=== PATIENT | male | born 1935 | race African-American/Black ===

== ENCOUNTER 2016-05-21 20:21 | Inpatient (IN) | payer MEDICARE, OTHER, MEDICAID ==
[~2016-05-21] VITALS: Ht 167.6 cm; Wt 94.8 kg
[2016-05-21] MEDS: D5 1/2NS 1,000 ML IV SCH (17:40)
[~2016-05-21 20:21] MED LIST: ALBUTEROL2.5 MG/3 M HHN; ATROVENT INH S2.5 ML HHN; CARDIZEM30 MG ORAL; CATAPRES0.1 MG GT; COLACE100 MG GT; COLISTIN150 MG INH; COZAAR50 MG GT; FERROUS SULFAT325 MG GT; HEPARIN SO5000 UNIT/ IJ; MORPHINE SU2 MG/1 ML IJ; MORPHINE SU4 MG/1 ML IJ; NORVASC10 MG GT; PHENERGAN/CODE120 ML GT; PROTONIX40 MG GT; TENORMIN25 MG GT; TYLENOL 8 HOUR650 MG GT; VITAMIN C500 MG/15 GT
--- NOTE | 2016-05-21 20:21 | Emergency Room Report ---
History of Present Illness General Chief Complaint: Vomiting Source: Medical Record, EMS (Pedro Washington) Present Illness HPI Patient is 80-year-old male who presented after having increased coffee-ground emesis. Patient had prior history of tracheostomy and ventilator dependence. Patient was also noted be fed by G-tube. Patient was noted to have some dark material coming out of his tracheostomy tube. The patient had been sent in by EMS. History is markedly limited by patient's mental status. (Pedro Washington) Allergies: Coded Allergies: No Known Allergies (Verified , 08/19/07) Patient History Reviewed Nursing Documentation: PMH: Agreed, PSxH: Agreed (Pedro Washington) Nursing Documentation-PMH Past Medical History: No History, Except For Hx COPD: Yes - trach, vent dependent Hx Diabetes: Yes - dm2 Hx Gastrointestinal Problems: Yes - GERD, G tube Hx Seizures: Yes (Pedro Washington) Review of Systems All Other Systems: limited - limited by mental status (Pedro Washington) Physical Exam Vital Signs Date Time Temp Pulse Resp B/P Pulse Ox O2 Delivery O2 Flow Rate FiO2 05/21/16 20:15 68 22 131/57 99 Ambu-Bag General Appearance: moderate distress, other - nonverbal, eyes open, contracted extremities Head: normocephalic Eyes: bilateral eye PERRL ENT: other - coffee ground material in oropharynx Respiratory: decreased breath sounds Cardiovascular #1: normal peripheral pulses, edema Gastrointestinal: soft, non-distended, other - gtube site c/D/I Genitourinary: normal inspection Musculoskeletal: other - contracted extremities Neurologic: motor weakness - bilateral upper and lower extremities, other - grimaces and withdraws Skin: normal inspection, normal color (Pedro Washington) Procedures Critical Care Time Critical Care Time Patient had a critical medical condition which untreated could potentially result in life or limb threatening injury. Total critical care time excluding procedures approximately 45 minutes. (Pedro Washington) Central Line Central Line : Consent: Emergent Central Line Lumen: triple Maximal Sterile Barrier Tech: yes cap, yes mask, yes sterile gown, yes sterile gloves, yes large sterile sheet, yes hand hygiene, yes chlorhexidine prep Central Line Postion: subclavian (R) Anesthesia: Lidocaine - 3ml Complications: none Central Line Post Position: sutured, good blood return, position confirmed w / CXR Attempts: One Patient Tolerated: Well Complications: None (Pedro Washington) Medical Decision Making Diagnostic Impression: Primary Impression: Acute on chronic respiratory failure Additional Impressions: Sepsis Upper GI hemorrhage Gastrostomy in place ER Course Patient presented for blood from tracheostomy. Differential diagnosis included was not limited to the tracheitis, pneumonia, coagulopathy, GI bleed, the trachea fistula among others. Because of complexity of patient's case laboratory testing and imaging studies were ordered.I laboratory testing showed evidence of elevated white blood count as well as anemia. Patient started on IV acid blockers. He was type and screened for blood.Dr. Raymond was contacted for inpatient management due to complexity of medical condition. The patient was given empiric antibiotics Labs Test 05/21/16 20:22 05/21/16 20:45 Arterial Blood pH 7.638 (7.350-7.450) Arterial Blood Partial Pressure CO2 32.2 mmHg (35.0-45.0) Arterial Blood Partial Pressure O2 167.0 mmHg (75.0-100.0) Arterial Blood HCO3 33.7 mmol/L (22.0-26.0) Arterial Blood Oxygen Saturation 98.4 % (92.0-98.0) Arterial Blood Base Excess 12.2 Pablito Test N/a White Blood Count 18.8 K/UL (4.8-10.8) Red Blood Count 3.00 M/UL (4.70-6.10) Hemoglobin 9.0 G/DL (14.2-18.0) Hematocrit 27.3 % (42.0-52.0) Mean Corpuscular Volume 91 FL (80-99) Mean Corpuscular Hemoglobin 30.1 PG (27.0-31.0) Mean Corpuscular Hemoglobin Concent 33.1 G/DL (32.0-36.0) Red Cell Distribution Width 17.6 % (11.6-14.8) Platelet Count 254 K/UL (150-450) Mean Platelet Volume 6.8 FL (6.5-10.1) Neutrophils (%) (Auto) % (45.0-75.0) Lymphocytes (%) (Auto) % (20.0-45.0) Monocytes (%) (Auto) % (1.0-10.0) Eosinophils (%) (Auto) % (0.0-3.0) Basophils (%) (Auto) % (0.0-2.0) Prothrombin Time 11.6 SEC (9.30-11.50) Prothromb Time International Ratio 1.1 (0.9-1.1) Activated Partial Thromboplast Time 28 SEC (23-33) Sodium Level 133 mEQ/L (135-145) Potassium Level 3.4 mEQ/L (3.4-4.9) Chloride Level 88 mEQ/L (98-107) Carbon Dioxide Level 33 mEQ/L (20-30) Anion Gap 12 (5-15) Blood Urea Nitrogen 33 mg/dL (7-23) Creatinine 0.7 mg/dL (0.7-1.2) Estimat Glomerular Filtration Rate mL/min (>60) Glucose Level 114 mg/dL (74-106) Lactic Acid Level 1.80 mmol/L (0.66-2.22) Calcium Level 9.0 mg/dL (8.6-10.2) Total Bilirubin 0.6 mg/dL (0.0-1.2) Aspartate Amino Transf (AST/SGOT) 15 U/L (5-40) Alanine Aminotransferase (ALT/SGPT) 14 U/L (3-41) Alkaline Phosphatase 69 U/L (40-129) Troponin I < 0.30 ng/mL (<=0.30) Total Protein 7.4 g/dL (6.6-8.7) Albumin 3.2 g/dL (3.5-5.2) Globulin 4.2 g/dL Albumin/Globulin Ratio 0.7 (1.0-2.7) Lipase 9 U/L (< 60) (Pedro Washington) ER Course Patient with vomiting coffee grounds and blood. H/H has dropped 2 points and is below 8. Transfusion had been discussed with son. Transfusion ordered. (Avi Garcia M.D.) Last Vital Signs Date Time Temp Pulse Resp B/P Pulse Ox O2 Delivery O2 Flow Rate FiO2 05/21/16 20:15 68 22 131/57 99 Ambu-Bag Status: unchanged (Pedro Washington) Disposition: ADMITTED INPATIENT Condition: Serious Pedro Washington May 21, 2016 20:21 Avi Garcia M.D. May 22, 2016 04:55
[2016-05-21] MEDS ORDERED: Pantoprazole Inj IV ONE (20:30)
[2016-05-21 20:51] LABS: ABG BASE EXCESS 12.2; ABG PCO2 32.2 mmHg (35.0-45.0)
[2016-05-21 21:15] LABS: ALANINE AMINOTRANSFERASE 14 U/L (3-41); ALBUMIN/GLOBULIN RATIO 0.7 (1.0-2.7); ANION GAP 12 (5-15); ASPARTATE AMINO TRANSFERASE 15 U/L (5-40); CARBON DIOXIDE 33 mEQ/L (20-30); CHLORIDE 88 mEQ/L (98-107); CREATININE 0.7 mg/dL (0.7-1.2); HEMOLYSIS 6; LIPASE 9 U/L (< 60); POTASSIUM 3.4 mEQ/L (3.4-4.9); SODIUM 133 mEQ/L (135-145); TOTAL PROTEIN 7.4 g/dL (6.6-8.7)
[2016-05-21] MEDS ORDERED: Tubing IV Cassette IV ONE (21:16)
[2016-05-21 21:20] LABS: MEAN CORPUSCULAR HEMOGLOBIN 30.1 PG (27.0-31.0); MEAN CORPUSCULAR HGB CONC 33.1 G/DL (32.0-36.0); MEAN CORPUSCULAR VOLUME 91 FL (80-99); MEAN PLATELET VOLUME 6.8 FL (6.5-10.1); PLATELET COUNT 254 K/UL (150-450); RED CELL DISTRIBUTION WIDTH 17.6 % (11.6-14.8); WHITE BLOOD COUNT 18.8 K/UL (4.8-10.8)
[2016-05-21 21:27] LABS: INR 1.1 (0.9-1.1); PROTHROMBIN TIME 11.6 SEC (9.30-11.50)
[2016-05-21 21:34] LABS: TROPONIN I < 0.30 ng/mL (<=0.30)
[2016-05-21 21:59] VITALS: BP 110/59
[2016-05-21] MEDS ORDERED: Ampicillin/Sulbactam Sod 3 GM in NS 110 ML IVPB ONE (22:00)
[2016-05-21] MEDS ORDERED: Nitroglycerin Subl 0.4mg tab (Bottle Of 25) SL PRN (22:00)
[2016-05-21] MEDS: DuoNeb 0.5-3(2.5)mg/3ml neb HHN SCH ×2 (22:00→23:00)
[2016-05-21] MEDS ORDERED: Mylanta II UD 30ml ORAL PRN (22:00)
[2016-05-21] MEDS ORDERED: Miralax 17gm pkt ORAL PRN (22:00)
[2016-05-21] MEDS ORDERED: Unasyn 3gm Inj ONE (22:01)
[2016-05-21] MEDS ORDERED: NS 110 ML ONE (22:01)
[2016-05-21 22:13] LABS: APPEARANCE,URINE CLOUDY; KETONES,URINE 1+ (NEGATIVE); LEUKOCYTE ESTERASE ,URINE 3+ (NEGATIVE); NITRITE,URINE NEGATIVE (NEGATIVE); PH,URINE 7 (4.5-8.0); PROTEIN,URINE 3+ (NEGATIVE); UROBILINOGEN,URINE 1 MG/DL (0.0-1.0)
[2016-05-21 22:23] LABS: BACTERIA,URINE MODERATE /HPF; RBC,URINE 15-20 /HPF (0 - 0); WBC,URINE 60-80 /HPF (0 - 0)
[2016-05-21 22:26] LABS: ANISOCYTOSIS 1+; BAND NEUTROPHILS % (MANUAL) 1 % (0-8); LYMPHOCYTES % (MANUAL) 9 % (20-45); NEUTROPHILS % (MANUAL) 86 % (45-75); PLATELET MORPHOLOGY NORMAL; TOTAL CELLS COUNTED 100
[2016-05-21 22:27] LABS: BASOPHILS % (MANUAL) 0 % (0-2); EOSINOPHILS % (MANUAL) 0 % (0-3); PLATELET ESTIMATE ADEQUATE
[2016-05-21 23:21] VITALS: BP 90/70
[2016-05-22] VITALS (10 sets, daily range): BP systolic 100–142; BP diastolic 49–98
[2016-05-22] MEDS ORDERED: Acetaminophen 650 MG SUPP RECTAL ONE (01:15)
[2016-05-22 04:37] LABS: MEAN CORPUSCULAR HEMOGLOBIN 28.8 PG (27.0-31.0); MEAN CORPUSCULAR HGB CONC 31.7 G/DL (32.0-36.0); MEAN CORPUSCULAR VOLUME 91 FL (80-99); MEAN PLATELET VOLUME 6.7 FL (6.5-10.1); PLATELET COUNT 227 K/UL (150-450); RED BLOOD COUNT 2.66 M/UL (4.70-6.10); RED CELL DISTRIBUTION WIDTH 17.7 % (11.6-14.8); WHITE BLOOD COUNT 12.7 K/UL (4.8-10.8)
[2016-05-22 05:02] LABS: INR 1.2 (0.9-1.1); PROTHROMBIN TIME 12.1 SEC (9.30-11.50)
[2016-05-22 05:06] LABS: ALANINE AMINOTRANSFERASE 13 U/L (3-41); ALBUMIN/GLOBULIN RATIO 0.7 (1.0-2.7); ASPARTATE AMINO TRANSFERASE 15 U/L (5-40); CALCIUM 8.5 mg/dL (8.6-10.2); CARBON DIOXIDE 33 mEQ/L (20-30); CHLORIDE 91 mEQ/L (98-107); CREATININE 0.7 mg/dL (0.7-1.2); HEMOLYSIS 4; SODIUM 137 mEQ/L (135-145); TOTAL PROTEIN 6.6 g/dL (6.6-8.7)
[2016-05-22 05:11] LABS: ANION GAP 13 (5-15)
[2016-05-22 05:13] LABS: POTASSIUM 2.6 mEQ/L (3.4-4.9)
[2016-05-22 05:29] LABS: BILIRUBIN,DIRECT 0.3 mg/dL (0.1-0.3)
[2016-05-22] MEDS: DuoNeb 0.5-3(2.5)mg/3ml neb HHN SCH ×3 (07:00→23:17)
[2016-05-22] MEDS ORDERED: AMLODIPINE BESY10 MG GT (07:21)
[2016-05-22] MEDS ORDERED: PROMOD946 ML GT (07:21)
[2016-05-22] MEDS ORDERED: EPOGEN20000 UNI1 SUBQ (07:21)
[2016-05-22] MEDS ORDERED: FERROUS SULFAT325 MG GT (07:21)
[2016-05-22] MEDS ORDERED: CATAPRES0.1 MG GT (07:21)
[2016-05-22] MEDS ORDERED: MULTIVITAMINS1 EAC8 GT (07:21)
[2016-05-22] MEDS ORDERED: OYSTER SHELL 51 EAC1 GT (07:21)
--- NOTE | 2016-05-22 09:25 | Diagnostic Imaging Report ---
Indication: Gastrostomy tube, check for placement Technique: XRAY ABDOMEN 1VIEW/KUB Comparison: None. Findings: Single view of the upper abdomen is present. Contrast has been injected and a gastrostomy tube. Stomach fills with contrast material. Contrast refluxes up the esophagus. Patient's arms overlie the lower chest. Impression: Gastrostomy tube in the stomach. 3 for contrast material into the esophagus.
--- NOTE | 2016-05-22 09:36 | Diagnostic Imaging Report ---
Indication: SOB Technique: XRAY CHEST 1 V Comparison:06/02/2014 Findings: The patient's hands overlie the lower chest. There is linear density in the right lung base. Calcified granulomas noted in the right lung base. Patient has taken a poor inspiration. Heart is probably at the upper limits of normal. Tracheostomy is in place. Bones are osteopenic. No other gross change from previous study. Impression: Tracheostomy. Old granulomatous disease. Scarring or atelectasis the right base. Osteopenia. No other gross abnormality.
[2016-05-22] MEDS: Losartan 50mg tab GT SCH (09:52)
[2016-05-22] MEDS: Morphine Sulfate 2mg/ml Inj IVP PRN ×2 (09:53→23:53)
[2016-05-22] MEDS: Pantoprazole Inj IVP SCH (09:53)
[2016-05-22] MEDS: D5 1/2NS 1,000 ML IV SCH ×3 (09:54→20:30)
--- NOTE | 2016-05-22 10:14 | Diagnostic Imaging Report ---
Indication: Line placement Technique: XRAY CHEST 1 V Comparison: Current exam obtained at 2202 compared with one obtained earlier 05/21/2016 at 2054. Findings: The right subclavian catheter has been placed with the tip in the superior cavoatrial junction. No pneumothorax. No other change. Impression: Right subclavian catheter and adequate position.
--- NOTE | 2016-05-22 15:00 | History and Physical ---
History of Present Illness General Date patient seen: May 22, 2016 Time patient seen: 13:30 Reason for Hospitalization: Vomiting Present Illness HPI 80-year-old male with hx of VDRF, tarch,s eziure disorder, dysphagia, G tube, presented after having coffee-ground emesis. Patient was also noted in SNF to have some dark material coming out of his tracheostomy tube. Patient unable to provide any hsitroy due to his condition. workup in ED revealed fever, tachycardia, tachypnea. leukocytosis, ABG revealed acidosis UA+ UTI CXR with possible PNA HH dropped from 9 to 7.7 over night patient admitted for further management Allergies: Coded Allergies: No Known Allergies (Verified , 08/19/07) Medication History Scheduled Acetaminophen (Tylenol 8 Hour), 650 MG GT Q4HR, (Reported) Albuterol Sulfate* (Albuterol Sulfate Hhn*), 2.5 MG HHN Q6H, (Reported) Amlodipine Besylate* (Amlodipine Besylate*), 10 MG GT DAILY, (Reported) Clonidine Hcl* (Catapres*), 0.1 MG GT EVERY 4 HOURS, (Reported) Diltiazem HCl (Diltiazem 12Hr ER), 30 MG ORAL BID Docusate Sodium* (Colace*), 100 MG GT BID, (Reported) Ferrous Sulfate* (Ferrous Sulfate*), 330 MG GT THREE TIMES A DAY, (Reported) Heparin Sodium,Porcine/Pf (Heparin Sod 5,000 Unit/ 0.5 Ml), 5,000 UNIT IJ BID, ( Reported) Ipratropium [place] (Atrovent Inh Soln), 2.5 ML HHN Q6H, (Reported) Losartan Potassium* (Cozaar*), 100 MG GT DAILY, (Reported) Morphine Sulfate (Morphine Sulfate), 4 MG IJ Q4HR, (Reported) Morphine Sulfate* (Morphine Sulfate*), 6 MG IJ Q4H, (Reported) Multivitamin With Minerals (Multivitamins With Minerals*), 1 TAB GT DAILY, ( Reported) Pantoprazole* (Protonix*), 40 MG GT DAILY, (Reported) Promethazine/Codeine* (Phenergan/Codeine*), 5 ML GT Q6HR, (Reported) Protein Supplement (Promod), 30 ML GT TWICE A DAY, (Reported) Vit C/Ascorbate Ca/Ascorb Sod (Vitamin C 500 Mg/15 Ml Liquid), 500 MG GT DAILY, (Reported) Miscellaneous Medications Calcium Carbonate/Vitamin D3 (Oyster Shell 500 Mg + Vit D Tb), 1 EACH GT, ( Reported) Epoetin Jovani (Epogen), 1 ML SUBQ, (Reported) Patient History Healthcare decision maker Resuscitation status Advanced Directive on File Yes Past Medical/Surgical History Past Medical/Surgical History: (1) Feeding by G-tube (2) DM (diabetes mellitus) (3) Sepsis (4) Seizure disorder (5) Renal failure (6) Anemia (7) Chronic respiratory failure (8) Upper GI hemorrhage (9) UTI (urinary tract infection) Review of Systems ROS Narrative unable to obtain due to ALOC Physical Exam General Appearance: lethargic, obese Lines, tubes and drains: central line - R subclavian HEENT: normocephalic, atraumatic, status post trach Respiratory/Chest: other - few isolated rhonchi Cardiovascular/Chest: regular rhythm, tachycardia Abdomen: soft, other - G tube clamped Extremities: other - spastic LE Neurologic: abnormal gait - bedridden , other - lethargic, spastic LE Last 24 Hour Vital Signs Date Time Temp Pulse Resp B/P Pulse Ox O2 Delivery O2 Flow Rate FiO2 05/22/16 13:09 96 22 30 05/22/16 12:00 30 05/22/16 12:00 75 05/22/16 12:00 98.4 75 16 133/74 100 Mechanical Ventilator 30 05/22/16 11:00 61 20 30 05/22/16 09:52 142/64 05/22/16 09:52 109 142/64 05/22/16 09:20 98.6 109 17 142/64 100 Mechanical Ventilator 30 05/22/16 08:47 109 16 30 05/22/16 08:10 100.8 75 14 130/72 100 Mechanical Ventilator 30 05/22/16 07:01 95 14 113/57 100 Trach Collar 30 05/22/16 06:31 124 18 30 05/22/16 05:44 100.8 100 14 114/68 100 Trach Collar 30 05/22/16 05:25 121 26 30 05/22/16 04:20 104 14 122/98 100 Trach Collar 05/22/16 03:20 109 14 115/56 100 Trach Collar 30 05/22/16 03:18 129 35 30 05/22/16 02:10 100.1 130 14 110/80 100 Trach Collar 30 05/22/16 01:52 30 05/22/16 01:34 100.1 05/22/16 01:14 149 29 30 05/22/16 01:01 101.0 126 14 100/49 100 Trach Collar 30 05/21/16 23:21 100.6 125 14 90/70 100 Trach Collar 30 05/21/16 23:16 126 26 30 05/21/16 21:59 100.5 129 14 110/59 100 Trach Collar 30 05/21/16 20:59 30 05/21/16 20:58 30 05/21/16 20:31 129 33 45 05/21/16 20:27 129 33 Mechanical Ventilator 45 05/21/16 20:21 45 05/21/16 20:15 68 22 131/57 99 Ambu-Bag Intake and Output 05/21/16 05/22/16 19:00 07:00 Intake Total 1110 ml Output Total 233 ml Balance 877 ml Intake IV Total 1110 ml Output Urine Total 233 ml Laboratory Tests Test 05/21/16 20:22 05/21/16 20:45 05/21/16 21:40 05/22/16 04:27 Arterial Blood pH 7.638 (7.350-7.450) Arterial Blood Partial Pressure CO2 32.2 mmHg (35.0-45.0) L Arterial Blood Partial Pressure O2 167.0 mmHg (75.0-100.0) H Arterial Blood HCO3 33.7 mmol/L (22.0-26.0) H Arterial Blood Oxygen Saturation 98.4 % (92.0-98.0) H Arterial Blood Base Excess 12.2 P[place]ito Test N/a White Blood Count 18.8 K/UL (4.8-10.8) H 12.7 K/UL (4.8-10.8) H Red Blood Count 3.00 M/UL (4.70-6.10) L 2.66 M/UL (4.70-6.10) L Hemoglobin 9.0 G/DL (14.2-18.0) L 7.7 G/DL (14.2-18.0) L Hematocrit 27.3 % (42.0-52.0) L 24.2 % (42.0-52.0) L Mean Corpuscular Volume 91 FL (80-99) 91 FL (80-99) Mean Corpuscular Hemoglobin 30.1 PG (27.0-31.0) 28.8 PG (27.0-31.0) Mean Corpuscular Hemoglobin Concent 33.1 G/DL (32.0-36.0) 31.7 G/DL (32.0-36.0) L Red Cell Distribution Width 17.6 % (11.6-14.8) H 17.7 % (11.6-14.8) H Platelet Count 254 K/UL (150-450) 227 K/UL (150-450) Mean Platelet Volume 6.8 FL (6.5-10.1) 6.7 FL (6.5-10.1) Neutrophils (%) (Auto) % (45.0-75.0) % (45.0-75.0) Lymphocytes (%) (Auto) % (20.0-45.0) % (20.0-45.0) Monocytes (%) (Auto) % (1.0-10.0) % (1.0-10.0) Eosinophils (%) (Auto) % (0.0-3.0) % (0.0-3.0) Basophils (%) (Auto) % (0.0-2.0) % (0.0-2.0) Differential Total Cells Counted 100 Neutrophils % (Manual) 86 % (45-75) H Lymphocytes % (Manual) 9 % (20-45) L Monocytes % (Manual) 4 % (1-10) Eosinophils % (Manual) 0 % (0-3) Basophils % (Manual) 0 % (0-2) Band Neutrophils 1 % (0-8) Platelet Estimate Adequate Platelet Morphology Normal Anisocytosis 1+ Prothrombin Time 11.6 SEC (9.30-11.50) H 12.1 SEC (9.30-11.50) H Prothromb Time International Ratio 1.1 (0.9-1.1) 1.2 (0.9-1.1) H Activated Partial Thromboplast Time 28 SEC (23-33) 28 SEC (23-33) Sodium Level 133 mEQ/L (135-145) L 137 mEQ/L (135-145) Potassium Level 3.4 mEQ/L (3.4-4.9) 2.6 mEQ/L (3.4-4.9) *L Chloride Level 88 mEQ/L (98-107) L 91 mEQ/L (98-107) L Carbon Dioxide Level 33 mEQ/L (20-30) H 33 mEQ/L (20-30) H Anion Gap 12 (5-15) 13 (5-15) Blood Urea Nitrogen 33 mg/dL (7-23) H 34 mg/dL (7-23) H Creatinine 0.7 mg/dL (0.7-1.2) 0.7 mg/dL (0.7-1.2) Estimat Glomerular Filtration Rate mL/min (>60) mL/min (>60) Glucose Level 114 mg/dL (74-106) H 98 mg/dL (74-106) Lactic Acid Level 1.80 mmol/L (0.66-2.22) Calcium Level 9.0 mg/dL (8.6-10.2) 8.5 mg/dL (8.6-10.2) L Total Bilirubin 0.6 mg/dL (0.0-1.2) 1.1 mg/dL (0.0-1.2) Aspartate Amino Transf (AST/SGOT) 15 U/L (5-40) 15 U/L (5-40) Alanine Aminotransferase (ALT/SGPT) 14 U/L (3-41) 13 U/L (3-41) Alkaline Phosphatase 69 U/L (40-129) 58 U/L (40-129) Troponin I < 0.30 ng/mL (<=0.30) Total Protein 7.4 g/dL (6.6-8.7) 6.6 g/dL (6.6-8.7) Albumin 3.2 g/dL (3.5-5.2) L 2.9 g/dL (3.5-5.2) L Globulin 4.2 g/dL 3.7 g/dL Albumin/Globulin Ratio 0.7 (1.0-2.7) L 0.7 (1.0-2.7) L Lipase 9 U/L (< 60) Urine Color Yellow Urine Appearance Cloudy Urine pH 7 (4.5-8.0) Urine Specific [place] [employer] 1.015 (1.005-1.035) Urine Protein 3+ (NEGATIVE) H Urine Glucose (UA) Negative (NEGATIVE) Urine Ketones 1+ (NEGATIVE) H Urine Occult Blood 5+ (NEGATIVE) H Urine Nitrite Negative (NEGATIVE) Urine Bilirubin Negative (NEGATIVE) Urine Urobilinogen 1 MG/DL (0.0-1.0) H Urine Leukocyte Esterase 3+ (NEGATIVE) H Urine RBC 15-20 /HPF (0 - 0) H Urine WBC 60-80 /HPF (0 - 0) H Urine Squamous Epithelial Cells None /LPF (NONE/OCC) Urine Bacteria Moderate /HPF (NONE) H Direct Bilirubin 0.3 mg/dL (0.1-0.3) Microbiology Date/Time Source Procedure Growth Status 05/21/16 20:20 Sputum Induced Gram Stain - Final Resulted 05/21/16 20:20 Sputum Induced Sputum Culture Pending Resulted 05/21/16 21:40 Urine,Clean Catch Urine Culture - Preliminary Resulted Height (Feet): 5 Height (Inches): 7.00 Weight (Pounds): 210 Medications Current Medications Medications (Trade) Dose Ordered Sig/Jaswant Route PRN Reason Start Time Stop Time Status Last Admin Dose Admin Acetaminophen (Tylenol) 650 mg Q4H PRN ORAL fever 05/21/16 22:00 06/20/16 21:59 Al Hydroxide/Mg Hydroxide (Mylanta II) 30 ml Q6H PRN ORAL dyspepsia 05/21/16 22:00 06/20/16 21:59 Albuterol/ Ipratropium (DuoNeb 0.5-3(2.5)mg/3ml) 3 ml Q8HRT HHN 05/21/16 22:00 05/26/16 21:59 Dextrose (Dextrose 50%) STAT PRN IV Hypoglycemia 05/21/16 22:00 06/20/16 21:59 Dextrose/Sodium Chloride (D5 0.45% NS) 1,000 ml @ 75 mls/hr [id number] IV 05/21/16 17:40 06/20/16 17:39 05/22/16 09:56 Diltiazem HCl (Cardizem) 30 mg BID ORAL 05/22/16 09:00 06/21/16 08:59 05/22/16 09:52 Diphenhydramine HCl (Benadryl) 25 mg Q6H PRN ORAL Itching/Pruritis 05/21/16 22:00 06/20/16 21:59 Losartan Potassium 100 mg 100 mg DAILY GT 05/22/16 09:00 06/21/16 08:59 05/22/16 09:52 Morphine Sulfate (Morphine Sulfate) 2 mg Q4H PRN IVP severe Pain (Pain Scale 7-10) 05/21/16 22:00 05/28/16 21:59 05/22/16 09:53 Nitroglycerin (Ntg) 0.4 mg Q5M X 3 DOSES PRN SL Prn Chest Pain 05/21/16 22:00 06/20/16 21:59 Ondansetron HCl (Zofran) 4 mg Q6H PRN IVP Nausea & Vomiting 05/21/16 22:00 06/20/16 21:59 05/22/16 09:53 Pantoprazole (Protonix) 40 mg DAILY IVP 05/22/16 09:00 06/21/16 08:59 05/22/16 09:53 Polyethylene Glycol (Miralax) 17 gm HSPRN PRN ORAL Constipation 05/21/16 22:00 06/20/16 21:59 Assessment/Plan Assessment/Plan ASSESSMENT sepsis upper GI hemorrhage acute on chronic respiratory failure VDRF/trach possible UTI possible PNA dehydration hypokalemia dysphagia G tube anemia seizure disorder encephalopathy PLAN OF CARE RADHA IVF hold GT feeding GI eval transfuse 1 u PRBC today GI prophylaxis panculture start empiric abx ID consult vent/trach care pulmonary toetil ABG and CXR in am BP management with ARB and optimize as needed monitor renal parameters, avoid nephrotoxic replace K, check K and Mg in am venous Duplex BLE case discussed and evaluated by supervising physician Gonsalo Don)Guillermina NP May 22, 2016 15:00
[2016-05-22 16:22] LABS: ANION GAP 14 (5-15); CALCIUM 8.7 mg/dL (8.6-10.2); CARBON DIOXIDE 32 mEQ/L (20-30); CHLORIDE 94 mEQ/L (98-107); CREATININE 0.8 mg/dL (0.7-1.2); HEMOLYSIS 4; SODIUM 140 mEQ/L (135-145)
[2016-05-22] MEDS: Piperacillin/Tazobactam 3.375 GM in D5W 110 ML IVPB SCH ×2 (16:33→23:05)
[2016-05-22] MEDS: Vancomycin 1.5 GM in D5W 325 ML IVPB SCH (20:30)
[2016-05-23 00:59] VITALS: BP 156/82
[2016-05-23 04:00] VITALS: BP 107/70
[2016-05-23 04:52] LABS: BASOPHILS % (AUTO) 0.7 % (0.0-2.0); EOSINOPHILS % (AUTO) 0.7 % (0.0-3.0); LYMPHOCYTES % (AUTO) 13.6 % (20.0-45.0); MEAN CORPUSCULAR HEMOGLOBIN 29.5 PG (27.0-31.0); MEAN CORPUSCULAR HGB CONC 32.5 G/DL (32.0-36.0); MEAN CORPUSCULAR VOLUME 91 FL (80-99); MEAN PLATELET VOLUME 7.5 FL (6.5-10.1); MONOCYTES % (AUTO) 7.3 % (1.0-10.0); NEUTROPHILS % (AUTO) 77.7 % (45.0-75.0); PLATELET COUNT 218 K/UL (150-450); RED BLOOD COUNT 3.61 M/UL (4.70-6.10); RED CELL DISTRIBUTION WIDTH 15.9 % (11.6-14.8)
[2016-05-23 05:21] LABS: ALANINE AMINOTRANSFERASE 21 U/L (3-41); ALBUMIN/GLOBULIN RATIO 0.7 (1.0-2.7); ANION GAP 15 (5-15); ASPARTATE AMINO TRANSFERASE 24 U/L (5-40); CALCIUM 8.3 mg/dL (8.6-10.2); CARBON DIOXIDE 29 mEQ/L (20-30); CHLORIDE 96 mEQ/L (98-107); CREATININE 0.9 mg/dL (0.7-1.2); HEMOLYSIS 1; MAGNESIUM 1.9 mg/dL (1.7-2.5); POTASSIUM 2.8 mEQ/L (3.4-4.9); SODIUM 140 mEQ/L (135-145); TOTAL PROTEIN 7.1 g/dL (6.6-8.7)
[2016-05-23 06:05] LABS: BILIRUBIN,DIRECT 0.8 mg/dL (0.1-0.3)
[2016-05-23] MEDS: DuoNeb 0.5-3(2.5)mg/3ml neb HHN SCH ×3 (06:58→22:58)
[2016-05-23 08:00] VITALS: BP 101/62
[2016-05-23] MEDS: Piperacillin/Tazobactam 3.375 GM in D5W 110 ML IVPB SCH ×2 (08:08→15:59)
[2016-05-23] MEDS: Pantoprazole Inj IVP SCH (08:31)
[2016-05-23] MEDS: Losartan 50mg tab GT SCH (08:33)
[2016-05-23 09:46] LABS: ABG ALLEN TEST POSITIVE; ABG BASE EXCESS 6.7; ABG PCO2 28.3 mmHg (35.0-45.0)
[2016-05-23 12:00] VITALS: BP 118/81
[2016-05-23] MEDS ORDERED: Propofol 10mg/ml 20ml IV ONE (12:00)
--- NOTE | 2016-05-23 13:01 | Pulmonology Progress Note ---
Assessment/Plan Problems: (1) Upper GI hemorrhage (2) Acute on chronic respiratory failure (3) Feeding by G-tube (4) UTI (urinary tract infection) (5) UTI (urinary tract infection) (6) DM (diabetes mellitus) Respiratory: monitor respiratory rate, adjust FIO2 Cardiac: continue pressors, stop pressors, continue to monitor HR/BP Renal: F/U I&O, keep IV fluid Infectious Disease: check cultures Gastrointestinal: continue feedings/current rate Endocrine: monitor blood sugar, check TSH, check HgA1C Neurologic: PRN Ativan, PRN Morphine Affect: PRN ativan Prophylaxis: Protonix Notes Reviewed: ID, GI Discussed with: nurses, consultants Subjective ROS Limited/Unobtainable: Yes - comfortable Allergies: Coded Allergies: No Known Allergies (Verified , 08/19/07) Objective Last 24 Hour Vital Signs Date Time Temp Pulse Resp B/P Pulse Ox O2 Delivery O2 Flow Rate FiO2 05/23/16 12:00 97.2 88 16 118/81 100 Mechanical Ventilator 30 05/23/16 11:16 89 18 30 05/23/16 09:30 85 18 30 05/23/16 08:33 101/62 05/23/16 08:00 97.1 87 18 101/62 100 Mechanical Ventilator 30 05/23/16 07:06 84 17 100 Mechanical Ventilator 30 05/23/16 06:58 84 17 100 Mechanical Ventilator 30 05/23/16 06:58 84 17 30 05/23/16 05:07 89 26 30 05/23/16 04:00 30 05/23/16 04:00 106 05/23/16 04:00 97.9 53 24 107/70 100 Mechanical Ventilator 30 05/23/16 02:40 87 25 30 05/23/16 01:32 98.2 05/23/16 01:11 88 26 30 05/23/16 00:59 98.2 86 32 156/82 99 Mechanical Ventilator 30 05/23/16 00:00 153 05/23/16 00:00 30 05/22/16 23:26 111 22 100 Mechanical Ventilator 30 05/22/16 23:17 93 24 99 Mechanical Ventilator 30 05/22/16 23:17 96 24 30 05/22/16 21:29 91 14 30 05/22/16 20:50 98.2 60 17 139/76 100 Mechanical Ventilator 30 05/22/16 20:00 97 05/22/16 20:00 30 05/22/16 19:13 95 14 30 05/22/16 17:53 111 139/68 05/22/16 16:42 111 20 30 05/22/16 16:00 78 05/22/16 16:00 98.4 77 18 139/68 100 Mechanical Ventilator 30 05/22/16 16:00 30 05/22/16 15:16 116 20 99 Mechanical Ventilator 30 05/22/16 15:01 90 19 99 Mechanical Ventilator 30 05/22/16 14:58 90 19 30 05/22/16 13:09 96 22 30 Intake and Output 05/22/16 05/23/16 19:00 07:00 Intake Total 302.5 ml 995.0 ml Output Total 1650 ml 700 ml Balance -1347.5 ml 295.0 ml Intake Free Water 100 ml IV Total 202.5 ml 995.0 ml Output Urine Total 1650 ml 700 ml # Bowel Movements 1 General Appearance: cachetic HEENT: normocephalic, anicteric Respiratory/Chest: chest wall non-tender, lungs clear Cardiovascular: normal peripheral pulses, normal rate Abdomen: normal bowel sounds, no organomegaly Extremities: no cyanosis, no clubbing Skin: no lesions Neurologic/Psychiatric: cray fishing hand II-XII grossly normal Lymphatic: no neck adenopathy Microbiology Date/Time Source Procedure Growth Status 05/21/16 20:45 Blood Blood Culture - Preliminary NO GROWTH AFTER 24 HOURS Resulted 05/21/16 20:40 Blood Blood Culture - Preliminary NO GROWTH AFTER 24 HOURS Resulted 05/21/16 20:20 Sputum Induced Gram Stain - Final Resulted 05/21/16 20:20 Sputum Induced Sputum Culture Pending Resulted 05/21/16 21:40 Urine,Clean Catch Urine Culture - Preliminary Gram Negative Bacillus 1 Resulted Laboratory Tests 05/22/16 15:20: Sodium Level 140, Potassium Level 3.0L, Chloride Level 94L, Carbon Dioxide Level 32H, Anion Gap 14, Blood Urea Nitrogen 34H, Creatinine 0.8, Estimat Glomerular Filtration Rate , Glucose Level 104, Calcium Level 8.7 05/23/16 04:00: Sodium Level 140, Potassium Level 2.8L, Chloride Level 96L, Carbon Dioxide Level 29, Anion Gap 15, Blood Urea Nitrogen 28H, Creatinine 0.9, Estimat Glomerular Filtration Rate , Glucose Level 106, Calcium Level 8.3L, White Blood Count 13.0H, Red Blood Count 3.61L, Hemoglobin 10.7#L, Hematocrit 32.8#L, Mean Corpuscular Volume 91, Mean Corpuscular Hemoglobin 29.5, Mean Corpuscular Hemoglobin Concent 32.5, Red Cell Distribution Width 15.9H, Platelet Count 218, Mean Platelet Volume 7.5, Neutrophils (%) (Auto) 77.7H, Lymphocytes (%) (Auto) 13.6L, Monocytes (%) (Auto) 7.3, Eosinophils (%) (Auto) 0.7, Basophils (%) (Auto ) 0.7, Magnesium Level 1.9, Total Bilirubin 2.3H, Direct Bilirubin 0.8H, Aspartate Amino Transf (AST/SGOT) 24, Alanine Aminotransferase (ALT/SGPT) 21, Alkaline Phosphatase 63, Total Protein 7.1, Albumin 3.0L, Globulin 4.1, Albumin/ Globulin Ratio 0.7L 05/23/16 09:30: Arterial Blood pH 7.610*H, Arterial Blood Partial Pressure CO2 28.3L, Arterial Blood Partial Pressure O2 142.1H, Arterial Blood HCO3 27.8H, Arterial Blood Oxygen Saturation 98.4H, Arterial Blood Base Excess 6.7, [place] Test Positive Current Medications Medications (Trade) Dose Ordered Sig/Jaswant Route PRN Reason Start Time Stop Time Status Last Admin Dose Admin Acetaminophen (Tylenol) 650 mg Q4H PRN ORAL fever 05/21/16 22:00 06/20/16 21:59 Al Hydroxide/Mg Hydroxide (Mylanta II) 30 ml Q6H PRN ORAL dyspepsia 05/21/16 22:00 06/20/16 21:59 Albuterol/ Ipratropium (DuoNeb 0.5-3(2.5)mg/3ml) 3 ml Q8HRT HHN 05/21/16 22:00 05/26/16 21:59 05/23/16 06:58 Dextrose (Dextrose 50%) STAT PRN IV Hypoglycemia 05/21/16 22:00 06/20/16 21:59 Dextrose/Sodium Chloride (D5 0.45% NS) 1,000 ml @ 75 mls/hr [id number] IV 05/21/16 17:40 06/20/16 17:39 05/22/16 20:30 Diltiazem HCl (Cardizem) 30 mg Q12HR ORAL 05/23/16 09:00 06/22/16 08:59 Diphenhydramine HCl (Benadryl) 25 mg Q6H PRN ORAL Itching/Pruritis 05/21/16 22:00 06/20/16 21:59 Losartan Potassium 100 mg 100 mg DAILY GT 05/22/16 09:00 06/21/16 08:59 05/23/16 08:33 Morphine Sulfate (Morphine Sulfate) 2 mg Q4H PRN IVP severe Pain (Pain Scale 7-10) 05/21/16 22:00 05/28/16 21:59 05/22/16 23:53 Nitroglycerin (Ntg) 0.4 mg Q5M X 3 DOSES PRN SL Prn Chest Pain 05/21/16 22:00 06/20/16 21:59 Ondansetron HCl (Zofran) 4 mg Q6H PRN IVP Nausea & Vomiting 05/21/16 22:00 06/20/16 21:59 05/22/16 09:53 Pantoprazole (Protonix) 40 mg DAILY IVP 05/22/16 09:00 06/21/16 08:59 05/23/16 08:31 Piperacillin Sod/ Tazobactam Sod 3.375 gm/Dextrose 110 ml @ 27.5 mls/hr Q8HR@0000,0800,1600 IVPB 05/22/16 16:00 05/29/16 15:59 05/23/16 08:08 Polyethylene Glycol (Miralax) 17 gm HSPRN PRN ORAL Constipation 05/21/16 22:00 06/20/16 21:59 Vancomycin HCl 1 ea 1 ea DAILY PRN MISC Per rx protocol 05/22/16 14:45 06/21/16 14:44 Vancomycin HCl/ Dextrose (Vancomycin/D5W) 325 ml @ 162.5 mls/ hr Q24H IVPB 05/22/16 20:00 05/27/16 19:59 05/22/16 20:30 PEDRO LUIS IVEY May 23, 2016 13:00
--- NOTE | 2016-05-23 13:02 | Pre-Procedure Note/Attestation ---
Pre-Procedure Note/Attestation Complete Prior to Procedure Planned Procedure: not applicable Procedure Narrative: egd Indications for Procedure Pre-Operative Diagnosis: gib Attestation I attest that I discussed the nature of the procedure; its benefits; risks and complications; and alternatives (and the risks and benefits of such alternatives ), prior to the procedure, with the patient (or the patient's legal retail field representative). I attest that, if there was a reasonable possibility of needing a blood transfusion, the patient (or the patient's legal retail field representative) was given the [facility] standardized written summary, pursuant to the Karl Laisha Blood Safety Act ([place] Health and Safety Code # 1645, as amended). I attest that I re-evaluated the patient just prior to the surgery and that there has been no change in the patient's H&P, except as documented below: GABI VIDES May 23, 2016 13:02
--- NOTE | 2016-05-23 13:13 | Endoscopy Procedure Note ---
Endoscopy Procedure Note Indication for Procedure: gib Procedures Performed: EGD Operative Findings/Diagnosis: esophagitis Specimen: yes Pt Tolerated Procedure Well: Yes Estimated Blood Loss: none Anesthesiologist: emmy Anesthesia: MAC Implant(s) used?: No 50 yrs or older w/o bx or poly: Not Applicable 10yrs. F/U not recommended: Not Applicable GABI VIDES May 23, 2016 13:13
--- NOTE | 2016-05-23 13:19 | Consultation ---
Consult Note Consult Note ID # [id number] MARGARETTE BRYANT M.D. May 23, 2016 13:19
--- NOTE | 2016-05-23 13:31 | Anethesia Preoperative Eval ---
Anesthesia Pre-op PMH/ROS General Date of Evaluation: May 23, 2016 Time of Evaluation: 12:52 Anesthesiologist: Stone ASA Score: ASA 4 Mallampati Score Class I : Soft palate, uvula, fauces, pillars visible Class II: Soft palate, uvula, fauces visible Class III: Soft palate, base of uvula visible Class IV: Only hard plate visible Mallampati Classification: Class III Surgeon: Walter Diagnosis: GI bleed Surgical Procedure: EGD Anesthesia History: none Family History: no anesthesia problems Allergies: Coded Allergies: No Known Allergies (Verified , 08/19/07) Past Medical History Cardiovascular: Reports: HTN, arrhythmia, Denies: CAD, [place], other, valve dz Pulmonary: Reports: other - respiratory failure , Denies: COPD, ARIEL, asthma Gastrointestinal/Genitourinary: Reports: other - Dysphagia PEG tube in place, Denies: CRI, ESRD, GERD Neurologic/Psychiatric: Reports: CVA, dementia Endocrine: Denies: DM, hypothyroidism, other, steroids HEENT: Denies: EGEGIK (L), EGEGIK (R), cataract (L), cataract (R), glaucoma, other Hematology/Immune: Reports: anemia, Denies: DVT, bleeding disorder, other Musculoskeletal/Integumentary: Reports: DJD, other - severe contractions, Denies: DDD, OA, RA, edema PMH Narrative: as above PSxH Narrative: see chart Anesthesia Pre-op Phys. Exam Physician Exam Last Vital Signs Date Time Temp Pulse Resp B/P Pulse Ox O2 Delivery O2 Flow Rate FiO2 05/23/16 12:46 87 18 30 05/23/16 12:00 97.2 118/81 100 Mechanical Ventilator Constitutional: NAD Neurologic: other - unable to obtaine Cardiovascular: other - IIR Respiratory: CTA Gastrointestinal: other - PEG tube Airway Exam Mallampati Score: Class III MO: limited Neck: Tracheostomy ROM: limited Teeth: missing Dentures: no lower, no upper Anesthesia Pre-op A/P Labs Hematology Test 05/23/16 04:00 White Blood Count 13.0 K/UL (4.8-10.8) H Red Blood Count 3.61 M/UL (4.70-6.10) L Hemoglobin 10.7 G/DL (14.2-18.0) #L Hematocrit 32.8 % (42.0-52.0) #L Mean Corpuscular Volume 91 FL (80-99) Mean Corpuscular Hemoglobin 29.5 PG (27.0-31.0) Mean Corpuscular Hemoglobin Concent 32.5 G/DL (32.0-36.0) Red Cell Distribution Width 15.9 % (11.6-14.8) H Platelet Count 218 K/UL (150-450) Mean Platelet Volume 7.5 FL (6.5-10.1) Neutrophils (%) (Auto) 77.7 % (45.0-75.0) H Lymphocytes (%) (Auto) 13.6 % (20.0-45.0) L Monocytes (%) (Auto) 7.3 % (1.0-10.0) Eosinophils (%) (Auto) 0.7 % (0.0-3.0) Basophils (%) (Auto) 0.7 % (0.0-2.0) Chemistry Test 05/22/16 15:20 05/23/16 04:00 Sodium Level 140 mEQ/L (135-145) 140 mEQ/L (135-145) Potassium Level 3.0 mEQ/L (3.4-4.9) L 2.8 mEQ/L (3.4-4.9) L Chloride Level 94 mEQ/L (98-107) L 96 mEQ/L (98-107) L Carbon Dioxide Level 32 mEQ/L (20-30) H 29 mEQ/L (20-30) Anion Gap 14 (5-15) 15 (5-15) Blood Urea Nitrogen 34 mg/dL (7-23) H 28 mg/dL (7-23) H Creatinine 0.8 mg/dL (0.7-1.2) 0.9 mg/dL (0.7-1.2) Estimat Glomerular Filtration Rate mL/min (>60) mL/min (>60) Glucose Level 104 mg/dL (74-106) 106 mg/dL (74-106) Calcium Level 8.7 mg/dL (8.6-10.2) 8.3 mg/dL (8.6-10.2) L Magnesium Level 1.9 mg/dL (1.7-2.5) Total Bilirubin 2.3 mg/dL (0.0-1.2) H Direct Bilirubin 0.8 mg/dL (0.1-0.3) H Aspartate Amino Transf (AST/SGOT) 24 U/L (5-40) Alanine Aminotransferase (ALT/SGPT) 21 U/L (3-41) Alkaline Phosphatase 63 U/L (40-129) Total Protein 7.1 g/dL (6.6-8.7) Albumin 3.0 g/dL (3.5-5.2) L Globulin 4.1 g/dL Albumin/Globulin Ratio 0.7 (1.0-2.7) L Risk Assessment & Plan Assessment: ASA 4 Plan: MAC Status Change Before Surgery: No Pre-Antibiotics Drug: none HILLARY DUPONT M.D. May 23, 2016 13:31
--- NOTE | 2016-05-23 13:33 | Immediate Post-Op Evaluation ---
Immediate Post-Op Evalulation Immediate Post-Op Evalulation Procedure: EGD with Bx Date of Evaluation: May 23, 2016 Time of Evaluation: 13:16 IV Fluids: 100 Blood Products: none Estimated Blood Loss: none Urinary Output: none Blood Pressure Systolic: 118 Blood Pressure Diastolic: 56 Pulse Rate: 84 Respiratory Rate: 16 O2 Sat by Pulse Oximetry: 98 Temperature (Fahrenheit): 97.6 Pain Score (1-10): 0 Nausea: No Vomiting: No Complications none Patient Status: no response, ventilated, none Hydration Status: adequate HILLARY DUPONT M.D. May 23, 2016 13:33
--- NOTE | 2016-05-23 13:35 | 48 Hour Post Anesthesia Eval ---
Post Anesthesia Evaluation Procedure: EGD with Bx Date of Evaluation: May 23, 2016 Time of Evaluation: 13:33 Blood Pressure Systolic: 116 0: 52 Pulse Rate: 89 Respiratory Rate: 20 Temperature (Fahrenheit): 97.6 O2 Sat by Pulse Oximetry: 98 Airway: patent, other - tracheostomy Nausea: No Vomiting: No Pain Intensity: 0 Hydration Status: adequate Cardiopulmonary Status: stable Mental Status/LOC: patient returned to baseline Follow-up Care/Observations: n/a Post-Anesthesia Complications: none Follow-up care needed: N/A HILLARY DUPONT M.D. May 23, 2016 13:35
--- NOTE | 2016-05-23 14:48 | Diagnostic Imaging Report ---
Indication: SOB Technique: One view of the chest Comparison: 05/21/2016 Findings:Patient's right arm overlies the right lower lung. Mild interstitial prominence persists. No new infiltrates. No definite effusions. Tracheostomy remains. Right subclavian central venous catheter remains Impression: Unchanged, over 2 days, findings as above.
[2016-05-23 16:00] VITALS: BP 114/63
[2016-05-23] MEDS: Vancomycin 1.5 GM in D5W 325 ML IVPB SCH (20:24)
[2016-05-23 20:52] VITALS: BP 108/62
--- NOTE | 2016-05-23 20:58 | Procedure Note ---
DATE OF PROCEDURE: 05/23/2016 SURGEON: Enrique Watson M.D. PROCEDURE: Upper endoscopy with biopsy. ANESTHESIOLOGIST: Fazal Ritter M.D. INSTRUMENT: Olympus adult flexible upper endoscope. INDICATION: Upper gastrointestinal bleeding. REASON FOR PROCEDURE: The procedure, risks, benefits, and possible consequences, including hemorrhage, aspiration, perforation and infection, and alternative treatments, were explained to the patient/legal guardian by Dr. Enrique Watson and the patient/legal guardian understood and accepted these risks. DESCRIPTION OF PROCEDURE: After informed consent was obtained and the patient was adequately sedated, Olympus upper endoscope was advanced from mouth into the second portion of the duodenum and retroflexion was performed in the stomach. The patient had evidence of diffuse esophagitis, most probably the source of bleeding. Also, evidence of small hiatal hernia. In the stomach, there was diffuse gastritis. Random biopsy from antrum was obtained to rule out H. pylori infection. We also pushed the G-tube in to look at under the G-tube, there was no evidence of bleeding at that area. The patient tolerated the procedure very well without any complication. SUMMARY OF FINDINGS: 1. Esophagitis. 2. Hiatal hernia. 3. Gastritis, status post biopsy. RECOMMENDATIONS: 1. Follow up biopsies and treat accordingly. 2. Continue on PPI. 3. Monitor hemoglobin and hematocrit, transfuse as needed. 4. Resume G-tube feeding. I want to thank, Dr. Raymond, for this kind referral. Enrique Watson M.D. DR: MANUELITO JOB#: [id number] CC: Soraida Raymond M.D.
--- NOTE | 2016-05-23 22:37 | Consultation ---
DATE OF CONSULTATION: INFECTIOUS DISEASE CONSULTATION CONSULTING PHYSICIAN: Dick Novoa M.D. REFERRING PHYSICIAN: Soraida Raymond M.D. REASON FOR CONSULTATION: Evaluation of the patient for sepsis and antibiotic management. HISTORY OF PRESENT ILLNESS: The patient is an 80-year-old male with multiple medical problems who has been admitted to this medical center after the patient had coffee-ground emesis. The patient was found to have leukocytosis and fever. The patient has been started on IV antibiotics. An Infectious Disease consultation has been requested for further evaluation of the patient and antibiotic management.. PAST MEDICAL HISTORY: 1. CVA. 2. TIA. 3. Dementia. 4. Hypertension. 5. COPD. 6. History of diabetes. 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 8. Anemia. MEDICATIONS: Vancomycin and Zosyn. ALLERGIES: No known drug allergies. SOCIAL HISTORY: The patient lives in a detention. FAMILY HISTORY: Unobtainable. REVIEW OF SYSTEMS: Unobtainable. PHYSICAL EXAMINATION: VITAL SIGNS: Temperature 97.2, blood pressure 118/82, pulse 86, respiratory rate 18, and T-max 101. HEENT: Mild pale conjunctiva. No icterus. NECK: No lymphadenopathy. CHEST: Coarse breathing sounds. HEART: S1 and S2. ABDOMEN: Soft. G-tube in place. GENITOURINARY: Zazueta catheter in place. EXTREMITIES: No cyanosis . NEUROLOGIC: Nonverbal. LABORATORY DATA: White blood cell count at time of admission 18, today is 13, hemoglobin 10, platelets 218,000. UA 60 to 80, white blood cells, 15 to 20 red blood cells. BUN 28, creatinine 0.9. ALT, AST, and alkaline phosphatase are unremarkable. Urine cultures growing gram-negative rods. Blood culture is pending. Sputum culture is pending. Abdominal x-ray, no significant findings. Chest x-ray no pneumothorax or disease, atelectasis obscuring at the base of right lung. ASSESSMENT: The patient is an 80-year-old male, who came to the hospital with fever, leukocytosis. The patient also having urinary tract infection, bacteremia, also pneumonia that requires blood counts with further information from cultures. PLAN: 1. We will continue the patient on IV vancomycin and Zosyn. 2. Monitor CBC. 3. Monitor BMP. 4. Monitor culture (Urine, sputum, and blood). 5. Monitor chest x-ray. 6. We will follow esophagogastroduodenoscopy report that just the patient underwent. Based on patient's clinical course and laboratories, we will do further recommendation. Thank you, Dr. Raymond, for allowing me to participate in the care of this patient. I will follow the patient with you during this hospitalization. Dick Novoa M.D. DR: Nova JOB#: [id number] CC:
[2016-05-24] VITALS: BP 113/78
[2016-05-24] MEDS: Piperacillin/Tazobactam 3.375 GM in D5W 110 ML IVPB SCH ×3 (00:12→15:31)
[2016-05-24 04:00] VITALS: BP 117/59
[2016-05-24 05:54] LABS: BASOPHILS % (AUTO) 0.7 % (0.0-2.0); EOSINOPHILS % (AUTO) 5.3 % (0.0-3.0); LYMPHOCYTES % (AUTO) 22.6 % (20.0-45.0); MEAN CORPUSCULAR HEMOGLOBIN 29.6 PG (27.0-31.0); MEAN CORPUSCULAR VOLUME 93 FL (80-99); MEAN PLATELET VOLUME 7.4 FL (6.5-10.1); MONOCYTES % (AUTO) 7.1 % (1.0-10.0); NEUTROPHILS % (AUTO) 64.2 % (45.0-75.0); PLATELET COUNT 165 K/UL (150-450); RED BLOOD COUNT 3.06 M/UL (4.70-6.10); RED CELL DISTRIBUTION WIDTH 16.1 % (11.6-14.8); WHITE BLOOD COUNT 8.3 K/UL (4.8-10.8)
[2016-05-24 06:20] LABS: ALANINE AMINOTRANSFERASE 19 U/L (3-41); ALBUMIN/GLOBULIN RATIO 0.8 (1.0-2.7); ANION GAP 14 (5-15); ASPARTATE AMINO TRANSFERASE 22 U/L (5-40); CALCIUM 7.9 mg/dL (8.6-10.2); CARBON DIOXIDE 27 mEQ/L (20-30); CHLORIDE 94 mEQ/L (98-107); CREATININE 0.9 mg/dL (0.7-1.2); HEMOLYSIS 1; POTASSIUM 2.9 mEQ/L (3.4-4.9); SODIUM 135 mEQ/L (135-145); TOTAL PROTEIN 6.4 g/dL (6.6-8.7)
[2016-05-24] MEDS: DuoNeb 0.5-3(2.5)mg/3ml neb HHN SCH ×3 (07:04→23:44)
[2016-05-24 07:12] LABS: BILIRUBIN,DIRECT 0.4 mg/dL (0.1-0.3)
[2016-05-24 08:00] VITALS: BP 124/77
[2016-05-24] MEDS: Pantoprazole Inj IVP SCH (09:29)
[2016-05-24] MEDS: Losartan 50mg tab GT SCH (09:30)
--- NOTE | 2016-05-24 10:09 | GI Progress Note ---
Assessment/Plan Problems: (1) DM (diabetes mellitus) ICD Codes: E11.9 - DM (diabetes mellitus) SNOMED: 14182618 (2) Feeding by G-tube ICD Codes: Z93.1 - Feeding by G-tube SNOMED: 164551702 (3) Anemia ICD Codes: D64.9 - Anemia SNOMED: 571470593 (4) Upper GI hemorrhage ICD Codes: K92.2 - Gastrointestinal hemorrhage, unspecified SNOMED: 68104966 (5) Vomiting ICD Codes: R11.10 - Vomiting, unspecified SNOMED: 702604270 Status: stable Status Narrative Discussed with Dr. Watson. Assessment/Plan S/P EGD - SUMMARY OF FINDINGS: 1. Esophagitis. 2. Hiatal hernia. 3. Gastritis, status post biopsy. RECOMMENDATIONS: 1. Follow up biopsies and treat accordingly. 2. Continue on PPI. 3. Monitor hemoglobin and hematocrit, transfuse as needed. 4. Resume G-tube feeding. Subjective Subjective limited Objective Last 24 Hour Vital Signs Date Time Temp Pulse Resp B/P Pulse Ox O2 Delivery O2 Flow Rate FiO2 05/24/16 09:30 124/77 05/24/16 09:29 88 124/77 05/24/16 09:03 65 14 30 05/24/16 08:00 98.4 88 26 124/77 100 Mechanical Ventilator 30 05/24/16 08:00 30 05/24/16 07:14 85 27 100 Mechanical Ventilator 30 05/24/16 07:04 79 27 100 Mechanical Ventilator 30 05/24/16 06:58 77 14 30 05/24/16 05:30 75 14 30 05/24/16 04:00 99.1 77 28 117/59 100 Mechanical Ventilator 30 05/24/16 04:00 90 05/24/16 04:00 30 05/24/16 03:04 72 24 30 05/24/16 01:38 97.6 05/24/16 01:38 97.6 05/24/16 01:14 79 23 30 05/24/16 00:00 88 05/24/16 00:00 100.8 75 32 113/78 100 Mechanical Ventilator 30 05/24/16 00:00 30 05/23/16 23:00 66 106/64 05/23/16 22:59 83 17 100 Mechanical Ventilator 30 05/23/16 22:58 79 22 100 Mechanical Ventilator 30 05/23/16 22:57 79 18 30 05/23/16 21:03 77 24 30 05/23/16 20:52 97.9 73 21 108/62 99 Mechanical Ventilator 30 05/23/16 20:00 30 05/23/16 20:00 88 05/23/16 19:06 78 14 30 05/23/16 17:07 89 18 30 05/23/16 16:00 97.5 95 19 114/63 100 Mechanical Ventilator 30 05/23/16 16:00 30 05/23/16 16:00 84 05/23/16 15:27 89 116/52 05/23/16 14:47 89 18 100 Mechanical Ventilator 30 05/23/16 14:40 88 18 100 Mechanical Ventilator 30 05/23/16 14:40 88 18 30 05/23/16 13:35 89 20 98 05/23/16 13:33 84 16 98 05/23/16 12:46 87 18 30 05/23/16 12:00 97.2 88 16 118/81 100 Mechanical Ventilator 30 05/23/16 12:00 79 05/23/16 12:00 30 05/23/16 11:16 89 18 30 Intake and Output 05/23/16 05/24/16 19:00 07:00 Intake Total 320 ml 1075.0 ml Output Total 325 ml 500 ml Balance -5 ml 575.0 ml Intake Free Water 200 ml 100 ml IV Total 435.0 ml Tube Feeding 120 ml 540 ml Output Urine Total 325 ml 500 ml Laboratory Tests Test 05/24/16 04:00 White Blood Count 8.3 K/UL (4.8-10.8) Red Blood Count 3.06 M/UL (4.70-6.10) L Hemoglobin 9.1 G/DL (14.2-18.0) L Hematocrit 28.4 % (42.0-52.0) L Mean Corpuscular Volume 93 FL (80-99) Mean Corpuscular Hemoglobin 29.6 PG (27.0-31.0) Mean Corpuscular Hemoglobin Concent 32.0 G/DL (32.0-36.0) Red Cell Distribution Width 16.1 % (11.6-14.8) H Platelet Count 165 K/UL (150-450) Mean Platelet Volume 7.4 FL (6.5-10.1) Neutrophils (%) (Auto) 64.2 % (45.0-75.0) Lymphocytes (%) (Auto) 22.6 % (20.0-45.0) Monocytes (%) (Auto) 7.1 % (1.0-10.0) Eosinophils (%) (Auto) 5.3 % (0.0-3.0) H Basophils (%) (Auto) 0.7 % (0.0-2.0) Sodium Level 135 mEQ/L (135-145) Potassium Level 2.9 mEQ/L (3.4-4.9) L Chloride Level 94 mEQ/L (98-107) L Carbon Dioxide Level 27 mEQ/L (20-30) Anion Gap 14 (5-15) Blood Urea Nitrogen 22 mg/dL (7-23) Creatinine 0.9 mg/dL (0.7-1.2) Estimat Glomerular Filtration Rate mL/min (>60) Glucose Level 117 mg/dL (74-106) H Calcium Level 7.9 mg/dL (8.6-10.2) L Total Bilirubin 1.2 mg/dL (0.0-1.2) Direct Bilirubin 0.4 mg/dL (0.1-0.3) H Aspartate Amino Transf (AST/SGOT) 22 U/L (5-40) Alanine Aminotransferase (ALT/SGPT) 19 U/L (3-41) Alkaline Phosphatase 63 U/L (40-129) Total Protein 6.4 g/dL (6.6-8.7) L Albumin 2.9 g/dL (3.5-5.2) L Globulin 3.5 g/dL Albumin/Globulin Ratio 0.8 (1.0-2.7) L Height (Feet): 5 Height (Inches): 6.00 Weight (Pounds): 209 General Appearance: no apparent distress, alert Cardiovascular: normal rate [facility] Ab[facility] Exam: GT site - c/d/i Naz Lainez N.PAgustin May 24, 2016 10:09
[2016-05-24] MEDS ORDERED: Sterile Water Irrig 1000ml IRRIG ONE (10:39)
[2016-05-24] MEDS ORDERED: NS 275ml ONE (10:39)
[2016-05-24] MEDS ORDERED: Tubing IV Secondary IV ONE (10:39)
[2016-05-24] MEDS: KCl 10% 40mEq/30ml liquid GT SCH ×2 (10:42→15:04)
--- NOTE | 2016-05-24 11:23 | Pulmonology Progress Note ---
Assessment/Plan Problems: (1) Upper GI hemorrhage (2) Acute on chronic respiratory failure (3) Feeding by G-tube (4) UTI (urinary tract infection) (5) UTI (urinary tract infection) (6) DM (diabetes mellitus) Respiratory: monitor respiratory rate, adjust FIO2, CXR Cardiac: continue to monitor HR/BP Renal: F/U I&O, keep IV fluid, check electrolytes Infectious Disease: check cultures, continue antibiotics Gastrointestinal: continue feedings/current rate, other - endoscopy showed esophageal strictures, no bleeding Endocrine: monitor blood sugar Hematologic: monitor H/H Neurologic: PRN Ativan, PRN Morphine Affect: PRN ativan Prophylaxis: Protonix 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, 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, 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 with: nurses, consultants, case planner Subjective ROS Limited/Unobtainable: Yes Gastrointestinal/Abdominal: Reports: no symptoms Allergies: Coded Allergies: No Known Allergies (Verified , 08/19/07) Objective Last 24 Hour Vital Signs Date Time Temp Pulse Resp B/P Pulse Ox O2 Delivery O2 Flow Rate FiO2 05/24/16 10:44 77 31 30 05/24/16 09:30 124/77 05/24/16 09:29 88 124/77 05/24/16 09:03 65 14 30 05/24/16 08:00 98.4 88 26 124/77 100 Mechanical Ventilator 30 05/24/16 08:00 30 05/24/16 07:14 85 27 100 Mechanical Ventilator 30 05/24/16 07:04 79 27 100 Mechanical Ventilator 30 05/24/16 06:58 77 14 30 05/24/16 05:30 75 14 30 05/24/16 04:00 99.1 77 28 117/59 100 Mechanical Ventilator 30 05/24/16 04:00 90 05/24/16 04:00 30 05/24/16 03:04 72 24 30 05/24/16 01:38 97.6 05/24/16 01:38 97.6 05/24/16 01:14 79 23 30 05/24/16 00:00 88 05/24/16 00:00 100.8 75 32 113/78 100 Mechanical Ventilator 30 05/24/16 00:00 30 05/23/16 23:00 66 106/64 05/23/16 22:59 83 17 100 Mechanical Ventilator 30 05/23/16 22:58 79 22 100 Mechanical Ventilator 30 05/23/16 22:57 79 18 30 05/23/16 21:03 77 24 30 05/23/16 20:52 97.9 73 21 108/62 99 Mechanical Ventilator 30 05/23/16 20:00 30 05/23/16 20:00 88 05/23/16 19:06 78 14 30 05/23/16 17:07 89 18 30 05/23/16 16:00 97.5 95 19 114/63 100 Mechanical Ventilator 30 05/23/16 16:00 30 05/23/16 16:00 84 05/23/16 15:27 89 116/52 05/23/16 14:47 89 18 100 Mechanical Ventilator 30 05/23/16 14:40 88 18 100 Mechanical Ventilator 30 05/23/16 14:40 88 18 30 05/23/16 13:35 89 20 98 05/23/16 13:33 84 16 98 05/23/16 12:46 87 18 30 05/23/16 12:00 97.2 88 16 118/81 100 Mechanical Ventilator 30 05/23/16 12:00 79 05/23/16 12:00 30 Intake and Output 05/23/16 05/24/16 18:59 06:59 Intake Total 255 ml 1165.0 ml Output Total 325 ml 500 ml Balance -70 ml 665.0 ml Intake Free Water 100 ml 200 ml IV Total 75 ml 435.0 ml Tube Feeding 80 ml 530 ml Output Urine Total 325 ml 500 ml HEENT: status post trach Respiratory/Chest: chest wall non-tender, crackles/rales Cardiovascular: normal peripheral pulses Abdomen: normal bowel sounds Genitourinary: normal external genitalia Extremities: no cyanosis Skin: no rash Neurologic/Psychiatric: gusset 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 Complete 05/21/16 20:20 Sputum Induced Gram Stain - Final Resulted 05/21/16 20:20 Sputum Culture - Preliminary Gram Negative Bacillus 1 Gram Negative Bacillus 2 Streptococcus Group G Usual Upper Respiratory Zhane Resulted 05/21/16 21:40 Urine,Clean Catch Urine Culture - Final Proteus Mirabilis Complete Laboratory Tests 05/24/16 04:00: White Blood Count 8.3, Red Blood Count 3.06L, Hemoglobin 9.1L, Hematocrit 28.4L , Mean Corpuscular Volume 93, Mean Corpuscular Hemoglobin 29.6, Mean Corpuscular Hemoglobin Concent 32.0, Red Cell Distribution Width 16.1H, Platelet Count 165, Mean Platelet Volume 7.4, Neutrophils (%) (Auto) 64.2, Lymphocytes (%) (Auto) 22.6, Monocytes (%) (Auto) 7.1, Eosinophils (%) (Auto) 5.3H, Basophils (%) (Auto) 0.7, Sodium Level 135, Potassium Level 2.9L, Chloride Level 94L, Carbon Dioxide Level 27, Anion Gap 14, Blood Urea Nitrogen 22, Creatinine 0.9, Estimat Glomerular Filtration Rate , Glucose Level 117H, Calcium Level 7.9L, Total Bilirubin 1.2, Direct Bilirubin 0.4H, Aspartate Amino Transf (AST/SGOT) 22, Alanine Aminotransferase (ALT/SGPT) 19, Alkaline Phosphatase 63, Total Protein 6.4L, Albumin 2.9L, Globulin 3.5, Albumin/ Globulin Ratio 0.8L Current Medications Medications (Trade) Dose Ordered Sig/Jaswant Route PRN Reason Start Time Stop Time Status Last Admin Dose Admin Acetaminophen (Tylenol) 650 mg Q4H PRN ORAL fever 05/21/16 22:00 06/20/16 21:59 05/24/16 00:39 Al Hydroxide/Mg Hydroxide (Mylanta II) 30 ml Q6H PRN ORAL dyspepsia 05/21/16 22:00 06/20/16 21:59 Albuterol/ Ipratropium (DuoNeb 0.5-3(2.5)mg/3ml) 3 ml Q8HRT HHN 05/21/16 22:00 05/26/16 21:59 05/24/16 07:04 Dextrose (Dextrose 50%) STAT PRN IV Hypoglycemia 05/21/16 22:00 06/20/16 21:59 Diltiazem HCl (Cardizem) 30 mg Q12HR ORAL 05/23/16 15:30 06/22/16 15:29 05/24/16 09:29 Diphenhydramine HCl (Benadryl) 25 mg Q6H PRN ORAL Itching/Pruritis 05/21/16 22:00 06/20/16 21:59 Losartan Potassium (Cozaar) 100 mg DAILY GT 05/22/16 09:00 06/21/16 08:59 05/24/16 09:30 Morphine Sulfate (Morphine Sulfate) 2 mg Q4H PRN IVP severe Pain (Pain Scale 7-10) 05/21/16 22:00 05/28/16 21:59 05/22/16 23:53 Nitroglycerin (Ntg) 0.4 mg Q5M X 3 DOSES PRN SL Prn Chest Pain 05/21/16 22:00 06/20/16 21:59 Ondansetron HCl (Zofran) 4 mg Q6H PRN IVP Nausea & Vomiting 05/21/16 22:00 06/20/16 21:59 05/22/16 09:53 Pantoprazole (Protonix) 40 mg DAILY IVP 05/22/16 09:00 06/21/16 08:59 05/24/16 09:29 Piperacillin Sod/ Tazobactam Sod 3.375 gm/Dextrose 110 ml @ 27.5 mls/hr Q8HR@0000,0800,1600 IVPB 05/22/16 16:00 05/29/16 15:59 05/24/16 07:57 Polyethylene Glycol (Miralax) 17 gm HSPRN PRN ORAL Constipation 05/21/16 22:00 06/20/16 21:59 Potassium Chloride (KCl 10% 40mEq Oral solution) 40 meq Q4H GT 05/24/16 11:00 05/24/16 15:01 05/24/16 10:42 Vancomycin HCl 1 ea 1 ea DAILY PRN MISC Per rx protocol 05/22/16 14:45 06/21/16 14:44 Vancomycin HCl/ Dextrose (Vancomycin/D5W) 325 ml @ 162.5 mls/ hr Q24H IVPB 05/22/16 20:00 05/27/16 19:59 05/23/16 20:24 PEDRO LUIS IVEY May 24, 2016 11:23
--- NOTE | 2016-05-24 11:42 | Infectious Diseases Prog Note ---
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 Anemia PLAN: Cont pt on IV vancomycin and Zosyn d# 2 Monitor CBC Monitor BMP Monitor culture (Urine, sputum, and blood) Monitor chest x-ray Subjective Allergies: Coded Allergies: No Known Allergies (Verified , 08/19/07) Objective Vital Signs Last 24 Hour Vital Signs Date Time Temp Pulse Resp B/P Pulse Ox O2 Delivery O2 Flow Rate FiO2 05/24/16 10:44 77 31 30 05/24/16 09:30 124/77 05/24/16 09:29 88 124/77 05/24/16 09:03 65 14 30 05/24/16 08:00 98.4 88 26 124/77 100 Mechanical Ventilator 30 05/24/16 08:00 30 05/24/16 07:14 85 27 100 Mechanical Ventilator 30 05/24/16 07:04 79 27 100 Mechanical Ventilator 30 05/24/16 06:58 77 14 30 05/24/16 05:30 75 14 30 05/24/16 04:00 99.1 77 28 117/59 100 Mechanical Ventilator 30 05/24/16 04:00 90 05/24/16 04:00 30 05/24/16 03:04 72 24 30 05/24/16 01:38 97.6 05/24/16 01:38 97.6 05/24/16 01:14 79 23 30 05/24/16 00:00 88 05/24/16 00:00 100.8 75 32 113/78 100 Mechanical Ventilator 30 05/24/16 00:00 30 05/23/16 23:00 66 106/64 05/23/16 22:59 83 17 100 Mechanical Ventilator 30 05/23/16 22:58 79 22 100 Mechanical Ventilator 30 05/23/16 22:57 79 18 30 05/23/16 21:03 77 24 30 05/23/16 20:52 97.9 73 21 108/62 99 Mechanical Ventilator 30 05/23/16 20:00 30 05/23/16 20:00 88 05/23/16 19:06 78 14 30 05/23/16 17:07 89 18 30 05/23/16 16:00 97.5 95 19 114/63 100 Mechanical Ventilator 30 05/23/16 16:00 30 05/23/16 16:00 84 05/23/16 15:27 89 116/52 05/23/16 14:47 89 18 100 Mechanical Ventilator 30 05/23/16 14:40 88 18 100 Mechanical Ventilator 30 05/23/16 14:40 88 18 30 05/23/16 13:35 89 20 98 05/23/16 13:33 84 16 98 05/23/16 12:46 87 18 30 05/23/16 12:00 97.2 88 16 118/81 100 Mechanical Ventilator 30 05/23/16 12:00 79 05/23/16 12:00 30 Height (Feet): 5 Height (Inches): 6.00 Weight (Pounds): 209 Microbiology Date/Time Source Procedure Growth Status 05/21/16 20:45 Blood Blood Culture - Preliminary NO GROWTH AFTER 48 HOURS Resulted 05/21/16 20:40 Blood Blood Culture - Preliminary NO GROWTH AFTER 48 HOURS Resulted 05/21/16 21:40 Nasal Nares MRSA Culture - Final NO METHICILLIN RESISTANT STAPH AUREUS... Complete 05/21/16 20:20 Sputum Induced Gram Stain - Final Resulted 05/21/16 20:20 Sputum Culture - Preliminary Gram Negative Bacillus 1 Gram Negative Bacillus 2 Streptococcus Group G Usual Upper Respiratory Zhane Resulted 05/21/16 21:40 Urine,Clean Catch Urine Culture - Final Proteus Mirabilis Complete Laboratory Tests Test 05/24/16 04:00 White Blood Count 8.3 K/UL (4.8-10.8) Red Blood Count 3.06 M/UL (4.70-6.10) L Hemoglobin 9.1 G/DL (14.2-18.0) L Hematocrit 28.4 % (42.0-52.0) L Mean Corpuscular Volume 93 FL (80-99) Mean Corpuscular Hemoglobin 29.6 PG (27.0-31.0) Mean Corpuscular Hemoglobin Concent 32.0 G/DL (32.0-36.0) Red Cell Distribution Width 16.1 % (11.6-14.8) H Platelet Count 165 K/UL (150-450) Mean Platelet Volume 7.4 FL (6.5-10.1) Neutrophils (%) (Auto) 64.2 % (45.0-75.0) Lymphocytes (%) (Auto) 22.6 % (20.0-45.0) Monocytes (%) (Auto) 7.1 % (1.0-10.0) Eosinophils (%) (Auto) 5.3 % (0.0-3.0) H Basophils (%) (Auto) 0.7 % (0.0-2.0) Sodium Level 135 mEQ/L (135-145) Potassium Level 2.9 mEQ/L (3.4-4.9) L Chloride Level 94 mEQ/L (98-107) L Carbon Dioxide Level 27 mEQ/L (20-30) Anion Gap 14 (5-15) Blood Urea Nitrogen 22 mg/dL (7-23) Creatinine 0.9 mg/dL (0.7-1.2) Estimat Glomerular Filtration Rate mL/min (>60) Glucose Level 117 mg/dL (74-106) H Calcium Level 7.9 mg/dL (8.6-10.2) L Total Bilirubin 1.2 mg/dL (0.0-1.2) Direct Bilirubin 0.4 mg/dL (0.1-0.3) H Aspartate Amino Transf (AST/SGOT) 22 U/L (5-40) Alanine Aminotransferase (ALT/SGPT) 19 U/L (3-41) Alkaline Phosphatase 63 U/L (40-129) Total Protein 6.4 g/dL (6.6-8.7) L Albumin 2.9 g/dL (3.5-5.2) L Globulin 3.5 g/dL Albumin/Globulin Ratio 0.8 (1.0-2.7) L Current Medications Medications (Trade) Dose Ordered Sig/Jaswant Route PRN Reason Start Time Stop Time Status Last Admin Dose Admin Acetaminophen (Tylenol) 650 mg Q4H PRN ORAL fever 05/21/16 22:00 06/20/16 21:59 05/24/16 00:39 Al Hydroxide/Mg Hydroxide (Mylanta II) 30 ml Q6H PRN ORAL dyspepsia 05/21/16 22:00 06/20/16 21:59 Albuterol/ Ipratropium (DuoNeb 0.5-3(2.5)mg/3ml) 3 ml Q8HRT HHN 05/21/16 22:00 05/26/16 21:59 05/24/16 07:04 Dextrose (Dextrose 50%) STAT PRN IV Hypoglycemia 05/21/16 22:00 06/20/16 21:59 Diltiazem HCl (Cardizem) 30 mg Q12HR ORAL 05/23/16 15:30 06/22/16 15:29 05/24/16 09:29 Diphenhydramine HCl (Benadryl) 25 mg Q6H PRN ORAL Itching/Pruritis 05/21/16 22:00 06/20/16 21:59 Losartan Potassium (Cozaar) 100 mg DAILY GT 05/22/16 09:00 06/21/16 08:59 05/24/16 09:30 Morphine Sulfate (Morphine Sulfate) 2 mg Q4H PRN IVP severe Pain (Pain Scale 7-10) 05/21/16 22:00 05/28/16 21:59 05/22/16 23:53 Nitroglycerin (Ntg) 0.4 mg Q5M X 3 DOSES PRN SL Prn Chest Pain 05/21/16 22:00 06/20/16 21:59 Ondansetron HCl (Zofran) 4 mg Q6H PRN IVP Nausea & Vomiting 05/21/16 22:00 06/20/16 21:59 05/22/16 09:53 Pantoprazole (Protonix) 40 mg DAILY IVP 05/22/16 09:00 06/21/16 08:59 05/24/16 09:29 Piperacillin Sod/ Tazobactam Sod 3.375 gm/Dextrose 110 ml @ 27.5 mls/hr Q8HR@0000,0800,1600 IVPB 05/22/16 16:00 05/29/16 15:59 05/24/16 07:57 Polyethylene Glycol (Miralax) 17 gm HSPRN PRN ORAL Constipation 05/21/16 22:00 06/20/16 21:59 Potassium Chloride (KCl 10% 40mEq Oral solution) 40 meq Q4H GT 05/24/16 11:00 05/24/16 15:01 05/24/16 10:42 Vancomycin HCl 1 ea 1 ea DAILY PRN MISC Per rx protocol 05/22/16 14:45 06/21/16 14:44 Vancomycin HCl/ Dextrose (Vancomycin/D5W) 325 ml @ 162.5 mls/ hr Q24H IVPB 05/22/16 20:00 05/27/16 19:59 05/23/16 20:24 MARGARETTE BRYANT M.D. May 24, 2016 11:42
[2016-05-24 12:00] VITALS: BP 125/81
[2016-05-24 16:00] VITALS: BP 118/65
[2016-05-24 20:00] VITALS: BP 106/64
[2016-05-24] MEDS: Vancomycin 1.5 GM in D5W 325 ML IVPB SCH (20:31)
[2016-05-25] VITALS: BP 141/97
[2016-05-25] MEDS: Piperacillin/Tazobactam 3.375 GM in D5W 110 ML IVPB SCH ×3 (00:09→16:04)
[2016-05-25] MEDS: Morphine Sulfate 2mg/ml Inj IVP PRN (00:38)
[2016-05-25 04:00] VITALS: BP 124/76
[2016-05-25 05:24] LABS: BASOPHILS % (AUTO) 0.4 % (0.0-2.0); LYMPHOCYTES % (AUTO) 15.5 % (20.0-45.0); MEAN CORPUSCULAR HEMOGLOBIN 30.4 PG (27.0-31.0); MEAN CORPUSCULAR HGB CONC 32.5 G/DL (32.0-36.0); MEAN CORPUSCULAR VOLUME 93 FL (80-99); MEAN PLATELET VOLUME 7.4 FL (6.5-10.1); MONOCYTES % (AUTO) 6.9 % (1.0-10.0); NEUTROPHILS % (AUTO) 71.2 % (45.0-75.0); PLATELET COUNT 164 K/UL (150-450); RED BLOOD COUNT 3.17 M/UL (4.70-6.10); RED CELL DISTRIBUTION WIDTH 16.4 % (11.6-14.8)
[2016-05-25 05:54] LABS: ALANINE AMINOTRANSFERASE 17 U/L (3-41); ALBUMIN/GLOBULIN RATIO 0.6 (1.0-2.7); ANION GAP 12 (5-15); ASPARTATE AMINO TRANSFERASE 19 U/L (5-40); CALCIUM 8.1 mg/dL (8.6-10.2); CARBON DIOXIDE 27 mEQ/L (20-30); CHLORIDE 101 mEQ/L (98-107); CREATININE 0.7 mg/dL (0.7-1.2); HEMOLYSIS 6; POTASSIUM 3.6 mEQ/L (3.4-4.9); SODIUM 140 mEQ/L (135-145); TOTAL PROTEIN 6.6 g/dL (6.6-8.7)
[2016-05-25 05:56] LABS: MAGNESIUM 2.1 mg/dL (1.7-2.5); PHOSPHORUS 2.2 mg/dL (2.5-4.8)
[2016-05-25] MEDS: DuoNeb 0.5-3(2.5)mg/3ml neb HHN SCH ×2 (06:40→15:31)
[2016-05-25 08:00] VITALS: BP 111/68
[2016-05-25] MEDS: Pantoprazole Inj IVP SCH (08:56)
[2016-05-25] MEDS: Losartan 50mg tab GT SCH (09:03)
[2016-05-25] MEDS ORDERED: NS 275ml ONE ×2 (09:50→19:12)
--- NOTE | 2016-05-25 11:16 | GI Progress Note ---
Assessment/Plan Problems: (1) DM (diabetes mellitus) ICD Codes: E11.9 - DM (diabetes mellitus) SNOMED: 63485159 (2) Feeding by G-tube ICD Codes: Z93.1 - Feeding by G-tube SNOMED: 228390694 (3) Anemia ICD Codes: D64.9 - Anemia SNOMED: 995001007 (4) Upper GI hemorrhage ICD Codes: K92.2 - Gastrointestinal hemorrhage, unspecified SNOMED: 06069059 (5) Vomiting ICD Codes: R11.10 - Vomiting, unspecified SNOMED: 460183077 Status: unchanged Status Narrative Discussed with Dr. Watson. Assessment/Plan S/P EGD - SUMMARY OF FINDINGS: 1. Esophagitis. 2. Hiatal hernia. 3. Gastritis, status post biopsy. RECOMMENDATIONS: ok for DC per GI standpoint 1. Follow up biopsies and treat accordingly. 2. Continue on PPI. 3. Monitor hemoglobin and hematocrit, transfuse as needed. 4. Resume G-tube feeding. Subjective Subjective limited Objective Last 24 Hour Vital Signs Date Time Temp Pulse Resp B/P Pulse Ox O2 Delivery O2 Flow Rate FiO2 05/25/16 10:31 85 24 30 05/25/16 09:27 70 17 30 05/25/16 09:03 111/68 05/25/16 08:55 83 111/68 05/25/16 08:00 30 05/25/16 08:00 98.1 83 15 111/68 99 Mechanical Ventilator 30 05/25/16 07:54 80 05/25/16 06:41 69 17 30 05/25/16 06:41 69 22 100 Mechanical Ventilator 30 05/25/16 06:25 71 22 99 Mechanical Ventilator 30 05/25/16 04:36 66 16 30 05/25/16 04:00 30 05/25/16 04:00 98.2 80 25 124/76 100 Mechanical Ventilator 30 05/25/16 03:44 89 05/25/16 02:50 93 25 30 05/25/16 00:41 83 27 30 05/25/16 00:00 98.2 86 17 141/97 100 Mechanical Ventilator 30 05/25/16 00:00 30 05/25/16 00:00 78 05/24/16 23:45 72 17 100 Mechanical Ventilator 30 05/24/16 23:44 71 15 100 Mechanical Ventilator 30 05/24/16 22:42 69 17 30 05/24/16 22:00 68 106/64 05/24/16 21:21 68 15 30 05/24/16 20:00 30 05/24/16 20:00 97.6 78 24 106/64 100 Mechanical Ventilator 30 05/24/16 18:40 75 27 30 05/24/16 16:45 79 25 30 05/24/16 16:00 77 05/24/16 16:00 30 05/24/16 16:00 97.6 89 17 118/65 100 Mechanical Ventilator 30 05/24/16 14:58 73 23 99 Mechanical Ventilator 30 05/24/16 14:48 73 23 30 05/24/16 14:48 73 23 99 Mechanical Ventilator 30 05/24/16 13:06 74 16 30 05/24/16 12:00 30 05/24/16 12:00 86 05/24/16 12:00 98.2 66 30 125/81 99 Mechanical Ventilator 30 Intake and Output 05/24/16 05/25/16 19:00 07:00 Intake Total 1400 ml 1255.0 ml Output Total 1075 ml 600 ml Balance 325 ml 655.0 ml Intake Free Water 800 ml 100 ml IV Total 435.0 ml Tube Feeding 600 ml 720 ml Output Urine Total 1075 ml 600 ml # Bowel Movements 1 Laboratory Tests Test 05/25/16 04:00 White Blood Count 9.0 K/UL (4.8-10.8) Red Blood Count 3.17 M/UL (4.70-6.10) L Hemoglobin 9.6 G/DL (14.2-18.0) L Hematocrit 29.6 % (42.0-52.0) L Mean Corpuscular Volume 93 FL (80-99) Mean Corpuscular Hemoglobin 30.4 PG (27.0-31.0) Mean Corpuscular Hemoglobin Concent 32.5 G/DL (32.0-36.0) Red Cell Distribution Width 16.4 % (11.6-14.8) H Platelet Count 164 K/UL (150-450) Mean Platelet Volume 7.4 FL (6.5-10.1) Neutrophils (%) (Auto) 71.2 % (45.0-75.0) Lymphocytes (%) (Auto) 15.5 % (20.0-45.0) L Monocytes (%) (Auto) 6.9 % (1.0-10.0) Eosinophils (%) (Auto) 6.0 % (0.0-3.0) H Basophils (%) (Auto) 0.4 % (0.0-2.0) Sodium Level 140 mEQ/L (135-145) Potassium Level 3.6 mEQ/L (3.4-4.9) Chloride Level 101 mEQ/L (98-107) Carbon Dioxide Level 27 mEQ/L (20-30) Anion Gap 12 (5-15) Blood Urea Nitrogen 15 mg/dL (7-23) Creatinine 0.7 mg/dL (0.7-1.2) Estimat Glomerular Filtration Rate mL/min (>60) Glucose Level 107 mg/dL (74-106) H Calcium Level 8.1 mg/dL (8.6-10.2) L Phosphorus Level 2.2 mg/dL (2.5-4.8) L Magnesium Level 2.1 mg/dL (1.7-2.5) Total Bilirubin 0.7 mg/dL (0.0-1.2) Aspartate Amino Transf (AST/SGOT) 19 U/L (5-40) Alanine Aminotransferase (ALT/SGPT) 17 U/L (3-41) Alkaline Phosphatase 65 U/L (40-129) Total Protein 6.6 g/dL (6.6-8.7) Albumin 2.7 g/dL (3.5-5.2) L Globulin 3.9 g/dL Albumin/Globulin Ratio 0.6 (1.0-2.7) L Height (Feet): 5 Height (Inches): 6.00 Weight (Pounds): 209 General Appearance: no apparent distress, alert, obese Cardiovascular: normal rate Respiratory/Chest: other - LNC Abdominal Exam: GT site - c/d/i Naz Lainez N.P. May 25, 2016 11:16
[2016-05-25 12:00] VITALS: BP 120/71
[2016-05-25] MEDS ORDERED: SODIUM CHLORIDE IVPB ONE (13:00)
[2016-05-25] MEDS ORDERED: SODIUM PHOSPHATE IVPB ONE (13:00)
[2016-05-25] MEDS ORDERED: CEFTRIAXON1 GM/50 ML IV (13:17)
[2016-05-25 16:00] VITALS: BP 110/94
--- NOTE | 2016-05-25 16:54 | Infectious Diseases Prog Note ---
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 Anemia PLAN: Cont pt on Zosyn d# 3 /14 and DC IV vancomycin d# 3 Monitor CBC Monitor BMP Monitor culture ( blood) Monitor chest x-ray Subjective Constitutional: Denies: anorexia, chills, drenching sweats, fatigue, fever, no symptoms, other Allergies: Coded Allergies: No Known Allergies (Verified , 08/19/07) Objective Vital Signs Last 24 Hour Vital Signs Date Time Temp Pulse Resp B/P Pulse Ox O2 Delivery O2 Flow Rate FiO2 05/25/16 16:00 30 05/25/16 16:00 98.1 69 22 110/94 100 Mechanical Ventilator 30 05/25/16 15:32 75 16 30 05/25/16 15:15 75 15 100 Mechanical Ventilator 30 05/25/16 15:00 74 15 99 Mechanical Ventilator 30 05/25/16 13:08 84 16 30 05/25/16 12:00 30 05/25/16 12:00 97.5 80 18 120/71 99 Mechanical Ventilator 30 05/25/16 11:33 70 05/25/16 10:31 85 24 30 05/25/16 09:27 70 17 30 05/25/16 09:03 111/68 05/25/16 08:55 83 111/68 05/25/16 08:00 30 05/25/16 08:00 98.1 83 15 111/68 99 Mechanical Ventilator 30 05/25/16 07:54 80 05/25/16 06:41 69 17 30 05/25/16 06:41 69 22 100 Mechanical Ventilator 30 05/25/16 06:25 71 22 99 Mechanical Ventilator 30 05/25/16 04:36 66 16 30 05/25/16 04:00 30 05/25/16 04:00 98.2 80 25 124/76 100 Mechanical Ventilator 30 05/25/16 03:44 89 05/25/16 02:50 93 25 30 05/25/16 00:41 83 27 30 05/25/16 00:00 98.2 86 17 141/97 100 Mechanical Ventilator 30 05/25/16 00:00 30 05/25/16 00:00 78 05/24/16 23:45 72 17 100 Mechanical Ventilator 30 05/24/16 23:44 71 15 100 Mechanical Ventilator 30 05/24/16 22:42 69 17 30 05/24/16 22:00 68 106/64 05/24/16 21:21 68 15 30 05/24/16 20:00 30 05/24/16 20:00 97.6 78 24 106/64 100 Mechanical Ventilator 30 05/24/16 18:40 75 27 30 Height (Feet): 5 Height (Inches): 6.00 Weight (Pounds): 209 HEENT: anicteric Respiratory/Chest: lungs clear Cardiovascular: normal rate Abdomen: soft, non tender Neurologic/Psychiatric: no motor/sensory deficits Laboratory Tests Test 05/25/16 04:00 White Blood Count 9.0 K/UL (4.8-10.8) Red Blood Count 3.17 M/UL (4.70-6.10) L Hemoglobin 9.6 G/DL (14.2-18.0) L Hematocrit 29.6 % (42.0-52.0) L Mean Corpuscular Volume 93 FL (80-99) Mean Corpuscular Hemoglobin 30.4 PG (27.0-31.0) Mean Corpuscular Hemoglobin Concent 32.5 G/DL (32.0-36.0) Red Cell Distribution Width 16.4 % (11.6-14.8) H Platelet Count 164 K/UL (150-450) Mean Platelet Volume 7.4 FL (6.5-10.1) Neutrophils (%) (Auto) 71.2 % (45.0-75.0) Lymphocytes (%) (Auto) 15.5 % (20.0-45.0) L Monocytes (%) (Auto) 6.9 % (1.0-10.0) Eosinophils (%) (Auto) 6.0 % (0.0-3.0) H Basophils (%) (Auto) 0.4 % (0.0-2.0) Sodium Level 140 mEQ/L (135-145) Potassium Level 3.6 mEQ/L (3.4-4.9) Chloride Level 101 mEQ/L (98-107) Carbon Dioxide Level 27 mEQ/L (20-30) Anion Gap 12 (5-15) Blood Urea Nitrogen 15 mg/dL (7-23) Creatinine 0.7 mg/dL (0.7-1.2) Estimat Glomerular Filtration Rate mL/min (>60) Glucose Level 107 mg/dL (74-106) H Calcium Level 8.1 mg/dL (8.6-10.2) L Phosphorus Level 2.2 mg/dL (2.5-4.8) L Magnesium Level 2.1 mg/dL (1.7-2.5) Total Bilirubin 0.7 mg/dL (0.0-1.2) Aspartate Amino Transf (AST/SGOT) 19 U/L (5-40) Alanine Aminotransferase (ALT/SGPT) 17 U/L (3-41) Alkaline Phosphatase 65 U/L (40-129) Total Protein 6.6 g/dL (6.6-8.7) Albumin 2.7 g/dL (3.5-5.2) L Globulin 3.9 g/dL Albumin/Globulin Ratio 0.6 (1.0-2.7) L Current Medications Medications (Trade) Dose Ordered Sig/Jaswant Route PRN Reason Start Time Stop Time Status Last Admin Dose Admin Acetaminophen (Tylenol) 650 mg Q4H PRN ORAL fever 05/21/16 22:00 06/20/16 21:59 05/24/16 00:39 Al Hydroxide/Mg Hydroxide (Mylanta II) 30 ml Q6H PRN ORAL dyspepsia 05/21/16 22:00 06/20/16 21:59 Albuterol/ Ipratropium (DuoNeb 0.5-3(2.5)mg/3ml) 3 ml Q8HRT HHN 05/21/16 22:00 05/26/16 21:59 05/25/16 15:31 Dextrose (Dextrose 50%) STAT PRN IV Hypoglycemia 05/21/16 22:00 06/20/16 21:59 Diltiazem HCl 30 mg 30 mg Q12HR ORAL 05/23/16 15:30 06/22/16 15:29 05/25/16 08:55 Diphenhydramine HCl (Benadryl) 25 mg Q6H PRN ORAL Itching/Pruritis 05/21/16 22:00 06/20/16 21:59 Losartan Potassium (Cozaar) 100 mg DAILY GT 05/22/16 09:00 06/21/16 08:59 05/25/16 09:03 Morphine Sulfate (Morphine Sulfate) 2 mg Q4H PRN IVP severe Pain (Pain Scale 7-10) 05/21/16 22:00 05/28/16 21:59 05/25/16 00:38 Nitroglycerin (Ntg) 0.4 mg Q5M X 3 DOSES PRN SL Prn Chest Pain 05/21/16 22:00 06/20/16 21:59 Ondansetron HCl (Zofran) 4 mg Q6H PRN IVP Nausea & Vomiting 05/21/16 22:00 06/20/16 21:59 05/22/16 09:53 Pantoprazole (Protonix) 40 mg DAILY IVP 05/22/16 09:00 06/21/16 08:59 05/25/16 08:56 Piperacillin Sod/ Tazobactam Sod 3.375 gm/Dextrose 110 ml @ 27.5 mls/hr Q8HR@0000,0800,1600 IVPB 05/22/16 16:00 05/29/16 15:59 05/25/16 16:04 Polyethylene Glycol (Miralax) 17 gm HSPRN PRN ORAL Constipation 05/21/16 22:00 06/20/16 21:59 Sodium Phosphate/ Sodium Chloride (NaPO4/NS) 556.6667 ml @ 92.778 m... ONCE ONCE IVPB 05/25/16 13:00 05/25/16 18:59 05/25/16 12:28 Vancomycin HCl 1 ea 1 ea DAILY PRN MISC Per rx protocol 05/22/16 14:45 06/21/16 14:44 Vancomycin HCl/ Dextrose (Vancomycin/D5W) 325 ml @ 162.5 mls/ hr Q24H IVPB 05/22/16 20:00 05/27/16 19:59 05/24/16 20:31 MARGARETTE BRYANT M.D. May 25, 2016 16:54
[2016-05-25] MEDS ORDERED: Sterile Water Irrig 1000ml IRRIG ONE (19:12)
[2016-05-25] MEDS ORDERED: Tubing IV Secondary IV ONE (19:12)
--- NOTE | 2016-05-26 12:47 | Discharge Summary ---
Discharge Summary Hospital Course Date of Admission May 21, 2016 at 22:45 Date of Discharge May 25, 2016 at 19:13 Admitting Diagnosis upper gi bleed CESAR Javed is a 80 year old male who was admitted on May 21, 2016 at 22:45 for Upper Gastrointestinal Bleed Hospital Course [id number] Discharge Discharge Disposition Patient was discharged to snf Discharge Diagnoses: Jenny Freed NP May 26, 2016 12:47
--- NOTE | 2016-05-26 21:28 | Discharge Summary 2 SIG ---
DATE OF ADMISSION: 05/21/2016 DATE OF DISCHARGE: 05/25/2016 CONSULTANTS: 1. Enrique Watson M.D. 2. Dick Novoa M.D. 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 The patient was noted in correction facility to have some dark material coming out from his tracheostomy tube. On evaluation at ED, the patient was anemic with an elevated WBC of 18 and was febrile, tachycardic, and tachypneic. Chest x-ray done showed a possible pneumonia. Hemoglobin dropped from 9 on admission to 7.7 overnight. He underwent esophagogastroduodenoscopy by Dr. Watson 05/23/2016 with findings of esophagitis, hiatal hernia, and gastritis. He received two units of packed RBC blood transfusion and was continued on proton pump inhibitors. Dr. Novoa was consulted for evaluation of leukocytosis and sepsis and was given IV vancomycin and Zosyn. Urine culture showed growth of Proteus mirabilis and sputum culture with Pseudomonas, Streptococcus, and usual upper respiratory rg. Hemoglobin and hematocrit have been stable. Antral biopsy was negative for H. pylori and negative for intestinal metaplasia or dysplasia. The patient was discharged back to SNF to continue IV ceftriaxone for five more days. FINAL DIAGNOSES: 1. Sepsis. 2. Acute on chronic respiratory failure. 3. Acute gastrointestinal bleed. 4. Urinary tract infection with Proteus. 5. Diabetes mellitus. 6. Feeding via Gastrostomy tube. Soraida Raymond M.D. I have been assigned to dictate discharge summary on this account and I was not involved in the patient's management. Jenny Freed N.P. DR: STEVE JOB#: [id number] CC: PJ
--- NOTE | 2016-05-26 23:12 | Diagnostic Imaging Report ---
APPROVED REPORT CPT Code: 38437 Present Symptoms Lower Extremity Pain: Bilateral BILATERAL: Imaging reveals a patent deep venous system bilaterally. There is no evidence of thrombus within the femoral, popliteal or tibial segments. The greater saphenous veins are also within normal limits. Doppler indicates normal spontaneous flow within these segments.
== END 2016-05-25 19:13 | disposition home or self-care (01) | DRG 870 ==
LOC: EDBD 20:21 → EMR 22:12 → 2W 22:45 → EDBEDREQ 05-22 06:14
PROC: 5A1955Z Respiratory Ventilation, Greater than 96 Consecutive Hours (ICD-10-PCS; principal; 2016-05-21)
PROC: 30233N1 Transfusion of Nonautologous Red Blood Cells into Peripheral Vein, Percutaneous Approach (ICD-10-PCS; 2016-05-22)
PROC: 0DB68ZX Excision of Stomach, Via Natural or Artificial Opening Endoscopic, Diagnostic (ICD-10-PCS; 2016-05-23)
DX: A41.9 Sepsis, unspecified organism (principal); J96.20 Acute and chronic respiratory failure, unspecified whether with hypoxia or hypercapnia; Z99.11 Dependence on respirator [ventilator] status; G93.40 Encephalopathy, unspecified; Z43.0 Encounter for attention to tracheostomy; K92.2 Gastrointestinal hemorrhage, unspecified; Z43.1 Encounter for attention to gastrostomy; N39.0 Urinary tract infection, site not specified; E86.0 Dehydration; F03.90 Unspecified dementia, unspecified severity, without behavioral disturbance, psychotic disturbance, mood disturbance, and anxiety; K20.9 Esophagitis, unspecified; K44.9 Diaphragmatic hernia without obstruction or gangrene; E11.9 Type 2 diabetes mellitus without complications; G40.909 Epilepsy, unspecified, not intractable, without status epilepticus; B96.4 Proteus (mirabilis) (morganii) as the cause of diseases classified elsewhere; Z86.73 Personal history of transient ischemic attack (TIA), and cerebral infarction without residual deficits; D64.9 Anemia, unspecified; R13.10 Dysphagia, unspecified
CPT/HCPCS: 36415; 36600; 71010; 74000; 80048; 80053; 81003; 82248; 82803; 83605; 83690; 83735; 84100; 84484; 85007; 85025; 85610; 85730; 86850; 86900; 86901; 86920; 87040; 87070; 87081; 87086; 87181; 87205; 93005; 93970; 94002; 94003; 94150; 94640; 94664; J2405; J7620

== ENCOUNTER 2017-02-23 21:48 | Inpatient (IN) | payer MEDICARE, MEDICAID ==
[~2017-02-23] VITALS: Ht 185.4 cm; Wt 94.8 kg
[~2017-02-23 21:48] MED LIST changes: +AMLODIPINE BESY10 MG GT; +CEFTRIAXON1 GM/50 ML IV; +EPOGEN20000 UNI1 SUBQ; +MULTIVITAMINS1 EAC8 GT; +OYSTER SHELL 51 EAC1 GT; +PROMOD946 ML GT
[2017-02-23] MEDS ORDERED: BISACODYL5 MG ORAL (21:58)
[2017-02-23] MEDS ORDERED: FLEET ENEMA133 ML RECTAL (22:20)
--- NOTE | 2017-02-23 22:27 | Emergency Room Report ---
History of Present Illness General Chief Complaint: Abnormal Labs Source: EMS Present Illness HPI Patient presents from nursing facility with complaints of high white blood for count Patient himself is nonverbal This does limit the history of present illness Patient is chronically debilitated with tracheostomy and vent dependence There is no reports of vomiting or diarrhea Unknown regarding rash We do not have a specific number of the abnormal blood work Allergies: Coded Allergies: No Known Allergies (Verified , 08/19/07) Patient History Limited by: medical condition Past Medical History: see triage record Pertinent Family History: none Reviewed Nursing Documentation: PMH: Agreed, PSxH: Agreed Nursing Documentation-PMH Hx Hypertension: Yes Hx COPD: Yes - trach, vent dependent Hx Diabetes: Yes - dm2 Hx Cancer: No Hx Gastrointestinal Problems: Yes - GERD, G tube, Carbapenem-resistant Enterobacteriaceae (CRE-isolation) Hx Neurological Problems: Yes Hx Cerebrovascular Accident: Yes Hx Transient Ischemic Attacks: Yes Hx Dementia: Yes Hx Seizures: Yes Review of Systems All Other Systems: limited - Other than the ones mentioned in the history of present illness all others are reviewed however they do stay limited due to the patient's mental status Physical Exam Vital Signs Date Time Temp Pulse Resp B/P (MAP) Pulse Ox O2 Delivery O2 Flow Rate FiO2 02/23/17 21:44 99.0 95 12 123/77 100 Mechanical Ventilator 40 Sp02 EP Interpretation: reviewed, normal General Appearance: no apparent distress Head: normocephalic, atraumatic Eyes: bilateral eye PERRL ENT: other - Tracheostomy in place Neck: supple Respiratory: crackles - diffusely Cardiovascular #1: regular rate, rhythm, no edema Gastrointestinal: non tender, soft Musculoskeletal: other - Patient chronically debilitated, flexed not following commands, Neurologic: responsive - To physical stimuli otherwise no verbal, Skin: other - ulcers as noted Lymphatic: no adenopathy Medical Decision Making Diagnostic Impression: Primary Impression: Sepsis ER Course Multiple differentials considered Patient's complex requiring blood work and imaging Patient's white blood cell count was elevated We are searching for possible source of pathology X-ray does not show any obvious infiltrate The patient's abdomen is soft KUB does not show any obvious pathology CT imaging is not available at this time unfortunately and will be pending for this morning However the patient's abdomen does not feel like a surgical abdomen Patient was provided with that physician antibiotics hemodynamically significantly improved and admitted for further care Labs Test 02/23/17 23:00 02/23/17 23:54 White Blood Count 26.9 K/UL (4.8-10.8) Red Blood Count 3.90 M/UL (4.70-6.10) Hemoglobin 10.8 G/DL (14.2-18.0) Hematocrit 32.1 % (42.0-52.0) Mean Corpuscular Volume 82 FL (80-99) Mean Corpuscular Hemoglobin 27.8 PG (27.0-31.0) Mean Corpuscular Hemoglobin Concent 33.7 G/DL (32.0-36.0) Red Cell Distribution Width 16.3 % (11.6-14.8) Platelet Count 214 K/UL (150-450) Mean Platelet Volume 8.3 FL (6.5-10.1) Neutrophils (%) (Auto) % (45.0-75.0) Lymphocytes (%) (Auto) % (20.0-45.0) Monocytes (%) (Auto) % (1.0-10.0) Eosinophils (%) (Auto) % (0.0-3.0) Basophils (%) (Auto) % (0.0-2.0) Differential Total Cells Counted 100 Neutrophils % (Manual) 91 % (45-75) Lymphocytes % (Manual) 6 % (20-45) Monocytes % (Manual) 3 % (1-10) Eosinophils % (Manual) 0 % (0-3) Basophils % (Manual) 0 % (0-2) Band Neutrophils 0 % (0-8) Platelet Estimate Adequate Platelet Morphology Normal Sodium Level 131 MMOL/L (136-145) Potassium Level 4.6 MMOL/L (3.5-5.1) Chloride Level 98 MMOL/L (98-107) Carbon Dioxide Level 23 MMOL/L (21-32) Anion Gap 10 mmol/L (5-15) Blood Urea Nitrogen 32 mg/dL (7-18) Creatinine 0.8 MG/DL (0.55-1.30) Estimat Glomerular Filtration Rate mL/min (>60) Glucose Level 120 MG/DL (74-106) Lactic Acid Level 0.80 mmol/L (0.66-2.22) Calcium Level 9.3 MG/DL (8.5-10.1) Total Bilirubin 0.5 MG/DL (0.2-1.0) Aspartate Amino Transf (AST/SGOT) 14 U/L (15-37) Alanine Aminotransferase (ALT/SGPT) 20 U/L (12-78) Alkaline Phosphatase 119 U/L (46-116) Total Creatine Kinase 67 U/L (26-308) Creatine Kinase MB 2.4 NG/ML (0.0-3.6) Creatine Kinase MB Relative Index 3.5 Troponin I 0.007 ng/mL (0.000-0.056) Total Protein 8.9 G/DL (6.4-8.2) Albumin 3.1 G/DL (3.4-5.0) Globulin 5.8 g/dL Albumin/Globulin Ratio 0.5 (1.0-2.7) Lipase 59 U/L (73-393) Urine Color Yellow Urine Appearance Clear Urine pH 6 (4.5-8.0) Urine Specific [place] 1.010 (1.005-1.035) Urine Protein 3+ (NEGATIVE) Urine Glucose (UA) Negative (NEGATIVE) Urine Ketones Negative (NEGATIVE) Urine Occult Blood 1+ (NEGATIVE) Urine Nitrite Negative (NEGATIVE) Urine Bilirubin Negative (NEGATIVE) Urine Urobilinogen 1 MG/DL (0.0-1.0) Urine Leukocyte Esterase Negative (NEGATIVE) Urine RBC 2-4 /HPF (0 - 0) Urine WBC 0 /HPF (0 - 0) Urine Squamous Epithelial Cells Few /LPF (NONE/OCC) Urine Bacteria None /HPF (NONE) Rhythm Strip Diag. Results EP Interpretation: yes Rate: 110 Rhythm: no PVC's, no ectopy, other - sinus tach Chest X-Ray Diagnostic Results Chest X-Ray Diagnostic Results : Chest X-Ray Ordered: Yes # of Views/Limited/Complete: 1 View Indication: Shortness of Breath EP Interpretation: Yes Interpretation: no consolidation, no effusion, no pneumothorax, other - pulmonary congestion Impression: Other - pulmonary congestion Electronically Signed by: Juliette Perez DO Other X-Ray Diagnostic Results Other X-Ray Diagnostic Results : X-Ray ordered: abdominal series # of Views/Limited Vs Complete: 2 View Indication: Pain EP Interpretation: Yes Interpretation: no soft tissue swelling, no sbo, other - Nonspecific bowel pattern Impression: No acute disease Electronically Signed by: Juliette Perez DO Last Vital Signs Date Time Temp Pulse Resp B/P (MAP) Pulse Ox O2 Delivery O2 Flow Rate FiO2 02/23/17 22:03 96 22 40 02/23/17 21:44 99.0 123/77 100 Mechanical Ventilator Status: improved Disposition: ADMITTED INPATIENT Condition: Serious JULIETTE PEREZ D.O. Feb 23, 2017 22:27
[2017-02-23] MEDS ORDERED: Morphine Sulfate 4mg/ml Inj IVP PRN (22:30)
[2017-02-23] MEDS ORDERED: Albuterol/Ipratropium 3ml neb HHN PRN (22:30)
[2017-02-23] MEDS ORDERED: LORazepam Inj 2mg/ml 1ml IV PRN (22:30)
[2017-02-23] MEDS ORDERED: Miralax 17gm pkt ORAL PRN (22:30)
[2017-02-23 23:40] LABS: HEMATOCRIT 32.1 % (42.0-52.0); HEMOGLOBIN 10.8 G/DL (14.2-18.0); MEAN CORPUSCULAR VOLUME 82 FL (80-99); PLATELET COUNT 214 K/UL (150-450); RED CELL DISTRIBUTION WIDTH 16.3 % (11.6-14.8)
[2017-02-23 23:48] LABS: WHITE BLOOD COUNT 26.9 K/UL (4.8-10.8)
[2017-02-24] LABS: ANION GAP 10 mmol/L (5-15); BLOOD UREA NITROGEN 32 mg/dL (7-18); CALCIUM 9.3 MG/DL (8.5-10.1); CARBON DIOXIDE 23 MMOL/L (21-32); CHLORIDE 98 MMOL/L (98-107); CREATININE 0.8 MG/DL (0.55-1.30); POTASSIUM 4.6 MMOL/L (3.5-5.1); SODIUM 131 MMOL/L (136-145)
[2017-02-24 00:10] LABS: APPEARANCE,URINE CLEAR; BILIRUBIN, URINE NEGATIVE (NEGATIVE); GLUCOSE, URINE (UA) NEGATIVE (NEGATIVE); KETONES,URINE NEGATIVE (NEGATIVE); LEUKOCYTE ESTERASE ,URINE NEGATIVE (NEGATIVE); NITRITE,URINE NEGATIVE (NEGATIVE); PH,URINE 6 (4.5-8.0); PROTEIN,URINE 3+ (NEGATIVE); UROBILINOGEN,URINE 1 MG/DL (0.0-1.0)
[2017-02-24 00:12] LABS: ALANINE AMINOTRANSFERASE 20 U/L (12-78); ALBUMIN 3.1 G/DL (3.4-5.0); ALBUMIN/GLOBULIN RATIO 0.5 (1.0-2.7); ALKALINE PHOSPHATASE 119 U/L (46-116); ASPARTATE AMINO TRANSFERASE 14 U/L (15-37); BILIRUBIN,TOTAL 0.5 MG/DL (0.2-1.0); CKMB 2.4 NG/ML (0.0-3.6); CREATINE KINASE 67 U/L (26-308)
[2017-02-24 00:16] LABS: COLOR,URINE YELLOW
[2017-02-24] MEDS ORDERED: Vancomycin 1.5gm/D5W 250ml 250 ML IVPB ONE (00:30)
[2017-02-24] MEDS ORDERED: Piperacillin/Tazobactam 3.375 GM in NS 110 ML IVPB ONE (00:30)
[2017-02-24] MEDS ORDERED: dilTIAZem HCl 25mg/5ml Inj IVP ONE ×2 (00:30→05:15)
[2017-02-24] MEDS ORDERED: Zosyn 3.375gm inj ONE (00:34)
[2017-02-24 03:50] VITALS: BP 118/86
[2017-02-24 05:39] LABS: HEMATOCRIT 31.5 % (42.0-52.0); HEMOGLOBIN 10.5 G/DL (14.2-18.0); MEAN CORPUSCULAR VOLUME 84 FL (80-99); PLATELET COUNT 234 K/UL (150-450); RED BLOOD COUNT 3.75 M/UL (4.70-6.10); RED CELL DISTRIBUTION WIDTH 16.4 % (11.6-14.8)
[2017-02-24 05:50] LABS: WHITE BLOOD COUNT 23.1 K/UL (4.8-10.8)
[2017-02-24 06:06] LABS: ALBUMIN 2.9 G/DL (3.4-5.0); ANION GAP 7 mmol/L (5-15); BLOOD UREA NITROGEN 34 mg/dL (7-18); CALCIUM 9.2 MG/DL (8.5-10.1); CARBON DIOXIDE 25 MMOL/L (21-32); CHLORIDE 99 MMOL/L (98-107); CREATININE 0.8 MG/DL (0.55-1.30); PHOSPHORUS 3.1 MG/DL (2.5-4.9); POTASSIUM 5.3 MMOL/L (3.5-5.1); SODIUM 131 MMOL/L (136-145)
[2017-02-24 06:07] LABS: LACTATE DEHYDROGENASE 460 U/L (81-234)
[2017-02-24 06:13] LABS: % IRON SATURATION 16 % (15-50); IRON 30 ug/dL (50-175); TOTAL IRON BINDING CAPACITY 192 ug/dL (250-450)
[2017-02-24] MEDS: NovoLOG Insulin Flexpen SUBQ SCH ×4 (06:30→20:59)
[2017-02-24 07:29] VITALS: BP 129/69
--- NOTE | 2017-02-24 09:10 | Diagnostic Imaging Report ---
Indication: Abdominal pain Technique: XRAY Abdomen 2v Comparison: 05/21/2016 Findings: Limited exam due to patient positioning, with the patient's arms overlying the abdomen on all images. A gastrostomy tube is noted. The bowel gas pattern is nonspecific. Limited sensitivity to assess for free intraperitoneal air. A calcified nodule is noted in the right lung base. There is osteopenia, scoliosis and degenerative change of the spine, with mild compression deformities of lower thoracic and upper lumbar vertebral bodies. These were previously seen. Right hip arthroplasty noted. Impression: Limited exam. Nonspecific bowel gas pattern. If there is continued abdominal pain, consider more sensitive evaluation with CT with PO and IV contrast.
--- NOTE | 2017-02-24 09:14 | Diagnostic Imaging Report ---
Indication: Chest pain Technique: XRAY Chest 1v Comparison: 05/23/2016 Findings: Tracheostomy tube in place. Heart size and mediastinal contours are stable. Lung volumes are low. There is interstitial edema/prominence. There is no focal airspace consolidation. No large pleural effusion. No definite pneumothorax. No acute osseous abnormality seen. A dense nodule is again noted at the right lung base. Impression: Interstitial opacification/edema, possibly exaggerated due to low lung volumes. Clinical correlation and follow-up exam recommended. Tracheostomy tube in place
[2017-02-24 09:27] VITALS: BP 152/67
[2017-02-24] MEDS: Heparin 5000 units/ml inj SUBQ SCH ×2 (09:28→21:02)
[2017-02-24] MEDS: dilTIAZem HCl 30mg tab ORAL SCH ×2 (09:31→18:22)
[2017-02-24] MEDS: Pantoprazole Inj IV SCH (09:32)
[2017-02-24 11:30] VITALS: BP 132/74
--- NOTE | 2017-02-24 11:31 | History and Physical ---
History of Present Illness General Date patient seen: Feb 24, 2017 Reason for Hospitalization: Abnormal Labs Present Illness HPI 81 year old male with hx of chronic respiratory failure, trach/peg, bed bound, deep coma, [facility] resident, presented from nursing facility with CC of fever and high white blood t There is no reports of vomiting or diarrhea. Pt was admitted to [facility] for work up of his sepsis. Allergies: Coded Allergies: No Known Allergies (Verified , 08/19/07) Medication History Scheduled Acetaminophen (Tylenol 8 Hour), 650 MG GT Q4HR, (Reported) Albuterol Sulfate* (Albuterol Sulfate Hhn*), 2.5 MG HHN Q6H, (Reported) Amlodipine Besylate* (Amlodipine Besylate*), 10 MG GT DAILY, (Reported) Ceftriaxone Na/Dextrose,Iso (Ceftriaxone 1 Gm Piggyback), 1 GM IV DAILY Clonidine Hcl* (Catapres*), 0.1 MG GT EVERY 4 HOURS, (Reported) Diltiazem HCl (Diltiazem 12Hr ER), 30 MG ORAL BID Docusate Sodium* (Colace*), 100 MG GT BID, (Reported) Ferrous Sulfate* (Ferrous Sulfate*), 330 MG GT THREE TIMES A DAY, (Reported) Heparin Sodium,Porcine/Pf (Heparin Sod 5,000 Unit/ 0.5 Ml), 5,000 UNIT IJ BID, ( Reported) Ipratropium [place] (Atrovent Inh Soln), 2.5 ML HHN Q6H, (Reported) Losartan Potassium* (Cozaar*), 100 MG GT DAILY, (Reported) Morphine Sulfate (Morphine Sulfate), 4 MG IJ Q4HR, (Reported) Morphine Sulfate* (Morphine Sulfate*), 6 MG IJ Q4H, (Reported) Multivitamin With Minerals (Multivitamins With Minerals*), 1 TAB GT DAILY, ( Reported) Na Phos,M-B/Na Phos,Di-Ba* (Fleet Enema*), 133 ML RECTAL TID, (Reported) Pantoprazole* (Protonix*), 40 MG GT DAILY, (Reported) Promethazine/Codeine* (Phenergan/Codeine*), 5 ML GT Q6HR, (Reported) Protein Supplement (Promod), 30 ML GT TWICE A DAY, (Reported) Vit C/Ascorbate Ca/Ascorb Sod (Vitamin C 500 Mg/15 Ml Liquid), 500 MG GT DAILY, (Reported) Miscellaneous Medications Bisacodyl* (Dulcolax*), 10 MG ORAL, (Reported) Calcium Carbonate/Vitamin D3 (Oyster Shell 500 Mg + Vit D Tb), 1 EACH GT, ( Reported) Epoetin Jovani (Epogen), 1 ML SUBQ, (Reported) Patient History Healthcare decision maker Resuscitation status Advanced Directive on File No Past Medical/Surgical History Past Medical/Surgical History: (1) DM (diabetes mellitus) (2) Seizure disorder (3) Chronic respiratory failure Review of Systems All Other Systems: negative except mentioned in HPI Physical Exam General Appearance: WD/WN Lines, tubes and drains: peripheral HEENT: normocephalic, atraumatic Neck: non-tender, normal alignment Respiratory/Chest: chest wall non-tender, lungs clear Breasts: no masses Cardiovascular/Chest: normal peripheral pulses Abdomen: normal bowel sounds, non tender Genitourinary/Rectal: normal genital exam, normal rectal exam Extremities: normal range of motion Skin Exam: normal pigmentation Last 24 Hour Vital Signs Date Time Temp Pulse Resp B/P (MAP) Pulse Ox O2 Delivery O2 Flow Rate FiO2 02/24/17 10:30 100 22 30 02/24/17 10:06 98.7 02/24/17 09:31 100 152/67 02/24/17 09:31 100 152/67 02/24/17 09:27 100 20 152/67 100 Mechanical Ventilator 35 02/24/17 08:35 86 16 30 02/24/17 07:29 90 16 129/69 100 Mechanical Ventilator 35 02/24/17 06:45 100 16 35 02/24/17 05:44 112 123/58 02/24/17 05:30 115 22 35 02/24/17 03:50 99.6 118 22 118/86 100 Mechanical Ventilator 35 02/24/17 03:04 100 22 35 02/24/17 01:34 93 20 35 02/24/17 00:47 130 146/65 02/23/17 23:17 99.6 02/23/17 22:32 113 27 35 02/23/17 22:03 96 22 40 02/23/17 21:44 99.0 95 12 123/77 100 Mechanical Ventilator 40 Intake and Output 02/23/17 02/24/17 19:00 07:00 Intake Total 0 ml Balance 0 ml Intake Oral 0 ml Laboratory Tests Test 02/23/17 23:00 02/23/17 23:54 02/24/17 05:05 02/24/17 05:35 White Blood Count 26.9 K/UL (4.8-10.8) *H 23.1 K/UL (4.8-10.8) *H Red Blood Count 3.90 M/UL (4.70-6.10) L 3.75 M/UL (4.70-6.10) L Hemoglobin 10.8 G/DL (14.2-18.0) L 10.5 G/DL (14.2-18.0) L Hematocrit 32.1 % (42.0-52.0) L 31.5 % (42.0-52.0) L Mean Corpuscular Volume 82 FL (80-99) 84 FL (80-99) Mean Corpuscular Hemoglobin 27.8 PG (27.0-31.0) 27.8 PG (27.0-31.0) Mean Corpuscular Hemoglobin Concent 33.7 G/DL (32.0-36.0) 33.2 G/DL (32.0-36.0) Red Cell Distribution Width 16.3 % (11.6-14.8) H 16.4 % (11.6-14.8) H Platelet Count 214 K/UL (150-450) 234 K/UL (150-450) Mean Platelet Volume 8.3 FL (6.5-10.1) 9.0 FL (6.5-10.1) Neutrophils (%) (Auto) % (45.0-75.0) % (45.0-75.0) Lymphocytes (%) (Auto) % (20.0-45.0) % (20.0-45.0) Monocytes (%) (Auto) % (1.0-10.0) % (1.0-10.0) Eosinophils (%) (Auto) % (0.0-3.0) % (0.0-3.0) Basophils (%) (Auto) % (0.0-2.0) % (0.0-2.0) Differential Total Cells Counted 100 100 Neutrophils % (Manual) 91 % (45-75) H 90 % (45-75) H Lymphocytes % (Manual) 6 % (20-45) L 8 % (20-45) L Monocytes % (Manual) 3 % (1-10) 2 % (1-10) Eosinophils % (Manual) 0 % (0-3) 0 % (0-3) Basophils % (Manual) 0 % (0-2) 0 % (0-2) Band Neutrophils 0 % (0-8) 0 % (0-8) Platelet Estimate Adequate Adequate Platelet Morphology Normal Normal Sodium Level 131 MMOL/L (136-145) L 131 MMOL/L (136-145) L Potassium Level 4.6 MMOL/L (3.5-5.1) 5.3 MMOL/L (3.5-5.1) H Chloride Level 98 MMOL/L (98-107) 99 MMOL/L (98-107) Carbon Dioxide Level 23 MMOL/L (21-32) 25 MMOL/L (21-32) Anion Gap 10 mmol/L (5-15) 7 mmol/L (5-15) Blood Urea Nitrogen 32 mg/dL (7-18) H 34 mg/dL (7-18) H Creatinine 0.8 MG/DL (0.55-1.30) 0.8 MG/DL (0.55-1.30) Estimat Glomerular Filtration Rate mL/min (>60) mL/min (>60) Glucose Level 120 MG/DL (74-106) H 112 MG/DL (74-106) H Lactic Acid Level 0.80 mmol/L (0.66-2.22) Calcium Level 9.3 MG/DL (8.5-10.1) 9.2 MG/DL (8.5-10.1) Total Bilirubin 0.5 MG/DL (0.2-1.0) Aspartate Amino Transf (AST/SGOT) 14 U/L (15-37) L Alanine Aminotransferase (ALT/SGPT) 20 U/L (12-78) Alkaline Phosphatase 119 U/L (46-116) H Total Creatine Kinase 67 U/L (26-308) Creatine Kinase MB 2.4 NG/ML (0.0-3.6) Creatine Kinase MB Relative Index 3.5 Troponin I 0.007 ng/mL (0.000-0.056) Total Protein 8.9 G/DL (6.4-8.2) H Albumin 3.1 G/DL (3.4-5.0) L 2.9 G/DL (3.4-5.0) L Globulin 5.8 g/dL Albumin/Globulin Ratio 0.5 (1.0-2.7) L Lipase 59 U/L (73-393) L Urine Color Yellow Urine Appearance Clear Urine pH 6 (4.5-8.0) Urine Specific [place] 1.010 (1.005-1.035) Urine Protein 3+ (NEGATIVE) H Urine Glucose (UA) Negative (NEGATIVE) Urine Ketones Negative (NEGATIVE) Urine Occult Blood 1+ (NEGATIVE) H Urine Nitrite Negative (NEGATIVE) Urine Bilirubin Negative (NEGATIVE) Urine Urobilinogen 1 MG/DL (0.0-1.0) H Urine Leukocyte Esterase Negative (NEGATIVE) Urine RBC 2-4 /HPF (0 - 0) H Urine WBC 0 /HPF (0 - 0) Urine Squamous Epithelial Cells Few /LPF (NONE/OCC) Urine Bacteria None /HPF (NONE) Hypochromasia 1+ Anisocytosis 1+ Erythrocyte Sedimentation Rate 95 MM/HR (0-30) H Reticulocyte Count 1.1 % (0.0-2.0) Prothrombin Time 10.4 SEC (9.30-11.50) Prothromb Time International Ratio 1.0 (0.9-1.1) Activated Partial Thromboplast Time 28 SEC (23-33) Phosphorus Level 3.1 MG/DL (2.5-4.9) Iron Level 30 ug/dL (50-175) L Total Iron Binding Capacity 192 ug/dL (250-450) L Percent Iron Saturation 16 % (15-50) Unsaturated Iron Binding 162 ug/dL (112-346) Lactate Dehydrogenase 460 U/L (81-234) H Vitamin B12 Level 1148 PG/ML (193-986) H Folate 47.2 NG/ML (8.6-58.9) Microbiology Date/Time Source Procedure Growth Status 02/23/17 23:33 Nasal Nares Influenza Types A,B Antigen (CHUNG) - Final Complete Height (Feet): 6 Height (Inches): 1.00 Weight (Pounds): 210 Medications Current Medications Medications (Trade) Dose Ordered Sig/Jaswant Route PRN Reason Start Time Stop Time Status Last Admin Dose Admin Acetaminophen (Tylenol) 650 mg Q4H PRN ORAL FEVER 02/23/17 22:30 03/25/17 22:29 Albuterol/ Ipratropium (Albuterol/ Ipratropium) 3 ml EVERY 4 HOURS PRN HHN Shortness of Breath 02/23/17 22:30 02/28/17 22:29 Amlodipine Besylate (Norvasc) 10 mg DAILY GT 02/24/17 09:00 03/26/17 08:59 02/24/17 09:31 Dextrose (Dextrose 50%) STAT PRN IV Hypoglycemia 02/23/17 22:30 03/25/17 22:29 Diltiazem HCl (Cardizem) 30 mg BID ORAL 02/24/17 09:00 03/26/17 08:59 02/24/17 09:31 Heparin Sodium (Porcine) (Heparin 5000 units/ml) 5,000 units EVERY 12 HOURS SUBQ 02/24/17 09:00 03/26/17 08:59 02/24/17 09:28 Insulin Aspart (NovoLOG) BEFORE MEALS AND HS SUBQ 02/24/17 06:30 03/26/17 06:29 Lorazepam (Ativan 2mg/ml 1ml) 2 mg EVERY 2 HOURS PRN IV For Anxiety 02/23/17 22:30 03/02/17 22:29 Morphine Sulfate (Morphine Sulfate) 4 mg EVERY 4 HOURS PRN IVP Severe Pain (Pain Scale 7-10) 02/23/17 22:30 03/02/17 22:29 Morphine Sulfate (Morphine Sulfate) 4 mg Q4HR PRN IVP severe pain 02/23/17 22:30 03/02/17 22:29 Ondansetron HCl (Zofran) 4 mg Q6H PRN IVP Nausea & Vomiting 02/23/17 22:30 03/25/17 22:29 Pantoprazole (Protonix) 40 mg DAILY IV 02/24/17 09:00 03/26/17 08:59 02/24/17 09:32 Polyethylene Glycol (Miralax) 17 gm DAILYPRN PRN ORAL Constipation 02/23/17 22:30 03/25/17 22:29 Vancomycin HCl (Vanco rx to dose) 1 ea DAILY PRN MISC RX PROTOCOL 02/24/17 08:15 03/26/17 08:14 Vancomycin HCl 1 gm/Dextrose 275 ml @ 183.3 mls/ hr Q12H IVPB 02/24/17 12:00 03/01/17 11:59 Assessment/Plan Problem List: (1) Acute on chronic respiratory failure ICD Codes: J96.20 - Acute on chronic respiratory failure SNOMED: 11109117 (2) Severe sepsis ICD Codes: A41.9 - Sepsis, unspecified organism; R65.20 - Severe sepsis without septicshock SNOMED: 45772766 (3) Feeding by G-tube ICD Codes: Z93.1 - Feeding by G-tube SNOMED: 646541248 (4) Seizure disorder ICD Codes: G40.909 - Epilepsy, unspecified, not intractable,without status epilepticus SNOMED: 819129529 (5) DM (diabetes mellitus) ICD Codes: E11.9 - DM (diabetes mellitus) SNOMED: 85113795 Respiratory: monitor respiratory rate, adjust FIO2 Cardiac: continue to monitor HR/BP Renal: keep IV fluid Infectious Disease: check cultures Gastrointestinal: continue feedings/current rate Endocrine: monitor blood sugar, continue sliding scale insulin Hematologic: monitor H/H, transfuse if hgb<8.5 Neurologic: PRN Ativan, PRN Morphine, keep patient comfortable Prophylaxis: Protonix, Heparin Notes Reviewed: salesforce business analyst Discussed with: nurses, consultants, case packer PEDRO LUIS IVEY Feb 24, 2017 11:31
--- NOTE | 2017-02-24 13:28 | Consultation ---
Consult Note Consult Note ID DIC # [id number] MARGARETTE BRYANT M.D. Feb 24, 2017 13:28
--- NOTE | 2017-02-24 14:46 | Cardiology Report ---
APPROVED REPORT EKG Measurement Heart [id number] DC [id number]-19 [id number] Sinus tachycardia with premature ventricular complexes or fusion complexes Otherwise normal ECG
[2017-02-24 16:00] VITALS: BP 128/80
[2017-02-24] MEDS: Vancomycin 1 GM in D5W 275 ML IVPB SCH (16:26)
[2017-02-24] MEDS: Piperacillin/Tazobactam 4.5 GM in NS 110 ML IVPB SCH ×2 (18:22→21:02)
[2017-02-24 20:00] VITALS: BP 143/68
--- NOTE | 2017-02-24 22:30 | Consultation ---
DATE OF CONSULTATION: 02/24/2017 INFECTIOUS DISEASES CONSULTATION CONSULTING PHYSICIAN: Dick Novoa M.D. REQUESTING PHYSICIAN: Soraida Raymond M.D. REASON FOR CONSULT: Evaluation of the patient for fever, leukocytosis, sepsis, and antibiotic management. HISTORY OF PRESENT ILLNESS: The patient is an 81-year-old male with multiple medical problems, who was admitted to this medical center for fever, leukocytosis, and possible sepsis from long term. Infectious Diseases consultation has been requested for further evaluation of the patient's antibiotic management. PAST MEDICAL HISTORY: Significant for: 1. Sepsis. 2. History of upper GI bleed in the past. 3. History of CVA. 4. History of TIA. 5. Dementia. 6. Hypertension. 7. COPD. 8. Diabetes. 9. lower extremity. 10. Anemia. 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 MEDICATIONS: IV vancomycin and Zosyn. ALLERGIES: No known drug allergies. SOCIAL HISTORY: The patient lives in long term. FAMILY HISTORY: Unavailable. REVIEW OF SYSTEMS: Unobtainable. PHYSICAL EXAMINATION: VITAL SIGNS: Temperature 98, pulse 86, respiratory rate 18, blood pressure 152/67, and T-max 99.6. HEENT: Mild pale conjunctivae. No icterus. NECK: No lymphadenopathy. Trach in place. CHEST: Coarse breathing sounds. HEART: S1 and S2. ABDOMEN: Soft, obese. PEG tube in place. No sign of cellulitis. EXTREMITIES: No cyanosis. SKIN: No infected decubitus. NEUROLOGIC: Nonverbal. LABORATORY AND DIAGNOSTIC DATA: White blood cells at the time of admission 26.9, hemoglobin 10, and platelets 214,000. UA unremarkable. BUN 34 and creatinine 0.8. Liver function tests overall are unremarkable. Rapid influenza A negative. Abdominal x-ray unremarkable. Chest x-ray showed interstitial opacification and edema. ASSESSMENT: The patient is an 81-year-old male with: 1. Sepsis. 2. Leukocytosis. 3. Rule out urinary tract infection. 4. Probable vent-associated pneumonia. 5. Low-grade fever. 6. Rapid influenza A negative. PLAN: 1. We will continue the patient on vancomycin empirically. 2. Monitor CBC. 3. Monitor BMP. 4. Monitor cultures (blood, urine, and sputum). 5. Monitor chest x-ray. 6. Based on the patient's clinical course and labs, we will do further recommendation. Thank you, Dr. Raymond, for allowing me to participate in the care of this patient. I will follow the patient with you during this hospitalization. Dick Novoa M.D. DR: CJ JOB#: [id number] CC:
[2017-02-25] VITALS: BP 139/62
[2017-02-25 04:00] VITALS: BP 124/65
[2017-02-25] MEDS: Vancomycin 1 GM in D5W 275 ML IVPB SCH ×2 (04:00→16:00)
[2017-02-25] MEDS: Piperacillin/Tazobactam 4.5 GM in NS 110 ML IVPB SCH ×3 (06:21→21:31)
[2017-02-25] MEDS: NovoLOG Insulin Flexpen SUBQ SCH ×4 (06:25→20:42)
--- NOTE | 2017-02-25 07:15 | Pulmonology Progress Note ---
Assessment/Plan Assessment/Plan ASSESSMENT Severe sepsis Acute on chronic respiratory failure VDRF/trach Possible PNA dysphagia G tube DM HTN Anemia e/lyte imbalance ( hyper K, hypo Na) Functional quadriplegia PLAN OF CARE [facility] status Baseline ABG and titrate settings as needed Vent /trach care ; pulm toilet fup with CXR empiric abx ID follows fup with cx, sputum x if able Venous Duplex BLE negative BP management with CCB BS management with SS of insulin DVT GI prophylaxis e/lytes stable now, monitor and correct as needed Full code case discussed and evaluated by supervising physician Subjective Allergies: Coded Allergies: No Known Allergies (Verified , 08/19/07) Subjective leukocytosis trending down, low grade fever no signs of respiratory distress on current settings Objective Last 24 Hour Vital Signs Date Time Temp Pulse Resp B/P (MAP) Pulse Ox O2 Delivery O2 Flow Rate FiO2 02/25/17 06:45 88 16 30 02/25/17 05:09 92 26 30 02/25/17 04:00 99.0 75 24 124/65 100 Mechanical Ventilator 30 02/25/17 04:00 30 02/25/17 03:57 82 02/25/17 03:30 92 26 30 02/25/17 01:07 88 17 30 02/25/17 00:00 98.7 91 20 139/62 100 Mechanical Ventilator 30 02/24/17 23:54 74 17 30 02/24/17 23:35 72 02/24/17 20:45 72 17 30 02/24/17 20:00 98.8 89 23 143/68 99 Mechanical Ventilator 30 02/24/17 20:00 30 02/24/17 19:39 78 02/24/17 19:02 78 17 30 02/24/17 18:22 106 132/74 02/24/17 17:00 94 17 30 02/24/17 16:00 98.9 96 20 128/80 100 Mechanical Ventilator 30 02/24/17 16:00 30 02/24/17 16:00 99 02/24/17 14:28 90 17 30 02/24/17 12:31 83 16 30 02/24/17 12:00 30 02/24/17 11:57 98 02/24/17 11:30 98.2 97 20 132/74 99 Mechanical Ventilator 30 02/24/17 10:45 98.7 22 152/67 100 Mechanical Ventilator 30 02/24/17 10:31 30 02/24/17 10:30 100 22 30 02/24/17 10:06 98.7 02/24/17 09:31 100 152/67 18 09:31 100 152/67 18 09:27 100 20 152/67 100 Mechanical Ventilator 35 02/24/17 08:35 86 16 30 02/24/17 07:29 90 16 129/69 100 Mechanical Ventilator 35 Intake and Output 02/24/17 02/25/17 19:00 07:00 Intake Total 150 ml 581.5 ml Output Total 200 ml 420 ml Balance -50 ml 161.5 ml Free Water 110 ml 100 ml IV Total 301.5 ml Tube Feeding 40 ml 180 ml Output Urine Total 200 ml 400 ml Drainage Total 20 ml # Voids 1 General Appearance: no acute distress, other - bedridden, obtunded, vent dependent AA male in NAD Vent Ac 600-16-30% HEENT: normocephalic, atraumatic, status post trach - portex #8, secretions small yellow thick Respiratory/Chest: no respiratory distress, decreased breath sounds Cardiovascular: normal rate, regular rhythm - SR on tele Abdomen: soft, non tender, other - G tube Extremities: no edema Neurologic/Psychiatric: abnormal gait - bedriddbne, other - obtunded, contracted extremities Musculoskeletal: atrophy Microbiology Date/Time Source Procedure Growth Status 02/23/17 23:33 Nasal Nares Influenza Types A,B Antigen (CHUNG) - Final Complete Current Medications Medications (Trade) Dose Ordered Sig/Jaswant Route PRN Reason Start Time Stop Time Status Last Admin Dose Admin Acetaminophen (Tylenol) 650 mg Q4H PRN ORAL FEVER 02/23/17 22:30 03/25/17 22:29 Albuterol/ Ipratropium (Albuterol/ Ipratropium) 3 ml EVERY 4 HOURS PRN HHN Shortness of Breath 02/23/17 22:30 02/28/17 22:29 Amlodipine Besylate (Norvasc) 10 mg DAILY GT 02/24/17 09:00 03/26/17 08:59 02/24/17 09:31 Dextrose (Dextrose 50%) STAT PRN IV Hypoglycemia 02/23/17 22:30 03/25/17 22:29 Diltiazem HCl (Cardizem) 30 mg BID ORAL 02/24/17 09:00 03/26/17 08:59 02/24/17 18:22 Heparin Sodium (Porcine) (Heparin 5000 units/ml) 5,000 units EVERY 12 HOURS SUBQ 02/24/17 09:00 03/26/17 08:59 02/24/17 21:02 Insulin Aspart (NovoLOG) BEFORE MEALS AND HS SUBQ 02/24/17 06:30 03/26/17 06:29 02/24/17 17:43 Lorazepam (Ativan 2mg/ml 1ml) 2 mg EVERY 2 HOURS PRN IV For Anxiety 02/23/17 22:30 03/02/17 22:29 Morphine Sulfate (Morphine Sulfate) 4 mg EVERY 4 HOURS PRN IVP Severe Pain (Pain Scale 7-10) 02/23/17 22:30 03/02/17 22:29 Morphine Sulfate (Morphine Sulfate) 4 mg Q4HR PRN IVP severe pain 02/23/17 22:30 03/02/17 22:29 Ondansetron HCl (Zofran) 4 mg Q6H PRN IVP Nausea & Vomiting 02/23/17 22:30 03/25/17 22:29 Pantoprazole (Protonix) 40 mg DAILY IV 02/24/17 09:00 03/26/17 08:59 02/24/17 09:32 Piperacillin Sod/ Tazobactam Sod 4.5 gm/Sodium Chloride 110 ml @ 27.5 mls/hr EVERY 8 HOURS IVPB 02/24/17 14:30 03/01/17 14:29 02/25/17 06:21 Polyethylene Glycol (Miralax) 17 gm DAILYPRN PRN ORAL Constipation 02/23/17 22:30 03/25/17 22:29 Vancomycin HCl (Vanco rx to dose) 1 ea DAILY PRN MISC RX PROTOCOL 02/24/17 08:15 03/26/17 08:14 Vancomycin HCl 1 gm/Dextrose 275 ml @ 183.3 mls/ hr Q12H IVPB 02/24/17 12:00 03/01/17 11:59 02/25/17 04:00 Guillermina Brush NP (Vanchtein) Feb 25, 2017 07:15
[2017-02-25 07:42] LABS: HEMATOCRIT 30.8 % (42.0-52.0); HEMOGLOBIN 9.9 G/DL (14.2-18.0); MEAN CORPUSCULAR VOLUME 85 FL (80-99); PLATELET COUNT 224 K/UL (150-450); RED BLOOD COUNT 3.65 M/UL (4.70-6.10); RED CELL DISTRIBUTION WIDTH 16.4 % (11.6-14.8); WHITE BLOOD COUNT 13.4 K/UL (4.8-10.8)
[2017-02-25 08:00] VITALS: BP 141/64
[2017-02-25 08:12] LABS: ALANINE AMINOTRANSFERASE 21 U/L (12-78); ALBUMIN 2.8 G/DL (3.4-5.0); ALBUMIN/GLOBULIN RATIO 0.5 (1.0-2.7); ALKALINE PHOSPHATASE 92 U/L (46-116); ANION GAP 14 mmol/L (5-15); ASPARTATE AMINO TRANSFERASE 15 U/L (15-37); BILIRUBIN,TOTAL 0.8 MG/DL (0.2-1.0); BLOOD UREA NITROGEN 31 mg/dL (7-18); CARBON DIOXIDE 21 MMOL/L (21-32); CHLORIDE 102 MMOL/L (98-107); CREATININE 0.8 MG/DL (0.55-1.30); PHOSPHORUS 3.5 MG/DL (2.5-4.9); POTASSIUM 4.1 MMOL/L (3.5-5.1); SODIUM 136 MMOL/L (136-145)
[2017-02-25] MEDS: Pantoprazole Inj IV SCH (09:59)
[2017-02-25] MEDS: dilTIAZem HCl 30mg tab ORAL SCH ×2 (09:59→17:53)
[2017-02-25] MEDS: Heparin 5000 units/ml inj SUBQ SCH ×2 (10:09→20:43)
--- NOTE | 2017-02-25 10:14 | Infectious Diseases Prog Note ---
Assessment/Plan Assessment/Plan ASSESSMENT: The patient is an 81-year-old male with: 1. Sepsis. 2. Leukocytosis, improving u/a no pyuria 3. Probable vent-associated pneumonia. -CXR: Interstitial opacification/edema, possibly exaggerated due to low lung volumes. 4. Low-grade fever. 5. Rapid influenza A negative. -. History of upper GI bleed in the past. -. History of CVA/TIA. - Dementia. -. Hypertension. -. COPD. - Diabetes. -. Anemia. -. Ventilator-dependent respiratory failure. PLAN: 1. We will continue the patient on vancomycin and Zosyn #2 empirically pending cultures 2. Monitor CBC. 3. Monitor BMP. 4. Monitor cultures (blood, urine, and sputum). 5. Monitor chest x-ray. 6. Based on the patient's clinical course and labs, we will do further recommendation. Thank you, Dr. Raymond, for allowing me to participate in the care of this patient. I will follow the patient with you during this hospitalization. Subjective Allergies: Coded Allergies: No Known Allergies (Verified , 08/19/07) Objective Vital Signs Last 24 Hour Vital Signs Date Time Temp Pulse Resp B/P (MAP) Pulse Ox O2 Delivery O2 Flow Rate FiO2 02/25/17 10:03 92 141/64 02/25/17 09:59 92 141/64 02/25/17 08:54 92 31 30 02/25/17 08:00 99.0 105 24 141/64 99 Mechanical Ventilator 30 02/25/17 08:00 30 02/25/17 06:45 88 16 30 02/25/17 05:09 92 26 30 02/25/17 04:00 99.0 75 24 124/65 100 Mechanical Ventilator 30 02/25/17 04:00 30 02/25/17 03:57 82 02/25/17 03:30 92 26 30 02/25/17 01:07 88 17 30 02/25/17 00:00 98.7 91 20 139/62 100 Mechanical Ventilator 30 02/24/17 23:54 74 17 30 02/24/17 23:35 72 02/24/17 20:45 72 17 30 02/24/17 20:00 98.8 89 23 143/68 99 Mechanical Ventilator 30 02/24/17 20:00 30 02/24/17 19:39 78 02/24/17 19:02 78 17 30 02/24/17 18:22 106 132/74 02/24/17 17:00 94 17 30 02/24/17 16:00 98.9 96 20 128/80 100 Mechanical Ventilator 30 02/24/17 16:00 30 02/24/17 16:00 99 02/24/17 14:28 90 17 30 02/24/17 12:31 83 16 30 02/24/17 12:00 30 02/24/17 11:57 98 02/24/17 11:30 98.2 97 20 132/74 99 Mechanical Ventilator 30 02/24/17 10:45 98.7 22 152/67 100 Mechanical Ventilator 30 02/24/17 10:31 30 02/24/17 10:30 100 22 30 Height (Feet): 6 Height (Inches): 1.00 Weight (Pounds): 209 Objective HEENT: Mild pale conjunctivae. No icterus. NECK: No lymphadenopathy. Trach in place. CHEST: Coarse breathing sounds. HEART: S1 and S2. ABDOMEN: Soft, obese. PEG tube in place. No sign of cellulitis. EXTREMITIES: No cyanosis. SKIN: No infected decubitus. NEUROLOGIC: Nonverbal. Microbiology Date/Time Source Procedure Growth Status 02/23/17 23:33 Nasal Nares Influenza Types A,B Antigen (CHUNG) - Final Complete Laboratory Tests Test 02/25/17 06:45 White Blood Count 13.4 K/UL (4.8-10.8) H Red Blood Count 3.65 M/UL (4.70-6.10) L Hemoglobin 9.9 G/DL (14.2-18.0) L Hematocrit 30.8 % (42.0-52.0) L Mean Corpuscular Volume 85 FL (80-99) Mean Corpuscular Hemoglobin 27.2 PG (27.0-31.0) Mean Corpuscular Hemoglobin Concent 32.2 G/DL (32.0-36.0) Red Cell Distribution Width 16.4 % (11.6-14.8) H Platelet Count 224 K/UL (150-450) Mean Platelet Volume 7.4 FL (6.5-10.1) Neutrophils (%) (Auto) % (45.0-75.0) Lymphocytes (%) (Auto) % (20.0-45.0) Monocytes (%) (Auto) % (1.0-10.0) Eosinophils (%) (Auto) % (0.0-3.0) Basophils (%) (Auto) % (0.0-2.0) Neutrophils % (Manual) Pending Lymphocytes % (Manual) Pending Platelet Estimate Pending Platelet Morphology Pending Sodium Level 136 MMOL/L (136-145) Potassium Level 4.1 MMOL/L (3.5-5.1) Chloride Level 102 MMOL/L (98-107) Carbon Dioxide Level 21 MMOL/L (21-32) Anion Gap 14 mmol/L (5-15) Blood Urea Nitrogen 31 mg/dL (7-18) H Creatinine 0.8 MG/DL (0.55-1.30) Estimat Glomerular Filtration Rate mL/min (>60) Glucose Level 105 MG/DL (74-106) Calcium Level 9.0 MG/DL (8.5-10.1) Phosphorus Level 3.5 MG/DL (2.5-4.9) Magnesium Level 2.3 MG/DL (1.8-2.4) Total Bilirubin 0.8 MG/DL (0.2-1.0) Aspartate Amino Transf (AST/SGOT) 15 U/L (15-37) Alanine Aminotransferase (ALT/SGPT) 21 U/L (12-78) Alkaline Phosphatase 92 U/L (46-116) Total Protein 8.4 G/DL (6.4-8.2) H Albumin 2.8 G/DL (3.4-5.0) L Globulin 5.6 g/dL Albumin/Globulin Ratio 0.5 (1.0-2.7) L Current Medications Medications (Trade) Dose Ordered Sig/Jaswant Route PRN Reason Start Time Stop Time Status Last Admin Dose Admin Acetaminophen (Tylenol) 650 mg Q4H PRN ORAL FEVER 02/23/17 22:30 03/25/17 22:29 Albuterol/ Ipratropium (Albuterol/ Ipratropium) 3 ml EVERY 4 HOURS PRN HHN Shortness of Breath 02/23/17 22:30 02/28/17 22:29 Amlodipine Besylate (Norvasc) 10 mg DAILY GT 02/24/17 09:00 03/26/17 08:59 02/25/17 10:03 Dextrose (Dextrose 50%) STAT PRN IV Hypoglycemia 02/23/17 22:30 03/25/17 22:29 Diltiazem HCl (Cardizem) 30 mg BID ORAL 02/24/17 09:00 03/26/17 08:59 02/25/17 09:59 Heparin Sodium (Porcine) (Heparin 5000 units/ml) 5,000 units EVERY 12 HOURS SUBQ 02/24/17 09:00 03/26/17 08:59 02/24/17 21:02 Insulin Aspart (NovoLOG) BEFORE MEALS AND HS SUBQ 02/24/17 06:30 03/26/17 06:29 02/24/17 17:43 Lorazepam (Ativan 2mg/ml 1ml) 2 mg EVERY 2 HOURS PRN IV For Anxiety 02/23/17 22:30 03/02/17 22:29 Morphine Sulfate (Morphine Sulfate) 4 mg EVERY 4 HOURS PRN IVP Severe Pain (Pain Scale 7-10) 02/23/17 22:30 03/02/17 22:29 Morphine Sulfate (Morphine Sulfate) 4 mg Q4HR PRN IVP severe pain 02/23/17 22:30 03/02/17 22:29 Ondansetron HCl (Zofran) 4 mg Q6H PRN IVP Nausea & Vomiting 02/23/17 22:30 03/25/17 22:29 Pantoprazole (Protonix) 40 mg DAILY IV 02/24/17 09:00 03/26/17 08:59 02/25/17 09:59 Piperacillin Sod/ Tazobactam Sod 4.5 gm/Sodium Chloride 110 ml @ 27.5 mls/hr EVERY 8 HOURS IVPB 02/24/17 14:30 03/01/17 14:29 02/25/17 06:21 Polyethylene Glycol (Miralax) 17 gm DAILYPRN PRN ORAL Constipation 02/23/17 22:30 03/25/17 22:29 Vancomycin HCl (Vanco rx to dose) 1 ea DAILY PRN MISC RX PROTOCOL 02/24/17 08:15 03/26/17 08:14 Vancomycin HCl 1 gm/Dextrose 275 ml @ 183.3 mls/ hr Q12H IVPB 02/24/17 12:00 03/01/17 11:59 02/25/17 04:00 Sindy Elder M.D. Feb 25, 2017 10:14
[2017-02-25 12:00] VITALS: BP 138/73
[2017-02-25 16:00] VITALS: BP 140/74
[2017-02-25 20:00] VITALS: BP 126/66
[2017-02-26] VITALS: BP 118/72
[2017-02-26] MEDS: Vancomycin 1250mg/D5W 250ml 250 ML IVPB SCH ×2 (01:43→13:49)
[2017-02-26 04:00] VITALS: BP 120/66
[2017-02-26] MEDS: NovoLOG Insulin Flexpen SUBQ SCH ×4 (06:06→20:45)
[2017-02-26] MEDS: Piperacillin/Tazobactam 4.5 GM in NS 110 ML IVPB SCH ×3 (06:06→21:30)
[2017-02-26 06:22] LABS: BASOPHILS % (AUTO) 0.5 % (0.0-2.0); EOSINOPHILS % (AUTO) 1.6 % (0.0-3.0); HEMATOCRIT 32.2 % (42.0-52.0); HEMOGLOBIN 10.3 G/DL (14.2-18.0); LYMPHOCYTES % (AUTO) 11.5 % (20.0-45.0); MEAN CORPUSCULAR VOLUME 85 FL (80-99); MONOCYTES % (AUTO) 6.6 % (1.0-10.0); NEUTROPHILS % (AUTO) 79.8 % (45.0-75.0); PLATELET COUNT 206 K/UL (150-450); RED CELL DISTRIBUTION WIDTH 16.2 % (11.6-14.8); WHITE BLOOD COUNT 12.6 K/UL (4.8-10.8)
[2017-02-26 06:43] LABS: ANION GAP 9 mmol/L (5-15); BLOOD UREA NITROGEN 22 mg/dL (7-18); CARBON DIOXIDE 23 MMOL/L (21-32); CHLORIDE 102 MMOL/L (98-107); CREATININE 0.7 MG/DL (0.55-1.30); POTASSIUM 4.1 MMOL/L (3.5-5.1); SODIUM 134 MMOL/L (136-145)
[2017-02-26 08:00] VITALS: BP 136/77
[2017-02-26] MEDS: dilTIAZem HCl 30mg tab ORAL SCH ×2 (08:46→17:42)
[2017-02-26] MEDS: Heparin 5000 units/ml inj SUBQ SCH ×2 (08:46→20:52)
[2017-02-26] MEDS: Pantoprazole Inj IV SCH (08:47)
--- NOTE | 2017-02-26 09:34 | Diagnostic Imaging Report ---
APPROVED REPORT CPT Code: 17387 Present Symptoms Shortness of breath BILATERAL: Imaging reveals a patent deep venous system bilaterally. There is no evidence of thrombus within the femoral, popliteal or tibial segments. The greater saphenous veins are also within normal limits. Doppler indicates normal spontaneous flow within these segments.
--- NOTE | 2017-02-26 11:34 | Pulmonology Progress Note ---
Assessment/Plan Assessment/Plan ASSESSMENT Severe sepsis Acute on chronic respiratory failure VDRF/trach Possible PNA dysphagia G tube DM HTN Anemia e/lyte imbalance ( hyper K, hypo Na) Functional quadriplegia PLAN OF CARE RADHA status Baseline ABG stable on current settings, titrate settings as needed Vent /trach care ; pulm toilet fup with CXR in am empiric abx ID follows influenza, urine and prel blood cx all negative sputum cx if able Venous Duplex BLE negative BP management with CCB BS management with SS of insulin DVT GI prophylaxis e/lytes stable now, monitor and correct as needed Full code case discussed and evaluated by supervising physician Subjective Allergies: Coded Allergies: No Known Allergies (Verified , 08/19/07) Subjective leukocytosis trending down, afebrile no signs of respiratory distress on current settings Objective Last 24 Hour Vital Signs Date Time Temp Pulse Resp B/P (MAP) Pulse Ox O2 Delivery O2 Flow Rate FiO2 02/26/17 10:52 76 20 30 02/26/17 08:55 74 20 30 02/26/17 08:47 87 136/77 02/26/17 08:46 87 136/77 02/26/17 08:00 80 02/26/17 08:00 97.8 87 25 136/77 99 Mechanical Ventilator 30 02/26/17 08:00 30 02/26/17 06:44 79 20 30 02/26/17 05:11 75 20 30 02/26/17 04:00 30 02/26/17 04:00 98.2 75 20 120/66 96 Mechanical Ventilator 30 02/26/17 03:59 104 02/26/17 03:09 75 20 30 02/26/17 01:23 75 20 30 02/26/17 00:08 86 02/26/17 00:00 30 02/26/17 00:00 97.9 82 20 118/72 96 Mechanical Ventilator 30 02/25/17 23:06 88 22 30 02/25/17 21:37 88 22 30 02/25/17 20:00 30 02/25/17 20:00 98.4 76 27 126/66 99 Mechanical Ventilator 30 02/25/17 19:45 87 02/25/17 19:33 89 22 30 02/25/17 17:53 111 140/74 02/25/17 16:45 92 22 30 02/25/17 16:00 98.9 111 27 140/74 99 Mechanical Ventilator 30 02/25/17 16:00 114 02/25/17 16:00 30 02/25/17 14:30 88 16 30 02/25/17 12:48 98 22 30 02/25/17 12:00 100 02/25/17 12:00 98.9 103 23 138/73 100 Mechanical Ventilator 30 02/25/17 12:00 30 Intake and Output 02/25/17 02/26/17 19:00 07:00 Intake Total 560 ml 894.750 ml Output Total 3301 ml 600 ml Balance -2741 ml 294.750 ml Free Water 200 ml 150 ml IV Total 384.750 ml Tube Feeding 360 ml 360 ml Output Urine Total 3300 ml 600 ml Stool Total 1 ml Objective General Appearance: no acute distress, other - bedridden, obtunded, vent dependent AA male in NAD Vent Ac 600-16-30% HEENT: normocephalic, atraumatic, status post trach - portex #8, secretions small yellow thick Respiratory/Chest: no respiratory distress, decreased breath sounds Cardiovascular: normal rate, regular rhythm - SR on tele Abdomen: soft, non tender, other - G tube Extremities: no edema Neurologic/Psychiatric: abnormal gait - bedridden, obtunded, contacted extremities Musculoskeletal: atrophy Microbiology Date/Time Source Procedure Growth Status 02/23/17 23:00 Blood Blood Culture - Preliminary NO GROWTH AFTER 48 HOURS Resulted 02/23/17 22:20 Blood Blood Culture - Preliminary NO GROWTH AFTER 48 HOURS Resulted 02/24/17 08:42 Nasal Nares Right MRSA Culture - Final NO METHICILLIN RESISTANT STAPH AUREUS... Complete 02/23/17 23:33 Nasal Nares Influenza Types A,B Antigen (CHUNG) - Final Complete 02/24/17 16:50 Urine,Clean Catch Urine Culture - Preliminary NO GROWTH AFTER 24 HOURS Resulted 02/24/17 08:42 Rectum VRE Culture - Final Enterococcus Faecalis - Vre Complete Laboratory Tests 02/25/17 15:32: Vancomycin Level Trough 10.8 02/26/17 05:20: White Blood Count 12.6H, Red Blood Count 3.80L, Hemoglobin 10.3L, Hematocrit 32.2L, Mean Corpuscular Volume 85, Mean Corpuscular Hemoglobin 27.0, Mean Corpuscular Hemoglobin Concent 31.9L, Red Cell Distribution Width 16.2H, Platelet Count 206, Mean Platelet Volume 8.7, Neutrophils (%) (Auto) 79.8H, Lymphocytes (%) (Auto) 11.5L, Monocytes (%) (Auto) 6.6, Eosinophils (%) (Auto) 1.6, Basophils (%) (Auto) 0.5, Sodium Level 134L, Potassium Level 4.1, Chloride Level 102, Carbon Dioxide Level 23, Anion Gap 9, Blood Urea Nitrogen 22H, Creatinine 0.7, Estimat Glomerular Filtration Rate , Glucose Level 106, Calcium Level 9.0 02/26/17 08:28: Arterial Blood pH 7.480H, Arterial Blood Partial Pressure CO2 30.1L, Arterial Blood Partial Pressure O2 143.3H, Arterial Blood HCO3 22.3, Arterial Blood Oxygen Saturation 98.8H, Arterial Blood Base Excess -0.4, Pablito Test Positive Current Medications Medications (Trade) Dose Ordered Sig/Jaswant Route PRN Reason Start Time Stop Time Status Last Admin Dose Admin Acetaminophen (Tylenol) 650 mg Q4H PRN ORAL FEVER 02/23/17 22:30 03/25/17 22:29 Albuterol/ Ipratropium (Albuterol/ Ipratropium) 3 ml EVERY 4 HOURS PRN HHN Shortness of Breath 02/23/17 22:30 02/28/17 22:29 Amlodipine Besylate (Norvasc) 10 mg DAILY GT 02/24/17 09:00 03/26/17 08:59 02/26/17 08:47 Dextrose (Dextrose 50%) STAT PRN IV Hypoglycemia 02/23/17 22:30 03/25/17 22:29 Diltiazem HCl (Cardizem) 30 mg BID ORAL 02/24/17 09:00 03/26/17 08:59 02/26/17 08:46 Heparin Sodium (Porcine) (Heparin 5000 units/ml) 5,000 units EVERY 12 HOURS SUBQ 02/24/17 09:00 03/26/17 08:59 02/26/17 08:46 Insulin Aspart (NovoLOG) BEFORE MEALS AND HS SUBQ 02/24/17 06:30 03/26/17 06:29 02/25/17 17:55 Lorazepam (Ativan 2mg/ml 1ml) 2 mg EVERY 2 HOURS PRN IV For Anxiety 02/23/17 22:30 03/02/17 22:29 Morphine Sulfate (Morphine Sulfate) 4 mg EVERY 4 HOURS PRN IVP Severe Pain (Pain Scale 7-10) 02/23/17 22:30 03/02/17 22:29 Morphine Sulfate (Morphine Sulfate) 4 mg Q4HR PRN IVP severe pain 02/23/17 22:30 03/02/17 22:29 Ondansetron HCl (Zofran) 4 mg Q6H PRN IVP Nausea & Vomiting 02/23/17 22:30 03/25/17 22:29 Pantoprazole (Protonix) 40 mg DAILY IV 02/24/17 09:00 03/26/17 08:59 02/26/17 08:47 Piperacillin Sod/ Tazobactam Sod 4.5 gm/Sodium Chloride 110 ml @ 27.5 mls/hr EVERY 8 HOURS IVPB 02/24/17 14:30 03/01/17 14:29 02/26/17 06:06 Polyethylene Glycol (Miralax) 17 gm DAILYPRN PRN ORAL Constipation 02/23/17 22:30 03/25/17 22:29 Vancomycin HCl (Vanco rx to dose) 1 ea DAILY PRN MISC RX PROTOCOL 02/24/17 08:15 03/26/17 08:14 Vancomycin HCl/ Dextrose 250 ml @ 166.667 mls/hr Q12HR@0200,1400 IVPB 02/26/17 02:00 03/03/17 01:59 02/26/17 01:43 Guillermina Brush NP ([facility]) Feb 26, 2017 11:34
[2017-02-26] MEDS ORDERED: Albuterol/Ipratropium 3ml neb HHN PRN (11:45)
[2017-02-26 12:00] VITALS: BP 136/77
[2017-02-26 16:00] VITALS: BP 133/84
[2017-02-26 20:00] VITALS: BP 145/71
[2017-02-27] VITALS: BP 135/80
[2017-02-27] MEDS: Vancomycin 1250mg/D5W 250ml 250 ML IVPB SCH ×2 (01:50→15:59)
[2017-02-27 04:00] VITALS: BP 138/75
[2017-02-27] MEDS: Piperacillin/Tazobactam 4.5 GM in NS 110 ML IVPB SCH ×3 (06:00→22:11)
[2017-02-27] MEDS: NovoLOG Insulin Flexpen SUBQ SCH ×4 (06:01→23:43)
[2017-02-27 07:01] LABS: ANION GAP 8 mmol/L (5-15); BLOOD UREA NITROGEN 19 mg/dL (7-18); CALCIUM 9.3 MG/DL (8.5-10.1); CARBON DIOXIDE 25 MMOL/L (21-32); CHLORIDE 102 MMOL/L (98-107); CREATININE 0.8 MG/DL (0.55-1.30); POTASSIUM 4.1 MMOL/L (3.5-5.1); SODIUM 135 MMOL/L (136-145)
[2017-02-27 07:12] LABS: BASOPHILS % (AUTO) 0.3 % (0.0-2.0); EOSINOPHILS % (AUTO) 3.2 % (0.0-3.0); HEMATOCRIT 34.1 % (42.0-52.0); HEMOGLOBIN 10.9 G/DL (14.2-18.0); LYMPHOCYTES % (AUTO) 12.9 % (20.0-45.0); MEAN CORPUSCULAR VOLUME 85 FL (80-99); MONOCYTES % (AUTO) 7.3 % (1.0-10.0); NEUTROPHILS % (AUTO) 76.3 % (45.0-75.0); PLATELET COUNT 207 K/UL (150-450); RED BLOOD COUNT 4.03 M/UL (4.70-6.10); RED CELL DISTRIBUTION WIDTH 16.4 % (11.6-14.8); WHITE BLOOD COUNT 12.2 K/UL (4.8-10.8)
[2017-02-27 08:00] VITALS: BP 141/85
[2017-02-27] MEDS: Heparin 5000 units/ml inj SUBQ SCH ×2 (09:12→22:01)
[2017-02-27] MEDS: dilTIAZem HCl 30mg tab ORAL SCH ×2 (09:12→17:39)
[2017-02-27] MEDS: Pantoprazole Inj IV SCH (09:12)
--- NOTE | 2017-02-27 11:25 | Pulmonology Progress Note ---
Assessment/Plan Problems: (1) Acute on chronic respiratory failure (2) Severe sepsis (3) Feeding by G-tube (4) Seizure disorder (5) DM (diabetes mellitus) Respiratory: monitor respiratory rate, adjust FIO2, CXR Cardiac: continue pressors, continue to monitor HR/BP Renal: F/U I&O, keep IV fluid Infectious Disease: check cultures Gastrointestinal: continue feedings/current rate, hold feedings Endocrine: monitor blood sugar, check TSH, continue sliding scale insulin Hematologic: monitor H/H, transfuse if hgb<8.5 Neurologic: PRN Ativan Affect: PRN ativan Prophylaxis: Protonix Notes Reviewed: cardio Discussed with: nurses, consultants, caser in Subjective ROS Limited/Unobtainable: Yes Constitutional: Reports: no symptoms HEENT: Repors: no symptoms Allergies: Coded Allergies: No Known Allergies (Verified , 08/19/07) Objective Last 24 Hour Vital Signs Date Time Temp Pulse Resp B/P (MAP) Pulse Ox O2 Delivery O2 Flow Rate FiO2 02/27/17 09:21 78 27 30 02/27/17 09:12 70 141/85 02/27/17 09:11 70 141/85 02/27/17 08:00 30 02/27/17 08:00 97.9 70 16 141/85 100 Mechanical Ventilator 30 02/27/17 08:00 84 02/27/17 07:10 82 17 30 02/27/17 04:57 85 20 30 02/27/17 04:00 30 02/27/17 04:00 98.5 90 20 138/75 22 Mechanical Ventilator 30 02/27/17 04:00 103 02/27/17 03:00 78 18 30 02/27/17 01:13 73 28 30 02/27/17 00:00 86 02/27/17 00:00 30 02/27/17 00:00 98.8 87 20 135/80 97 Mechanical Ventilator 30 02/26/17 22:46 60 16 30 02/26/17 21:16 71 18 30 02/26/17 20:00 30 02/26/17 20:00 98.9 78 22 145/71 100 Mechanical Ventilator 30 02/26/17 20:00 82 02/26/17 19:12 82 24 30 02/26/17 17:42 71 133/84 02/26/17 16:53 71 20 30 02/26/17 16:00 30 02/26/17 16:00 98.6 79 27 133/84 100 Mechanical Ventilator 30 02/26/17 16:00 84 02/26/17 15:18 73 20 30 02/26/17 12:45 77 20 30 02/26/17 12:01 30 02/26/17 12:00 86 02/26/17 12:00 98.2 84 26 136/77 100 Mechanical Ventilator 30 Intake and Output 02/26/17 02/27/17 19:00 07:00 Intake Total 952.500 ml 817.500 ml Output Total 650 ml 450 ml Balance 302.500 ml 367.500 ml Free Water 150 ml 100 ml IV Total 442.500 ml 387.500 ml Tube Feeding 360 ml 330 ml Output Urine Total 650 ml 450 ml General Appearance: WD/WN HEENT: normocephalic, atraumatic Respiratory/Chest: chest wall non-tender, normal breath sounds Cardiovascular: normal peripheral pulses, normal rate Abdomen: normal bowel sounds, no organomegaly Genitourinary: normal external genitalia Skin: no rash, no ulcers Microbiology Date/Time Source Procedure Growth Status 02/24/17 16:50 Urine,Clean Catch Urine Culture - Final NO GROWTH AFTER 48 HOURS Complete Laboratory Tests 02/27/17 05:30: White Blood Count 12.2H, Red Blood Count 4.03L, Hemoglobin 10.9L, Hematocrit 34.1L, Mean Corpuscular Volume 85, Mean Corpuscular Hemoglobin 27.1, Mean Corpuscular Hemoglobin Concent 32.1, Red Cell Distribution Width 16.4H, Platelet Count 207, Mean Platelet Volume 7.3, Neutrophils (%) (Auto) 76.3H, Lymphocytes (%) (Auto) 12.9L, Monocytes (%) (Auto) 7.3, Eosinophils (%) (Auto) 3.2H, Basophils (%) (Auto) 0.3, Sodium Level 135L, Potassium Level 4.1, Chloride Level 102, Carbon Dioxide Level 25, Anion Gap 8, Blood Urea Nitrogen 19H, Creatinine 0.8, Estimat Glomerular Filtration Rate , Glucose Level 99, Calcium Level 9.3 Current Medications Medications (Trade) Dose Ordered Sig/Jaswant Route PRN Reason Start Time Stop Time Status Last Admin Dose Admin Acetaminophen (Tylenol) 650 mg Q4H PRN ORAL FEVER 02/23/17 22:30 03/25/17 22:29 Albuterol/ Ipratropium (Albuterol/ Ipratropium) 3 ml Q4H PRN HHN Shortness of Breath 02/26/17 11:45 03/03/17 11:44 Amlodipine Besylate (Norvasc) 10 mg DAILY GT 02/24/17 09:00 03/26/17 08:59 02/27/17 09:11 Dextrose (Dextrose 50%) STAT PRN IV Hypoglycemia 02/23/17 22:30 03/25/17 22:29 Diltiazem HCl (Cardizem) 30 mg BID ORAL 02/24/17 09:00 03/26/17 08:59 02/27/17 09:12 Heparin Sodium (Porcine) (Heparin 5000 units/ml) 5,000 units EVERY 12 HOURS SUBQ 02/24/17 09:00 03/26/17 08:59 02/27/17 09:12 Insulin Aspart (NovoLOG) EVERY 6 HOURS SUBQ 02/27/17 12:00 03/26/17 06:29 Lorazepam (Ativan 2mg/ml 1ml) 2 mg EVERY 2 HOURS PRN IV For Anxiety 02/23/17 22:30 03/02/17 22:29 Morphine Sulfate (Morphine Sulfate) 4 mg EVERY 4 HOURS PRN IVP Severe Pain (Pain Scale 7-10) 02/23/17 22:30 03/02/17 22:29 Morphine Sulfate (Morphine Sulfate) 4 mg Q4HR PRN IVP severe pain 02/23/17 22:30 03/02/17 22:29 Ondansetron HCl (Zofran) 4 mg Q6H PRN IVP Nausea & Vomiting 02/23/17 22:30 03/25/17 22:29 Pantoprazole (Protonix) 40 mg DAILY IV 02/24/17 09:00 03/26/17 08:59 02/27/17 09:12 Piperacillin Sod/ Tazobactam Sod 4.5 gm/Sodium Chloride 110 ml @ 27.5 mls/hr EVERY 8 HOURS IVPB 02/24/17 14:30 03/01/17 14:29 02/27/17 06:00 Polyethylene Glycol (Miralax) 17 gm DAILYPRN PRN ORAL Constipation 02/23/17 22:30 03/25/17 22:29 Vancomycin HCl (Vanco rx to dose) 1 ea DAILY PRN MISC RX PROTOCOL 02/24/17 08:15 03/26/17 08:14 Vancomycin HCl/ Dextrose 250 ml @ 166.667 mls/hr Q12HR@0200,1400 IVPB 02/26/17 02:00 03/03/17 01:59 02/27/17 01:50 PEDRO LUIS IVEY Feb 27, 2017 11:25
--- NOTE | 2017-02-27 11:36 | Infectious Diseases Prog Note ---
Assessment/Plan Assessment/Plan ASSESSMENT: The patient is an 81-year-old male with: CoNS in blood cx: contaminant Sepsis Leukocytosis, improving u/a no pyuria Probable vent-associated pneumonia -CXR: Interstitial opacification/edema, possibly exaggerated due to low lung volumes Low-grade fever Rapid influenza A negative History of upper GI bleed in the past History of CVA/TIA Dementia Hypertension COPD Diabetes Anemia Ventilator-dependent respiratory failure PLAN: Cont vancomycin and Zosyn # 4 / 7 Monitor CBC Monitor BMP. Monitor cultures (blood, urine, and sputum). Monitor chest x-ray. Subjective Constitutional: Denies: no symptoms, fever, chills, fatigue, anorexia, drenching sweats, other Allergies: Coded Allergies: No Known Allergies (Verified , 08/19/07) Objective Vital Signs Last 24 Hour Vital Signs Date Time Temp Pulse Resp B/P (MAP) Pulse Ox O2 Delivery O2 Flow Rate FiO2 02/27/17 11:26 70 18 30 02/27/17 09:21 78 27 30 02/27/17 09:12 70 141/85 02/27/17 09:11 70 141/85 02/27/17 08:00 30 02/27/17 08:00 97.9 70 16 141/85 100 Mechanical Ventilator 30 02/27/17 08:00 84 02/27/17 07:10 82 17 30 02/27/17 04:57 85 20 30 02/27/17 04:00 30 02/27/17 04:00 98.5 90 20 138/75 22 Mechanical Ventilator 30 02/27/17 04:00 103 02/27/17 03:00 78 18 30 02/27/17 01:13 73 28 30 02/27/17 00:00 86 02/27/17 00:00 30 02/27/17 00:00 98.8 87 20 135/80 97 Mechanical Ventilator 30 02/26/17 22:46 60 16 30 02/26/17 21:16 71 18 30 02/26/17 20:00 30 02/26/17 20:00 98.9 78 22 145/71 100 Mechanical Ventilator 30 02/26/17 20:00 82 02/26/17 19:12 82 24 30 02/26/17 17:42 71 133/84 02/26/17 16:53 71 20 30 02/26/17 16:00 30 02/26/17 16:00 98.6 79 27 133/84 100 Mechanical Ventilator 30 02/26/17 16:00 84 02/26/17 15:18 73 20 30 02/26/17 12:45 77 20 30 02/26/17 12:01 30 02/26/17 12:00 86 02/26/17 12:00 98.2 84 26 136/77 100 Mechanical Ventilator 30 Height (Feet): 6 Height (Inches): 1.00 Weight (Pounds): 209 HEENT: anicteric Respiratory/Chest: no respiratory distress Cardiovascular: regular rhythm Abdomen: no organomegaly Microbiology Date/Time Source Procedure Growth Status 02/24/17 16:50 Urine,Clean Catch Urine Culture - Final NO GROWTH AFTER 48 HOURS Complete Laboratory Tests Test 02/27/17 05:30 White Blood Count 12.2 K/UL (4.8-10.8) H Red Blood Count 4.03 M/UL (4.70-6.10) L Hemoglobin 10.9 G/DL (14.2-18.0) L Hematocrit 34.1 % (42.0-52.0) L Mean Corpuscular Volume 85 FL (80-99) Mean Corpuscular Hemoglobin 27.1 PG (27.0-31.0) Mean Corpuscular Hemoglobin Concent 32.1 G/DL (32.0-36.0) Red Cell Distribution Width 16.4 % (11.6-14.8) H Platelet Count 207 K/UL (150-450) Mean Platelet Volume 7.3 FL (6.5-10.1) Neutrophils (%) (Auto) 76.3 % (45.0-75.0) H Lymphocytes (%) (Auto) 12.9 % (20.0-45.0) L Monocytes (%) (Auto) 7.3 % (1.0-10.0) Eosinophils (%) (Auto) 3.2 % (0.0-3.0) H Basophils (%) (Auto) 0.3 % (0.0-2.0) Sodium Level 135 MMOL/L (136-145) L Potassium Level 4.1 MMOL/L (3.5-5.1) Chloride Level 102 MMOL/L (98-107) Carbon Dioxide Level 25 MMOL/L (21-32) Anion Gap 8 mmol/L (5-15) Blood Urea Nitrogen 19 mg/dL (7-18) H Creatinine 0.8 MG/DL (0.55-1.30) Estimat Glomerular Filtration Rate mL/min (>60) Glucose Level 99 MG/DL (74-106) Calcium Level 9.3 MG/DL (8.5-10.1) Current Medications Medications (Trade) Dose Ordered Sig/Jaswant Route PRN Reason Start Time Stop Time Status Last Admin Dose Admin Acetaminophen (Tylenol) 650 mg Q4H PRN ORAL FEVER 02/23/17 22:30 03/25/17 22:29 Albuterol/ Ipratropium (Albuterol/ Ipratropium) 3 ml Q4H PRN HHN Shortness of Breath 02/26/17 11:45 03/03/17 11:44 Amlodipine Besylate (Norvasc) 10 mg DAILY GT 02/24/17 09:00 03/26/17 08:59 02/27/17 09:11 Dextrose (Dextrose 50%) STAT PRN IV Hypoglycemia 02/23/17 22:30 03/25/17 22:29 Diltiazem HCl (Cardizem) 30 mg BID ORAL 02/24/17 09:00 03/26/17 08:59 02/27/17 09:12 Heparin Sodium (Porcine) (Heparin 5000 units/ml) 5,000 units EVERY 12 HOURS SUBQ 02/24/17 09:00 03/26/17 08:59 02/27/17 09:12 Insulin Aspart (NovoLOG) EVERY 6 HOURS SUBQ 02/27/17 12:00 03/26/17 06:29 Lorazepam (Ativan 2mg/ml 1ml) 2 mg EVERY 2 HOURS PRN IV For Anxiety 02/23/17 22:30 03/02/17 22:29 Morphine Sulfate (Morphine Sulfate) 4 mg EVERY 4 HOURS PRN IVP Severe Pain (Pain Scale 7-10) 02/23/17 22:30 03/02/17 22:29 Morphine Sulfate (Morphine Sulfate) 4 mg Q4HR PRN IVP severe pain 02/23/17 22:30 03/02/17 22:29 Ondansetron HCl (Zofran) 4 mg Q6H PRN IVP Nausea & Vomiting 02/23/17 22:30 03/25/17 22:29 Pantoprazole (Protonix) 40 mg DAILY IV 02/24/17 09:00 03/26/17 08:59 02/27/17 09:12 Piperacillin Sod/ Tazobactam Sod 4.5 gm/Sodium Chloride 110 ml @ 27.5 mls/hr EVERY 8 HOURS IVPB 02/24/17 14:30 03/01/17 14:29 02/27/17 06:00 Polyethylene Glycol (Miralax) 17 gm DAILYPRN PRN ORAL Constipation 02/23/17 22:30 03/25/17 22:29 Vancomycin HCl (Vanco rx to dose) 1 ea DAILY PRN MISC RX PROTOCOL 02/24/17 08:15 03/26/17 08:14 Vancomycin HCl/ Dextrose 250 ml @ 166.667 mls/hr Q12HR@0200,1400 IVPB 02/26/17 02:00 03/03/17 01:59 02/27/17 01:50 MARGARETTE BRYANT M.D. Feb 27, 2017 11:36
[2017-02-27 12:00] VITALS: BP 155/70
--- NOTE | 2017-02-27 13:52 | Wound Care Consultation ---
Wound Assessment Wound Assessment : Wound Number: 1 Wound Present on Admission: Yes New Wound: No Status Change of Wound: No Wound Location Body Site Modif: upper, lower Wound Location Body Site: back Wound Type: pressure ulcer Peggy Test: Does not Peggy Pressure Ulcer Stage: II - Sacattered Wound Thickness: Partial Thickness Percent of Wound [place]/Red: 100 Wound Drainage Description: Serosanguineous Wound Drainage Amount: Scant Wound Drainage Odor: None/Absent Tissue Surrounding Wound: full thickness scar tissue Wound General Appearance: Reddened, Draining Wound Comment #1 Scattered stage II pressure ulcer on upper and lower back #2 Full thickness scar tissue on sacrococcygeal area, buttocks, Left ischial tuberosity, upper and lower back Recommendation -Local wound care per protocol -Keep clean and dry -Optimize nutrition -Offload both heels -Heel protector on both heels -Low air loss mattress -Turn and reposition -Assess and f/u accordingly for any changes NERY BOATENG RN Feb 27, 2017 13:52
--- NOTE | 2017-02-27 15:50 | Diagnostic Imaging Report ---
Indication: Shortness of breath Technique: XRAY Chest 1v Comparison: 02/23/2017 Findings: Tracheostomy tube in place. Heart size and mediastinal contours are stable. Lung volumes are low. There is unchanged interstitial prominence. No focal airspace consolidation identified. There is stable calcified granuloma at the right base. No acute osseous abnormality seen. Impression: No significant interval change from the prior exam. Low lung volumes with interstitial prominence. No focal consolidation. Unchanged dense right lower lung nodule, possibly calcified granuloma.
[2017-02-27 16:00] VITALS: BP 157/84
[2017-02-27] MEDS ORDERED: Tubing IV Secondary IV ONE ×2 (17:14→18:52)
[2017-02-27] MEDS ORDERED: NS 275ml ONE (17:14)
[2017-02-27] MEDS ORDERED: NS 500ML ONE ×2 (17:14→18:52)
[2017-02-27 20:00] VITALS: BP 150/97
[2017-02-28] VITALS: BP 154/83
[2017-02-28 04:00] VITALS: BP 154/73
[2017-02-28] MEDS: Piperacillin/Tazobactam 4.5 GM in NS 110 ML IVPB SCH ×3 (05:37→21:05)
[2017-02-28] MEDS: NovoLOG Insulin Flexpen SUBQ SCH ×3 (05:37→18:50)
[2017-02-28 05:55] LABS: BASOPHILS % (AUTO) 0.4 % (0.0-2.0); EOSINOPHILS % (AUTO) 2.6 % (0.0-3.0); HEMATOCRIT 32.3 % (42.0-52.0); HEMOGLOBIN 10.4 G/DL (14.2-18.0); LYMPHOCYTES % (AUTO) 9.8 % (20.0-45.0); MEAN CORPUSCULAR VOLUME 85 FL (80-99); MONOCYTES % (AUTO) 5.7 % (1.0-10.0); NEUTROPHILS % (AUTO) 81.6 % (45.0-75.0); PLATELET COUNT 229 K/UL (150-450); RED BLOOD COUNT 3.79 M/UL (4.70-6.10); RED CELL DISTRIBUTION WIDTH 16.7 % (11.6-14.8); WHITE BLOOD COUNT 12.6 K/UL (4.8-10.8)
[2017-02-28 06:14] LABS: ALANINE AMINOTRANSFERASE 24 U/L (12-78); ALBUMIN 2.9 G/DL (3.4-5.0); ALBUMIN/GLOBULIN RATIO 0.6 (1.0-2.7); ALKALINE PHOSPHATASE 92 U/L (46-116); ANION GAP 11 mmol/L (5-15); ASPARTATE AMINO TRANSFERASE 19 U/L (15-37); BILIRUBIN,TOTAL 0.8 MG/DL (0.2-1.0); BLOOD UREA NITROGEN 17 mg/dL (7-18); CALCIUM 9.1 MG/DL (8.5-10.1); CARBON DIOXIDE 23 MMOL/L (21-32); CHLORIDE 105 MMOL/L (98-107); CREATININE 0.8 MG/DL (0.55-1.30); PHOSPHORUS 2.9 MG/DL (2.5-4.9); POTASSIUM 3.6 MMOL/L (3.5-5.1); SODIUM 139 MMOL/L (136-145)
[2017-02-28 08:00] VITALS: BP 138/90
--- NOTE | 2017-02-28 09:10 | Pulmonology Progress Note ---
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, 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, 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 with: nurses, consultants, disease case manager Subjective ROS Limited/Unobtainable: No Constitutional: Reports: no symptoms Respiratory: Reports: no symptoms Allergies: Coded Allergies: No Known Allergies (Verified , 08/19/07) Objective Last 24 Hour Vital Signs Date Time Temp Pulse Resp B/P (MAP) Pulse Ox O2 Delivery O2 Flow Rate FiO2 02/28/17 08:00 30 02/28/17 07:51 98 02/28/17 07:13 72 22 30 02/28/17 05:01 69 22 30 02/28/17 04:00 30 02/28/17 04:00 92 02/28/17 04:00 98.4 96 24 154/73 100 Mechanical Ventilator 30 02/28/17 03:08 91 17 30 02/28/17 01:40 75 19 30 02/28/17 00:00 98.0 99 20 154/83 99 Mechanical Ventilator 30 02/28/17 00:00 94 02/27/17 22:59 77 17 30 02/27/17 21:08 98 19 30 02/27/17 20:00 111 02/27/17 20:00 97.2 87 31 150/97 99 Mechanical Ventilator 30 02/27/17 20:00 30 02/27/17 19:12 76 19 30 02/27/17 17:39 94 157/84 02/27/17 16:50 94 28 30 02/27/17 16:00 30 02/27/17 16:00 97.9 80 26 157/84 100 Mechanical Ventilator 30 02/27/17 15:29 93 22 30 02/27/17 15:10 84 1/22/18 12:48 71 19 30 02/27/17 12:00 30 02/27/17 12:00 76 02/27/17 12:00 98.1 61 20 155/70 100 Mechanical Ventilator 30 02/27/17 11:26 70 18 30 02/27/17 09:21 78 27 30 02/27/17 09:12 70 141/85 02/27/17 09:11 70 141/85 Intake and Output 02/27/17 02/28/17 19:00 07:00 Intake Total 772.5 ml 567.5 ml Output Total 700 ml 450 ml Balance 72.5 ml 117.5 ml Free Water 100 ml 100 ml IV Total 192.5 ml 137.5 ml Tube Feeding 360 ml 330 ml Other 120 ml Output Urine Total 700 ml 450 ml General Appearance: WD/WN HEENT: normocephalic, atraumatic Respiratory/Chest: chest wall non-tender, lungs clear Cardiovascular: normal peripheral pulses, normal rate Abdomen: normal bowel sounds, soft, non tender Genitourinary: normal external genitalia Skin: no rash Microbiology Date/Time Source Procedure Growth Status 02/26/17 20:05 Blood Blood Culture - Preliminary NO GROWTH AFTER 24 HOURS Resulted 02/26/17 20:00 Blood Blood Culture - Preliminary NO GROWTH AFTER 24 HOURS Resulted Laboratory Tests 02/27/17 13:15: Vancomycin Level Trough 26.8H 02/28/17 04:55: White Blood Count 12.6H, Red Blood Count 3.79L, Hemoglobin 10.4L, Hematocrit 32.3L, Mean Corpuscular Volume 85, Mean Corpuscular Hemoglobin 27.5, Mean Corpuscular Hemoglobin Concent 32.2, Red Cell Distribution Width 16.7H, Platelet Count 229, Mean Platelet Volume 8.0, Neutrophils (%) (Auto) 81.6H, Lymphocytes (%) (Auto) 9.8L, Monocytes (%) (Auto) 5.7, Eosinophils (%) (Auto) 2.6, Basophils (%) (Auto) 0.4, Sodium Level 139, Potassium Level 3.6, Chloride Level 105, Carbon Dioxide Level 23, Anion Gap 11, Blood Urea Nitrogen 17, Creatinine 0.8, Estimat Glomerular Filtration Rate , Glucose Level 104, Calcium Level 9.1, Phosphorus Level 2.9, Magnesium Level 2.2, Total Bilirubin 0.8, Aspartate Amino Transf (AST/SGOT) 19, Alanine Aminotransferase (ALT/SGPT) 24, Alkaline Phosphatase 92, Total Protein 8.1, Albumin 2.9L, Globulin 5.2, Albumin/ Globulin Ratio 0.6L, Random Vancomycin Level 18.3 Current Medications Medications (Trade) Dose Ordered Sig/Jaswant Route PRN Reason Start Time Stop Time Status Last Admin Dose Admin Acetaminophen (Tylenol) 650 mg Q4H PRN ORAL FEVER 02/23/17 22:30 03/25/17 22:29 Albuterol/ Ipratropium (Albuterol/ Ipratropium) 3 ml Q4H PRN HHN Shortness of Breath 02/26/17 11:45 03/03/17 11:44 Amlodipine Besylate (Norvasc) 10 mg DAILY GT 02/24/17 09:00 03/26/17 08:59 02/27/17 09:11 Dextrose (Dextrose 50%) STAT PRN IV Hypoglycemia 02/23/17 22:30 03/25/17 22:29 Diltiazem HCl (Cardizem) 30 mg BID ORAL 02/24/17 09:00 03/26/17 08:59 02/27/17 17:39 Heparin Sodium (Porcine) (Heparin 5000 units/ml) 5,000 units EVERY 12 HOURS SUBQ 02/24/17 09:00 03/26/17 08:59 02/27/17 22:01 Insulin Aspart (NovoLOG) EVERY 6 HOURS SUBQ 02/27/17 12:00 03/26/17 06:29 Lorazepam (Ativan 2mg/ml 1ml) 2 mg EVERY 2 HOURS PRN IV For Anxiety 02/23/17 22:30 03/02/17 22:29 Morphine Sulfate (Morphine Sulfate) 4 mg EVERY 4 HOURS PRN IVP Severe Pain (Pain Scale 7-10) 02/23/17 22:30 03/02/17 22:29 Morphine Sulfate (Morphine Sulfate) 4 mg Q4HR PRN IVP severe pain 02/23/17 22:30 03/02/17 22:29 Ondansetron HCl (Zofran) 4 mg Q6H PRN IVP Nausea & Vomiting 02/23/17 22:30 03/25/17 22:29 Pantoprazole (Protonix) 40 mg DAILY IV 02/24/17 09:00 03/26/17 08:59 02/27/17 09:12 Piperacillin Sod/ Tazobactam Sod 4.5 gm/Sodium Chloride 110 ml @ 27.5 mls/hr EVERY 8 HOURS IVPB 02/24/17 14:30 03/02/17 23:59 02/28/17 05:37 Polyethylene Glycol (Miralax) 17 gm DAILYPRN PRN ORAL Constipation 02/23/17 22:30 03/25/17 22:29 Vancomycin HCl (Vanco rx to dose) 1 ea DAILY PRN MISC RX PROTOCOL 02/24/17 08:15 03/26/17 08:14 Vancomycin HCl/ Dextrose 250 ml @ 166.667 mls/hr Q24H IVPB 02/28/17 12:00 03/05/17 11:59 PEDRO LUIS IVEY Feb 28, 2017 09:10
[2017-02-28] MEDS: Pantoprazole Inj IV SCH (09:27)
[2017-02-28] MEDS: dilTIAZem HCl 30mg tab ORAL SCH ×2 (09:28→17:38)
[2017-02-28] MEDS: Heparin 5000 units/ml inj SUBQ SCH ×2 (09:29→20:25)
[2017-02-28 12:00] VITALS: BP 141/82
[2017-02-28] MEDS ORDERED: Lidocaine 1% Plain 30 ml INJ SCH (12:30)
[2017-02-28] MEDS ORDERED: Heparin 2000 units/Ns 1000ml INJ SCH (12:30)
--- NOTE | 2017-02-28 13:16 | Infectious Diseases Prog Note ---
Assessment/Plan Assessment/Plan ASSESSMENT: The patient is an 81-year-old male with: CoNS in blood cx: contaminant Sepsis Leukocytosis, improving u/a no pyuria Probable vent-associated pneumonia -CXR: Interstitial opacification/edema, possibly exaggerated due to low lung volumes Low-grade fever Rapid influenza A negative History of upper GI bleed in the past History of CVA/TIA Dementia Hypertension COPD Diabetes Anemia Ventilator-dependent respiratory failure PLAN: Cont vancomycin and Zosyn # 5 / 7 Monitor CBC Monitor BMP. Monitor cultures (blood, and sputum). Monitor chest x-ray. Subjective Constitutional: Denies: no symptoms, fever, chills, fatigue, anorexia, drenching sweats, other Allergies: Coded Allergies: No Known Allergies (Verified , 08/19/07) Objective Vital Signs Last 24 Hour Vital Signs Date Time Temp Pulse Resp B/P (MAP) Pulse Ox O2 Delivery O2 Flow Rate FiO2 02/28/17 12:49 77 24 30 02/28/17 12:00 97.7 113 24 141/82 98 Mechanical Ventilator 30 02/28/17 12:00 30 02/28/17 11:32 73 02/28/17 11:17 76 24 30 02/28/17 09:28 83 138/90 02/28/17 09:28 83 138/90 02/28/17 09:01 83 24 30 02/28/17 08:00 30 02/28/17 08:00 98.1 72 16 138/90 100 Mechanical Ventilator 30 02/28/17 07:51 98 02/28/17 07:13 72 22 30 02/28/17 05:01 69 22 30 02/28/17 04:00 30 02/28/17 04:00 92 02/28/17 04:00 98.4 96 24 154/73 100 Mechanical Ventilator 30 02/28/17 03:08 91 17 30 02/28/17 01:40 75 19 30 02/28/17 00:00 98.0 99 20 154/83 99 Mechanical Ventilator 30 02/28/17 00:00 94 02/27/17 22:59 77 17 30 02/27/17 21:08 98 19 30 02/27/17 20:00 111 02/27/17 20:00 97.2 87 31 150/97 99 Mechanical Ventilator 30 02/27/17 20:00 30 02/27/17 19:12 76 19 30 02/27/17 17:39 94 157/84 02/27/17 16:50 94 28 30 02/27/17 16:00 30 02/27/17 16:00 97.9 80 26 157/84 100 Mechanical Ventilator 30 02/27/17 15:29 93 22 30 02/27/17 15:10 84 Height (Feet): 6 Height (Inches): 1.00 Weight (Pounds): 209 HEENT: atraumatic Respiratory/Chest: normal breath sounds Cardiovascular: normal rate Abdomen: soft, non tender Microbiology Date/Time Source Procedure Growth Status 02/26/17 20:05 Blood Blood Culture - Preliminary NO GROWTH AFTER 24 HOURS Resulted 02/26/17 20:00 Blood Blood Culture - Preliminary NO GROWTH AFTER 24 HOURS Resulted 02/27/17 16:35 Sputum Induced Gram Stain - Final Resulted 02/27/17 16:35 Sputum Induced Sputum Culture Pending Resulted Laboratory Tests Test 02/28/17 04:55 White Blood Count 12.6 K/UL (4.8-10.8) H Red Blood Count 3.79 M/UL (4.70-6.10) L Hemoglobin 10.4 G/DL (14.2-18.0) L Hematocrit 32.3 % (42.0-52.0) L Mean Corpuscular Volume 85 FL (80-99) Mean Corpuscular Hemoglobin 27.5 PG (27.0-31.0) Mean Corpuscular Hemoglobin Concent 32.2 G/DL (32.0-36.0) Red Cell Distribution Width 16.7 % (11.6-14.8) H Platelet Count 229 K/UL (150-450) Mean Platelet Volume 8.0 FL (6.5-10.1) Neutrophils (%) (Auto) 81.6 % (45.0-75.0) H Lymphocytes (%) (Auto) 9.8 % (20.0-45.0) L Monocytes (%) (Auto) 5.7 % (1.0-10.0) Eosinophils (%) (Auto) 2.6 % (0.0-3.0) Basophils (%) (Auto) 0.4 % (0.0-2.0) Sodium Level 139 MMOL/L (136-145) Potassium Level 3.6 MMOL/L (3.5-5.1) Chloride Level 105 MMOL/L (98-107) Carbon Dioxide Level 23 MMOL/L (21-32) Anion Gap 11 mmol/L (5-15) Blood Urea Nitrogen 17 mg/dL (7-18) Creatinine 0.8 MG/DL (0.55-1.30) Estimat Glomerular Filtration Rate mL/min (>60) Glucose Level 104 MG/DL (74-106) Calcium Level 9.1 MG/DL (8.5-10.1) Phosphorus Level 2.9 MG/DL (2.5-4.9) Magnesium Level 2.2 MG/DL (1.8-2.4) Total Bilirubin 0.8 MG/DL (0.2-1.0) Aspartate Amino Transf (AST/SGOT) 19 U/L (15-37) Alanine Aminotransferase (ALT/SGPT) 24 U/L (12-78) Alkaline Phosphatase 92 U/L (46-116) Total Protein 8.1 G/DL (6.4-8.2) Albumin 2.9 G/DL (3.4-5.0) L Globulin 5.2 g/dL Albumin/Globulin Ratio 0.6 (1.0-2.7) L Random Vancomycin Level 18.3 ug/mL Current Medications Medications (Trade) Dose Ordered Sig/Jaswant Route PRN Reason Start Time Stop Time Status Last Admin Dose Admin Acetaminophen (Tylenol) 650 mg Q4H PRN ORAL FEVER 02/23/17 22:30 03/25/17 22:29 Albuterol/ Ipratropium (Albuterol/ Ipratropium) 3 ml Q4H PRN HHN Shortness of Breath 02/26/17 11:45 03/03/17 11:44 Amlodipine Besylate (Norvasc) 10 mg DAILY GT 02/24/17 09:00 03/26/17 08:59 02/28/17 09:28 Dextrose (Dextrose 50%) STAT PRN IV Hypoglycemia 02/23/17 22:30 03/25/17 22:29 Diltiazem HCl (Cardizem) 30 mg BID ORAL 02/24/17 09:00 03/26/17 08:59 02/28/17 09:28 Heparin Sodium (Porcine) (Heparin 5000 units/ml) 5,000 units EVERY 12 HOURS SUBQ 02/24/17 09:00 03/26/17 08:59 02/28/17 09:29 Heparin Sodium/ Sodium Chloride (Heparin 2000 units/Ns 1000ml premix) 2,000 unit ONCE INJ 02/28/17 12:30 03/01/17 23:59 Insulin Aspart (NovoLOG) EVERY 6 HOURS SUBQ 02/27/17 12:00 03/26/17 06:29 Lidocaine HCl (Xylocaine 1% 30ml) 30 ml ONCE INJ 02/28/17 12:30 03/01/17 23:59 Lorazepam (Ativan 2mg/ml 1ml) 2 mg EVERY 2 HOURS PRN IV For Anxiety 02/23/17 22:30 03/02/17 22:29 Morphine Sulfate (Morphine Sulfate) 4 mg EVERY 4 HOURS PRN IVP Severe Pain (Pain Scale 7-10) 02/23/17 22:30 03/02/17 22:29 Morphine Sulfate (Morphine Sulfate) 4 mg Q4HR PRN IVP severe pain 02/23/17 22:30 03/02/17 22:29 Ondansetron HCl (Zofran) 4 mg Q6H PRN IVP Nausea & Vomiting 02/23/17 22:30 03/25/17 22:29 Pantoprazole (Protonix) 40 mg DAILY IV 02/24/17 09:00 03/26/17 08:59 02/28/17 09:27 Piperacillin Sod/ Tazobactam Sod 4.5 gm/Sodium Chloride 110 ml @ 27.5 mls/hr EVERY 8 HOURS IVPB 02/24/17 14:30 03/02/17 23:59 02/28/17 05:37 Polyethylene Glycol (Miralax) 17 gm DAILYPRN PRN ORAL Constipation 02/23/17 22:30 03/25/17 22:29 02/28/17 09:27 Vancomycin HCl (Vanco rx to dose) 1 ea DAILY PRN MISC RX PROTOCOL 02/24/17 08:15 03/26/17 08:14 Vancomycin HCl/ Dextrose 250 ml @ 166.667 mls/hr Q24H IVPB 02/28/17 12:00 03/05/17 11:59 MARGARETTE BRYANT M.D. Feb 28, 2017 13:16
[2017-02-28 16:00] VITALS: BP 119/74
--- NOTE | 2017-02-28 16:31 | Diagnostic Imaging Report ---
Indication: The central venous access Technique: Procedure performed at bedside. Procedural timeout performed. Ultrasound confirms patent compressible vein. Total sterile technique, including sterile probe cover and sterile gel, sterile gloves, hand hygiene, hat, mask, sterile gown, large sterile drape, and preparation with 2% chlorhexidine utilized.Local anesthesia with 1% lidocaine. Under real-time ultrasound guidance, puncture right internal jugular vein using 21-gauge needle, passage 0.018 guidewire, insertion 4 [place] micropuncture introducer, passage 0.035 guidewire, over which was passed serial dilators and then a right transjugular central venous catheter. Completion chest radiograph obtained, demonstrating catheter tip position at the cavoatrial junction. Impression: Successful placement of right jugular central venous catheter, as described.
[2017-02-28] MEDS: Vancomycin 1250mg/D5W 250ml IVPB SCH (17:38)
[2017-02-28 20:00] VITALS: BP 145/61
[2017-02-28] MEDS: Dyna-Hex 2% Top Sol 2oz TOPIC SCH (20:23)
[2017-03-01] VITALS: BP 133/68
[2017-03-01] MEDS: NovoLOG Insulin Flexpen SUBQ SCH ×5 (00:04→23:49)
[2017-03-01 04:00] VITALS: BP 137/74
[2017-03-01 05:25] LABS: BASOPHILS % (AUTO) 0.3 % (0.0-2.0); EOSINOPHILS % (AUTO) 2.5 % (0.0-3.0); HEMATOCRIT 30.3 % (42.0-52.0); HEMOGLOBIN 9.8 G/DL (14.2-18.0); LYMPHOCYTES % (AUTO) 12.3 % (20.0-45.0); MEAN CORPUSCULAR VOLUME 85 FL (80-99); MONOCYTES % (AUTO) 5.3 % (1.0-10.0); NEUTROPHILS % (AUTO) 79.6 % (45.0-75.0); PLATELET COUNT 218 K/UL (150-450); RED BLOOD COUNT 3.56 M/UL (4.70-6.10); WHITE BLOOD COUNT 13.4 K/UL (4.8-10.8)
[2017-03-01 05:44] LABS: ALANINE AMINOTRANSFERASE 27 U/L (12-78); ALBUMIN/GLOBULIN RATIO 0.6 (1.0-2.7); ALKALINE PHOSPHATASE 90 U/L (46-116); ANION GAP 11 mmol/L (5-15); ASPARTATE AMINO TRANSFERASE 16 U/L (15-37); BILIRUBIN,TOTAL 0.6 MG/DL (0.2-1.0); BLOOD UREA NITROGEN 29 mg/dL (7-18); CALCIUM 9.3 MG/DL (8.5-10.1); CARBON DIOXIDE 24 MMOL/L (21-32); CHLORIDE 105 MMOL/L (98-107); CREATININE 0.7 MG/DL (0.55-1.30); PHOSPHORUS 2.5 MG/DL (2.5-4.9); POTASSIUM 3.3 MMOL/L (3.5-5.1); SODIUM 140 MMOL/L (136-145)
[2017-03-01] MEDS: Piperacillin/Tazobactam 4.5 GM in NS 110 ML IVPB SCH ×3 (06:00→20:49)
[2017-03-01 08:00] VITALS: BP 149/71
[2017-03-01] MEDS: dilTIAZem HCl 30mg tab ORAL SCH ×2 (08:35→17:42)
[2017-03-01] MEDS: Pantoprazole Inj IV SCH (08:35)
[2017-03-01] MEDS: Heparin 5000 units/ml inj SUBQ SCH ×2 (08:36→20:54)
[2017-03-01] MEDS ORDERED: Potassium Chloride 40 MEQ in Sodium Chloride 500ML 550 ML IVPB ONE (09:00)
--- NOTE | 2017-03-01 10:39 | Pulmonology Progress Note ---
Assessment/Plan Problems: (1) Acute on chronic respiratory failure (2) Severe sepsis (3) Feeding by G-tube (4) Seizure disorder (5) DM (diabetes mellitus) Assessment/Plan: subclavian was inserted yesterday by radiology Respiratory: monitor respiratory rate, adjust FIO2, CXR Cardiac: continue to monitor HR/BP Renal: F/U I&O, keep IV fluid Infectious Disease: check cultures, continue antibiotics, other - wbc remains high, still lots of secretions Gastrointestinal: continue feedings/current rate Endocrine: monitor blood sugar, check HgA1C Neurologic: PRN Morphine Prophylaxis: Heparin Time Spent (Minutes): 30 Notes Reviewed: 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 with: consultants Subjective ROS Limited/Unobtainable: No Constitutional: Reports: no symptoms HEENT: Repors: no symptoms Respiratory: Reports: no symptoms Allergies: Coded Allergies: No Known Allergies (Verified , 08/19/07) Objective Last 24 Hour Vital Signs Date Time Temp Pulse Resp B/P (MAP) Pulse Ox O2 Delivery O2 Flow Rate FiO2 03/01/17 08:57 94 22 30 03/01/17 08:35 114 149/71 03/01/17 08:35 114 149/71 03/01/17 08:00 97.7 114 20 149/71 100 Mechanical Ventilator 30 03/01/17 08:00 30 03/01/17 07:34 89 03/01/17 06:38 80 16 30 03/01/17 05:13 96 24 30 03/01/17 04:00 97.7 83 28 137/74 100 Mechanical Ventilator 30 03/01/17 04:00 114 03/01/17 04:00 30 03/01/17 03:07 94 22 30 03/01/17 01:08 97 20 30 03/01/17 00:00 30 03/01/17 00:00 97.9 107 22 133/68 100 Mechanical Ventilator 30 03/01/17 00:00 103 02/28/17 23:10 108 22 30 02/28/17 20:53 102 20 30 02/28/17 20:00 98.5 97 24 145/61 100 Mechanical Ventilator 30 02/28/17 20:00 97 02/28/17 20:00 30 02/28/17 19:12 111 24 30 02/28/17 17:38 91 119/74 02/28/17 16:58 91 24 30 02/28/17 16:49 89 02/28/17 16:00 30 02/28/17 16:00 97.7 81 22 119/74 100 Mechanical Ventilator 30 02/28/17 14:53 89 24 30 02/28/17 12:49 77 24 30 02/28/17 12:00 97.7 113 24 141/82 98 Mechanical Ventilator 30 02/28/17 12:00 30 02/28/17 11:32 73 02/28/17 11:17 76 24 30 Intake and Output 02/28/17 03/01/17 19:00 07:00 Intake Total 829.167 ml 643.333 ml Output Total 500 ml 400 ml Balance 329.167 ml 243.333 ml Free Water 100 ml 120 ml IV Total 249.167 ml 193.333 ml Tube Feeding 360 ml 330 ml Other 120 ml Output Urine Total 500 ml 400 ml # Bowel Movements 2 General Appearance: WD/WN HEENT: normocephalic, atraumatic Respiratory/Chest: chest wall non-tender, lungs clear, no respiratory distress Abdomen: normal bowel sounds, no organomegaly Extremities: no cyanosis, no clubbing Skin: no lesions 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 Lymphatic: no neck adenopathy Microbiology Date/Time Source Procedure Growth Status 02/26/17 20:05 Blood Blood Culture - Preliminary NO GROWTH AFTER 48 HOURS Resulted 02/26/17 20:00 Blood Blood Culture - Preliminary NO GROWTH AFTER 48 HOURS Resulted 02/27/17 16:35 Sputum Induced Gram Stain - Final Resulted 02/27/17 16:35 Sputum Culture - Preliminary Gram Negative Bacillus 1 Usual Upper Respiratory Zhane Resulted Laboratory Tests 03/01/17 04:00: White Blood Count 13.4H, Red Blood Count 3.56L, Hemoglobin 9.8L, Hematocrit 30.3L, Mean Corpuscular Volume 85, Mean Corpuscular Hemoglobin 27.6, Mean Corpuscular Hemoglobin Concent 32.5, Red Cell Distribution Width 17.0H, Platelet Count 218, Mean Platelet Volume 7.2, Neutrophils (%) (Auto) 79.6H, Lymphocytes (%) (Auto) 12.3L, Monocytes (%) (Auto) 5.3, Eosinophils (%) (Auto) 2.5, Basophils (%) (Auto) 0.3, Erythrocyte Sedimentation Rate 110H, Sodium Level 140, Potassium Level 3.3L, Chloride Level 105, Carbon Dioxide Level 24, Anion Gap 11, Blood Urea Nitrogen 29H, Creatinine 0.7, Estimat Glomerular Filtration Rate , Glucose Level 106, Calcium Level 9.3, Phosphorus Level 2.5, Magnesium Level 2.1, Total Bilirubin 0.6, Aspartate Amino Transf (AST/SGOT) 16, Alanine Aminotransferase (ALT/SGPT) 27, Alkaline Phosphatase 90, Total Protein 8.0, Albumin 3.0L, Globulin 5.0, Albumin/Globulin Ratio 0.6L Current Medications Medications (Trade) Dose Ordered Sig/Jaswant Route PRN Reason Start Time Stop Time Status Last Admin Dose Admin Acetaminophen (Tylenol) 650 mg Q4H PRN ORAL FEVER 02/23/17 22:30 03/25/17 22:29 Albuterol/ Ipratropium (Albuterol/ Ipratropium) 3 ml Q4H PRN HHN Shortness of Breath 02/26/17 11:45 03/03/17 11:44 Amlodipine Besylate (Norvasc) 10 mg DAILY GT 02/24/17 09:00 03/26/17 08:59 03/01/17 08:35 Chlorhexidine Gluconate (Arelis-Hex 2%) 1 applic DAILY@1999 TOPIC 02/28/17 20:00 03/30/17 19:59 02/28/17 20:23 Dextrose (Dextrose 50%) STAT PRN IV Hypoglycemia 02/23/17 22:30 03/25/17 22:29 Diltiazem HCl (Cardizem) 30 mg BID ORAL 02/24/17 09:00 03/26/17 08:59 03/01/17 08:35 Heparin Sodium (Porcine) (Heparin 5000 units/ml) 5,000 units EVERY 12 HOURS SUBQ 02/24/17 09:00 03/26/17 08:59 03/01/17 08:36 Insulin Aspart (NovoLOG) EVERY 6 HOURS SUBQ 02/27/17 12:00 03/26/17 06:29 03/01/17 05:44 Lorazepam (Ativan 2mg/ml 1ml) 2 mg EVERY 2 HOURS PRN IV For Anxiety 02/23/17 22:30 03/02/17 22:29 Morphine Sulfate (Morphine Sulfate) 4 mg EVERY 4 HOURS PRN IVP Severe Pain (Pain Scale 7-10) 1/18/18 22:30 03/02/17 22:29 Ondansetron HCl (Zofran) 4 mg Q6H PRN IVP Nausea & Vomiting 02/23/17 22:30 03/25/17 22:29 Pantoprazole (Protonix) 40 mg DAILY IV 02/24/17 09:00 03/26/17 08:59 03/01/17 08:35 Piperacillin Sod/ Tazobactam Sod 4.5 gm/Sodium Chloride 110 ml @ 27.5 mls/hr EVERY 8 HOURS IVPB 02/24/17 14:30 03/02/17 23:59 03/01/17 06:00 Polyethylene Glycol (Miralax) 17 gm DAILYPRN PRN ORAL Constipation 02/23/17 22:30 03/25/17 22:29 02/28/17 09:27 Potassium Chloride 40 meq/ Sodium Chloride 570 ml @ 142.5 mls/ hr ONCE ONCE IVPB 03/01/17 09:00 03/01/17 12:59 03/01/17 09:36 Vancomycin HCl (Vanco rx to dose) 1 ea DAILY PRN MISC RX PROTOCOL 02/24/17 08:15 03/26/17 08:14 Vancomycin HCl/ Dextrose 250 ml @ 166.667 mls/hr Q24H IVPB 02/28/17 12:00 03/05/17 11:59 02/28/17 17:38 PEDRO LUIS IVEY Mar 01, 2017 10:39
[2017-03-01 12:00] VITALS: BP 118/81
[2017-03-01] MEDS: Vancomycin 1250mg/D5W 250ml IVPB SCH (12:30)
--- NOTE | 2017-03-01 12:54 | Infectious Diseases Prog Note ---
Assessment/Plan Assessment/Plan ASSESSMENT: The patient is an 81-year-old male with: CoNS in blood cx: contaminant Sepsis Leukocytosis, mild u/a no pyuria Probable vent-associated pneumonia Scx: GNR -CXR: Interstitial opacification/edema, possibly exaggerated due to low lung volumes Low-grade fever Rapid influenza A negative 02/28 SP right jugular central venous catheter placement History of upper GI bleed in the past History of CVA/TIA Dementia Hypertension COPD Diabetes Anemia Ventilator-dependent respiratory failure PLAN: Cont vancomycin and Zosyn # 6 / 7 Monitor CBC Monitor BMP. Monitor cultures (blood, and sputum). Monitor chest x-ray. Subjective Constitutional: Denies: no symptoms, fever, chills, fatigue, anorexia, drenching sweats, other Allergies: Coded Allergies: No Known Allergies (Verified , 08/19/07) Objective Vital Signs Last 24 Hour Vital Signs Date Time Temp Pulse Resp B/P (MAP) Pulse Ox O2 Delivery O2 Flow Rate FiO2 03/01/17 12:00 30 03/01/17 12:00 98.3 86 25 118/81 100 Mechanical Ventilator 30 03/01/17 10:38 81 22 30 03/01/17 08:57 94 22 30 03/01/17 08:35 114 149/71 03/01/17 08:35 114 149/71 03/01/17 08:00 97.7 114 20 149/71 100 Mechanical Ventilator 30 03/01/17 08:00 30 03/01/17 07:34 89 03/01/17 06:38 80 16 30 03/01/17 05:13 96 24 30 03/01/17 04:00 97.7 83 28 137/74 100 Mechanical Ventilator 30 03/01/17 04:00 114 03/01/17 04:00 30 03/01/17 03:07 94 22 30 03/01/17 01:08 97 20 30 03/01/17 00:00 30 03/01/17 00:00 97.9 107 22 133/68 100 Mechanical Ventilator 30 03/01/17 00:00 103 02/28/17 23:10 108 22 30 02/28/17 20:53 102 20 30 02/28/17 20:00 98.5 97 24 145/61 100 Mechanical Ventilator 30 02/28/17 20:00 97 1/23/18 20:00 30 02/28/17 19:12 111 24 30 02/28/17 17:38 91 119/74 02/28/17 16:58 91 24 30 02/28/17 16:49 89 02/28/17 16:00 30 02/28/17 16:00 97.7 81 22 119/74 100 Mechanical Ventilator 30 02/28/17 14:53 89 24 30 Height (Feet): 6 Height (Inches): 1.00 Weight (Pounds): 209 HEENT: atraumatic Respiratory/Chest: no respiratory distress Cardiovascular: regular rhythm Abdomen: no organomegaly Microbiology Date/Time Source Procedure Growth Status 02/26/17 20:05 Blood Blood Culture - Preliminary NO GROWTH AFTER 48 HOURS Resulted 02/26/17 20:00 Blood Blood Culture - Preliminary NO GROWTH AFTER 48 HOURS Resulted 02/27/17 16:35 Sputum Induced Gram Stain - Final Resulted 02/27/17 16:35 Sputum Culture - Preliminary Gram Negative Bacillus 1 Usual Upper Respiratory Zhane Resulted Laboratory Tests Test 03/01/17 04:00 White Blood Count 13.4 K/UL (4.8-10.8) H Red Blood Count 3.56 M/UL (4.70-6.10) L Hemoglobin 9.8 G/DL (14.2-18.0) L Hematocrit 30.3 % (42.0-52.0) L Mean Corpuscular Volume 85 FL (80-99) Mean Corpuscular Hemoglobin 27.6 PG (27.0-31.0) Mean Corpuscular Hemoglobin Concent 32.5 G/DL (32.0-36.0) Red Cell Distribution Width 17.0 % (11.6-14.8) H Platelet Count 218 K/UL (150-450) Mean Platelet Volume 7.2 FL (6.5-10.1) Neutrophils (%) (Auto) 79.6 % (45.0-75.0) H Lymphocytes (%) (Auto) 12.3 % (20.0-45.0) L Monocytes (%) (Auto) 5.3 % (1.0-10.0) Eosinophils (%) (Auto) 2.5 % (0.0-3.0) Basophils (%) (Auto) 0.3 % (0.0-2.0) Erythrocyte Sedimentation Rate 110 MM/HR (0-30) H Sodium Level 140 MMOL/L (136-145) Potassium Level 3.3 MMOL/L (3.5-5.1) L Chloride Level 105 MMOL/L (98-107) Carbon Dioxide Level 24 MMOL/L (21-32) Anion Gap 11 mmol/L (5-15) Blood Urea Nitrogen 29 mg/dL (7-18) H Creatinine 0.7 MG/DL (0.55-1.30) Estimat Glomerular Filtration Rate mL/min (>60) Glucose Level 106 MG/DL (74-106) Calcium Level 9.3 MG/DL (8.5-10.1) Phosphorus Level 2.5 MG/DL (2.5-4.9) Magnesium Level 2.1 MG/DL (1.8-2.4) Total Bilirubin 0.6 MG/DL (0.2-1.0) Aspartate Amino Transf (AST/SGOT) 16 U/L (15-37) Alanine Aminotransferase (ALT/SGPT) 27 U/L (12-78) Alkaline Phosphatase 90 U/L (46-116) Total Protein 8.0 G/DL (6.4-8.2) Albumin 3.0 G/DL (3.4-5.0) L Globulin 5.0 g/dL Albumin/Globulin Ratio 0.6 (1.0-2.7) L Current Medications Medications (Trade) Dose Ordered Sig/Jaswant Route PRN Reason Start Time Stop Time Status Last Admin Dose Admin Acetaminophen (Tylenol) 650 mg Q4H PRN ORAL FEVER 02/23/17 22:30 03/25/17 22:29 Albuterol/ Ipratropium (Albuterol/ Ipratropium) 3 ml Q4H PRN HHN Shortness of Breath 02/26/17 11:45 03/03/17 11:44 Amlodipine Besylate (Norvasc) 10 mg DAILY GT 02/24/17 09:00 03/26/17 08:59 03/01/17 08:35 Chlorhexidine Gluconate (Arelis-Hex 2%) 1 applic DAILY@1999 TOPIC 02/28/17 20:00 03/30/17 19:59 02/28/17 20:23 Dextrose (Dextrose 50%) STAT PRN IV Hypoglycemia 02/23/17 22:30 03/25/17 22:29 Diltiazem HCl (Cardizem) 30 mg BID ORAL 02/24/17 09:00 03/26/17 08:59 03/01/17 08:35 Heparin Sodium (Porcine) (Heparin 5000 units/ml) 5,000 units EVERY 12 HOURS SUBQ 02/24/17 09:00 03/26/17 08:59 03/01/17 08:36 Insulin Aspart (NovoLOG) EVERY 6 HOURS SUBQ 02/27/17 12:00 03/26/17 06:29 03/01/17 05:44 Lorazepam (Ativan 2mg/ml 1ml) 2 mg EVERY 2 HOURS PRN IV For Anxiety 02/23/17 22:30 03/02/17 22:29 Morphine Sulfate (Morphine Sulfate) 4 mg EVERY 4 HOURS PRN IVP Severe Pain (Pain Scale 7-10) 02/23/17 22:30 03/02/17 22:29 Ondansetron HCl (Zofran) 4 mg Q6H PRN IVP Nausea & Vomiting 02/23/17 22:30 03/25/17 22:29 Pantoprazole (Protonix) 40 mg DAILY IV 02/24/17 09:00 03/26/17 08:59 03/01/17 08:35 Piperacillin Sod/ Tazobactam Sod 4.5 gm/Sodium Chloride 110 ml @ 27.5 mls/hr EVERY 8 HOURS IVPB 02/24/17 14:30 03/02/17 23:59 03/01/17 06:00 Polyethylene Glycol (Miralax) 17 gm DAILYPRN PRN ORAL Constipation 02/23/17 22:30 03/25/17 22:29 02/28/17 09:27 Potassium Chloride 40 meq/ Sodium Chloride 570 ml @ 142.5 mls/ hr ONCE ONCE IVPB 03/01/17 09:00 03/01/17 12:59 03/01/17 09:36 Vancomycin HCl (Vanco rx to dose) 1 ea DAILY PRN MISC RX PROTOCOL 02/24/17 08:15 03/26/17 08:14 Vancomycin HCl/ Dextrose 250 ml @ 166.667 mls/hr Q24H IVPB 02/28/17 12:00 03/05/17 11:59 03/01/17 12:30 MARGARETTE BRYANT M.D. Mar 01, 2017 12:54
[2017-03-01 16:00] VITALS: BP 133/73
[2017-03-01 20:00] VITALS: BP 124/88
[2017-03-01] MEDS: Dyna-Hex 2% Top Sol 2oz TOPIC SCH (20:48)
[2017-03-01] MEDS: Morphine Sulfate 4mg/ml Inj IVP PRN (20:50)
[2017-03-02] VITALS: BP 133/78
[2017-03-02 04:00] VITALS: BP 130/78
[2017-03-02] MEDS: Piperacillin/Tazobactam 4.5 GM in NS 110 ML IVPB SCH ×3 (04:59→21:47)
[2017-03-02] MEDS: Morphine Sulfate 4mg/ml Inj IVP PRN (04:59)
[2017-03-02] MEDS: NovoLOG Insulin Flexpen SUBQ SCH ×4 (06:00→23:37)
[2017-03-02 06:23] LABS: BASOPHILS % (AUTO) 0.4 % (0.0-2.0); EOSINOPHILS % (AUTO) 2.3 % (0.0-3.0); HEMATOCRIT 29.5 % (42.0-52.0); HEMOGLOBIN 9.4 G/DL (14.2-18.0); LYMPHOCYTES % (AUTO) 12.2 % (20.0-45.0); MEAN CORPUSCULAR VOLUME 85 FL (80-99); MONOCYTES % (AUTO) 5.6 % (1.0-10.0); NEUTROPHILS % (AUTO) 79.4 % (45.0-75.0); PLATELET COUNT 188 K/UL (150-450); RED BLOOD COUNT 3.47 M/UL (4.70-6.10); RED CELL DISTRIBUTION WIDTH 16.7 % (11.6-14.8); WHITE BLOOD COUNT 13.3 K/UL (4.8-10.8)
[2017-03-02 06:33] LABS: ALANINE AMINOTRANSFERASE 29 U/L (12-78); ALBUMIN 2.9 G/DL (3.4-5.0); ALBUMIN/GLOBULIN RATIO 0.6 (1.0-2.7); ALKALINE PHOSPHATASE 88 U/L (46-116); ANION GAP 9 mmol/L (5-15); ASPARTATE AMINO TRANSFERASE 20 U/L (15-37); BILIRUBIN,TOTAL 0.6 MG/DL (0.2-1.0); BLOOD UREA NITROGEN 18 mg/dL (7-18); CARBON DIOXIDE 25 MMOL/L (21-32); CHLORIDE 107 MMOL/L (98-107); CREATININE 0.7 MG/DL (0.55-1.30); PHOSPHORUS 2.5 MG/DL (2.5-4.9); POTASSIUM 3.9 MMOL/L (3.5-5.1); SODIUM 141 MMOL/L (136-145)
[2017-03-02 08:00] VITALS: BP 122/79
[2017-03-02] MEDS: Pantoprazole Inj IV SCH (08:52)
[2017-03-02] MEDS: dilTIAZem HCl 30mg tab ORAL SCH ×2 (08:52→17:19)
[2017-03-02] MEDS: Heparin 5000 units/ml inj SUBQ SCH ×2 (08:53→20:51)
--- NOTE | 2017-03-02 10:34 | Pulmonology Progress Note ---
Assessment/Plan Problems: (1) Acute on chronic respiratory failure (2) Severe sepsis (3) Feeding by G-tube (4) Seizure disorder (5) DM (diabetes mellitus) Subjective ROS Limited/Unobtainable: Yes Allergies: Coded Allergies: No Known Allergies (Verified , 08/19/07) Objective Last 24 Hour Vital Signs Date Time Temp Pulse Resp B/P (MAP) Pulse Ox O2 Delivery O2 Flow Rate FiO2 03/02/17 09:00 78 16 30 03/02/17 08:52 86 122/79 03/02/17 08:52 86 122/79 03/02/17 08:00 94 03/02/17 08:00 98.6 86 22 122/79 100 Mechanical Ventilator 30 03/02/17 08:00 30 03/02/17 06:45 84 17 30 03/02/17 04:36 86 16 30 03/02/17 04:00 100 03/02/17 04:00 30 03/02/17 04:00 98.6 86 17 130/78 100 Mechanical Ventilator 30 03/02/17 03:12 85 18 30 03/02/17 01:05 96 24 30 03/02/17 00:00 87 03/02/17 00:00 98.3 83 22 133/78 100 Mechanical Ventilator 30 03/02/17 00:00 30 03/01/17 22:54 100 23 30 03/01/17 21:07 110 22 30 03/01/17 21:00 30 03/01/17 20:00 93 03/01/17 20:00 98.4 87 30 124/88 100 Mechanical Ventilator 30 03/01/17 19:15 106 24 30 03/01/17 17:42 85 133/73 03/01/17 16:44 87 03/01/17 16:32 85 17 30 03/01/17 16:00 98.2 86 26 133/73 100 Mechanical Ventilator 30 03/01/17 16:00 30 03/01/17 14:31 66 17 30 03/01/17 12:58 70 17 30 03/01/17 12:00 30 03/01/17 12:00 98.3 86 25 118/81 100 Mechanical Ventilator 30 03/01/17 11:50 76 03/01/17 10:38 81 22 30 Intake and Output 1/24/18 1/25/18 19:00 07:00 Intake Total 1572.500 ml 625.0 ml Output Total 350 ml 400 ml Balance 1222.500 ml 225.0 ml Free Water 100 ml IV Total 1012.500 ml 165.0 ml Tube Feeding 360 ml 360 ml Other 200 ml Output Urine Total 350 ml 400 ml # Bowel Movements 1 General Appearance: no acute distress HEENT: normocephalic, status post trach Respiratory/Chest: chest wall non-tender, lungs clear, normal breath sounds, no respiratory distress Cardiovascular: regular rhythm, regularly irregular Abdomen: normal bowel sounds, soft, non tender, no organomegaly Lymphatic: no neck adenopathy Microbiology Date/Time Source Procedure Growth Status 02/27/17 16:35 Sputum Induced Gram Stain - Final Resulted 02/27/17 16:35 Sputum Culture - Preliminary Pseudomonas Aeruginosa - Mdr Usual Upper Respiratory Zhane Resulted Laboratory Tests 03/02/17 04:00: White Blood Count 13.3H, Red Blood Count 3.47L, Hemoglobin 9.4L, Hematocrit 29.5L, Mean Corpuscular Volume 85, Mean Corpuscular Hemoglobin 27.0, Mean Corpuscular Hemoglobin Concent 31.8L, Red Cell Distribution Width 16.7H, Platelet Count 188, Mean Platelet Volume 7.3, Neutrophils (%) (Auto) 79.4H, Lymphocytes (%) (Auto) 12.2L, Monocytes (%) (Auto) 5.6, Eosinophils (%) (Auto) 2.3, Basophils (%) (Auto) 0.4, Sodium Level 141, Potassium Level 3.9, Chloride Level 107, Carbon Dioxide Level 25, Anion Gap 9, Blood Urea Nitrogen 18, Creatinine 0.7, Estimat Glomerular Filtration Rate , Glucose Level 96, Calcium Level 9.0, Phosphorus Level 2.5, Magnesium Level 1.9, Total Bilirubin 0.6, Aspartate Amino Transf (AST/SGOT) 20, Alanine Aminotransferase (ALT/SGPT) 29, Alkaline Phosphatase 88, Total Protein 7.8, Albumin 2.9L, Globulin 4.9, Albumin/ Globulin Ratio 0.6L Current Medications Medications (Trade) Dose Ordered Sig/Jaswant Route PRN Reason Start Time Stop Time Status Last Admin Dose Admin Acetaminophen (Tylenol) 650 mg Q4H PRN ORAL FEVER 02/23/17 22:30 03/25/17 22:29 Albuterol/ Ipratropium (Albuterol/ Ipratropium) 3 ml Q4H PRN HHN Shortness of Breath 02/26/17 11:45 03/03/17 11:44 Amlodipine Besylate (Norvasc) 10 mg DAILY GT 02/24/17 09:00 03/26/17 08:59 03/02/17 08:52 Chlorhexidine Gluconate (Arelis-Hex 2%) 1 applic DAILY@2000 TOPIC 02/28/17 20:00 03/30/17 19:59 03/01/17 20:48 Dextrose (Dextrose 50%) STAT PRN IV Hypoglycemia 02/23/17 22:30 03/25/17 22:29 Diltiazem HCl (Cardizem) 30 mg BID ORAL 02/24/17 09:00 03/26/17 08:59 03/02/17 08:52 Heparin Sodium (Porcine) (Heparin 5000 units/ml) 5,000 units EVERY 12 HOURS SUBQ 02/24/17 09:00 03/26/17 08:59 03/02/17 08:53 Insulin Aspart (NovoLOG) EVERY 6 HOURS SUBQ 02/27/17 12:00 03/26/17 06:29 03/01/17 05:44 Lorazepam (Ativan 2mg/ml 1ml) 2 mg EVERY 2 HOURS PRN IV For Anxiety 02/23/17 22:30 03/02/17 22:29 Morphine Sulfate (Morphine Sulfate) 4 mg EVERY 4 HOURS PRN IVP Severe Pain (Pain Scale 7-10) 02/23/17 22:30 03/02/17 22:29 03/02/17 04:59 Ondansetron HCl (Zofran) 4 mg Q6H PRN IVP Nausea & Vomiting 02/23/17 22:30 03/25/17 22:29 Pantoprazole (Protonix) 40 mg DAILY IV 02/24/17 09:00 03/26/17 08:59 03/02/17 08:52 Piperacillin Sod/ Tazobactam Sod 4.5 gm/Sodium Chloride 110 ml @ 27.5 mls/hr EVERY 8 HOURS IVPB 02/24/17 14:30 03/02/17 23:59 03/02/17 04:59 Polyethylene Glycol (Miralax) 17 gm DAILYPRN PRN ORAL Constipation 02/23/17 22:30 03/25/17 22:29 02/28/17 09:27 Vancomycin HCl (Vanco rx to dose) 1 ea DAILY PRN MISC RX PROTOCOL 02/24/17 08:15 03/26/17 08:14 Vancomycin HCl/ Dextrose 250 ml @ 166.667 mls/hr Q24H IVPB 02/28/17 12:00 03/05/17 11:59 03/01/17 12:30 Critical Care - Asmt/Plan Assessment/Plan: wbc still high, sputum available, MRD pseudomonas Respiratory: adjust tidal volume Renal: F/U I&O Infectious Disease: check cultures, continue antibiotics Gastrointestinal: continue feedings/current rate, hold feedings Endocrine: check HgA1C Neurologic: PRN Ativan Prophylaxis: Protonix Time Spent (Minutes): 40 Notes Reviewed: cardio Discussed with: nurses Critical Care - Asmt/Plan Assessment/Plan: subclavian was inserted yesterday by radiology PEDRO LUIS IVEY Mar 02, 2017 10:34
[2017-03-02] MEDS: Vancomycin 1250mg/D5W 250ml IVPB SCH (11:56)
[2017-03-02 12:00] VITALS: BP 138/78
[2017-03-02] MEDS ORDERED: Amikacin Rx to dose MISC PRN (12:15)
[2017-03-02] MEDS ORDERED: AMIKACIN IV SCH (14:00)
[2017-03-02] MEDS ORDERED: D5W IV SCH (14:00)
[2017-03-02 16:00] VITALS: BP 144/75
[2017-03-02 20:00] VITALS: BP 138/75
[2017-03-02] MEDS: Dyna-Hex 2% Top Sol 2oz TOPIC SCH (20:39)
[2017-03-03] VITALS: BP 144/84
[2017-03-03 03:06] LABS: BASOPHILS % (AUTO) 0.4 % (0.0-2.0); HEMATOCRIT 27.4 % (42.0-52.0); HEMOGLOBIN 8.6 G/DL (14.2-18.0); MEAN CORPUSCULAR VOLUME 85 FL (80-99); MONOCYTES % (AUTO) 4.7 % (1.0-10.0); NEUTROPHILS % (AUTO) 73.9 % (45.0-75.0); PLATELET COUNT 170 K/UL (150-450); RED BLOOD COUNT 3.24 M/UL (4.70-6.10); RED CELL DISTRIBUTION WIDTH 16.8 % (11.6-14.8); WHITE BLOOD COUNT 11.6 K/UL (4.8-10.8)
[2017-03-03 03:14] LABS: ALANINE AMINOTRANSFERASE 20 U/L (12-78); ALBUMIN 2.6 G/DL (3.4-5.0); ALBUMIN/GLOBULIN RATIO 0.6 (1.0-2.7); ALKALINE PHOSPHATASE 75 U/L (46-116); ANION GAP 8 mmol/L (5-15); ASPARTATE AMINO TRANSFERASE 18 U/L (15-37); BILIRUBIN,TOTAL 0.6 MG/DL (0.2-1.0); BLOOD UREA NITROGEN 13 mg/dL (7-18); CALCIUM 8.8 MG/DL (8.5-10.1); CARBON DIOXIDE 25 MMOL/L (21-32); CHLORIDE 107 MMOL/L (98-107); CREATININE 0.7 MG/DL (0.55-1.30); PHOSPHORUS 2.5 MG/DL (2.5-4.9); POTASSIUM 3.6 MMOL/L (3.5-5.1); SODIUM 139 MMOL/L (136-145)
[2017-03-03 04:00] VITALS: BP 152/77
[2017-03-03] MEDS: NovoLOG Insulin Flexpen SUBQ SCH ×4 (05:38→23:49)
[2017-03-03 08:00] VITALS: BP 155/89
[2017-03-03] MEDS: Pantoprazole Inj IV SCH (08:18)
[2017-03-03] MEDS: dilTIAZem HCl 30mg tab ORAL SCH ×2 (08:18→17:16)
[2017-03-03] MEDS: Heparin 5000 units/ml inj SUBQ SCH ×2 (08:19→20:31)
[2017-03-03] MEDS ORDERED: NS 500ML ONE (10:46)
[2017-03-03] MEDS ORDERED: Tubing IV Secondary IV ONE (10:46)
--- NOTE | 2017-03-03 10:57 | Pulmonology Progress Note ---
Assessment/Plan Problems: (1) Acute on chronic respiratory failure (2) Severe sepsis (3) Feeding by G-tube (4) Seizure disorder (5) DM (diabetes mellitus) Assessment/Plan: wbc still high, sputum available, MRD pseudomonas Respiratory: CXR Cardiac: continue pressors Renal: F/U I&O Gastrointestinal: hold feedings Endocrine: monitor blood sugar, check TSH Hematologic: monitor H/H Neurologic: PRN Ativan Affect: PRN ativan Prophylaxis: Heparin Subjective HEENT: Repors: no symptoms Allergies: Coded Allergies: No Known Allergies (Verified , 08/19/07) Objective Last 24 Hour Vital Signs Date Time Temp Pulse Resp B/P (MAP) Pulse Ox O2 Delivery O2 Flow Rate FiO2 03/03/17 10:30 82 18 30 03/03/17 08:46 90 22 30 03/03/17 08:18 96 155/89 03/03/17 08:18 92 155/89 03/03/17 08:00 98.1 92 16 155/89 100 Mechanical Ventilator 30 03/03/17 08:00 86 03/03/17 08:00 30 03/03/17 06:30 82 19 30 03/03/17 05:16 81 24 30 03/03/17 04:00 30 03/03/17 04:00 98.5 87 20 152/77 100 Mechanical Ventilator 30 03/03/17 04:00 80 03/03/17 03:05 84 18 30 03/03/17 01:05 74 16 30 03/03/17 00:00 81 03/03/17 00:00 99.0 90 21 144/84 100 Mechanical Ventilator 30 03/03/17 00:00 30 03/02/17 23:23 77 16 30 03/02/17 21:15 60 16 30 03/02/17 20:00 87 03/02/17 20:00 30 03/02/17 20:00 99.1 74 17 138/75 100 Mechanical Ventilator 30 03/02/17 18:47 73 20 30 03/02/17 17:19 88 144/75 03/02/17 17:03 88 17 30 03/02/17 16:00 98.9 82 17 144/75 100 Mechanical Ventilator 30 03/02/17 16:00 79 03/02/17 16:00 30 03/02/17 14:53 66 18 30 03/02/17 12:45 69 20 30 03/02/17 12:00 98.4 77 25 138/78 100 Mechanical Ventilator 30 03/02/17 12:00 79 03/02/17 12:00 30 03/02/17 11:12 73 19 30 Intake and Output 03/02/17 03/03/17 19:00 07:00 Intake Total 1047.300 ml 570.0 ml Output Total 200 ml 700 ml Balance 847.300 ml -130.0 ml Free Water 100 ml IV Total 667.300 ml 110.0 ml Tube Feeding 360 ml 360 ml Other 20 ml Output Urine Total 200 ml 700 ml # Bowel Movements 1 HEENT: normocephalic, atraumatic Respiratory/Chest: chest wall non-tender Cardiovascular: normal peripheral pulses, normal rate Abdomen: normal bowel sounds Genitourinary: normal external genitalia Extremities: no cyanosis Skin: no ulcers Neurologic/Psychiatric: no motor/sensory deficits Lymphatic: no groin adenopathy Laboratory Tests 03/03/17 02:00: White Blood Count 11.6H, Red Blood Count 3.24L, Hemoglobin 8.6L, Hematocrit 27.4L, Mean Corpuscular Volume 85, Mean Corpuscular Hemoglobin 26.7L, Mean Corpuscular Hemoglobin Concent 31.6L, Red Cell Distribution Width 16.8H, Platelet Count 170, Mean Platelet Volume 7.9, Neutrophils (%) (Auto) 73.9, Lymphocytes (%) (Auto) 18.0L, Monocytes (%) (Auto) 4.7, Eosinophils (%) (Auto) 3.0, Basophils (%) (Auto) 0.4, Erythrocyte Sedimentation Rate 114H, Sodium Level 139, Potassium Level 3.6, Chloride Level 107, Carbon Dioxide Level 25, Anion Gap 8, Blood Urea Nitrogen 13, Creatinine 0.7, Estimat Glomerular Filtration Rate , Glucose Level 89, Calcium Level 8.8, Phosphorus Level 2.5, Magnesium Level 1.8, Total Bilirubin 0.6, Aspartate Amino Transf (AST/SGOT) 18, Alanine Aminotransferase (ALT/SGPT) 20, Alkaline Phosphatase 75, Total Protein 7.0, Albumin 2.6L, Globulin 4.4, Albumin/Globulin Ratio 0.6L, Random Amikacin Level 11.8 Current Medications Medications (Trade) Dose Ordered Sig/Jaswant Route PRN Reason Start Time Stop Time Status Last Admin Dose Admin Acetaminophen (Tylenol) 650 mg Q4H PRN ORAL FEVER 02/23/17 22:30 03/25/17 22:29 Albuterol/ Ipratropium (Albuterol/ Ipratropium) 3 ml Q4H PRN HHN Shortness of Breath 02/26/17 11:45 03/03/17 11:44 Amikacin Protocol (Amikacin pharmacy to dose) 1 ea DAILY PRN MISC PER RX PROTOCOL 03/02/17 12:15 04/01/17 12:14 Amikacin Sulfate 1200 mg/Dextrose 279.8 ml @ 559.6 mls/ hr Q36H IV 03/04/17 01:30 03/11/17 01:29 Amlodipine Besylate (Norvasc) 10 mg DAILY GT 02/24/17 09:00 03/26/17 08:59 03/03/17 08:18 Chlorhexidine Gluconate (Arelis-Hex 2%) 1 applic DAILY@2000 TOPIC 02/28/17 20:00 03/30/17 19:59 03/02/17 20:39 Dextrose (Dextrose 50%) STAT PRN IV Hypoglycemia 02/23/17 22:30 03/25/17 22:29 Diltiazem HCl (Cardizem) 30 mg BID ORAL 02/24/17 09:00 03/26/17 08:59 03/03/17 08:18 Heparin Sodium (Porcine) (Heparin 5000 units/ml) 5,000 units EVERY 12 HOURS SUBQ 02/24/17 09:00 03/26/17 08:59 03/03/17 08:19 Insulin Aspart (NovoLOG) EVERY 6 HOURS SUBQ 02/27/17 12:00 03/26/17 06:29 03/03/17 05:38 Ondansetron HCl (Zofran) 4 mg Q6H PRN IVP Nausea & Vomiting 02/23/17 22:30 03/25/17 22:29 Pantoprazole (Protonix) 40 mg DAILY IV 02/24/17 09:00 03/26/17 08:59 03/03/17 08:18 Polyethylene Glycol (Miralax) 17 gm DAILYPRN PRN ORAL Constipation 02/23/17 22:30 03/25/17 22:29 02/28/17 09:27 PEDRO LUIS IVEY Mar 03, 2017 10:57
[2017-03-03 12:00] VITALS: BP 157/81
--- NOTE | 2017-03-03 12:01 | Infectious Diseases Prog Note ---
Assessment/Plan Assessment/Plan ASSESSMENT: The patient is an 81-year-old male with: CoNS in blood cx: contaminant Sepsis, SP Leukocytosis, improved u/a no pyuria Probable vent-associated pneumonia Scx: MDR- PSA ( S to Zosyn pending) -CXR: Interstitial opacification/edema, possibly exaggerated due to low lung volumes Low-grade fever, SP Rapid influenza A negative 02/28 SP right jugular central venous catheter placement History of upper GI bleed in the past History of CVA/TIA Dementia Hypertension COPD Diabetes Anemia Ventilator-dependent respiratory failure PLAN: Cont IV Amikacin d# ,add Colistin INH d# 03/02 SP vancomycin and Zosyn # 7 Monitor CBC Monitor BMP. Monitor cultures (sputum). Monitor chest x-ray. Subjective Constitutional: Denies: no symptoms, fever, chills, fatigue, anorexia, drenching sweats, other Allergies: Coded Allergies: No Known Allergies (Verified , 08/19/07) Objective Vital Signs Last 24 Hour Vital Signs Date Time Temp Pulse Resp B/P (MAP) Pulse Ox O2 Delivery O2 Flow Rate FiO2 03/03/17 10:30 82 18 30 03/03/17 08:46 90 22 30 03/03/17 08:18 96 155/89 03/03/17 08:18 92 155/89 03/03/17 08:00 98.1 92 16 155/89 100 Mechanical Ventilator 30 03/03/17 08:00 86 03/03/17 08:00 30 03/03/17 06:30 82 19 30 03/03/17 05:16 81 24 30 03/03/17 04:00 30 03/03/17 04:00 98.5 87 20 152/77 100 Mechanical Ventilator 30 03/03/17 04:00 80 03/03/17 03:05 84 18 30 03/03/17 01:05 74 16 30 03/03/17 00:00 81 03/03/17 00:00 99.0 90 21 144/84 100 Mechanical Ventilator 30 03/03/17 00:00 30 03/02/17 23:23 77 16 30 03/02/17 21:15 60 16 30 03/02/17 20:00 87 03/02/17 20:00 30 03/02/17 20:00 99.1 74 17 138/75 100 Mechanical Ventilator 30 03/02/17 18:47 73 20 30 03/02/17 17:19 88 144/75 03/02/17 17:03 88 17 30 03/02/17 16:00 98.9 82 17 144/75 100 Mechanical Ventilator 30 03/02/17 16:00 79 03/02/17 16:00 30 03/02/17 14:53 66 18 30 03/02/17 12:45 69 20 30 03/02/17 12:00 98.4 77 25 138/78 100 Mechanical Ventilator 30 03/02/17 12:00 79 03/02/17 12:00 30 Height (Feet): 6 Height (Inches): 1.00 Weight (Pounds): 209 HEENT: anicteric Respiratory/Chest: normal breath sounds Cardiovascular: regular rhythm Abdomen: soft, non tender Laboratory Tests Test 03/03/17 02:00 White Blood Count 11.6 K/UL (4.8-10.8) H Red Blood Count 3.24 M/UL (4.70-6.10) L Hemoglobin 8.6 G/DL (14.2-18.0) L Hematocrit 27.4 % (42.0-52.0) L Mean Corpuscular Volume 85 FL (80-99) Mean Corpuscular Hemoglobin 26.7 PG (27.0-31.0) L Mean Corpuscular Hemoglobin Concent 31.6 G/DL (32.0-36.0) L Red Cell Distribution Width 16.8 % (11.6-14.8) H Platelet Count 170 K/UL (150-450) Mean Platelet Volume 7.9 FL (6.5-10.1) Neutrophils (%) (Auto) 73.9 % (45.0-75.0) Lymphocytes (%) (Auto) 18.0 % (20.0-45.0) L Monocytes (%) (Auto) 4.7 % (1.0-10.0) Eosinophils (%) (Auto) 3.0 % (0.0-3.0) Basophils (%) (Auto) 0.4 % (0.0-2.0) Erythrocyte Sedimentation Rate 114 MM/HR (0-30) H Sodium Level 139 MMOL/L (136-145) Potassium Level 3.6 MMOL/L (3.5-5.1) Chloride Level 107 MMOL/L (98-107) Carbon Dioxide Level 25 MMOL/L (21-32) Anion Gap 8 mmol/L (5-15) Blood Urea Nitrogen 13 mg/dL (7-18) Creatinine 0.7 MG/DL (0.55-1.30) Estimat Glomerular Filtration Rate mL/min (>60) Glucose Level 89 MG/DL (74-106) Calcium Level 8.8 MG/DL (8.5-10.1) Phosphorus Level 2.5 MG/DL (2.5-4.9) Magnesium Level 1.8 MG/DL (1.8-2.4) Total Bilirubin 0.6 MG/DL (0.2-1.0) Aspartate Amino Transf (AST/SGOT) 18 U/L (15-37) Alanine Aminotransferase (ALT/SGPT) 20 U/L (12-78) Alkaline Phosphatase 75 U/L (46-116) Total Protein 7.0 G/DL (6.4-8.2) Albumin 2.6 G/DL (3.4-5.0) L Globulin 4.4 g/dL Albumin/Globulin Ratio 0.6 (1.0-2.7) L Random Amikacin Level 11.8 MG/L Current Medications Medications (Trade) Dose Ordered Sig/Jaswant Route PRN Reason Start Time Stop Time Status Last Admin Dose Admin Acetaminophen (Tylenol) 650 mg Q4H PRN ORAL FEVER 02/23/17 22:30 03/25/17 22:29 Amikacin Protocol (Amikacin pharmacy to dose) 1 ea DAILY PRN MISC PER RX PROTOCOL 03/02/17 12:15 04/01/17 12:14 Amikacin Sulfate 1200 mg/Dextrose 279.8 ml @ 559.6 mls/ hr Q36H IV 03/04/17 01:30 03/11/17 01:29 Amlodipine Besylate (Norvasc) 10 mg DAILY GT 02/24/17 09:00 03/26/17 08:59 03/03/17 08:18 Chlorhexidine Gluconate (Arelis-Hex 2%) 1 applic DAILY@2000 TOPIC 02/28/17 20:00 03/30/17 19:59 03/02/17 20:39 Dextrose (Dextrose 50%) STAT PRN IV Hypoglycemia 02/23/17 22:30 03/25/17 22:29 Diltiazem HCl (Cardizem) 30 mg BID ORAL 02/24/17 09:00 03/26/17 08:59 03/03/17 08:18 Heparin Sodium (Porcine) (Heparin 5000 units/ml) 5,000 units EVERY 12 HOURS SUBQ 02/24/17 09:00 03/26/17 08:59 03/03/17 08:19 Insulin Aspart (NovoLOG) EVERY 6 HOURS SUBQ 02/27/17 12:00 03/26/17 06:29 03/03/17 05:38 Ondansetron HCl (Zofran) 4 mg Q6H PRN IVP Nausea & Vomiting 02/23/17 22:30 03/25/17 22:29 Pantoprazole (Protonix) 40 mg DAILY IV 02/24/17 09:00 03/26/17 08:59 03/03/17 08:18 Polyethylene Glycol (Miralax) 17 gm DAILYPRN PRN ORAL Constipation 02/23/17 22:30 03/25/17 22:29 02/28/17 09:27 MARGARETTE BRYANT M.D. Mar 03, 2017 12:01
[2017-03-03 16:00] VITALS: BP 136/85
[2017-03-03 20:00] VITALS: BP 143/88
[2017-03-03] MEDS: Dyna-Hex 2% Top Sol 2oz TOPIC SCH (20:30)
[2017-03-03] MEDS: Colistin for inhalation INH SCH (21:07)
[2017-03-04] VITALS: BP 148/100
[2017-03-04] MEDS: AMIKACIN IV SCH (01:25)
[2017-03-04] MEDS: D5W IV SCH (01:25)
[2017-03-04 04:00] VITALS: BP 143/88
[2017-03-04 04:40] LABS: BASOPHILS % (AUTO) 0.5 % (0.0-2.0); EOSINOPHILS % (AUTO) 3.2 % (0.0-3.0); HEMATOCRIT 27.7 % (42.0-52.0); HEMOGLOBIN 8.8 G/DL (14.2-18.0); LYMPHOCYTES % (AUTO) 18.4 % (20.0-45.0); MEAN CORPUSCULAR VOLUME 85 FL (80-99); MONOCYTES % (AUTO) 6.8 % (1.0-10.0); NEUTROPHILS % (AUTO) 71.1 % (45.0-75.0); PLATELET COUNT 171 K/UL (150-450); RED BLOOD COUNT 3.25 M/UL (4.70-6.10); RED CELL DISTRIBUTION WIDTH 17.1 % (11.6-14.8); WHITE BLOOD COUNT 10.2 K/UL (4.8-10.8)
[2017-03-04 04:57] LABS: ALANINE AMINOTRANSFERASE 31 U/L (12-78); ALBUMIN 2.7 G/DL (3.4-5.0); ALBUMIN/GLOBULIN RATIO 0.6 (1.0-2.7); ALKALINE PHOSPHATASE 77 U/L (46-116); ANION GAP 9 mmol/L (5-15); ASPARTATE AMINO TRANSFERASE 19 U/L (15-37); BILIRUBIN,TOTAL 0.5 MG/DL (0.2-1.0); BLOOD UREA NITROGEN 12 mg/dL (7-18); CALCIUM 9.1 MG/DL (8.5-10.1); CARBON DIOXIDE 24 MMOL/L (21-32); CHLORIDE 104 MMOL/L (98-107); CREATININE 0.7 MG/DL (0.55-1.30); PHOSPHORUS 2.9 MG/DL (2.5-4.9); POTASSIUM 3.3 MMOL/L (3.5-5.1); SODIUM 137 MMOL/L (136-145)
[2017-03-04] MEDS: NovoLOG Insulin Flexpen SUBQ SCH ×4 (05:47→23:54)
--- NOTE | 2017-03-04 06:27 | Pulmonology Progress Note ---
Assessment/Plan Problems: (1) Acute on chronic respiratory failure (2) Severe sepsis (3) Feeding by G-tube (4) Seizure disorder (5) DM (diabetes mellitus) Assessment/Plan: wbc wnl h, sputum available, MRD pseudomonas, on Amikacin now Respiratory: adjust tidal volume, adjust FIO2 Renal: F/U I&O, keep IV fluid Gastrointestinal: continue feedings/current rate Endocrine: check TSH Hematologic: monitor H/H, transfuse if hgb<8.5 Neurologic: PRN Morphine, keep patient comfortable Affect: PRN ativan Prophylaxis: Heparin Notes Reviewed: 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 with: nurses, consultants Subjective ROS Limited/Unobtainable: No Constitutional: Reports: no symptoms HEENT: Repors: no symptoms Respiratory: Reports: no symptoms Allergies: Coded Allergies: No Known Allergies (Verified , 08/19/07) Objective Last 24 Hour Vital Signs Date Time Temp Pulse Resp B/P (MAP) Pulse Ox O2 Delivery O2 Flow Rate FiO2 03/04/17 05:16 70 17 30 03/04/17 04:00 30 03/04/17 04:00 117 03/04/17 04:00 99.0 74 16 143/88 100 Mechanical Ventilator 30 03/04/17 03:03 85 19 30 03/04/17 00:46 102 18 30 03/04/17 00:00 85 03/04/17 00:00 98.2 75 16 148/100 100 Mechanical Ventilator 30 03/04/17 00:00 30 03/03/17 22:49 77 16 30 03/03/17 21:18 94 16 100 Mechanical Ventilator 30 03/03/17 21:07 82 19 100 Mechanical Ventilator 30 03/03/17 21:07 82 19 30 03/03/17 20:00 99.0 74 16 143/88 100 Mechanical Ventilator 30 03/03/17 20:00 30 03/03/17 20:00 92 03/03/17 18:55 71 16 30 03/03/17 17:16 78 136/85 03/03/17 16:31 78 24 30 03/03/17 16:00 98.5 78 16 136/85 100 Mechanical Ventilator 30 03/03/17 16:00 30 03/03/17 16:00 92 03/03/17 14:31 76 16 30 03/03/17 12:00 30 03/03/17 12:00 93 03/03/17 12:00 98.1 72 16 157/81 100 Mechanical Ventilator 30 03/03/17 10:30 82 18 30 03/03/17 08:46 90 22 30 03/03/17 08:18 96 155/89 03/03/17 08:18 92 155/89 03/03/17 08:00 98.1 92 16 155/89 100 Mechanical Ventilator 30 03/03/17 08:00 86 03/03/17 08:00 30 03/03/17 06:30 82 19 30 Intake and Output 03/03/17 03/04/17 19:00 07:00 Intake Total 410 ml 639.8 ml Output Total 1000 ml Balance -590 ml 639.8 ml Free Water 50 ml 90 ml IV Total 279.8 ml Tube Feeding 360 ml 270 ml Output Urine Total 1000 ml # Bowel Movements 1 General Appearance: WD/WN HEENT: normocephalic Respiratory/Chest: chest wall non-tender, lungs clear Cardiovascular: normal peripheral pulses Abdomen: normal bowel sounds, soft, non tender, no scars Extremities: no cyanosis Skin: no rash Neurologic/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: 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, alert Lymphatic: no groin adenopathy Laboratory Tests 03/03/17 11:27: Vancomycin Level Trough 13.8H 03/04/17 04:00: White Blood Count 10.2, Red Blood Count 3.25L, Hemoglobin 8.8L, Hematocrit 27.7L , Mean Corpuscular Volume 85, Mean Corpuscular Hemoglobin 27.0, Mean Corpuscular Hemoglobin Concent 31.7L, Red Cell Distribution Width 17.1H, Platelet Count 171, Mean Platelet Volume 7.1, Neutrophils (%) (Auto) 71.1, Lymphocytes (%) (Auto) 18.4L, Monocytes (%) (Auto) 6.8, Eosinophils (%) (Auto) 3.2H, Basophils (%) (Auto) 0.5, Sodium Level 137, Potassium Level 3.3L, Chloride Level 104, Carbon Dioxide Level 24, Anion Gap 9, Blood Urea Nitrogen 12 , Creatinine 0.7, Estimat Glomerular Filtration Rate , Glucose Level 99, Calcium Level 9.1, Phosphorus Level 2.9, Magnesium Level 1.9, Total Bilirubin 0.5, Aspartate Amino Transf (AST/SGOT) 19, Alanine Aminotransferase (ALT/SGPT) 31, Alkaline Phosphatase 77, Total Protein 7.5, Albumin 2.7L, Globulin 4.8, Albumin/Globulin Ratio 0.6L Current Medications Medications (Trade) Dose Ordered Sig/Jaswant Route PRN Reason Start Time Stop Time Status Last Admin Dose Admin Acetaminophen (Tylenol) 650 mg Q4H PRN ORAL FEVER 02/23/17 22:30 03/25/17 22:29 Amikacin Protocol (Amikacin pharmacy to dose) 1 ea DAILY PRN MISC PER RX PROTOCOL 03/02/17 12:15 04/01/17 12:14 Amikacin Sulfate 1200 mg/Dextrose 279.8 ml @ 559.6 mls/ hr Q36H IV 03/04/17 01:30 03/11/17 01:29 03/04/17 01:25 Amlodipine Besylate (Norvasc) 10 mg DAILY GT 02/24/17 09:00 03/26/17 08:59 03/03/17 08:18 Chlorhexidine Gluconate (Arelis-Hex 2%) 1 applic DAILY@1999 TOPIC 02/28/17 20:00 03/30/17 19:59 03/03/17 20:30 Colistimethate Sodium (Colistin *inhalation use only*) 150 mg Q12HR@10,22 INH 03/03/17 22:00 03/10/17 21:59 03/03/17 21:07 Dextrose (Dextrose 50%) STAT PRN IV Hypoglycemia 02/23/17 22:30 03/25/17 22:29 Diltiazem HCl (Cardizem) 30 mg BID ORAL 02/24/17 09:00 03/26/17 08:59 03/03/17 17:16 Heparin Sodium (Porcine) (Heparin 5000 units/ml) 5,000 units EVERY 12 HOURS SUBQ 02/24/17 09:00 03/26/17 08:59 03/03/17 20:31 Insulin Aspart (NovoLOG) EVERY 6 HOURS SUBQ 02/27/17 12:00 03/26/17 06:29 03/03/17 05:38 Ondansetron HCl (Zofran) 4 mg Q6H PRN IVP Nausea & Vomiting 02/23/17 22:30 03/25/17 22:29 Pantoprazole (Protonix) 40 mg DAILY IV 02/24/17 09:00 03/26/17 08:59 03/03/17 08:18 Polyethylene Glycol (Miralax) 17 gm DAILYPRN PRN ORAL Constipation 02/23/17 22:30 03/25/17 22:29 02/28/17 09:27 PEDRO LUIS IVEY Mar 04, 2017 06:27
[2017-03-04 08:00] VITALS: BP 161/102
[2017-03-04] MEDS ORDERED: Potassium Chloride 40 MEQ in Sodium Chloride 500ML 550 ML IVPB ONE (08:00)
[2017-03-04] MEDS: Colistin for inhalation INH SCH ×2 (08:38→19:28)
[2017-03-04] MEDS: dilTIAZem HCl 30mg tab ORAL SCH ×2 (09:06→17:35)
[2017-03-04] MEDS: Pantoprazole Inj IV SCH (09:06)
[2017-03-04] MEDS: Heparin 5000 units/ml inj SUBQ SCH ×2 (09:07→20:09)
[2017-03-04 12:01] VITALS: BP 161/100
--- NOTE | 2017-03-04 12:53 | Infectious Diseases Prog Note ---
Assessment/Plan Assessment/Plan ASSESSMENT: The patient is an 81-year-old male with: CoNS in blood cx: contaminant Sepsis, SP Leukocytosis, improved u/a no pyuria Probable vent-associated pneumonia Scx: MDR- PSA ( S to Zosyn pending) -CXR: Interstitial opacification/edema, possibly exaggerated due to low lung volumes Low-grade fever, SP Rapid influenza A negative 02/28 SP right jugular central venous catheter placement History of upper GI bleed in the past History of CVA/TIA Dementia Hypertension COPD Diabetes Anemia Ventilator-dependent respiratory failure PLAN: Cont IV Amikacin d# 3 /=10 ,add Colistin INH d# 2 / 7 03/02 SP vancomycin and Zosyn # 7 Monitor CBC Monitor BMP. Monitor cultures (sputum). Monitor chest x-ray. Subjective Allergies: Coded Allergies: No Known Allergies (Verified , 08/19/07) Subjective comfortable Objective Vital Signs Last 24 Hour Vital Signs Date Time Temp Pulse Resp B/P (MAP) Pulse Ox O2 Delivery O2 Flow Rate FiO2 03/04/17 12:39 74 16 30 03/04/17 12:00 30 03/04/17 12:00 98.1 20 18 Mechanical Ventilator 03/04/17 10:46 74 16 30 03/04/17 09:06 98 161/102 03/04/17 09:05 98 161/102 03/04/17 08:52 111 16 100 Mechanical Ventilator 30 03/04/17 08:44 109 16 30 03/04/17 08:39 121 30 100 Mechanical Ventilator 30 03/04/17 08:00 30 03/04/17 08:00 101 03/04/17 08:00 98.1 98 20 161/102 100 Mechanical Ventilator 30 03/04/17 07:09 88 20 30 03/04/17 05:16 70 17 30 03/04/17 04:00 30 03/04/17 04:00 117 03/04/17 04:00 99.0 74 16 143/88 100 Mechanical Ventilator 30 03/04/17 03:03 85 19 30 03/04/17 00:46 102 18 30 03/04/17 00:00 85 03/04/17 00:00 98.2 75 16 148/100 100 Mechanical Ventilator 30 03/04/17 00:00 30 03/03/17 22:49 77 16 30 03/03/17 21:18 94 16 100 Mechanical Ventilator 30 03/03/17 21:07 82 19 100 Mechanical Ventilator 30 03/03/17 21:07 82 19 30 03/03/17 20:00 99.0 74 16 143/88 100 Mechanical Ventilator 30 03/03/17 20:00 30 03/03/17 20:00 92 03/03/17 18:55 71 16 30 03/03/17 17:16 78 136/85 03/03/17 16:31 78 24 30 03/03/17 16:00 98.5 78 16 136/85 100 Mechanical Ventilator 30 03/03/17 16:00 30 03/03/17 16:00 92 03/03/17 14:31 76 16 30 Height (Feet): 6 Height (Inches): 1.00 Weight (Pounds): 209 HEENT: mucous membranes moist Respiratory/Chest: no respiratory distress Cardiovascular: regular rhythm Abdomen: no organomegaly Laboratory Tests Test 03/04/17 04:00 White Blood Count 10.2 K/UL (4.8-10.8) Red Blood Count 3.25 M/UL (4.70-6.10) L Hemoglobin 8.8 G/DL (14.2-18.0) L Hematocrit 27.7 % (42.0-52.0) L Mean Corpuscular Volume 85 FL (80-99) Mean Corpuscular Hemoglobin 27.0 PG (27.0-31.0) Mean Corpuscular Hemoglobin Concent 31.7 G/DL (32.0-36.0) L Red Cell Distribution Width 17.1 % (11.6-14.8) H Platelet Count 171 K/UL (150-450) Mean Platelet Volume 7.1 FL (6.5-10.1) Neutrophils (%) (Auto) 71.1 % (45.0-75.0) Lymphocytes (%) (Auto) 18.4 % (20.0-45.0) L Monocytes (%) (Auto) 6.8 % (1.0-10.0) Eosinophils (%) (Auto) 3.2 % (0.0-3.0) H Basophils (%) (Auto) 0.5 % (0.0-2.0) Sodium Level 137 MMOL/L (136-145) Potassium Level 3.3 MMOL/L (3.5-5.1) L Chloride Level 104 MMOL/L (98-107) Carbon Dioxide Level 24 MMOL/L (21-32) Anion Gap 9 mmol/L (5-15) Blood Urea Nitrogen 12 mg/dL (7-18) Creatinine 0.7 MG/DL (0.55-1.30) Estimat Glomerular Filtration Rate mL/min (>60) Glucose Level 99 MG/DL (74-106) Calcium Level 9.1 MG/DL (8.5-10.1) Phosphorus Level 2.9 MG/DL (2.5-4.9) Magnesium Level 1.9 MG/DL (1.8-2.4) Total Bilirubin 0.5 MG/DL (0.2-1.0) Aspartate Amino Transf (AST/SGOT) 19 U/L (15-37) Alanine Aminotransferase (ALT/SGPT) 31 U/L (12-78) Alkaline Phosphatase 77 U/L (46-116) Total Protein 7.5 G/DL (6.4-8.2) Albumin 2.7 G/DL (3.4-5.0) L Globulin 4.8 g/dL Albumin/Globulin Ratio 0.6 (1.0-2.7) L Current Medications Medications (Trade) Dose Ordered Sig/Jaswant Route PRN Reason Start Time Stop Time Status Last Admin Dose Admin Acetaminophen (Tylenol) 650 mg Q4H PRN ORAL FEVER 02/23/17 22:30 03/25/17 22:29 Amikacin Protocol (Amikacin pharmacy to dose) 1 ea DAILY PRN MISC PER RX PROTOCOL 03/02/17 12:15 04/01/17 12:14 Amikacin Sulfate 1200 mg/Dextrose 279.8 ml @ 559.6 mls/ hr Q36H IV 03/04/17 01:30 03/11/17 01:29 03/04/17 01:25 Amlodipine Besylate (Norvasc) 10 mg DAILY GT 02/24/17 09:00 03/26/17 08:59 03/04/17 09:05 Chlorhexidine Gluconate (Arelis-Hex 2%) 1 applic DAILY@2000 TOPIC 02/28/17 20:00 03/30/17 19:59 03/03/17 20:30 Colistimethate Sodium (Colistin *inhalation use only*) 150 mg Q12HR@10,22 INH 03/03/17 22:00 03/10/17 21:59 03/04/17 08:38 Dextrose (Dextrose 50%) STAT PRN IV Hypoglycemia 02/23/17 22:30 03/25/17 22:29 Diltiazem HCl (Cardizem) 30 mg BID ORAL 02/24/17 09:00 03/26/17 08:59 03/04/17 09:06 Heparin Sodium (Porcine) (Heparin 5000 units/ml) 5,000 units EVERY 12 HOURS SUBQ 02/24/17 09:00 03/26/17 08:59 03/04/17 09:07 Insulin Aspart (NovoLOG) EVERY 6 HOURS SUBQ 02/27/17 12:00 03/26/17 06:29 03/04/17 11:52 Ondansetron HCl (Zofran) 4 mg Q6H PRN IVP Nausea & Vomiting 02/23/17 22:30 03/25/17 22:29 Pantoprazole (Protonix) 40 mg DAILY IV 02/24/17 09:00 03/26/17 08:59 03/04/17 09:06 Polyethylene Glycol (Miralax) 17 gm DAILYPRN PRN ORAL Constipation 02/23/17 22:30 03/25/17 22:29 02/28/17 09:27 MARGARETTE BRYANT M.D. Mar 04, 2017 12:53
[2017-03-04] MEDS ORDERED: Tubing IV Secondary IV ONE (13:54)
[2017-03-04] MEDS ORDERED: NS 500ML ONE (13:54)
[2017-03-04 16:00] VITALS: BP 154/86
[2017-03-04 20:00] VITALS: BP 148/100
[2017-03-04] MEDS: Dyna-Hex 2% Top Sol 2oz TOPIC SCH (20:08)
[2017-03-05] VITALS: BP 130/75
[2017-03-05 04:00] VITALS: BP 159/101
[2017-03-05 05:47] LABS: BASOPHILS % (AUTO) 0.3 % (0.0-2.0); EOSINOPHILS % (AUTO) 2.6 % (0.0-3.0); HEMATOCRIT 30.1 % (42.0-52.0); HEMOGLOBIN 9.6 G/DL (14.2-18.0); LYMPHOCYTES % (AUTO) 19.3 % (20.0-45.0); MEAN CORPUSCULAR VOLUME 86 FL (80-99); MONOCYTES % (AUTO) 6.3 % (1.0-10.0); NEUTROPHILS % (AUTO) 71.5 % (45.0-75.0); PLATELET COUNT 177 K/UL (150-450)
[2017-03-05 06:08] LABS: ALANINE AMINOTRANSFERASE 33 U/L (12-78); ALBUMIN/GLOBULIN RATIO 0.6 (1.0-2.7); ALKALINE PHOSPHATASE 96 U/L (46-116); ANION GAP 7 mmol/L (5-15); ASPARTATE AMINO TRANSFERASE 20 U/L (15-37); BILIRUBIN,TOTAL 0.4 MG/DL (0.2-1.0); BLOOD UREA NITROGEN 15 mg/dL (7-18); CALCIUM 9.4 MG/DL (8.5-10.1); CARBON DIOXIDE 26 MMOL/L (21-32); CHLORIDE 107 MMOL/L (98-107); CREATININE 0.7 MG/DL (0.55-1.30); PHOSPHORUS 2.9 MG/DL (2.5-4.9); SODIUM 140 MMOL/L (136-145)
[2017-03-05] MEDS: NovoLOG Insulin Flexpen SUBQ SCH ×3 (06:17→18:00)
--- NOTE | 2017-03-05 07:42 | Pulmonology Progress Note ---
Assessment/Plan Problems: (1) Acute on chronic respiratory failure (2) Severe sepsis (3) Feeding by G-tube (4) Seizure disorder (5) DM (diabetes mellitus) Assessment/Plan: wbc wnl h, sputum available, MRD pseudomonas, on Amikacin now Cardiac: continue to monitor HR/BP Renal: F/U I&O Infectious Disease: check cultures, continue antibiotics Gastrointestinal: continue feedings/current rate Endocrine: monitor blood sugar, check HgA1C, continue sliding scale insulin Hematologic: monitor H/H, transfuse if hgb<8.5 Neurologic: PRN Morphine, keep patient comfortable Affect: PRN ativan Prophylaxis: Heparin 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, 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 with: nurses, case management rn Subjective ROS Limited/Unobtainable: No Constitutional: Reports: no symptoms HEENT: Repors: no symptoms Respiratory: Reports: no symptoms Allergies: Coded Allergies: No Known Allergies (Verified , 08/19/07) Objective Last 24 Hour Vital Signs Date Time Temp Pulse Resp B/P (MAP) Pulse Ox O2 Delivery O2 Flow Rate FiO2 03/05/17 07:23 101 19 30 03/05/17 05:23 91 20 30 03/05/17 04:00 107 03/05/17 04:00 30 03/05/17 04:00 98.4 109 18 159/101 100 Mechanical Ventilator 03/05/17 03:27 86 18 30 03/05/17 01:26 98 20 30 03/05/17 01:00 86 03/05/17 00:00 98.4 98 18 130/75 100 Mechanical Ventilator 03/05/17 00:00 30 03/04/17 23:02 100 19 30 03/04/17 21:14 96 18 100 Mechanical Ventilator 30 03/04/17 21:09 63 16 30 03/04/17 21:00 98 22 100 Mechanical Ventilator 30 03/04/17 20:00 98.6 105 18 148/100 100 Mechanical Ventilator 03/04/17 20:00 92 03/04/17 20:00 30 03/04/17 19:01 57 16 30 03/04/17 17:35 94 154/86 03/04/17 16:31 94 19 30 03/04/17 16:00 113 03/04/17 16:00 98.1 78 18 154/86 100 Mechanical Ventilator 03/04/17 16:00 30 03/04/17 14:45 72 16 30 03/04/17 12:39 74 16 30 03/04/17 12:01 98.1 20 161/100 100 Mechanical Ventilator 30 03/04/17 12:00 30 03/04/17 12:00 85 03/04/17 10:46 74 16 30 03/04/17 09:06 98 161/102 03/04/17 09:05 98 161/102 03/04/17 08:52 111 16 100 Mechanical Ventilator 30 03/04/17 08:44 109 16 30 03/04/17 08:39 121 30 100 Mechanical Ventilator 30 03/04/17 08:00 30 03/04/17 08:00 101 03/04/17 08:00 98.1 98 20 161/102 100 Mechanical Ventilator 30 Intake and Output 03/04/17 03/05/17 19:00 07:00 Intake Total 1140.0 ml 565 ml Output Total 1250 ml Balance -110.0 ml 565 ml Free Water 90 ml 160 ml IV Total 570.0 ml Tube Feeding 480 ml 405 ml Output Urine Total 1250 ml # Bowel Movements 2 General Appearance: WD/WN HEENT: normocephalic, PERRL, status post trach Respiratory/Chest: lungs clear Cardiovascular: normal peripheral pulses, normal rate Abdomen: soft, non tender Genitourinary: normal external genitalia Extremities: no clubbing Skin: no lesions Laboratory Tests 03/05/17 03:30: White Blood Count 12.0H, Red Blood Count 3.50L, Hemoglobin 9.6L, Hematocrit 30.1L, Mean Corpuscular Volume 86, Mean Corpuscular Hemoglobin 27.5, Mean Corpuscular Hemoglobin Concent 32.1, Red Cell Distribution Width 17.0H, Platelet Count 177, Mean Platelet Volume 7.4, Neutrophils (%) (Auto) 71.5, Lymphocytes (%) (Auto) 19.3L, Monocytes (%) (Auto) 6.3, Eosinophils (%) (Auto) 2.6, Basophils (%) (Auto) 0.3, Sodium Level 140, Potassium Level 4.0, Chloride Level 107, Carbon Dioxide Level 26, Anion Gap 7, Blood Urea Nitrogen 15, Creatinine 0.7, Estimat Glomerular Filtration Rate , Glucose Level 111H, Calcium Level 9.4, Phosphorus Level 2.9, Magnesium Level 2.0, Total Bilirubin 0.4, Aspartate Amino Transf (AST/SGOT) 20, Alanine Aminotransferase (ALT/SGPT) 33, Alkaline Phosphatase 96, Total Protein 8.4H, Albumin 3.0L, Globulin 5.4, Albumin/Globulin Ratio 0.6L Current Medications Medications (Trade) Dose Ordered Sig/Jaswant Route PRN Reason Start Time Stop Time Status Last Admin Dose Admin Acetaminophen (Tylenol) 650 mg Q4H PRN ORAL FEVER 02/23/17 22:30 03/25/17 22:29 Amikacin Protocol (Amikacin pharmacy to dose) 1 ea DAILY PRN MISC PER RX PROTOCOL 03/02/17 12:15 04/01/17 12:14 Amikacin Sulfate 1200 mg/Dextrose 279.8 ml @ 559.6 mls/ hr Q36H IV 03/04/17 01:30 03/11/17 01:29 03/04/17 01:25 Amlodipine Besylate (Norvasc) 10 mg DAILY GT 02/24/17 09:00 03/26/17 08:59 03/04/17 09:05 Chlorhexidine Gluconate (Arelis-Hex 2%) 1 applic DAILY@2000 TOPIC 02/28/17 20:00 03/30/17 19:59 03/04/17 20:08 Colistimethate Sodium (Colistin *inhalation use only*) 150 mg Q12HR@10,22 INH 03/03/17 22:00 03/10/17 21:59 03/04/17 19:28 Dextrose (Dextrose 50%) STAT PRN IV Hypoglycemia 02/23/17 22:30 03/25/17 22:29 Diltiazem HCl (Cardizem) 30 mg BID ORAL 02/24/17 09:00 03/26/17 08:59 03/04/17 17:35 Heparin Sodium (Porcine) (Heparin 5000 units/ml) 5,000 units EVERY 12 HOURS SUBQ 02/24/17 09:00 03/26/17 08:59 03/04/17 20:09 Insulin Aspart (NovoLOG) EVERY 6 HOURS SUBQ 02/27/17 12:00 03/26/17 06:29 03/05/17 06:17 Ondansetron HCl (Zofran) 4 mg Q6H PRN IVP Nausea & Vomiting 02/23/17 22:30 03/25/17 22:29 Pantoprazole (Protonix) 40 mg DAILY IV 02/24/17 09:00 03/26/17 08:59 03/04/17 09:06 Polyethylene Glycol (Miralax) 17 gm DAILYPRN PRN ORAL Constipation 02/23/17 22:30 03/25/17 22:29 02/28/17 09:27 PEDRO LUIS IVEY Mar 05, 2017 07:42
[2017-03-05 08:00] VITALS: BP 132/86
[2017-03-05] MEDS: Colistin for inhalation INH SCH ×2 (09:12→22:42)
[2017-03-05] MEDS: dilTIAZem HCl 30mg tab ORAL SCH ×2 (10:01→18:10)
[2017-03-05] MEDS: Pantoprazole Inj IV SCH (10:02)
[2017-03-05] MEDS: Heparin 5000 units/ml inj SUBQ SCH ×2 (10:03→21:10)
[2017-03-05 12:00] VITALS: BP 125/73
[2017-03-05] MEDS: D5W IV SCH (13:59)
[2017-03-05] MEDS: AMIKACIN IV SCH (13:59)
[2017-03-05 16:00] VITALS: BP 139/77
[2017-03-05 20:00] VITALS: BP 169/69
[2017-03-05] MEDS: Dyna-Hex 2% Top Sol 2oz TOPIC SCH (21:10)
[2017-03-06] VITALS: BP_SYST 157; BP_SYST 177; BP_DIAS 85
[2017-03-06] MEDS: NovoLOG Insulin Flexpen SUBQ SCH ×3 (00:14→11:44)
[2017-03-06 04:00] VITALS: BP 166/89
[2017-03-06 06:36] LABS: BASOPHILS % (AUTO) 0.3 % (0.0-2.0); EOSINOPHILS % (AUTO) 2.8 % (0.0-3.0); HEMATOCRIT 26.6 % (42.0-52.0); HEMOGLOBIN 8.4 G/DL (14.2-18.0); LYMPHOCYTES % (AUTO) 13.6 % (20.0-45.0); MEAN CORPUSCULAR VOLUME 86 FL (80-99); MONOCYTES % (AUTO) 5.4 % (1.0-10.0); NEUTROPHILS % (AUTO) 77.8 % (45.0-75.0); PLATELET COUNT 143 K/UL (150-450); RED BLOOD COUNT 3.09 M/UL (4.70-6.10); RED CELL DISTRIBUTION WIDTH 17.6 % (11.6-14.8); WHITE BLOOD COUNT 10.5 K/UL (4.8-10.8)
[2017-03-06 07:00] LABS: ALANINE AMINOTRANSFERASE 18 U/L (12-78); ALBUMIN 2.4 G/DL (3.4-5.0); ALBUMIN/GLOBULIN RATIO 0.5 (1.0-2.7); ALKALINE PHOSPHATASE 80 U/L (46-116); ANION GAP 8 mmol/L (5-15); ASPARTATE AMINO TRANSFERASE 26 U/L (15-37); BILIRUBIN,TOTAL 0.3 MG/DL (0.2-1.0); BLOOD UREA NITROGEN 22 mg/dL (7-18); CALCIUM 8.4 MG/DL (8.5-10.1); CARBON DIOXIDE 26 MMOL/L (21-32); CHLORIDE 105 MMOL/L (98-107); CREATININE 0.8 MG/DL (0.55-1.30); POTASSIUM 3.9 MMOL/L (3.5-5.1); SODIUM 139 MMOL/L (136-145)
[2017-03-06 08:00] VITALS: BP 137/78
[2017-03-06] MEDS: Pantoprazole Inj IV SCH (09:15)
[2017-03-06] MEDS: dilTIAZem HCl 30mg tab ORAL SCH (09:17)
[2017-03-06] MEDS: Heparin 5000 units/ml inj SUBQ SCH (09:20)
[2017-03-06] MEDS: Colistin for inhalation INH SCH (09:30)
--- NOTE | 2017-03-06 11:05 | Diagnostic Imaging Report ---
Indication: Dyspnea Technique: One view of the chest Comparison: Post line placement radiograph of 02/28/2017 Findings: Tracheostomy, right internal jugular central venous catheter again demonstrated. Slightly better inspiration currently. Persistent but slightly improved right basilar atelectasis. Improved right perihilar consolidation Lungs and pleural spaces otherwise clear. The heart is borderline enlarged. Impression: Improved right perihilar consolidation and basilar atelectasis, over 6 days. No definite acute process currently except for minimal residual atelectasis Other findings as noted
[2017-03-06 12:00] VITALS: BP 135/75
--- NOTE | 2017-03-06 14:13 | Wound Care Consultation ---
Wound Assessment Wound Assessment #1: Wound Number: 1 Wound Present on Admission: No New Wound: Yes Status Change of Wound: No Wound Location Body Site Modif: right, lateral Wound Location Body Site: other - THUMB Wound Type: other - open full thickness wound Peggy Test: Does not Peggy Wound Thickness: Full Thickness Wound Length: 4.0 Wound Width: 4.0 Wound Depth: 0.3 Percent of Wound [place]/Red: 95 Percent of Wound Bed Yellow/Wh: 5 Wound Drainage Description: Serosanguineous Wound Drainage Amount: Moderate Wound Drainage Odor: None/Absent Tissue Surrounding Wound: Macerated Wound General Appearance: Reddened, Draining, Bone Palpable Wound Assessment #2: Wound Number: 2 Wound Present on Admission: No New Wound: Yes Status Change of Wound: No Wound Location Body Site Modif: right, lateral Wound Location Body Site: wrist Wound Type: scab Peggy Test: Does not Peggy Wound Thickness: Partial Thickness Wound Length: 0.5 Wound Width: 0.5 Percent of Wound Black/Brown: 100 - dry intact scab Wound Drainage Amount: None Wound Drainage Odor: None/Absent Tissue Surrounding Wound: Intact Wound General Appearance: Blackened - scab., Clean/Dry Wound Comment #1 Scattered stage II pressure ulcer on upper and lower back- no further deterioration present, current treatment effective. #2 Full thickness scar tissue on sacrococcygeal area, buttocks, Left ischial tuberosity, upper and lower back- no further deterioration present. #3 right lateral wrist dry scab. #4 right lateral thumb open full thickness wound Recommendation FOLLOW UP WITH MD FOR POSSIBLE WOUND MD CONSULT FOR RIGHT THUMB WOUND. -Local wound care per protocol -Keep clean and dry -Optimize nutrition -Offload both heels -Heel protector on both heels -Low air loss mattress -Turn and reposition -Assess and f/u accordingly for any changes JIMMIE RODRIGUEZ Mar 06, 2017 14:13
[2017-03-06] MEDS ORDERED: NS 500ML ONE (14:29)
[2017-03-06] MEDS ORDERED: Tubing IV Secondary IV ONE (14:29)
--- NOTE | 2017-03-07 11:35 | Discharge Summary ---
Discharge Summary Hospital Course Date of Admission Feb 23, 2017 at 22:53 Date of Discharge Mar 06, 2017 at 14:30 Admitting Diagnosis SEPSIS CESAR Javed is a 81 year old male who was admitted on Feb 23, 2017 at 22:53 for Sepsis Hospital Course dc summary #[id number] Discharge Medications New Medications: Amikacin Sulfate (Amikacin Sulfate) 1,000 Mg/4 Ml Vial 1000 MG IJ DAILY for 5 Days, VIAL Colistimethate Sodium (Colistin) 150 Mg Vial 150 MG INH Q12HR@10,22 for 5 Days, VIAL Continued Medications: Amlodipine Besylate* (Amlodipine Besylate*) 10 Mg Tablet 10 MG GT DAILY, TAB Bisacodyl* (Dulcolax*) 5 Mg Tablet.dr 10 MG ORAL, #4 TAB 0 Refills Clonidine Hcl* (Catapres*) 0.1 Mg Tablet 0.1 MG GT EVERY 4 HOURS PRN for For High Blood Pressure, TAB Diltiazem HCl (Diltiazem 12Hr ER) 30 Mg Tab 30 MG ORAL BID, #60 TAB Docusate Sodium* (Colace*) 100 Mg Capsule 100 MG GT BID, #10 CAP Ferrous Sulfate* (Ferrous Sulfate*) 325 Mg Tablet 330 MG GT THREE TIMES A DAY, #90 TAB 0 Refills Na Phos,M-B/Na Phos,Di-Ba* (Fleet Enema*) 133 Ml Enema 133 ML RECTAL TID, ML 0 Refills Discharge Condition Upon Discharge: stable Discharge Disposition Patient was discharged to SNF/Subacute Facility(03) Discharge Diagnoses: [place] (Guillermina Vu NP Mar 07, 2017 11:35
--- NOTE | 2017-03-10 12:55 | Discharge Summary 2 SIG ---
DATE OF ADMISSION: 02/23/2017 DATE OF DISCHARGE: 03/06/2017 REASON FOR ADMISSION: 81-year-old male, resident of a [facility] facility with past medical history significant for diabetes, hypertension, chronic obstructive pulmonary disease, dementia, history of CVA, ventilator-dependent respiratory failure, tracheostomy status, dysphagia, and G-tube, presented from the [facility] facility for evaluation due to the leukocytosis. No report of vomiting or diarrhea. Workup in the emergency room revealed low-grade fever. Leukocytosis, WBC- 26.9. Anemia with hemoglobin -10.8 and hematocrit -32.1. Lactic acid- 0.8. Troponin negative. EKG revealed sinus tachycardia. No premature ventricular contractions. No ectopy. No acute ischemic changes. Chest x-ray revealed pulmonary congestion. ADMITTING DIAGNOSES: 1. Severe sepsis. 2. Acute on chronic respiratory failure. 3. Probable pneumonia. 4. Feeding by gastrostomy tube. 5. Seizure disorder. 6. Diabetes. HOSPITAL COURSE: The patient was admitted to [facility]. Ventilator and tracheostomy care were provided. Baseline ABG was stable on current settings. Settings were kept as is and titrated as needed. Pulmonary toilet provided. The patient was followed up with chest x-ray. The patient was started on empiric antibiotic. ID followed. Blood culture initially one out of two showed Staph coag-negative, likely contaminant as per ID. Repeated blood culture were negative. Sputum culture grew Pseudomonas, multidrug resistant. According to ID, the patient probably had ventilator-associated pneumonia. Antibiotics upon discharge were optimized as per ID recommendation. Venous duplex of bilateral lower extremities was negative. Blood pressure was managed with calcium channel robert. DVT and GI prophylaxis provided. Electrolytes were closely monitored and corrected as needed. Hemoglobin and hematocrit closely followed. No need for transfusion. Anemia workup was consistent with anemia of chronic disease. Wound care nurse seen the patient for upper and lower back scattered stage II decubitus ulcer present for admission. Continue wound care at the [facility] facility. Blood sugar was managed with sliding scale of insulin and remained stable. No evidence of seizure activity. The patient was stable for discharge. FINAL DIAGNOSES: 1. Acute on chronic respiratory failure. 2. Severe sepsis. 3. Probably ventilator-associated pneumonia with Pseudomonas, multidrug resistant. 4. Ventilator-dependent respiratory failure/tracheostomy. 5. Feeding by gastrostomy tube. 6. Electrolyte imbalance 7. Seizure disorder. 8. Diabetes. 9. Hypertension. 10. Anemia. 11. Functional quadriplegia. 12. Chronic obstructive pulmonary disease. 13. Dementia. 14. History of cerebrovascular accident. 15. Upper and lower back scattered stage II decubitus ulcer present on admission. DISCHARGE MEDICATIONS: See medication reconciliation list. DISCHARGE INSTRUCTIONS: The patient was discharged to subacute [facility] facility. FOLLOWUP: Follow up with medical doctor at the facility. Soraida Raymond M.D. Guillermina Brush ( [facility] N.PAgustin DR: INOCENTE JOB#: [id number] CC: PJ
== END 2017-03-06 14:30 | DRG 870 ==
LOC: EDBD 21:48 → EMR 22:10 → 2W 22:53 → EDBEDREQ 02-24 09:36 → 2W 02-24 11:45
PROC: 5A1955Z Respiratory Ventilation, Greater than 96 Consecutive Hours (ICD-10-PCS; principal; 2017-02-23)
PROC: 05HM33Z Insertion of Infusion Device into Right Internal Jugular Vein, Percutaneous Approach (ICD-10-PCS; 2017-02-28)
DX: A41.9 Sepsis, unspecified organism (principal); J96.20 Acute and chronic respiratory failure, unspecified whether with hypoxia or hypercapnia; R40.20 Unspecified coma; J95.851 Ventilator associated pneumonia; J15.1 Pneumonia due to Pseudomonas; L89.102 Pressure ulcer of unspecified part of back, stage 2; R53.2 Functional quadriplegia; E11.9 Type 2 diabetes mellitus without complications; E87.5 Hyperkalemia; J44.9 Chronic obstructive pulmonary disease, unspecified; E87.1 Hypo-osmolality and hyponatremia; Z43.1 Encounter for attention to gastrostomy; D64.9 Anemia, unspecified; Z43.0 Encounter for attention to tracheostomy; R65.20 Severe sepsis without septic shock; G40.909 Epilepsy, unspecified, not intractable, without status epilepticus; B96.5 Pseudomonas (aeruginosa) (mallei) (pseudomallei) as the cause of diseases classified elsewhere; B96.89 Other specified bacterial agents as the cause of diseases classified elsewhere; Z86.73 Personal history of transient ischemic attack (TIA), and cerebral infarction without residual deficits
CPT/HCPCS: 36415; 36569; 36600; 71045; 74019; 80048; 80053; 80069; 80150; 80202; 81003; 82378; 82550; 82553; 82607; 82746; 82803; 82962; 83540; 83550; 83605; 83615; 83690; 83735; 83880; 84100; 84484; 85007; 85025; 85044; 85060; 85610; 85651; 85730; 86710; 87040; 87070; 87081; 87086; 87181; 87205; 93005; 93970; 94002; 94003; 94640; 99285; J1815; J2405

== ENCOUNTER 2017-03-13 23:46 | Inpatient (IN) | payer MEDICARE, MEDICAID ==
[~2017-03-13] VITALS: Ht 185 cm; Wt 94.4 kg
[~2017-03-13 23:46] MED LIST changes: +BISACODYL5 MG ORAL; +FLEET ENEMA133 ML RECTAL
[2017-03-14] VITALS (9 sets, daily range): BP systolic 120–162; BP diastolic 68–93
[2017-03-14] MEDS ORDERED: Pantoprazole Inj IVP ONE
[2017-03-14 02:28] LABS: ANION GAP 12 mmol/L (5-15); BLOOD UREA NITROGEN 101 mg/dL (7-18); CALCIUM 9.7 MG/DL (8.5-10.1); CARBON DIOXIDE 24 MMOL/L (21-32); CHLORIDE 95 MMOL/L (98-107); CREATININE 1.7 MG/DL (0.55-1.30); POTASSIUM 4.7 MMOL/L (3.5-5.1); SODIUM 131 MMOL/L (136-145)
[2017-03-14 02:33] LABS: ALANINE AMINOTRANSFERASE 64 U/L (12-78); ALBUMIN 3.2 G/DL (3.4-5.0); ALBUMIN/GLOBULIN RATIO 0.6 (1.0-2.7); ALKALINE PHOSPHATASE 115 U/L (46-116); ASPARTATE AMINO TRANSFERASE 31 U/L (15-37); BILIRUBIN,TOTAL 0.6 MG/DL (0.2-1.0)
--- NOTE | 2017-03-14 03:23 | Emergency Room Report ---
History of Present Illness General Chief Complaint: Gastrointestinal Illness Source: Medical Record, EMS, PMD Present Illness HPI 81YOM sent from SNF for "coffee ground emesis." Unknown duration and episodes at SNF Patient chronic trach/vent Not providing history currently Blood Cx negative for last admission, DCed 7 days prior Sputum Cx grew Pseudomonas, susceptible to Amikacin Urine Cx negative ID thougt patient had ventilator PNA 1. Sepsis. 2. History of upper GI bleed in the past. 3. History of CVA. 4. History of TIA. 5. Dementia. 6. Hypertension. 7. COPD. 8. Diabetes. 10. Anemia. 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 Allergies: Coded Allergies: No Known Allergies (Verified , 08/19/07) Patient History Past Medical History: see triage record, old chart reviewed, other - see HPI Past Surgical History: unable to obtain, other - Trach Pertinent Family History: unable to obtain Social History: Denies: smoking, alcohol use, drug use Immunizations: UTD Reviewed Nursing Documentation: PMH: Agreed, PSxH: Agreed Nursing Documentation-PMH Hx Hypertension: Yes Hx COPD: Yes - trach, vent dependent Hx Diabetes: Yes - dm2 Hx Cancer: No Hx Gastrointestinal Problems: Yes - GERD, G tube, Carbapenem-resistant Enterobacteriaceae (CRE-isolation) Hx Neurological Problems: Yes Hx Cerebrovascular Accident: Yes Hx Transient Ischemic Attacks: Yes Hx Dementia: Yes Hx Seizures: Yes Review of Systems All Other Systems: limited - Apahsic/ trach/vent at baseline Physical Exam Vital Signs Date Time Temp Pulse Resp B/P (MAP) Pulse Ox O2 Delivery O2 Flow Rate FiO2 2/5/18 23:40 97.0 58 16 150/64 100 Mechanical Ventilator 30 Sp02 EP Interpretation: reviewed, normal General Appearance: no apparent distress, alert, non-toxic, other - Gurgling sounds from trach, dried brownish sputum on trach, gown, Chronically Ill Head: normocephalic, atraumatic Eyes: bilateral eye PERRL, bilateral eye EOMI ENT: normal ENT inspection, hearing grossly normal, normal pharynx, no angioedema, normal voice, TMs + canals normal, uvula midline, moist mucus membranes Neck: normal inspection, full range of motion, supple, thyroid normal, no meningismus, no bony tend Respiratory: normal inspection, lungs clear, normal breath sounds, no rhonchi, no respiratory distress, no retraction, no accessory muscle use, no wheezing, speaking full sentences Cardiovascular #1: regular rate, rhythm, no edema, no JVD, normal capillary refill Gastrointestinal: normal inspection, normal bowel sounds, non tender, soft, no mass, no peritonitis, non-distended, no guarding, no hernia, no pulsatile mass Genitourinary: no CVA tenderness Musculoskeletal: normal inspection, back normal, normal range of motion, no calf tenderness, pelvis stable, Carrie's Sign negative, other - Edematous, contracted Neurologic: normal inspection, alert, responsive, rubber turner III-XII nml as tested, motor strength/tone normal, other - contracted extremities, edematous Psychiatric: normal inspection, judgement/insight normal, mood/affect normal, no suicidal/homicidal ideation, no delusions Skin: normal inspection, normal color, no rash Lymphatic: normal inspection, no adenopathy Procedures Central Line Central Line : Consent: Emergent Central Line Lumen: triple Maximal Sterile Barrier Tech: yes cap, yes mask, yes sterile gown, yes sterile gloves, yes large sterile sheet, yes hand hygiene, yes chlorhexidine prep No Max Barrier Tech Because: emergency insertion Central Line Postion: femoral (R) Complications: none Central Line Post Position: sutured, good blood return Attempts: One Patient Tolerated: Well Complications: None Progress Patient has secured trach and unable to access either RIJ or LIJ for CVP access Medical Decision Making Diagnostic Impression: Primary Impression: JUDE (acute kidney injury) Additional Impressions: Sepsis Qualified Codes: A41.9 - Sepsis, unspecified organism UTI (urinary tract infection) Qualified Codes: N30.01 - Acute cystitis with hematuria Gastrointestinal symptom ER Course Patient connected to vent VS with tachycardia Protonix, zofran give for suspected upper GI bleed - however no additional hematemesis here. H&H stable. Labs: Leuks >20, acute response since DC 7 days prior UA grossly infected, also acute finding Rocephin IV given for UTI, ?urosepsis. However afebrile, normotensive Labs also show JUDE, was given hydration Endorsed to Dr Mandi GARCIA, 423am EKG Diagnostic Results Rate: tachycardiac Rhythm: NSR ST Segments: no acute changes ASA given to the pt in ED: No Rhythm Strip Diag. Results EP Interpretation: yes Rate: 109 Rhythm: NSR, other - PVCs Chest X-Ray Diagnostic Results Chest X-Ray Diagnostic Results : Chest X-Ray Ordered: Yes # of Views/Limited/Complete: 1 View Indication: Other - Upper GI bleed EP Interpretation: Yes Interpretation: no consolidation, no effusion, no pneumothorax, no acute cardiopulmonary disease Impression: No acute disease Electronically Signed by: Dr Berto Coe mD Last Vital Signs Date Time Temp Pulse Resp B/P (MAP) Pulse Ox O2 Delivery O2 Flow Rate FiO2 03/14/17 03:06 123 26 30 03/14/17 02:33 125/92 100 03/13/17 23:40 97.0 Mechanical Ventilator Status: improved Disposition: ADMITTED INPATIENT Condition: Serious Referrals: PEDRO LUIS IVEY (PCP) BERTO COE M.D. Mar 14, 2017 03:23
[2017-03-14] MEDS ORDERED: AMIKACIN IV STA (03:27)
[2017-03-14] MEDS ORDERED: NS IV STA (03:27)
[2017-03-14 03:45] LABS: APPEARANCE,URINE CLEAR; BILIRUBIN, URINE NEGATIVE (NEGATIVE); GLUCOSE, URINE (UA) NEGATIVE (NEGATIVE); KETONES,URINE NEGATIVE (NEGATIVE); NITRITE,URINE NEGATIVE (NEGATIVE); PH,URINE 5 (4.5-8.0); PROTEIN,URINE 2+ (NEGATIVE); UROBILINOGEN,URINE NORMAL MG/DL (0.0-1.0)
[2017-03-14 04:07] LABS: COLOR,URINE YELLOW; LEUKOCYTE ESTERASE ,URINE 2+ (NEGATIVE)
[2017-03-14 04:13] LABS: HEMATOCRIT 42.9 % (42.0-52.0); HEMOGLOBIN 14.2 G/DL (14.2-18.0); MEAN CORPUSCULAR VOLUME 86 FL (80-99); PLATELET COUNT 348 K/UL (150-450); RED BLOOD COUNT 5.01 M/UL (4.70-6.10); RED CELL DISTRIBUTION WIDTH 16.5 % (11.6-14.8)
[2017-03-14] MEDS ORDERED: cefTRIAXone 1 GM in NS 55 ML IVPB ONE (04:15)
[2017-03-14 04:18] LABS: WHITE BLOOD COUNT 27.6 K/UL (4.8-10.8)
[2017-03-14] MEDS ORDERED: D5 1/2NS 1,000 ML IV SCH (05:02)
[2017-03-14] MEDS ORDERED: Miralax 17gm pkt ORAL PRN (05:15)
[2017-03-14] MEDS ORDERED: Morphine Sulfate 2mg/ml Inj IVP PRN (05:15)
[2017-03-14] MEDS ORDERED: Nitroglycerin Subl 0.4mg tab SL PRN (05:15)
[2017-03-14] MEDS ORDERED: Mylanta II UD 30ml ORAL PRN (05:15)
[2017-03-14] MEDS ORDERED: NovoLOG Insulin Flexpen SUBQ SCH (06:30)
[2017-03-14] MEDS: Albuterol/Ipratropium 3ml neb HHN SCH ×2 (08:34→15:27)
[2017-03-14] MEDS ORDERED: dilTIAZem HCl 30mg tab ORAL SCH (09:00)
[2017-03-14] MEDS: Pantoprazole Inj IVP SCH (09:42)
--- NOTE | 2017-03-14 10:07 | History and Physical ---
History of Present Illness General Date patient seen: Mar 14, 2017 Reason for Hospitalization: Gastrointestinal Illness Present Illness HPI 81 year old male with hx of chronic trach, vent, peg, sent from SNF for "coffee ground emesis." Pt Not providing history currently. He was found to have severe leukocytosis and ATN and admitted to [facility] for further evaluation. Allergies: Coded Allergies: No Known Allergies (Verified , 08/19/07) Medication History Scheduled Amlodipine Besylate* (Amlodipine Besylate*), 10 MG GT DAILY, (Reported) Diltiazem HCl (Diltiazem 12Hr ER), 30 MG ORAL BID Docusate Sodium* (Colace*), 100 MG GT BID, (Reported) Ferrous Sulfate* (Ferrous Sulfate*), 330 MG GT THREE TIMES A DAY, (Reported) Morphine Sulfate (Morphine Sulfate), 4 MG IJ Q4HR, (Reported) Na Phos,M-B/Na Phos,Di-Ba* (Fleet Enema*), 133 ML RECTAL TID, (Reported) Scheduled PRN Clonidine Hcl* (Catapres*), 0.1 MG GT EVERY 4 HOURS PRN for For High Blood Pressure, (Reported) Miscellaneous Medications Bisacodyl* (Dulcolax*), 10 MG ORAL, (Reported) Patient History Healthcare decision maker Resuscitation status Advanced Directive on File Past Medical/Surgical History Past Medical/Surgical History: (1) Gastrointestinal symptom (2) Feeding by G-tube (3) Chronic respiratory failure (4) DM (diabetes mellitus) (5) Seizure disorder Review of Systems All Other Systems: negative except mentioned in HPI Physical Exam General Appearance: WD/WN Lines, tubes and drains: peripheral HEENT: atraumatic Neck: non-tender, normal alignment Respiratory/Chest: lungs clear Breasts: no masses Cardiovascular/Chest: normal peripheral pulses, normal rate Abdomen: normal bowel sounds, non tender Genitourinary/Rectal: normal genital exam Extremities: normal range of motion Neurologic: emc storage architect II-XII grossly normal Last 24 Hour Vital Signs Date Time Temp Pulse Resp B/P (MAP) Pulse Ox O2 Delivery O2 Flow Rate FiO2 03/14/17 09:34 55 142/88 03/14/17 09:34 55 142/88 03/14/17 08:44 55 18 35 03/14/17 08:42 35 03/14/17 08:42 60 19 98 Mechanical Ventilator 35 03/14/17 08:35 54 19 98 Mechanical Ventilator 35 03/14/17 08:35 54 19 Mechanical Ventilator 35 03/14/17 08:00 98.9 136 16 142/88 100 Mechanical Ventilator 35 03/14/17 06:30 71 26 35 03/14/17 06:02 113 16 121/93 100 Mechanical Ventilator 03/14/17 06:00 35 03/14/17 06:00 97.5 120 18 155/68 100 Mechanical Ventilator 03/14/17 05:30 113 16 121/93 100 Mechanical Ventilator 03/14/17 04:30 110 18 120/91 100 Mechanical Ventilator 03/14/17 04:30 118 24 30 03/14/17 03:06 123 26 30 03/14/17 03:00 120 21 125/92 100 Mechanical Ventilator 03/14/17 02:33 120 21 125/92 100 03/14/17 02:15 30 03/14/17 00:44 93 20 30 03/14/17 00:20 89 23 30 03/13/17 23:40 97.0 58 16 150/64 100 Mechanical Ventilator 30 Intake and Output 03/13/17 03/14/17 19:00 07:00 Intake Total 30 ml Balance 30 ml Intake IV Total 30 ml # Voids 2 Laboratory Tests Test 03/14/17 02:00 03/14/17 03:55 Prothrombin Time 10.1 SEC (9.30-11.50) Prothromb Time International Ratio 1.0 (0.9-1.1) Sodium Level 131 MMOL/L (136-145) L Potassium Level 4.7 MMOL/L (3.5-5.1) Chloride Level 95 MMOL/L (98-107) L Carbon Dioxide Level 24 MMOL/L (21-32) Anion Gap 12 mmol/L (5-15) Blood Urea Nitrogen 101 mg/dL (7-18) H Creatinine 1.7 MG/DL (0.55-1.30) H Estimat Glomerular Filtration Rate mL/min (>60) Glucose Level 170 MG/DL (74-106) H Calcium Level 9.7 MG/DL (8.5-10.1) Total Bilirubin 0.6 MG/DL (0.2-1.0) Aspartate Amino Transf (AST/SGOT) 31 U/L (15-37) Alanine Aminotransferase (ALT/SGPT) 64 U/L (12-78) Alkaline Phosphatase 115 U/L (46-116) Total Protein 9.0 G/DL (6.4-8.2) H Albumin 3.2 G/DL (3.4-5.0) L Globulin 5.8 g/dL Albumin/Globulin Ratio 0.6 (1.0-2.7) L Lipase 93 U/L (73-393) White Blood Count 27.6 K/UL (4.8-10.8) *H Red Blood Count 5.01 M/UL (4.70-6.10) Hemoglobin 14.2 G/DL (14.2-18.0) Hematocrit 42.9 % (42.0-52.0) Mean Corpuscular Volume 86 FL (80-99) Mean Corpuscular Hemoglobin 28.3 PG (27.0-31.0) Mean Corpuscular Hemoglobin Concent 33.0 G/DL (32.0-36.0) Red Cell Distribution Width 16.5 % (11.6-14.8) H Platelet Count 348 K/UL (150-450) Mean Platelet Volume 7.8 FL (6.5-10.1) Neutrophils (%) (Auto) % (45.0-75.0) Lymphocytes (%) (Auto) % (20.0-45.0) Monocytes (%) (Auto) % (1.0-10.0) Eosinophils (%) (Auto) % (0.0-3.0) Basophils (%) (Auto) % (0.0-2.0) Differential Total Cells Counted 100 Neutrophils % (Manual) 74 % (45-75) Lymphocytes % (Manual) 15 % (20-45) L Monocytes % (Manual) 11 % (1-10) H Eosinophils % (Manual) 0 % (0-3) Basophils % (Manual) 0 % (0-2) Band Neutrophils 0 % (0-8) Platelet Estimate Adequate Platelet Morphology See comment Giant Platelets 1+ Poikilocytosis 1+ Anisocytosis 1+ Height (Feet): 6 Height (Inches): 1.00 Weight (Pounds): 205 Medications Current Medications Medications (Trade) Dose Ordered Sig/Jaswant Route PRN Reason Start Time Stop Time Status Last Admin Dose Admin Acetaminophen (Tylenol) 650 mg Q4H PRN ORAL fever 03/14/17 05:15 04/13/17 05:14 03/14/17 09:33 Al Hydroxide/Mg Hydroxide (Mylanta II) 30 ml Q6H PRN ORAL dyspepsia 03/14/17 05:15 04/13/17 05:14 Albuterol/ Ipratropium (Albuterol/ Ipratropium) 3 ml Q8HRT HHN 03/14/17 07:00 03/19/17 06:59 03/14/17 08:34 Amlodipine Besylate (Norvasc) 10 mg DAILY GT 03/14/17 09:00 04/13/17 08:59 03/14/17 09:34 Chlorhexidine Gluconate (Arelis-Hex 2%) 1 applic DAILY@2000 TOPIC 03/14/17 20:00 04/13/17 19:59 Clonidine HCl (Catapres Tab) 0.1 mg Q4H PRN GT For High Blood Pressure>160 03/14/17 05:15 04/13/17 05:14 Dextrose (Dextrose 50%) STAT PRN IV Hypoglycemia 03/14/17 05:15 04/13/17 05:14 Dextrose/Sodium Chloride 1,000 ml @ 75 mls/hr [id number] IV 03/14/17 05:02 04/13/17 05:01 03/14/17 06:29 Diltiazem HCl (Cardizem) 30 mg BID ORAL 03/14/17 09:00 04/13/17 08:59 03/14/17 09:34 Diphenhydramine HCl (Benadryl) 25 mg Q6H PRN ORAL Itching/Pruritis 03/14/17 05:15 04/13/17 05:14 Insulin Aspart (NovoLOG) EVERY 6 HOURS SUBQ 03/14/17 12:00 04/13/17 06:29 Morphine Sulfate (Morphine Sulfate) 2 mg Q4H PRN IVP severe Pain (Pain Scale 7-10) 03/14/17 05:15 03/21/17 05:14 Nitroglycerin (Ntg) 0.4 mg Q5M X 3 DOSES PRN SL Prn Chest Pain 03/14/17 05:15 04/13/17 05:14 Ondansetron HCl (Zofran) 4 mg Q6H PRN IVP Nausea & Vomiting 03/14/17 05:15 04/13/17 05:14 Pantoprazole (Protonix) 40 mg DAILY IVP 03/14/17 09:30 04/13/17 09:29 03/14/17 09:42 Polyethylene Glycol (Miralax) 17 gm HSPRN PRN ORAL Constipation 03/14/17 05:15 04/13/17 05:14 Assessment/Plan Problem List: (1) Severe sepsis ICD Codes: A41.9 - Sepsis, unspecified organism; R65.20 - Severe sepsis without septicshock SNOMED: 27701203 (2) Acute on chronic respiratory failure ICD Codes: J96.20 - Acute on chronic respiratory failure SNOMED: 56336796 (3) Upper gastrointestinal bleed ICD Codes: K92.2 - Gastrointestinal hemorrhage, unspecified SNOMED: 57111788 (4) DM (diabetes mellitus) ICD Codes: E11.9 - DM (diabetes mellitus) SNOMED: 51632436 (5) Feeding by G-tube ICD Codes: Z93.1 - Feeding by G-tube SNOMED: 909080879 Respiratory: monitor respiratory rate, adjust FIO2, CXR Cardiac: continue pressors, continue to monitor HR/BP Renal: F/U I&O, keep IV fluid Infectious Disease: check cultures Gastrointestinal: continue feedings/current rate Endocrine: monitor blood sugar, check TSH Hematologic: monitor H/H Neurologic: PRN Ativan, PRN Morphine Affect: PRN ativan Prophylaxis: Protonix, Heparin Time Spent (Minutes): 40 Discussed with: nurses, consultants PEDRO LUIS IVEY Mar 14, 2017 10:07
--- NOTE | 2017-03-14 12:10 | Consultation ---
History of Present Illness General Date patient seen: Mar 14, 2017 Time patient seen: 11:57 Chief Complaint: Gastrointestinal Illness Present Illness HPI 81 y/o M with hx of CVA/TIA, chronic resp failure trach/vent dependant, UGIB, dementia, COPD, DM2, s/p PEG, SNF residents is brought to ED on 03/14 for "coffee ground emesis". In ED found to have leukocytosis up to 27, JUDE, cr 1.7. Of note patient recently admitted here from 02/24-03/06 for sepsis, found to have MDR PSA VAP. Treated with 7 days of IV Amikacin and INH colistin. Allergies: Coded Allergies: No Known Allergies (Verified , 08/19/07) Medication History Scheduled Amlodipine Besylate* (Amlodipine Besylate*), 10 MG GT DAILY, (Reported) Diltiazem HCl (Diltiazem 12Hr ER), 30 MG ORAL BID Docusate Sodium* (Colace*), 100 MG GT BID, (Reported) Ferrous Sulfate* (Ferrous Sulfate*), 330 MG GT THREE TIMES A DAY, (Reported) Morphine Sulfate (Morphine Sulfate), 4 MG IJ Q4HR, (Reported) Na Phos,M-B/Na Phos,Di-Ba* (Fleet Enema*), 133 ML RECTAL TID, (Reported) Scheduled PRN Clonidine Hcl* (Catapres*), 0.1 MG GT EVERY 4 HOURS PRN for For High Blood Pressure, (Reported) Miscellaneous Medications Bisacodyl* (Dulcolax*), 10 MG ORAL, (Reported) Patient History Healthcare decision maker Resuscitation status Advanced Directive on File Patient History Narrative Pmhx: as above SH:Denies: smoking, alcohol use, drug use Fhx: non contributory Review of Systems ROS Narrative unable to obtai Physical Exam Physical Exam Narrative Sp02 EP Interpretation: reviewed, normal General Appearance: no apparent distress, alert, non-toxic, other - Gurgling sounds from trach, dried brownish sputum on trach, gown, Chronically Ill Head: normocephalic, atraumatic Eyes: bilateral eye PERRL, bilateral eye EOMI ENT: normal ENT inspection, hearing grossly normal, normal pharynx, no angioedema, normal voice, TMs + canals normal, uvula midline, moist mucus membranes Neck: normal inspection, full range of motion, supple, thyroid normal, no meningismus, no bony tend Respiratory: normal inspection, lungs clear, normal breath sounds, no rhonchi, no respiratory distress, no retraction, no accessory muscle use, no wheezing, speaking full sentences Cardiovascular #1: regular rate, rhythm, no edema, no JVD, normal capillary refill Gastrointestinal: normal inspection, normal bowel sounds, non tender, soft, no mass, no peritonitis, non-distended, no guarding, no hernia, no pulsatile mass Genitourinary: no CVA tenderness Musculoskeletal: normal inspection, back normal, normal range of motion, no calf tenderness, pelvis stable, Carrie's Sign negative, other - Edematous, contracted Neurologic: normal inspection, alert, responsive, storage receipt poster III-XII nml as tested, motor strength/tone normal, other - contracted extremities, edematous Psychiatric: normal inspection, judgement/insight normal, mood/affect normal, no suicidal/homicidal ideation, no delusions Skin: normal inspection, normal color, no rash Lymphatic: normal inspection, no adenopathy Last 24 Hour Vital Signs Date Time Temp Pulse Resp B/P (MAP) Pulse Ox O2 Delivery O2 Flow Rate FiO2 03/14/17 09:34 55 142/88 03/14/17 09:34 55 142/88 03/14/17 08:44 55 18 35 03/14/17 08:42 35 03/14/17 08:42 60 19 98 Mechanical Ventilator 35 03/14/17 08:35 54 19 98 Mechanical Ventilator 35 03/14/17 08:35 54 19 Mechanical Ventilator 35 03/14/17 08:00 98.9 136 16 142/88 100 Mechanical Ventilator 35 03/14/17 07:36 139 03/14/17 06:30 71 26 35 03/14/17 06:02 113 16 121/93 100 Mechanical Ventilator 03/14/17 06:00 35 03/14/17 06:00 97.5 120 18 155/68 100 Mechanical Ventilator 03/14/17 05:30 113 16 121/93 100 Mechanical Ventilator 03/14/17 04:30 110 18 120/91 100 Mechanical Ventilator 03/14/17 04:30 118 24 30 03/14/17 03:06 123 26 30 03/14/17 03:00 120 21 125/92 100 Mechanical Ventilator 03/14/17 02:33 120 21 125/92 100 2/6/18 02:15 30 03/14/17 00:44 93 20 30 03/14/17 00:20 89 23 30 03/13/17 23:40 97.0 58 16 150/64 100 Mechanical Ventilator 30 Intake and Output 03/13/17 03/14/17 19:00 07:00 Intake Total 30 ml Balance 30 ml Intake IV Total 30 ml # Voids 2 Laboratory Tests Test 03/14/17 02:00 03/14/17 03:55 Prothrombin Time 10.1 SEC (9.30-11.50) Prothromb Time International Ratio 1.0 (0.9-1.1) Sodium Level 131 MMOL/L (136-145) L Potassium Level 4.7 MMOL/L (3.5-5.1) Chloride Level 95 MMOL/L (98-107) L Carbon Dioxide Level 24 MMOL/L (21-32) Anion Gap 12 mmol/L (5-15) Blood Urea Nitrogen 101 mg/dL (7-18) H Creatinine 1.7 MG/DL (0.55-1.30) H Estimat Glomerular Filtration Rate mL/min (>60) Glucose Level 170 MG/DL (74-106) H Calcium Level 9.7 MG/DL (8.5-10.1) Total Bilirubin 0.6 MG/DL (0.2-1.0) Aspartate Amino Transf (AST/SGOT) 31 U/L (15-37) Alanine Aminotransferase (ALT/SGPT) 64 U/L (12-78) Alkaline Phosphatase 115 U/L (46-116) Total Protein 9.0 G/DL (6.4-8.2) H Albumin 3.2 G/DL (3.4-5.0) L Globulin 5.8 g/dL Albumin/Globulin Ratio 0.6 (1.0-2.7) L Lipase 93 U/L (73-393) White Blood Count 27.6 K/UL (4.8-10.8) *H Red Blood Count 5.01 M/UL (4.70-6.10) Hemoglobin 14.2 G/DL (14.2-18.0) Hematocrit 42.9 % (42.0-52.0) Mean Corpuscular Volume 86 FL (80-99) Mean Corpuscular Hemoglobin 28.3 PG (27.0-31.0) Mean Corpuscular Hemoglobin Concent 33.0 G/DL (32.0-36.0) Red Cell Distribution Width 16.5 % (11.6-14.8) H Platelet Count 348 K/UL (150-450) Mean Platelet Volume 7.8 FL (6.5-10.1) Neutrophils (%) (Auto) % (45.0-75.0) Lymphocytes (%) (Auto) % (20.0-45.0) Monocytes (%) (Auto) % (1.0-10.0) Eosinophils (%) (Auto) % (0.0-3.0) Basophils (%) (Auto) % (0.0-2.0) Differential Total Cells Counted 100 Neutrophils % (Manual) 74 % (45-75) Lymphocytes % (Manual) 15 % (20-45) L Monocytes % (Manual) 11 % (1-10) H Eosinophils % (Manual) 0 % (0-3) Basophils % (Manual) 0 % (0-2) Band Neutrophils 0 % (0-8) Platelet Estimate Adequate Platelet Morphology See comment Giant Platelets 1+ Poikilocytosis 1+ Anisocytosis 1+ Height (Feet): 6 Height (Inches): 1.00 Weight (Pounds): 205 Medications Current Medications Medications (Trade) Dose Ordered Sig/Jaswant Route PRN Reason Start Time Stop Time Status Last Admin Dose Admin Acetaminophen (Tylenol) 650 mg Q4H PRN ORAL fever 03/14/17 05:15 04/13/17 05:14 03/14/17 09:33 Al Hydroxide/Mg Hydroxide (Mylanta II) 30 ml Q6H PRN ORAL dyspepsia 03/14/17 05:15 04/13/17 05:14 Albuterol/ Ipratropium (Albuterol/ Ipratropium) 3 ml Q8HRT HHN 03/14/17 07:00 03/19/17 06:59 03/14/17 08:34 Amlodipine Besylate (Norvasc) 10 mg DAILY GT 03/14/17 09:00 04/13/17 08:59 03/14/17 09:34 Chlorhexidine Gluconate (Arelis-Hex 2%) 1 applic DAILY@1999 TOPIC 03/14/17 20:00 04/13/17 19:59 Clonidine HCl (Catapres Tab) 0.1 mg Q4H PRN GT For High Blood Pressure>160 03/14/17 05:15 04/13/17 05:14 Dextrose (Dextrose 50%) STAT PRN IV Hypoglycemia 03/14/17 05:15 04/13/17 05:14 Diltiazem HCl (Cardizem) 30 mg BID ORAL 03/14/17 09:00 04/13/17 08:59 03/14/17 09:34 Diphenhydramine HCl (Benadryl) 25 mg Q6H PRN ORAL Itching/Pruritis 03/14/17 05:15 04/13/17 05:14 Insulin Aspart (NovoLOG) EVERY 6 HOURS SUBQ 03/14/17 12:00 04/13/17 06:29 Morphine Sulfate (Morphine Sulfate) 2 mg Q4H PRN IVP severe Pain (Pain Scale 7-10) 03/14/17 05:15 03/21/17 05:14 Nitroglycerin (Ntg) 0.4 mg Q5M X 3 DOSES PRN SL Prn Chest Pain 03/14/17 05:15 04/13/17 05:14 Ondansetron HCl (Zofran) 4 mg Q6H PRN IVP Nausea & Vomiting 03/14/17 05:15 04/13/17 05:14 Pantoprazole (Protonix) 40 mg DAILY IVP 03/14/17 09:30 04/13/17 09:29 03/14/17 09:42 Polyethylene Glycol (Miralax) 17 gm HSPRN PRN ORAL Constipation 03/14/17 05:15 04/13/17 05:14 Sodium Chloride 1,000 ml @ 150 mls/hr Q6H40M IV 03/14/17 10:30 04/13/17 10:29 03/14/17 11:31 Assessment/Plan Assessment/Plan Abx: Ceftriaxone x1 03/14 Amikacin x1 03/14 Assessment: Sepsis- ?2ry to UTI, r/o PNA, bacteremia -u/a WBC 12-20, nit neg, leuk +2; ucx p -BCx p -CXR p ?UGIB Leukocytosis- possibly multifactorial 2ry to infection and reactive to emesis -afebrile Recent MDR PsA VAP, s/p rx Scx: MDR- PSA ( S Amikacin) Recent CoNS bacteremia, contaminant History of upper GI bleed in the past History of CVA/TIA Dementia Hypertension COPD Diabetes Anemia Ventilator-dependent respiratory failure Plan: -Start Cefepime and continue Amikacin pending cultures -low threshold to start IV Vancomycin if febrile, HD decompensation --03/09 SP INH Colistin #7 --03/08 SP IV Amikacin #7 --03/02 SP vancomycin and Zosyn # 7 -f/u CXR -f/u cx -Monitor CBC/BMP, temperatures Thank you for this consultation. Will continue to follow along with you. Discussed with Sindy Yates M.D. Mar 14, 2017 12:10
[2017-03-14] MEDS ORDERED: Amikacin Rx to dose MISC PRN (12:15)
--- NOTE | 2017-03-14 12:52 | Diagnostic Imaging Report ---
Indication: Cough Technique: One view of the chest Comparison: 03/06/2017 Findings: Previously demonstrated right jugular central venous catheter is no longer evident. The lungs and pleural spaces are clear. Tracheostomy remains. The heart size is borderline enlarged. Some scarring and a calcified granuloma are seen at the right lung base Impression: No acute process. Findings as noted This agrees with the preliminary interpretation provided by the emergency room physician
[2017-03-14] MEDS: NovoLOG Insulin Flexpen SUBQ SCH ×2 (13:02→17:39)
[2017-03-14] MEDS: Cefepime HCl 1 GM in NS 55 ML IVPB SCH (14:15)
[2017-03-14] MEDS ORDERED: Amikacin 1,200 MG in NS 275 ML IV SCH (15:00)
--- NOTE | 2017-03-14 15:21 | Consultation ---
Consult Note Consult Note asked to eval for renal failure- [id number] sent from SNF for "coffee ground emesis." Unknown duration and episodes at SNF Patient chronic trach/vent Not providing history currently examined- data reviewed . Assessment/Plan acute renal failure , multifactorial: Pre Renal / GI Bleed / Blood Cx negative for last admission, DCed 7 days prior Sputum Cx grew Pseudomonas, susceptible to Amikacin Urine Cx negative ID thougt patient had ventilator PNA 1. Sepsis. 2. History of upper GI bleed in the past. 3. History of CVA. 4. History of TIA. 5. Dementia. 6. Hypertension. 7. COPD. 8. Diabetes. 10. Anemia. 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 Plan: Zazueta- Hydrate- monitor renal parameters- urine studies per orders JACI VALLEJO Mar 14, 2017 15:21
--- NOTE | 2017-03-14 15:53 | GI Initial Consult Note ---
Erika Lainezh Harry N.P. 03/14/17 1553: History of Present Illness General Date patient seen: Mar 14, 2017 Time patient seen: 15:42 Reason for Hospitalization: Gastrointestinal Illness Referring physician: PEDRO LUIS IVEY Reason for Consultation: COFFEE GROUNDS Present Illness HPI [id number] sent from SNF for "coffee ground emesis." Unknown duration and episodes at SNF Patient chronic trach/vent Not providing history currently Blood Cx negative for last admission, DCed 7 days prior Sputum Cx grew Pseudomonas, susceptible to Amikacin Urine Cx negative ID thougt patient had ventilator PNA GI consulted for coffee grounds. ROS limited, seen on floor NAD trach to vent. Per report off coffee grounds at the hospital. Hx of EGD back on dx with esophagitis presents today with similar symptoms. Hgb stable at this time. In addition, RN reports GT has a malfunctioned port that leaks. Leukocytosis noted. Lipase negative. Home Meds Active Scripts Diltiazem HCl (Diltiazem 12Hr ER) 30 Mg Tab, 30 MG ORAL BID, #60 TAB Prov:Gonsalo (Guillermina Vu [employer] 10/11/14 Reported Medications Na Phos,M-B/Na Phos,Di-Ba* (FLEET ENEMA*) 133 Ml Enema, 133 ML RECTAL TID, ML 0 Refills 02/23/17 Bisacodyl* (DULCOLAX*) 5 Mg Tablet.dr, 10 MG ORAL, #4 TAB 0 Refills 02/23/17 Amlodipine Besylate* (AMLODIPINE BESYLATE*) 10 Mg Tablet, 10 MG GT DAILY, TAB 05/22/16 Ferrous Sulfate* (FERROUS SULFATE*) 325 Mg Tablet, 330 MG GT THREE TIMES A DAY, #90 TAB 0 Refills 05/22/16 Clonidine Hcl* (CATAPRES*) 0.1 Mg Tablet, 0.1 MG GT EVERY 4 HOURS Y for For High Blood Pressure, TAB 05/22/16 Morphine Sulfate (Morphine Sulfate) 4 Mg/1 Ml Disp.syrin, 4 MG IJ Q4HR 11/20/11 Docusate Sodium* (COLACE*) 100 Mg Capsule, 100 MG GT BID, #10 CAP 11/20/11 Med list reviewed/reconciled: Yes Allergies: Coded Allergies: No Known Allergies (Verified , 08/19/07) Patient History PMH Narrative 1. Sepsis. 2. History of upper GI bleed in the past. 3. History of CVA. 4. History of TIA. 5. Dementia. 6. Hypertension. 7. COPD. 8. Diabetes. 10. Anemia. 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 Past Medical History: see triage record, old chart reviewed, other - see HPI Past Surgical History: unable to obtain, other - Trach Pertinent Family History: unable to obtain Social History: Denies: smoking, alcohol use, drug use Immunizations: UTD Reviewed Nursing Documentation: PMH: Agreed, PSxH: Agreed Nursing Documentation-PMH Hx Hypertension: Yes Hx COPD: Yes - trach, vent dependent Hx Diabetes: Yes - dm2 Hx Cancer: No Hx Gastrointestinal Problems: Yes - GERD, G tube, Carbapenem-resistant Enterobacteriaceae (CRE-isolation) Hx Neurological Problems: Yes Hx Cerebrovascular Accident: Yes Hx Transient Ischemic Attacks: Yes Hx Dementia: Yes Hx Seizures: Yes Review of Systems All Other Systems: limited Physical Exam Vital Signs Date Time Temp Pulse Resp B/P (MAP) Pulse Ox O2 Delivery O2 Flow Rate FiO2 03/13/17 23:40 97.0 58 16 150/64 100 Mechanical Ventilator 30 Sp02 EP Interpretation: reviewed Labs Laboratory Tests Test 03/14/17 02:00 03/14/17 03:55 Prothrombin Time 10.1 SEC (9.30-11.50) Prothromb Time International Ratio 1.0 (0.9-1.1) Sodium Level 131 MMOL/L (136-145) L Potassium Level 4.7 MMOL/L (3.5-5.1) Chloride Level 95 MMOL/L (98-107) L Carbon Dioxide Level 24 MMOL/L (21-32) Anion Gap 12 mmol/L (5-15) Blood Urea Nitrogen 101 mg/dL (7-18) H Creatinine 1.7 MG/DL (0.55-1.30) H Estimat Glomerular Filtration Rate mL/min (>60) Glucose Level 170 MG/DL (74-106) H Calcium Level 9.7 MG/DL (8.5-10.1) Total Bilirubin 0.6 MG/DL (0.2-1.0) Aspartate Amino Transf (AST/SGOT) 31 U/L (15-37) Alanine Aminotransferase (ALT/SGPT) 64 U/L (12-78) Alkaline Phosphatase 115 U/L (46-116) Total Protein 9.0 G/DL (6.4-8.2) H Albumin 3.2 G/DL (3.4-5.0) L Globulin 5.8 g/dL Albumin/Globulin Ratio 0.6 (1.0-2.7) L Lipase 93 U/L (73-393) White Blood Count 27.6 K/UL (4.8-10.8) *H Red Blood Count 5.01 M/UL (4.70-6.10) Hemoglobin 14.2 G/DL (14.2-18.0) Hematocrit 42.9 % (42.0-52.0) Mean Corpuscular Volume 86 FL (80-99) Mean Corpuscular Hemoglobin 28.3 PG (27.0-31.0) Mean Corpuscular Hemoglobin Concent 33.0 G/DL (32.0-36.0) Red Cell Distribution Width 16.5 % (11.6-14.8) H Platelet Count 348 K/UL (150-450) Mean Platelet Volume 7.8 FL (6.5-10.1) Neutrophils (%) (Auto) % (45.0-75.0) Lymphocytes (%) (Auto) % (20.0-45.0) Monocytes (%) (Auto) % (1.0-10.0) Eosinophils (%) (Auto) % (0.0-3.0) Basophils (%) (Auto) % (0.0-2.0) Differential Total Cells Counted 100 Neutrophils % (Manual) 74 % (45-75) Lymphocytes % (Manual) 15 % (20-45) L Monocytes % (Manual) 11 % (1-10) H Eosinophils % (Manual) 0 % (0-3) Basophils % (Manual) 0 % (0-2) Band Neutrophils 0 % (0-8) Platelet Estimate Adequate Platelet Morphology See comment Giant Platelets 1+ Poikilocytosis 1+ Anisocytosis 1+ General Appearance: no apparent distress Head: normocephalic Neck: other - trach to vent Respiratory: no respiratory distress Cardiovascular: normal rate Gastrointestinal: gt - 2 braxton valves present Skin: normal color, no rash, warm/dry, palpation normal Lymphatic: normal inspection, no adenopathy Current Medications Current Medications Medications (Trade) Dose Ordered Sig/Jaswant Route PRN Reason Start Time Stop Time Status Last Admin Dose Admin Acetaminophen (Tylenol) 650 mg Q4H PRN ORAL fever 03/14/17 05:15 04/13/17 05:14 03/14/17 09:33 Albuterol/ Ipratropium (Albuterol/ Ipratropium) 3 ml Q8HRT HHN 03/14/17 07:00 03/19/17 06:59 03/14/17 15:27 Amikacin Protocol (Amikacin pharmacy to dose) 1 ea DAILY PRN MISC Per rx protocol 03/14/17 12:15 04/13/17 12:14 Amikacin Sulfate 1200 mg/Sodium Chloride 279.8 ml @ 559.6 mls/ hr Q48H IV 03/14/17 15:00 03/21/17 14:59 03/14/17 15:05 Cefepime HCl 1 gm/ Sodium Chloride 55 ml @ 110 mls/hr Q12HR@0200,1400 IVPB 03/14/17 14:00 03/21/17 13:59 03/14/17 14:15 Chlorhexidine Gluconate (Arelis-Hex 2%) 1 applic DAILY@2000 TOPIC 03/14/17 20:00 04/13/17 19:59 Clonidine HCl (Catapres Tab) 0.1 mg Q4H PRN GT For High Blood Pressure>160 03/14/17 05:15 04/13/17 05:14 Dextrose (Dextrose 50%) STAT PRN IV Hypoglycemia 03/14/17 05:15 04/13/17 05:14 Diltiazem HCl (Cardizem) 30 mg Q8HR ORAL 03/14/17 22:00 04/13/17 08:59 Diphenhydramine HCl (Benadryl) 25 mg Q6H PRN ORAL Itching/Pruritis 03/14/17 05:15 04/13/17 05:14 Insulin Aspart (NovoLOG) EVERY 6 HOURS SUBQ 03/14/17 12:00 04/13/17 06:29 Morphine Sulfate (Morphine Sulfate) 2 mg Q4H PRN IVP severe Pain (Pain Scale 7-10) 03/14/17 05:15 03/21/17 05:14 Nitroglycerin (Ntg) 0.4 mg Q5M X 3 DOSES PRN SL Prn Chest Pain 03/14/17 05:15 04/13/17 05:14 Ondansetron HCl (Zofran) 4 mg Q6H PRN IVP Nausea & Vomiting 03/14/17 05:15 04/13/17 05:14 Pantoprazole (Protonix) 40 mg DAILY IVP 03/14/17 09:30 04/13/17 09:29 03/14/17 09:42 Polyethylene Glycol (Miralax) 17 gm HSPRN PRN ORAL Constipation 03/14/17 05:15 04/13/17 05:14 Sodium Chloride 1,000 ml @ 75 mls/hr [id number] IV 03/15/17 10:30 04/14/17 10:29 GI: Plan Problems: (1) Coffee ground emesis (2) Anemia (3) Feeding by G-tube (4) Upper gastrointestinal bleed (5) Severe sepsis Plan EGD scheduled for tomorrow. - GTFs now, NPO @ MN. - hold all blood thinners - will change GT tomorrow due to leaking port. >> currently stopped by an additional braxton valve. prn transfusions ppi fu labs Discussed with Dr. Vides. Thank you for this patient referral, we will follow. GABI VIDES 03/15/17 0907: History of Present Illness General Reason for Hospitalization: Gastrointestinal Illness Present Illness Home Meds Active Scripts Diltiazem HCl (Diltiazem 12Hr ER) 30 Mg Tab, 30 MG ORAL BID, #60 TAB Prov:Gonsalo (Guillermina Vu [employer] 10/11/14 Reported Medications Na Phos,M-B/Na Phos,Di-Ba* (FLEET ENEMA*) 133 Ml Enema, 133 ML RECTAL TID, ML 0 Refills 02/23/17 Bisacodyl* (DULCOLAX*) 5 Mg Tablet., 10 MG ORAL, #4 TAB 0 Refills 02/23/17 Amlodipine Besylate* (AMLODIPINE BESYLATE*) 10 Mg Tablet, 10 MG GT DAILY, TAB 05/22/16 Ferrous Sulfate* (FERROUS SULFATE*) 325 Mg Tablet, 330 MG GT THREE TIMES A DAY, #90 TAB 0 Refills 05/22/16 Clonidine Hcl* (CATAPRES*) 0.1 Mg Tablet, 0.1 MG GT EVERY 4 HOURS Y for For High Blood Pressure, TAB 05/22/16 Morphine Sulfate (Morphine Sulfate) 4 Mg/1 Ml Disp.syrin, 4 MG IJ Q4HR 11/20/11 Docusate Sodium* (COLACE*) 100 Mg Capsule, 100 MG GT BID, #10 CAP 11/20/11 Allergies: Coded Allergies: No Known Allergies (Verified , 08/19/07) GI: Plan Plan The patient was seen and examined at bedside and all new and available data was reviewed in the patients chart. I agree with the above findings, impression and plan. (Patient seen earlier today. Signature stamp does not reflect patient encounter time.). - [facility] Harry Davalos Mar 14, 2017 15:53 GABI VIDES Mar 15, 2017 09:07
--- NOTE | 2017-03-14 17:40 | Wound Care Consultation ---
Wound Assessment Wound Assessment #1: Wound Number: 1 Wound Present on Admission: Yes New Wound: No Status Change of Wound: No Wound Location Body Site Modif: left, upper Wound Location Body Site: back Wound Type: pressure ulcer Peggy Test: Does not Peggy Pressure Ulcer Stage: Deep Tissue Injury Wound Thickness: Full Thickness Wound Length: 2.0 Wound Width: 3.0 Wound Depth: utd Percent of Wound Purple/Maroon: 100 Wound Drainage Amount: None Wound Drainage Odor: None/Absent Tissue Surrounding Wound: Intact Wound General Appearance: Reddened - maroon Wound Assessment #2: Wound Number: 2 Wound Present on Admission: Yes New Wound: No Status Change of Wound: No Wound Location Body Site Modif: right, mid Wound Location Body Site: back Wound Type: pressure ulcer Peggy Test: Does not Peggy Pressure Ulcer Stage: II - scattered Wound Thickness: Partial Thickness Percent of Wound [place]/Red: 100 Wound Drainage Description: Serosanguineous Wound Drainage Amount: Scant Wound Drainage Odor: None/Absent Tissue Surrounding Wound: Erythemic Wound General Appearance: Reddened, Draining Wound Assessment #3: Wound Number: 3 Wound Present on Admission: Yes New Wound: No Status Change of Wound: No Wound Location Body Site Modif: right, anterior Wound Location Body Site: other - THUMB Wound Type: lesion-etiology unknown Peggy Test: Does not Peggy Wound Thickness: Full Thickness Wound Length: 4.0 Wound Width: 4.0 Wound Depth: 0.3 Percent of Wound [place]/Red: 95 Percent of Wound Bed Yellow/Wh: 5 Wound Drainage Description: Serosanguineous Wound Drainage Amount: Moderate Wound Drainage Odor: None/Absent Tissue Surrounding Wound: Macerated Wound General Appearance: Reddened, Draining, Muscle Visible Wound Assessment #4: Wound Number: 4 Wound Present on Admission: Yes New Wound: No Status Change of Wound: No Wound Location Body Site Modif: right, lateral Wound Location Body Site: wrist Wound Type: scab Peggy Test: Does not Peggy Wound Thickness: Partial Thickness Wound Length: 0.5 Wound Width: 0.5 Percent of Wound Black/Brown: 100 - dry Wound Drainage Amount: None Wound Drainage Odor: None/Absent Tissue Surrounding Wound: Intact Wound General Appearance: Asymptomatic, Blackened - scab Wound Assessment #5: Wound Number: 5 Wound Present on Admission: Yes New Wound: No Status Change of Wound: No Wound Location Body Site Modif: mid Wound Location Body Site: other - Sacrococcygeal Wound Type: scar Peggy Test: Does not Peggy Wound Thickness: Full Thickness Wound Length: 4.5 Wound Width: 4.5 Percent of Wound [place]/Red: 100 Wound Drainage Amount: None Wound Drainage Odor: None/Absent Tissue Surrounding Wound: Intact Wound General Appearance: Reddened Wound Comment #1 Full thickness scar tissue on sacrococcygeal area, buttocks, Left ischial tuberosity, upper and lower back #2 Left upper back DTI pressure ulcer #3 Mid and right back area scattered stage II pressure ulcer #4 Right thumb full thickness open wound. Etiology unknown Recommendation -Local wound care per protocol -Keep clean and dry -Optimize nutrition -Offload both heels -Heel protector on both heels -Low air loss mattress -Turn and reposition -Assess and f/u accordingly for any changes NERY BOATENG RN Mar 14, 2017 17:40
[2017-03-14] MEDS: Dyna-Hex 2% Top Sol 2oz TOPIC SCH (20:25)
[2017-03-14] MEDS: dilTIAZem HCl 30mg tab ORAL SCH (21:19)
[2017-03-15] VITALS: BP 138/74
[2017-03-15] MEDS: Albuterol/Ipratropium 3ml neb HHN SCH ×4 (00:29→22:52)
[2017-03-15] MEDS: Cefepime HCl 1 GM in NS 55 ML IVPB SCH ×2 (02:00→14:06)
[2017-03-15 04:00] VITALS: BP 145/82
[2017-03-15 05:16] LABS: HEMATOCRIT 34.8 % (42.0-52.0); HEMOGLOBIN 11.4 G/DL (14.2-18.0); MEAN CORPUSCULAR VOLUME 85 FL (80-99); PLATELET COUNT 291 K/UL (150-450); RED BLOOD COUNT 4.08 M/UL (4.70-6.10); RED CELL DISTRIBUTION WIDTH 17.2 % (11.6-14.8)
[2017-03-15 05:23] LABS: ANION GAP 14 mmol/L (5-15); BLOOD UREA NITROGEN 102 mg/dL (7-18); CALCIUM 8.4 MG/DL (8.5-10.1); CARBON DIOXIDE 23 MMOL/L (21-32); CHLORIDE 104 MMOL/L (98-107); CREATININE 1.7 MG/DL (0.55-1.30); POTASSIUM 3.3 MMOL/L (3.5-5.1); SODIUM 141 MMOL/L (136-145)
[2017-03-15 05:30] LABS: WHITE BLOOD COUNT 23.6 K/UL (4.8-10.8)
[2017-03-15 05:34] LABS: ALANINE AMINOTRANSFERASE 51 U/L (12-78); ALBUMIN 2.7 G/DL (3.4-5.0); ALBUMIN/GLOBULIN RATIO 0.6 (1.0-2.7); ALKALINE PHOSPHATASE 84 U/L (46-116); ASPARTATE AMINO TRANSFERASE 23 U/L (15-37); BILIRUBIN,TOTAL 0.6 MG/DL (0.2-1.0)
[2017-03-15] MEDS: NovoLOG Insulin Flexpen SUBQ SCH ×4 (06:00→17:38)
[2017-03-15] MEDS: dilTIAZem HCl 30mg tab ORAL SCH ×3 (06:45→17:36)
[2017-03-15 08:00] VITALS: BP 131/66
--- NOTE | 2017-03-15 08:28 | Pre-Procedure Note/Attestation ---
Pre-Procedure Note/Attestation Complete Prior to Procedure Planned Procedure: not applicable Procedure Narrative: egd Indications for Procedure Pre-Operative Diagnosis: gib Attestation I attest that I discussed the nature of the procedure; its benefits; risks and complications; and alternatives (and the risks and benefits of such alternatives ), prior to the procedure, with the patient (or the patient's legal commercial representative). I attest that, if there was a reasonable possibility of needing a blood transfusion, the patient (or the patient's legal commercial representative) was given the [facility] standardized written summary, pursuant to the Karl Laisha Blood Safety Act ([place] Health and Safety Code # 1645, as amended). I attest that I re-evaluated the patient just prior to the surgery and that there has been no change in the patient's H&P, except as documented below: GABI VIDES Mar 15, 2017 08:28
[2017-03-15] MEDS: Pantoprazole Inj IVP SCH (08:35)
--- NOTE | 2017-03-15 09:14 | Anethesia Preoperative Eval ---
Anesthesia Pre-op PMH/ROS General Date of Evaluation: Mar 15, 2017 Time of Evaluation: 09:12 Anesthesiologist: Franco ASA Score: ASA 3 Mallampati Score Class I : Soft palate, uvula, fauces, pillars visible Class II: Soft palate, uvula, fauces visible Class III: Soft palate, base of uvula visible Class IV: Only hard plate visible Mallampati Classification: Class III Surgeon: Walter Diagnosis: upper gi bleed Surgical Procedure: EGD Anesthesia History: none Family History: no anesthesia problems Allergies: Coded Allergies: No Known Allergies (Verified , 08/19/07) Medications: see eMAR Past Medical History Cardiovascular: Reports: HTN Pulmonary: Reports: COPD - trach and vent dependent Gastrointestinal/Genitourinary: Reports: GERD, ESRD Neurologic/Psychiatric: Reports: dementia, CVA, other - seizure hx Endocrine: Reports: DM HEENT: Denies: cataract (L), cataract (R), glaucoma, PAIMIUT (L), PAIMIUT (R), other Hematology/Immune: Reports: anemia, other - sepsis Musculoskeletal/Integumentary: Reports: other - muscle weakness, contracture Anesthesia Pre-op Phys. Exam Physician Exam Last Vital Signs Date Time Temp Pulse Resp B/P (MAP) Pulse Ox O2 Delivery O2 Flow Rate FiO2 03/15/17 08:00 115 03/15/17 08:00 97.7 20 131/66 100 Mechanical Ventilator 35 Constitutional: NAD Neurologic: CN 2-12 intact Cardiovascular: RRR Respiratory: CTA - diminished at the bases Gastrointestinal: S/NT/ND Airway Exam MO: limited ROM: limited Anesthesia Pre-op A/P Labs Hematology Test 03/15/17 03:00 White Blood Count 23.6 K/UL (4.8-10.8) *H Red Blood Count 4.08 M/UL (4.70-6.10) L Hemoglobin 11.4 G/DL (14.2-18.0) L Hematocrit 34.8 % (42.0-52.0) L Mean Corpuscular Volume 85 FL (80-99) Mean Corpuscular Hemoglobin 28.1 PG (27.0-31.0) Mean Corpuscular Hemoglobin Concent 32.8 G/DL (32.0-36.0) Red Cell Distribution Width 17.2 % (11.6-14.8) H Platelet Count 291 K/UL (150-450) Mean Platelet Volume 7.3 FL (6.5-10.1) Neutrophils (%) (Auto) % (45.0-75.0) Lymphocytes (%) (Auto) % (20.0-45.0) Monocytes (%) (Auto) % (1.0-10.0) Eosinophils (%) (Auto) % (0.0-3.0) Basophils (%) (Auto) % (0.0-2.0) Differential Total Cells Counted 100 Neutrophils % (Manual) 82 % (45-75) H Lymphocytes % (Manual) 12 % (20-45) L Monocytes % (Manual) 3 % (1-10) Eosinophils % (Manual) 0 % (0-3) Basophils % (Manual) 0 % (0-2) Metamyelocytes % 1 % (0-0) H Myelocytes % 2 % (0-0) H Band Neutrophils 0 % (0-8) Platelet Estimate Adequate Platelet Morphology Normal Coagulation Test 03/15/17 03:00 Prothrombin Time 10.7 SEC (9.30-11.50) Prothromb Time International Ratio 1.0 (0.9-1.1) Activated Partial Thromboplast Time 28 SEC (23-33) Chemistry Test 03/15/17 03:00 Sodium Level 141 MMOL/L (136-145) Potassium Level 3.3 MMOL/L (3.5-5.1) L Chloride Level 104 MMOL/L (98-107) Carbon Dioxide Level 23 MMOL/L (21-32) Anion Gap 14 mmol/L (5-15) Blood Urea Nitrogen 102 mg/dL (7-18) H Creatinine 1.7 MG/DL (0.55-1.30) H Estimat Glomerular Filtration Rate mL/min (>60) Glucose Level 140 MG/DL (74-106) H Uric Acid Pending Calcium Level 8.4 MG/DL (8.5-10.1) L Phosphorus Level Pending Magnesium Level Pending Total Bilirubin 0.6 MG/DL (0.2-1.0) Gamma Glutamyl Transpeptidase Pending Aspartate Amino Transf (AST/SGOT) 23 U/L (15-37) Alanine Aminotransferase (ALT/SGPT) 51 U/L (12-78) Alkaline Phosphatase 84 U/L (46-116) C-Reactive Protein, Quantitative Pending Pro-B-Type Natriuretic Peptide Pending Total Protein 7.0 G/DL (6.4-8.2) Albumin 2.7 G/DL (3.4-5.0) L Globulin 4.3 g/dL Albumin/Globulin Ratio 0.6 (1.0-2.7) L Thyroid Stimulating Hormone (TSH) Pending Risk Assessment & Plan Assessment: Pt on trach and vent. Dementia present. Plan: MAC Status Change Before Surgery: No Pre-Antibiotics Given Within 1 Hr of Incision: Janessa Martino CRNA Mar 15, 2017 09:14
[2017-03-15 09:19] LABS: PHOSPHORUS 4.2 MG/DL (2.5-4.9)
--- NOTE | 2017-03-15 09:31 | General Progress Note ---
Assessment/Plan Problem List: (1) Coffee ground emesis ICD Codes: K92.0 - Hematemesis SNOMED: 95695967, 431232743 (2) Anemia ICD Codes: D64.9 - Anemia SNOMED: 372380253 (3) Severe sepsis ICD Codes: A41.9 - Sepsis, unspecified organism; R65.20 - Severe sepsis without septicshock SNOMED: 56033254 (4) Feeding by G-tube ICD Codes: Z93.1 - Feeding by G-tube SNOMED: 378474257 (5) DM (diabetes mellitus) ICD Codes: E11.9 - DM (diabetes mellitus) SNOMED: 83017288 (6) Seizure disorder ICD Codes: G40.909 - Epilepsy, unspecified, not intractable,without status epilepticus SNOMED: 004994968 Assessment/Plan esophagogastroduodenoscopy was canceled due to tachycardia currently septic ppi monitor H&H resume GTF Subjective ROS Limited/Unobtainable: No Allergies: Coded Allergies: No Known Allergies (Verified , 08/19/07) Objective Last 24 Hour Vital Signs Date Time Temp Pulse Resp B/P (MAP) Pulse Ox O2 Delivery O2 Flow Rate FiO2 03/15/17 09:20 62 20 35 03/15/17 08:00 115 03/15/17 08:00 97.7 121 20 131/66 100 Mechanical Ventilator 35 03/15/17 07:28 60 18 99 Mechanical Ventilator 35 03/15/17 07:27 35 03/15/17 07:21 63 20 35 03/15/17 07:18 63 22 99 Mechanical Ventilator 35 03/15/17 06:45 87 145/82 03/15/17 05:14 87 20 35 03/15/17 04:00 98.4 74 19 145/82 100 Mechanical Ventilator 35 03/15/17 04:00 35 03/15/17 04:00 129 03/15/17 02:47 71 18 35 03/15/17 01:02 86 22 35 03/15/17 00:00 99.0 113 24 138/74 100 Mechanical Ventilator 35 03/15/17 00:00 112 03/15/17 00:00 35 03/14/17 23:59 72 20 35 03/14/17 23:08 62 18 99 Mechanical Ventilator 35 03/14/17 23:00 61 18 35 03/14/17 23:00 65 22 99 Mechanical Ventilator 35 03/14/17 23:00 35 03/14/17 21:19 101 136/88 03/14/17 21:05 61 18 35 03/14/17 20:00 125 03/14/17 20:00 98.9 101 24 132/74 100 Mechanical Ventilator 35 03/14/17 20:00 35 03/14/17 19:17 63 17 35 03/14/17 17:29 62 21 35 03/14/17 16:44 98.5 60 14 159/91 100 Mechanical Ventilator 35 03/14/17 16:25 120 03/14/17 16:00 35 03/14/17 15:33 35 03/14/17 15:33 58 14 99 Mechanical Ventilator 35 03/14/17 15:29 57 14 35 03/14/17 15:27 57 19 99 Mechanical Ventilator 35 03/14/17 13:29 58 15 35 03/14/17 12:00 35 03/14/17 11:58 97.7 60 16 162/81 100 Mechanical Ventilator 35 03/14/17 11:43 118 03/14/17 11:03 60 16 35 03/14/17 09:34 55 142/88 03/14/17 09:34 55 142/88 Intake and Output 03/14/17 03/15/17 19:00 07:00 Intake Total 919.8 ml 940 ml Output Total 250 ml 1000 ml Balance 669.8 ml -60 ml Intake IV Total 859.8 ml 880 ml Other 60 ml 60 ml Output Urine Total 250 ml 1000 ml Laboratory Tests 03/15/17 03:00: White Blood Count 23.6*H, Red Blood Count 4.08L, Hemoglobin 11.4L, Hematocrit 34.8L, Mean Corpuscular Volume 85, Mean Corpuscular Hemoglobin 28.1, Mean Corpuscular Hemoglobin Concent 32.8, Red Cell Distribution Width 17.2H, Platelet Count 291, Mean Platelet Volume 7.3, Neutrophils (%) (Auto) , Lymphocytes (%) (Auto) , Monocytes (%) (Auto) , Eosinophils (%) (Auto) , Basophils (%) (Auto) , Differential Total Cells Counted 100, Neutrophils % ( Manual) 82H, Lymphocytes % (Manual) 12L, Monocytes % (Manual) 3, Eosinophils % ( Manual) 0, Basophils % (Manual) 0, Metamyelocytes % 1H, Myelocytes % 2H, Band Neutrophils 0, Platelet Estimate Adequate, Platelet Morphology Normal, Prothrombin Time 10.7, Prothromb Time International Ratio 1.0, Activated Partial Thromboplast Time 28, Sodium Level 141, Potassium Level 3.3L, Chloride Level 104, Carbon Dioxide Level 23, Anion Gap 14, Blood Urea Nitrogen 102H, Creatinine 1.7H, Estimat Glomerular Filtration Rate , Glucose Level 140H, Uric Acid 9.7H, Calcium Level 8.4L, Phosphorus Level 4.2, Magnesium Level 3.1H, Total Bilirubin 0.6, Gamma Glutamyl Transpeptidase 111H, Aspartate Amino Transf (AST/SGOT) 23, Alanine Aminotransferase (ALT/SGPT) 51, Alkaline Phosphatase 84, C-Reactive Protein, Quantitative 5.2H, Pro-B-Type Natriuretic Peptide 455H, Total Protein 7.0, Albumin 2.7L, Globulin 4.3, Albumin/Globulin Ratio 0.6L, Thyroid Stimulating Hormone (TSH) 1.654, Random Amikacin Level [Pending] Height (Feet): 6 Height (Inches): 0.84 Weight (Pounds): 180 General Appearance: mild distress EENT: normal ENT inspection Neck: supple Cardiovascular: tachycardia Respiratory/Chest: decreased breath sounds Abdomen: normal bowel sounds, non tender, soft Extremities: non-tender GABI VIDES Mar 15, 2017 09:31
--- NOTE | 2017-03-15 09:52 | Pulmonology Progress Note ---
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 Discussed with: consultants Subjective ROS Limited/Unobtainable: Yes Constitutional: Reports: no symptoms HEENT: Repors: no symptoms Allergies: Coded Allergies: No Known Allergies (Verified , 08/19/07) Objective Last 24 Hour Vital Signs Date Time Temp Pulse Resp B/P (MAP) Pulse Ox O2 Delivery O2 Flow Rate FiO2 03/15/17 09:20 62 20 35 03/15/17 08:00 115 03/15/17 08:00 97.7 121 20 131/66 100 Mechanical Ventilator 35 03/15/17 07:28 60 18 99 Mechanical Ventilator 35 03/15/17 07:27 35 03/15/17 07:21 63 20 35 03/15/17 07:18 63 22 99 Mechanical Ventilator 35 03/15/17 06:45 87 145/82 03/15/17 05:14 87 20 35 03/15/17 04:00 98.4 74 19 145/82 100 Mechanical Ventilator 35 03/15/17 04:00 35 03/15/17 04:00 129 03/15/17 02:47 71 18 35 03/15/17 01:02 86 22 35 03/15/17 00:00 99.0 113 24 138/74 100 Mechanical Ventilator 35 03/15/17 00:00 112 03/15/17 00:00 35 03/14/17 23:59 72 20 35 03/14/17 23:08 62 18 99 Mechanical Ventilator 35 03/14/17 23:00 61 18 35 03/14/17 23:00 65 22 99 Mechanical Ventilator 35 03/14/17 23:00 35 03/14/17 21:19 101 136/88 03/14/17 21:05 61 18 35 03/14/17 20:00 125 03/14/17 20:00 98.9 101 24 132/74 100 Mechanical Ventilator 35 03/14/17 20:00 35 03/14/17 19:17 63 17 35 03/14/17 17:29 62 21 35 03/14/17 16:44 98.5 60 14 159/91 100 Mechanical Ventilator 35 03/14/17 16:25 120 03/14/17 16:00 35 03/14/17 15:33 35 03/14/17 15:33 58 14 99 Mechanical Ventilator 35 03/14/17 15:29 57 14 35 03/14/17 15:27 57 19 99 Mechanical Ventilator 35 03/14/17 13:29 58 15 35 03/14/17 12:00 35 03/14/17 11:58 97.7 60 16 162/81 100 Mechanical Ventilator 35 03/14/17 11:43 118 03/14/17 11:03 60 16 35 Intake and Output 03/14/17 03/15/17 19:00 07:00 Intake Total 919.8 ml 940 ml Output Total 250 ml 1000 ml Balance 669.8 ml -60 ml Intake IV Total 859.8 ml 880 ml Other 60 ml 60 ml Output Urine Total 250 ml 1000 ml General Appearance: cachetic HEENT: normocephalic, atraumatic Respiratory/Chest: chest wall non-tender Cardiovascular: normal peripheral pulses, normal rate Abdomen: normal bowel sounds, soft, non tender Genitourinary: normal external genitalia Extremities: no clubbing Skin: no rash, no lesions Microbiology Date/Time Source Procedure Growth Status 03/14/17 03:55 Blood Blood Culture - Preliminary NO GROWTH AFTER 24 HOURS Resulted 03/14/17 03:55 Blood Blood Culture - Preliminary NO GROWTH AFTER 24 HOURS Resulted 03/14/17 05:00 Sputum Gram Stain - Final Resulted 03/14/17 05:00 Sputum Culture - Preliminary Gram Negative Bacillus 1 Resulted 03/13/17 03:40 Urine,Clean Catch Urine Culture - Preliminary Resulted Laboratory Tests 03/15/17 03:00: White Blood Count 23.6*H, Red Blood Count 4.08L, Hemoglobin 11.4L, Hematocrit 34.8L, Mean Corpuscular Volume 85, Mean Corpuscular Hemoglobin 28.1, Mean Corpuscular Hemoglobin Concent 32.8, Red Cell Distribution Width 17.2H, Platelet Count 291, Mean Platelet Volume 7.3, Neutrophils (%) (Auto) , Lymphocytes (%) (Auto) , Monocytes (%) (Auto) , Eosinophils (%) (Auto) , Basophils (%) (Auto) , Differential Total Cells Counted 100, Neutrophils % ( Manual) 82H, Lymphocytes % (Manual) 12L, Monocytes % (Manual) 3, Eosinophils % ( Manual) 0, Basophils % (Manual) 0, Metamyelocytes % 1H, Myelocytes % 2H, Band Neutrophils 0, Platelet Estimate Adequate, Platelet Morphology Normal, Prothrombin Time 10.7, Prothromb Time International Ratio 1.0, Activated Partial Thromboplast Time 28, Sodium Level 141, Potassium Level 3.3L, Chloride Level 104, Carbon Dioxide Level 23, Anion Gap 14, Blood Urea Nitrogen 102H, Creatinine 1.7H, Estimat Glomerular Filtration Rate , Glucose Level 140H, Uric Acid 9.7H, Calcium Level 8.4L, Phosphorus Level 4.2, Magnesium Level 3.1H, Total Bilirubin 0.6, Gamma Glutamyl Transpeptidase 111H, Aspartate Amino Transf (AST/SGOT) 23, Alanine Aminotransferase (ALT/SGPT) 51, Alkaline Phosphatase 84, C-Reactive Protein, Quantitative 5.2H, Pro-B-Type Natriuretic Peptide 455H, Total Protein 7.0, Albumin 2.7L, Globulin 4.3, Albumin/Globulin Ratio 0.6L, Thyroid Stimulating Hormone (TSH) 1.654, Random Amikacin Level [Pending] Current Medications Medications (Trade) Dose Ordered Sig/Jaswant Route PRN Reason Start Time Stop Time Status Last Admin Dose Admin Acetaminophen (Tylenol) 650 mg Q4H PRN ORAL fever 03/14/17 05:15 04/13/17 05:14 03/14/17 09:33 Albuterol/ Ipratropium (Albuterol/ Ipratropium) 3 ml Q8HRT HHN 03/14/17 07:00 03/19/17 06:59 03/15/17 07:18 Amikacin Protocol (Amikacin pharmacy to dose) 1 ea DAILY PRN MISC Per rx protocol 03/14/17 12:15 04/13/17 12:14 Amikacin Sulfate 1200 mg/Sodium Chloride 279.8 ml @ 559.6 mls/ hr Q48H IV 03/14/17 15:00 03/21/17 14:59 2/6/18 15:05 Cefepime HCl 1 gm/ Sodium Chloride 55 ml @ 110 mls/hr Q12HR@0200,1400 IVPB 03/14/17 14:00 03/21/17 13:59 03/15/17 02:00 Chlorhexidine Gluconate (Arelis-Hex 2%) 1 applic DAILY@2000 TOPIC 03/14/17 20:00 04/13/17 19:59 03/14/17 20:25 Clonidine HCl (Catapres Tab) 0.1 mg Q4H PRN GT For High Blood Pressure>160 03/14/17 05:15 04/13/17 05:14 Dextrose (Dextrose 50%) STAT PRN IV Hypoglycemia 03/14/17 05:15 04/13/17 05:14 Diltiazem HCl (Cardizem) 30 mg Q8HR ORAL 03/14/17 22:00 04/13/17 08:59 03/15/17 06:45 Diphenhydramine HCl (Benadryl) 25 mg Q6H PRN ORAL Itching/Pruritis 03/14/17 05:15 04/13/17 05:14 Insulin Aspart (NovoLOG) EVERY 6 HOURS SUBQ 03/14/17 12:00 04/13/17 06:29 Morphine Sulfate (Morphine Sulfate) 2 mg Q4H PRN IVP severe Pain (Pain Scale 7-10) 03/14/17 05:15 03/21/17 05:14 Nitroglycerin (Ntg) 0.4 mg Q5M X 3 DOSES PRN SL Prn Chest Pain 03/14/17 05:15 04/13/17 05:14 Ondansetron HCl (Zofran) 4 mg Q6H PRN IVP Nausea & Vomiting 03/14/17 05:15 04/13/17 05:14 Pantoprazole (Protonix) 40 mg DAILY IVP 03/14/17 09:30 04/13/17 09:29 03/15/17 08:35 Polyethylene Glycol (Miralax) 17 gm HSPRN PRN ORAL Constipation 03/14/17 05:15 04/13/17 05:14 Sodium Chloride 1,000 ml @ 75 mls/hr [id number] IV 03/15/17 10:30 04/14/17 10:29 03/15/17 06:46 PEDRO LUIS IVEY Mar 15, 2017 09:52
[2017-03-15] MEDS ORDERED: Potassium Chloride 40 MEQ in Sodium Chloride 500ML 550 ML IVPB ONE (11:00)
[2017-03-15 12:00] VITALS: BP 146/78
--- NOTE | 2017-03-15 14:46 | Infectious Diseases Prog Note ---
Assessment/Plan Assessment/Plan Abx: Ceftriaxone x1 2/6 Amikacin x1 2/6 Assessment: Sepsis- ?2ry to UTI, r/o PNA, bacteremia -u/a WBC 12-20, nit neg, leuk +2; ucx p -BCx NTD -CXR No acute process. Findings as noted ?UGIB Leukocytosis- possibly multifactorial 2ry to infection and reactive to emesis; mildly improved -afebrile Recent MDR PsA VAP, s/p rx Scx: MDR- PSA ( S Amikacin) Recent CoNS bacteremia, contaminant History of upper GI bleed in the past History of CVA/TIA Dementia Hypertension COPD Diabetes Anemia Ventilator-dependent respiratory failure Plan: -Continue Cefepime and Amikacin #2 pending cultures -low threshold to start IV Vancomycin if febrile, HD decompensation, worsening leukocytosis --03/09 SP INH Colistin #7 --03/08 SP IV Amikacin #7 --03/02 SP vancomycin and Zosyn # 7 -Cdiff -f/u cx -Monitor CBC/BMP, temperatures Thank you for this consultation. Will continue to follow along with you. Discussed with RN Subjective Allergies: Coded Allergies: No Known Allergies (Verified , 08/19/07) Subjective afebrile MV at 35% Bcx NTD ucx p sp cx grwonign GNR no diarrhea Objective Vital Signs Last 24 Hour Vital Signs Date Time Temp Pulse Resp B/P (MAP) Pulse Ox O2 Delivery O2 Flow Rate FiO2 03/15/17 14:12 117 146/78 03/15/17 13:13 117 20 35 03/15/17 12:11 118 03/15/17 12:00 35 03/15/17 12:00 97.5 98 20 146/78 100 Mechanical Ventilator 35 03/15/17 11:08 73 20 35 03/15/17 10:12 35 03/15/17 09:20 62 20 35 03/15/17 08:00 115 03/15/17 08:00 97.7 121 20 131/66 100 Mechanical Ventilator 35 03/15/17 07:28 60 18 99 Mechanical Ventilator 35 03/15/17 07:27 35 03/15/17 07:21 63 20 35 03/15/17 07:18 63 22 99 Mechanical Ventilator 35 03/15/17 06:45 87 145/82 03/15/17 05:14 87 20 35 2/7/18 04:00 98.4 74 19 145/82 100 Mechanical Ventilator 35 03/15/17 04:00 35 03/15/17 04:00 129 03/15/17 02:47 71 18 35 03/15/17 01:02 86 22 35 03/15/17 00:00 99.0 113 24 138/74 100 Mechanical Ventilator 35 03/15/17 00:00 112 03/15/17 00:00 35 03/14/17 23:59 72 20 35 03/14/17 23:08 62 18 99 Mechanical Ventilator 35 03/14/17 23:00 61 18 35 03/14/17 23:00 65 22 99 Mechanical Ventilator 35 03/14/17 23:00 35 03/14/17 21:19 101 136/88 03/14/17 21:05 61 18 35 03/14/17 20:00 125 03/14/17 20:00 98.9 101 24 132/74 100 Mechanical Ventilator 35 03/14/17 20:00 35 03/14/17 19:17 63 17 35 03/14/17 17:29 62 21 35 03/14/17 16:44 98.5 60 14 159/91 100 Mechanical Ventilator 35 03/14/17 16:25 120 03/14/17 16:00 35 03/14/17 15:33 35 03/14/17 15:33 58 14 99 Mechanical Ventilator 35 03/14/17 15:29 57 14 35 03/14/17 15:27 57 19 99 Mechanical Ventilator 35 Height (Feet): 6 Height (Inches): 0.84 Weight (Pounds): 180 Objective General Appearance: no apparent distress, alert, non-toxic, other - Gurgling sounds from trach, dried brownish sputum on trach, gown, Chronically Ill Head: normocephalic, atraumatic Eyes: bilateral eye PERRL, bilateral eye EOMI ENT: normal ENT inspection, hearing grossly normal, normal pharynx, no angioedema, normal voice, TMs + canals normal, uvula midline, moist mucus membranes Neck: normal inspection, full range of motion, supple, thyroid normal, no meningismus, no bony tend Respiratory: normal inspection, lungs clear, normal breath sounds, no rhonchi, no respiratory distress, no retraction, no accessory muscle use, no wheezing, speaking full sentences Cardiovascular regular rate, rhythm, no edema, no JVD, normal capillary refill Gastrointestinal: normal inspection, normal bowel sounds, non tender, soft, no mass, no peritonitis, non-distended, no guarding, no hernia, no pulsatile mass Genitourinary: no CVA tenderness Musculoskeletal: normal inspection, back normal, normal range of motion, no calf tenderness, pelvis stable, other - Edematous, contracted Skin: normal inspection, normal color, no rash Microbiology Date/Time Source Procedure Growth Status 03/14/17 03:55 Blood Blood Culture - Preliminary NO GROWTH AFTER 24 HOURS Resulted 03/14/17 03:55 Blood Blood Culture - Preliminary NO GROWTH AFTER 24 HOURS Resulted 03/14/17 05:00 Sputum Gram Stain - Final Resulted 03/14/17 05:00 Sputum Culture - Preliminary Gram Negative Bacillus 1 Resulted 03/13/17 03:40 Urine,Clean Catch Urine Culture - Preliminary Resulted 03/14/17 22:00 Hand Right Gram Stain - Final Resulted 03/14/17 22:00 Hand Right Wound Culture Pending Resulted Laboratory Tests Test 03/15/17 03:00 White Blood Count 23.6 K/UL (4.8-10.8) *H Red Blood Count 4.08 M/UL (4.70-6.10) L Hemoglobin 11.4 G/DL (14.2-18.0) L Hematocrit 34.8 % (42.0-52.0) L Mean Corpuscular Volume 85 FL (80-99) Mean Corpuscular Hemoglobin 28.1 PG (27.0-31.0) Mean Corpuscular Hemoglobin Concent 32.8 G/DL (32.0-36.0) Red Cell Distribution Width 17.2 % (11.6-14.8) H Platelet Count 291 K/UL (150-450) Mean Platelet Volume 7.3 FL (6.5-10.1) Neutrophils (%) (Auto) % (45.0-75.0) Lymphocytes (%) (Auto) % (20.0-45.0) Monocytes (%) (Auto) % (1.0-10.0) Eosinophils (%) (Auto) % (0.0-3.0) Basophils (%) (Auto) % (0.0-2.0) Differential Total Cells Counted 100 Neutrophils % (Manual) 82 % (45-75) H Lymphocytes % (Manual) 12 % (20-45) L Monocytes % (Manual) 3 % (1-10) Eosinophils % (Manual) 0 % (0-3) Basophils % (Manual) 0 % (0-2) Metamyelocytes % 1 % (0-0) H Myelocytes % 2 % (0-0) H Band Neutrophils 0 % (0-8) Platelet Estimate Adequate Platelet Morphology Normal Prothrombin Time 10.7 SEC (9.30-11.50) Prothromb Time International Ratio 1.0 (0.9-1.1) Activated Partial Thromboplast Time 28 SEC (23-33) Sodium Level 141 MMOL/L (136-145) Potassium Level 3.3 MMOL/L (3.5-5.1) L Chloride Level 104 MMOL/L (98-107) Carbon Dioxide Level 23 MMOL/L (21-32) Anion Gap 14 mmol/L (5-15) Blood Urea Nitrogen 102 mg/dL (7-18) H Creatinine 1.7 MG/DL (0.55-1.30) H Estimat Glomerular Filtration Rate mL/min (>60) Glucose Level 140 MG/DL (74-106) H Uric Acid 9.7 MG/DL (2.6-7.2) H Calcium Level 8.4 MG/DL (8.5-10.1) L Phosphorus Level 4.2 MG/DL (2.5-4.9) Magnesium Level 3.1 MG/DL (1.8-2.4) H Total Bilirubin 0.6 MG/DL (0.2-1.0) Gamma Glutamyl Transpeptidase 111 U/L (5-85) H Aspartate Amino Transf (AST/SGOT) 23 U/L (15-37) Alanine Aminotransferase (ALT/SGPT) 51 U/L (12-78) Alkaline Phosphatase 84 U/L (46-116) C-Reactive Protein, Quantitative 5.2 mg/dL (0.00-0.90) H Pro-B-Type Natriuretic Peptide 455 pg/mL (0-125) H Total Protein 7.0 G/DL (6.4-8.2) Albumin 2.7 G/DL (3.4-5.0) L Globulin 4.3 g/dL Albumin/Globulin Ratio 0.6 (1.0-2.7) L Thyroid Stimulating Hormone (TSH) 1.654 uiU/mL (0.358-3.740) Random Amikacin Level Pending Current Medications Medications (Trade) Dose Ordered Sig/Jaswant Route PRN Reason Start Time Stop Time Status Last Admin Dose Admin Acetaminophen (Tylenol) 650 mg Q4H PRN ORAL fever 03/14/17 05:15 04/13/17 05:14 03/15/17 10:06 Albuterol/ Ipratropium (Albuterol/ Ipratropium) 3 ml Q8HRT HHN 03/14/17 07:00 03/19/17 06:59 03/15/17 07:18 Amikacin Protocol (Amikacin pharmacy to dose) 1 ea DAILY PRN MISC Per rx protocol 03/14/17 12:15 04/13/17 12:14 Amikacin Sulfate 1200 mg/Sodium Chloride 279.8 ml @ 559.6 mls/ hr Q48H IV 03/14/17 15:00 03/21/17 14:59 03/14/17 15:05 Cefepime HCl 1 gm/ Sodium Chloride 55 ml @ 110 mls/hr Q12HR@0200,1400 IVPB 03/14/17 14:00 03/21/17 13:59 03/15/17 14:06 Chlorhexidine Gluconate (Arelis-Hex 2%) 1 applic DAILY@2000 TOPIC 03/14/17 20:00 04/13/17 19:59 03/14/17 20:25 Clonidine HCl (Catapres Tab) 0.1 mg Q4H PRN GT For High Blood Pressure>160 03/14/17 05:15 04/13/17 05:14 Dextrose (Dextrose 50%) STAT PRN IV Hypoglycemia 03/14/17 05:15 04/13/17 05:14 Diltiazem HCl (Cardizem) 30 mg Q8HR ORAL 03/14/17 22:00 04/13/17 08:59 03/15/17 14:12 Diphenhydramine HCl (Benadryl) 25 mg Q6H PRN ORAL Itching/Pruritis 03/14/17 05:15 04/13/17 05:14 Insulin Aspart (NovoLOG) EVERY 6 HOURS SUBQ 03/14/17 12:00 04/13/17 06:29 Morphine Sulfate (Morphine Sulfate) 2 mg Q4H PRN IVP severe Pain (Pain Scale 7-10) 03/14/17 05:15 03/21/17 05:14 Nitroglycerin (Ntg) 0.4 mg Q5M X 3 DOSES PRN SL Prn Chest Pain 03/14/17 05:15 04/13/17 05:14 Ondansetron HCl (Zofran) 4 mg Q6H PRN IVP Nausea & Vomiting 03/14/17 05:15 04/13/17 05:14 Pantoprazole (Protonix) 40 mg DAILY IVP 03/14/17 09:30 04/13/17 09:29 03/15/17 08:35 Polyethylene Glycol (Miralax) 17 gm HSPRN PRN ORAL Constipation 03/14/17 05:15 04/13/17 05:14 Potassium Chloride 40 meq/ Sodium Chloride 570 ml @ 142.5 mls/ hr ONCE ONCE IVPB 03/15/17 11:00 03/15/17 14:59 03/15/17 11:23 Sodium Chloride 1,000 ml @ 75 mls/hr [id number] IV 03/15/17 10:30 04/14/17 10:29 03/15/17 06:46 Sindy Elder M.D. Mar 15, 2017 14:46
--- NOTE | 2017-03-15 15:26 | Nephrology Progress Note ---
Assessment/Plan Problem List: (1) Upper gastrointestinal bleed (2) Acute on chronic respiratory failure (3) Acute renal failure (ARF) Assessment acute renal failure , multifactorial: Pre Renal / GI Bleed / 1. Sepsis. 2. History of upper GI bleed in the past. 3. History of CVA. 4. History of TIA. 5. Dementia. 6. Hypertension. 7. COPD. 8. Diabetes. 10. Anemia. 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 Plan Plan: Zazueta- Hydrate- monitor renal parameters- urine studies per orders Subjective ROS Limited/Unobtainable: Yes Objective Objective Last 24 Hour Vital Signs Date Time Temp Pulse Resp B/P (MAP) Pulse Ox O2 Delivery O2 Flow Rate FiO2 03/15/17 14:12 117 146/78 03/15/17 13:13 117 20 35 03/15/17 12:11 118 03/15/17 12:00 35 03/15/17 12:00 97.5 98 20 146/78 100 Mechanical Ventilator 35 03/15/17 11:08 73 20 35 03/15/17 10:12 35 03/15/17 09:20 62 20 35 03/15/17 08:00 115 03/15/17 08:00 97.7 121 20 131/66 100 Mechanical Ventilator 35 03/15/17 07:28 60 18 99 Mechanical Ventilator 35 03/15/17 07:27 35 03/15/17 07:21 63 20 35 03/15/17 07:18 63 22 99 Mechanical Ventilator 35 03/15/17 06:45 87 145/82 03/15/17 05:14 87 20 35 03/15/17 04:00 98.4 74 19 145/82 100 Mechanical Ventilator 35 03/15/17 04:00 35 03/15/17 04:00 129 03/15/17 02:47 71 18 35 03/15/17 01:02 86 22 35 03/15/17 00:00 99.0 113 24 138/74 100 Mechanical Ventilator 35 03/15/17 00:00 112 03/15/17 00:00 35 03/14/17 23:59 72 20 35 03/14/17 23:08 62 18 99 Mechanical Ventilator 35 03/14/17 23:00 61 18 35 03/14/17 23:00 65 22 99 Mechanical Ventilator 35 03/14/17 23:00 35 03/14/17 21:19 101 136/88 03/14/17 21:05 61 18 35 03/14/17 20:00 125 03/14/17 20:00 98.9 101 24 132/74 100 Mechanical Ventilator 35 03/14/17 20:00 35 03/14/17 19:17 63 17 35 03/14/17 17:29 62 21 35 03/14/17 16:44 98.5 60 14 159/91 100 Mechanical Ventilator 35 03/14/17 16:25 120 03/14/17 16:00 35 03/14/17 15:33 35 03/14/17 15:33 58 14 99 Mechanical Ventilator 35 03/14/17 15:29 57 14 35 03/14/17 15:27 57 19 99 Mechanical Ventilator 35 Intake and Output 03/14/17 03/15/17 19:00 07:00 Intake Total 919.8 ml 940 ml Output Total 250 ml 1000 ml Balance 669.8 ml -60 ml Intake IV Total 859.8 ml 880 ml Other 60 ml 60 ml Output Urine Total 250 ml 1000 ml Laboratory Tests 03/15/17 03:00: White Blood Count 23.6*H, Red Blood Count 4.08L, Hemoglobin 11.4L, Hematocrit 34.8L, Mean Corpuscular Volume 85, Mean Corpuscular Hemoglobin 28.1, Mean Corpuscular Hemoglobin Concent 32.8, Red Cell Distribution Width 17.2H, Platelet Count 291, Mean Platelet Volume 7.3, Neutrophils (%) (Auto) , Lymphocytes (%) (Auto) , Monocytes (%) (Auto) , Eosinophils (%) (Auto) , Basophils (%) (Auto) , Differential Total Cells Counted 100, Neutrophils % ( Manual) 82H, Lymphocytes % (Manual) 12L, Monocytes % (Manual) 3, Eosinophils % ( Manual) 0, Basophils % (Manual) 0, Metamyelocytes % 1H, Myelocytes % 2H, Band Neutrophils 0, Platelet Estimate Adequate, Platelet Morphology Normal, Prothrombin Time 10.7, Prothromb Time International Ratio 1.0, Activated Partial Thromboplast Time 28, Sodium Level 141, Potassium Level 3.3L, Chloride Level 104, Carbon Dioxide Level 23, Anion Gap 14, Blood Urea Nitrogen 102H, Creatinine 1.7H, Estimat Glomerular Filtration Rate , Glucose Level 140H, Uric Acid 9.7H, Calcium Level 8.4L, Phosphorus Level 4.2, Magnesium Level 3.1H, Total Bilirubin 0.6, Gamma Glutamyl Transpeptidase 111H, Aspartate Amino Transf (AST/SGOT) 23, Alanine Aminotransferase (ALT/SGPT) 51, Alkaline Phosphatase 84, C-Reactive Protein, Quantitative 5.2H, Pro-B-Type Natriuretic Peptide 455H, Total Protein 7.0, Albumin 2.7L, Globulin 4.3, Albumin/Globulin Ratio 0.6L, Thyroid Stimulating Hormone (TSH) 1.654, Random Amikacin Level [Pending] Height (Feet): 6 Height (Inches): 0.84 Weight (Pounds): 180 General Appearance: mild distress Cardiovascular: tachycardia Respiratory/Chest: decreased breath sounds Abdomen: distended Objective no other changes JACI VALLEJO Mar 15, 2017 15:26
[2017-03-15 15:57] VITALS: BP 148/85
--- NOTE | 2017-03-15 17:29 | Cardiology Report ---
APPROVED REPORT EKG Measurement Heart [id number] Sinus tachycardia with PVC, PACs Left axis deviation Minimal voltage criteria for LVH, may be normal variant Anterior infarct, age undetermined T wave abnormality, consider lateral ischemia Abnormal ECG
[2017-03-15 20:00] VITALS: BP 143/75
[2017-03-15] MEDS: Dyna-Hex 2% Top Sol 2oz TOPIC SCH (20:48)
[2017-03-16] VITALS: BP 158/86
[2017-03-16] MEDS: dilTIAZem HCl 30mg tab ORAL SCH ×4 (00:50→17:26)
[2017-03-16] MEDS: Cefepime HCl 1 GM in NS 55 ML IVPB SCH ×2 (02:00→13:00)
[2017-03-16 04:00] VITALS: BP 149/74
[2017-03-16] MEDS: NovoLOG Insulin Flexpen SUBQ SCH ×4 (05:38→17:26)
[2017-03-16 07:13] LABS: ALANINE AMINOTRANSFERASE 55 U/L (12-78); ALBUMIN 2.7 G/DL (3.4-5.0); ALBUMIN/GLOBULIN RATIO 0.6 (1.0-2.7); ALKALINE PHOSPHATASE 84 U/L (46-116); ANION GAP 13 mmol/L (5-15); ASPARTATE AMINO TRANSFERASE 26 U/L (15-37); BILIRUBIN,TOTAL 0.5 MG/DL (0.2-1.0); BLOOD UREA NITROGEN 48 mg/dL (7-18); CALCIUM 8.7 MG/DL (8.5-10.1); CARBON DIOXIDE 23 MMOL/L (21-32); CHLORIDE 110 MMOL/L (98-107); CREATININE 0.9 MG/DL (0.55-1.30); PHOSPHORUS 2.3 MG/DL (2.5-4.9); POTASSIUM 3.2 MMOL/L (3.5-5.1); SODIUM 146 MMOL/L (136-145)
[2017-03-16 07:21] LABS: HEMATOCRIT 28.8 % (42.0-52.0); HEMOGLOBIN 9.8 G/DL (14.2-18.0); MEAN CORPUSCULAR VOLUME 87 FL (80-99); PLATELET COUNT 227 K/UL (150-450); RED BLOOD COUNT 3.31 M/UL (4.70-6.10); RED CELL DISTRIBUTION WIDTH 17.3 % (11.6-14.8); WHITE BLOOD COUNT 18.2 K/UL (4.8-10.8)
[2017-03-16] MEDS: Albuterol/Ipratropium 3ml neb HHN SCH ×3 (07:24→23:43)
[2017-03-16 08:00] VITALS: BP 147/95
[2017-03-16] MEDS: Pantoprazole Inj IVP SCH (08:18)
[2017-03-16] MEDS ORDERED: Potassium Phosphate 30 MM in NS 275 ML IV ONE (10:00)
--- NOTE | 2017-03-16 10:33 | Nephrology Progress Note ---
Assessment/Plan Problem List: (1) Upper gastrointestinal bleed (2) Acute on chronic respiratory failure (3) Acute renal failure (ARF) Assessment acute renal failure , multifactorial: Pre Renal / GI Bleed / Cr and BUN now WNL 1. Sepsis. 2. History of upper GI bleed in the past. 3. History of CVA. 4. History of TIA. 5. Dementia. 6. Hypertension. 7. COPD. 8. Diabetes. 10. Anemia. 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 Plan Plan: DC IV fluids- K Phos IV Zazueta- monitor renal parameters- urine studies per orders Subjective ROS Limited/Unobtainable: Yes Objective Objective Last 24 Hour Vital Signs Date Time Temp Pulse Resp B/P (MAP) Pulse Ox O2 Delivery O2 Flow Rate FiO2 03/16/17 08:58 77 21 35 03/16/17 08:00 98.9 95 18 147/95 100 Mechanical Ventilator 35 03/16/17 08:00 35 03/16/17 07:51 138 03/16/17 07:34 78 20 100 Mechanical Ventilator 35 03/16/17 07:24 35 03/16/17 07:24 69 18 35 03/16/17 07:24 65 14 100 Mechanical Ventilator 35 03/16/17 06:30 76 149/74 03/16/17 04:48 76 23 35 03/16/17 04:00 98.1 118 23 149/74 100 Mechanical Ventilator 35 03/16/17 04:00 35 03/16/17 04:00 114 03/16/17 02:53 88 23 35 03/16/17 01:00 76 24 35 03/16/17 00:50 95 158/75 03/16/17 00:00 35 03/16/17 00:00 114 03/16/17 00:00 98.2 100 24 158/86 100 Mechanical Ventilator 35 03/15/17 22:57 95 22 100 Mechanical Ventilator 35 03/15/17 22:53 35 03/15/17 22:51 94 26 35 03/15/17 22:50 91 18 100 Mechanical Ventilator 35 03/15/17 21:08 100 25 35 03/15/17 20:00 35 03/15/17 20:00 116 03/15/17 20:00 98.4 90 24 143/75 100 Mechanical Ventilator 35 03/15/17 19:14 78 24 35 03/15/17 17:36 116 148/85 03/15/17 17:30 102 21 35 03/15/17 17:20 71 25 35 03/15/17 16:27 120 03/15/17 16:00 35 03/15/17 15:57 97.7 116 27 148/85 100 Mechanical Ventilator 35 03/15/17 15:33 81 18 99 Mechanical Ventilator 35 03/15/17 15:32 35 03/15/17 15:26 70 25 35 03/15/17 15:25 70 25 100 Mechanical Ventilator 35 03/15/17 14:12 117 146/78 03/15/17 13:13 117 20 35 03/15/17 12:11 118 03/15/17 12:00 35 03/15/17 12:00 97.5 98 20 146/78 100 Mechanical Ventilator 35 03/15/17 11:08 73 20 35 Intake and Output 03/15/17 03/16/17 19:00 07:00 Intake Total 1737.5 ml 1465 ml Output Total 1100 ml 700 ml Balance 637.5 ml 765 ml Intake Free Water 150 ml 200 ml IV Total 1467.5 ml 880 ml Tube Feeding 60 ml 325 ml Other 60 ml 60 ml Output Urine Total 1100 ml 700 ml Laboratory Tests 03/16/17 04:00: White Blood Count 18.2H, Red Blood Count 3.31L, Hemoglobin 9.8L, Hematocrit 28.8L, Mean Corpuscular Volume 87, Mean Corpuscular Hemoglobin 29.6, Mean Corpuscular Hemoglobin Concent 34.0, Red Cell Distribution Width 17.3H, Platelet Count 227, Mean Platelet Volume 7.1, Neutrophils (%) (Auto) , Lymphocytes (%) (Auto) , Monocytes (%) (Auto) , Eosinophils (%) (Auto) , Basophils (%) (Auto) , Differential Total Cells Counted 100, Neutrophils % ( Manual) 78H, Lymphocytes % (Manual) 16L, Monocytes % (Manual) 6, Eosinophils % ( Manual) 0, Basophils % (Manual) 0, Band Neutrophils 0, Platelet Estimate Adequate, Platelet Morphology Normal, Hypochromasia 1+, Anisocytosis 1+, Sodium Level 146H, Potassium Level 3.2L, Chloride Level 110H, Carbon Dioxide Level 23, Anion Gap 13, Blood Urea Nitrogen 48H, Creatinine 0.9, Estimat Glomerular Filtration Rate , Glucose Level 112H, Calcium Level 8.7, Phosphorus Level 2.3L, Magnesium Level 2.8H, Total Bilirubin 0.5, Aspartate Amino Transf (AST/SGOT) 26 , Alanine Aminotransferase (ALT/SGPT) 55, Alkaline Phosphatase 84, Total Protein 7.0, Albumin 2.7L, Globulin 4.3, Albumin/Globulin Ratio 0.6L Height (Feet): 6 Height (Inches): 0.84 Weight (Pounds): 180 General Appearance: no apparent distress Cardiovascular: normal rate Respiratory/Chest: decreased breath sounds Abdomen: soft Objective no other changes JACI VALLEJO Mar 16, 2017 10:33
[2017-03-16 12:00] VITALS: BP 146/80
--- NOTE | 2017-03-16 12:57 | GI Progress Note ---
Assessment/Plan Problems: (1) Feeding by G-tube ICD Codes: Z93.1 - Feeding by G-tube SNOMED: 627756943 (2) Upper gastrointestinal bleed ICD Codes: K92.2 - Gastrointestinal hemorrhage, unspecified SNOMED: 83359702 (3) Anemia ICD Codes: D64.9 - Anemia SNOMED: 445884843 (4) Coffee ground emesis ICD Codes: K92.0 - Hematemesis SNOMED: 35350677, 747211354 (5) DM (diabetes mellitus) ICD Codes: E11.9 - DM (diabetes mellitus) SNOMED: 86489804 Status: stable Status Narrative Discussed with Dr. Watson. Assessment/Plan EGD deferred at this time, Hgb @ baseline. monitor H&H, prn transfusions will replace GT @ bedside tomorrow. DM mgmt ppi BID fu labs Subjective Subjective limited Objective Last 24 Hour Vital Signs Date Time Temp Pulse Resp B/P (MAP) Pulse Ox O2 Delivery O2 Flow Rate FiO2 03/16/17 12:00 97.9 96 18 146/80 100 Mechanical Ventilator 35 03/16/17 12:00 35 03/16/17 11:43 107 03/16/17 11:19 74 21 35 03/16/17 08:58 77 21 35 03/16/17 08:00 98.9 95 18 147/95 100 Mechanical Ventilator 35 03/16/17 08:00 35 03/16/17 07:51 138 03/16/17 07:34 78 20 100 Mechanical Ventilator 35 03/16/17 07:24 35 03/16/17 07:24 69 18 35 03/16/17 07:24 65 14 100 Mechanical Ventilator 35 03/16/17 06:30 76 149/74 03/16/17 04:48 76 23 35 03/16/17 04:00 98.1 118 23 149/74 100 Mechanical Ventilator 35 03/16/17 04:00 35 03/16/17 04:00 114 03/16/17 02:53 88 23 35 03/16/17 01:00 76 24 35 03/16/17 00:50 95 158/75 03/16/17 00:00 35 03/16/17 00:00 114 03/16/17 00:00 98.2 100 24 158/86 100 Mechanical Ventilator 35 2/7/18 22:57 95 22 100 Mechanical Ventilator 35 03/15/17 22:53 35 03/15/17 22:51 94 26 35 03/15/17 22:50 91 18 100 Mechanical Ventilator 35 03/15/17 21:08 100 25 35 03/15/17 20:00 35 03/15/17 20:00 116 03/15/17 20:00 98.4 90 24 143/75 100 Mechanical Ventilator 35 03/15/17 19:14 78 24 35 03/15/17 17:36 116 148/85 03/15/17 17:30 102 21 35 03/15/17 17:20 71 25 35 03/15/17 16:27 120 03/15/17 16:00 35 03/15/17 15:57 97.7 116 27 148/85 100 Mechanical Ventilator 35 03/15/17 15:33 81 18 99 Mechanical Ventilator 35 03/15/17 15:32 35 03/15/17 15:26 70 25 35 03/15/17 15:25 70 25 100 Mechanical Ventilator 35 03/15/17 14:12 117 146/78 03/15/17 13:13 117 20 35 Intake and Output 03/15/17 03/16/17 19:00 07:00 Intake Total 1737.5 ml 1465 ml Output Total 1100 ml 700 ml Balance 637.5 ml 765 ml Intake Free Water 150 ml 200 ml IV Total 1467.5 ml 880 ml Tube Feeding 60 ml 325 ml Other 60 ml 60 ml Output Urine Total 1100 ml 700 ml Laboratory Tests Test 03/16/17 04:00 White Blood Count 18.2 K/UL (4.8-10.8) H Red Blood Count 3.31 M/UL (4.70-6.10) L Hemoglobin 9.8 G/DL (14.2-18.0) L Hematocrit 28.8 % (42.0-52.0) L Mean Corpuscular Volume 87 FL (80-99) Mean Corpuscular Hemoglobin 29.6 PG (27.0-31.0) Mean Corpuscular Hemoglobin Concent 34.0 G/DL (32.0-36.0) Red Cell Distribution Width 17.3 % (11.6-14.8) H Platelet Count 227 K/UL (150-450) Mean Platelet Volume 7.1 FL (6.5-10.1) Neutrophils (%) (Auto) % (45.0-75.0) Lymphocytes (%) (Auto) % (20.0-45.0) Monocytes (%) (Auto) % (1.0-10.0) Eosinophils (%) (Auto) % (0.0-3.0) Basophils (%) (Auto) % (0.0-2.0) Differential Total Cells Counted 100 Neutrophils % (Manual) 78 % (45-75) H Lymphocytes % (Manual) 16 % (20-45) L Monocytes % (Manual) 6 % (1-10) Eosinophils % (Manual) 0 % (0-3) Basophils % (Manual) 0 % (0-2) Band Neutrophils 0 % (0-8) Platelet Estimate Adequate Platelet Morphology Normal Hypochromasia 1+ Anisocytosis 1+ Sodium Level 146 MMOL/L (136-145) H Potassium Level 3.2 MMOL/L (3.5-5.1) L Chloride Level 110 MMOL/L (98-107) H Carbon Dioxide Level 23 MMOL/L (21-32) Anion Gap 13 mmol/L (5-15) Blood Urea Nitrogen 48 mg/dL (7-18) H Creatinine 0.9 MG/DL (0.55-1.30) Estimat Glomerular Filtration Rate mL/min (>60) Glucose Level 112 MG/DL (74-106) H Calcium Level 8.7 MG/DL (8.5-10.1) Phosphorus Level 2.3 MG/DL (2.5-4.9) L Magnesium Level 2.8 MG/DL (1.8-2.4) H Total Bilirubin 0.5 MG/DL (0.2-1.0) Aspartate Amino Transf (AST/SGOT) 26 U/L (15-37) Alanine Aminotransferase (ALT/SGPT) 55 U/L (12-78) Alkaline Phosphatase 84 U/L (46-116) Total Protein 7.0 G/DL (6.4-8.2) Albumin 2.7 G/DL (3.4-5.0) L Globulin 4.3 g/dL Albumin/Globulin Ratio 0.6 (1.0-2.7) L Height (Feet): 6 Height (Inches): 0.84 Weight (Pounds): 180 General Appearance: lethargic Cardiovascular: normal rate Respiratory/Chest: other Abdominal Exam: GT site - needs replacement Naz Lainez N.P. Mar 16, 2017 12:57
--- NOTE | 2017-03-16 13:20 | Pulmonolgy Critical Care Note ---
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 - Objective Last 24 Hour Vital Signs Date Time Temp Pulse Resp B/P (MAP) Pulse Ox O2 Delivery O2 Flow Rate FiO2 03/16/17 13:11 93 21 35 03/16/17 13:01 96 146/80 03/16/17 12:00 97.9 96 18 146/80 100 Mechanical Ventilator 35 03/16/17 12:00 35 03/16/17 11:43 107 03/16/17 11:19 74 21 35 03/16/17 08:58 77 21 35 03/16/17 08:00 98.9 95 18 147/95 100 Mechanical Ventilator 35 03/16/17 08:00 35 03/16/17 07:51 138 03/16/17 07:34 78 20 100 Mechanical Ventilator 35 03/16/17 07:24 35 03/16/17 07:24 69 18 35 03/16/17 07:24 65 14 100 Mechanical Ventilator 35 03/16/17 06:30 76 149/74 03/16/17 04:48 76 23 35 03/16/17 04:00 98.1 118 23 149/74 100 Mechanical Ventilator 35 03/16/17 04:00 35 03/16/17 04:00 114 03/16/17 02:53 88 23 35 03/16/17 01:00 76 24 35 03/16/17 00:50 95 158/75 03/16/17 00:00 35 03/16/17 00:00 114 03/16/17 00:00 98.2 100 24 158/86 100 Mechanical Ventilator 35 03/15/17 22:57 95 22 100 Mechanical Ventilator 35 03/15/17 22:53 35 03/15/17 22:51 94 26 35 03/15/17 22:50 91 18 100 Mechanical Ventilator 35 03/15/17 21:08 100 25 35 03/15/17 20:00 35 03/15/17 20:00 116 03/15/17 20:00 98.4 90 24 143/75 100 Mechanical Ventilator 35 03/15/17 19:14 78 24 35 03/15/17 17:36 116 148/85 03/15/17 17:30 102 21 35 03/15/17 17:20 71 25 35 03/15/17 16:27 120 03/15/17 16:00 35 03/15/17 15:57 97.7 116 27 148/85 100 Mechanical Ventilator 35 03/15/17 15:33 81 18 99 Mechanical Ventilator 35 03/15/17 15:32 35 03/15/17 15:26 70 25 35 03/15/17 15:25 70 25 100 Mechanical Ventilator 35 03/15/17 14:12 117 146/78 Status: obtunded Condition: critical, grave HEENT: atraumatic Lungs: clear Heart: HR/BP unstable, regular Abdomen: soft, active bowel sounds, feeding tube Extremities: no C/C/E Decubiti: location Micro: Microbiology Date/Time Source Procedure Growth Status 03/14/17 03:55 Blood Blood Culture - Preliminary NO GROWTH AFTER 48 HOURS Resulted 03/14/17 03:55 Blood Blood Culture - Preliminary NO GROWTH AFTER 48 HOURS Resulted 03/14/17 05:13 Nasal Nares Right MRSA Culture - Final NO METHICILLIN RESISTANT STAPH AUREUS... Complete 03/14/17 05:00 Sputum Gram Stain - Final Resulted 03/14/17 05:00 Sputum Culture - Preliminary Providencia Stuartii Resulted 03/14/17 22:00 Hand Right Gram Stain - Final Resulted 03/14/17 22:00 Wound Culture - Preliminary Gram Negative Bacillus 1 Resulted 03/14/17 05:13 Rectum VRE Culture - Final Enterococcus Faecalis - Vre Complete Accucheck: 109 Critical Care - Subjective Intubation Day: chronic trach, vent Condition: critical FI02: 35 Vent Support Breath Rate: 14 Vent Support Mode: AC Vent Tidal Volume: 600 Sputum Amount: Large PEEP: 5.0 PIP: 26 Tube Feeding Amount: 35 I&O: Intake and Output 03/15/17 03/16/17 19:00 07:00 Intake Total 1737.5 ml 1465 ml Output Total 1100 ml 700 ml Balance 637.5 ml 765 ml Intake Free Water 150 ml 200 ml IV Total 1467.5 ml 880 ml Tube Feeding 60 ml 325 ml Other 60 ml 60 ml Output Urine Total 1100 ml 700 ml CXR: andrew Labs: Laboratory Tests Test 03/16/17 04:00 White Blood Count 18.2 K/UL (4.8-10.8) H Red Blood Count 3.31 M/UL (4.70-6.10) L Hemoglobin 9.8 G/DL (14.2-18.0) L Hematocrit 28.8 % (42.0-52.0) L Mean Corpuscular Volume 87 FL (80-99) Mean Corpuscular Hemoglobin 29.6 PG (27.0-31.0) Mean Corpuscular Hemoglobin Concent 34.0 G/DL (32.0-36.0) Red Cell Distribution Width 17.3 % (11.6-14.8) H Platelet Count 227 K/UL (150-450) Mean Platelet Volume 7.1 FL (6.5-10.1) Neutrophils (%) (Auto) % (45.0-75.0) Lymphocytes (%) (Auto) % (20.0-45.0) Monocytes (%) (Auto) % (1.0-10.0) Eosinophils (%) (Auto) % (0.0-3.0) Basophils (%) (Auto) % (0.0-2.0) Differential Total Cells Counted 100 Neutrophils % (Manual) 78 % (45-75) H Lymphocytes % (Manual) 16 % (20-45) L Monocytes % (Manual) 6 % (1-10) Eosinophils % (Manual) 0 % (0-3) Basophils % (Manual) 0 % (0-2) Band Neutrophils 0 % (0-8) Platelet Estimate Adequate Platelet Morphology Normal Hypochromasia 1+ Anisocytosis 1+ Sodium Level 146 MMOL/L (136-145) H Potassium Level 3.2 MMOL/L (3.5-5.1) L Chloride Level 110 MMOL/L (98-107) H Carbon Dioxide Level 23 MMOL/L (21-32) Anion Gap 13 mmol/L (5-15) Blood Urea Nitrogen 48 mg/dL (7-18) H Creatinine 0.9 MG/DL (0.55-1.30) Estimat Glomerular Filtration Rate mL/min (>60) Glucose Level 112 MG/DL (74-106) H Calcium Level 8.7 MG/DL (8.5-10.1) Phosphorus Level 2.3 MG/DL (2.5-4.9) L Magnesium Level 2.8 MG/DL (1.8-2.4) H Total Bilirubin 0.5 MG/DL (0.2-1.0) Aspartate Amino Transf (AST/SGOT) 26 U/L (15-37) Alanine Aminotransferase (ALT/SGPT) 55 U/L (12-78) Alkaline Phosphatase 84 U/L (46-116) Total Protein 7.0 G/DL (6.4-8.2) Albumin 2.7 G/DL (3.4-5.0) L Globulin 4.3 g/dL Albumin/Globulin Ratio 0.6 (1.0-2.7) L PEDRO LUIS IVEY Mar 16, 2017 13:20
[2017-03-16 16:00] VITALS: BP 135/68
[2017-03-16] MEDS ORDERED: NS 500ML ONE (19:33)
[2017-03-16] MEDS ORDERED: D5 1/2NS 1000ml IV ONE (19:33)
[2017-03-16] MEDS ORDERED: Tubing IV Secondary IV ONE (19:33)
[2017-03-16 20:00] VITALS: BP 150/94
[2017-03-16] MEDS: Dyna-Hex 2% Top Sol 2oz TOPIC SCH (20:09)
[2017-03-17] VITALS: BP 126/93
[2017-03-17] MEDS: dilTIAZem HCl 30mg tab ORAL SCH ×4 (00:38→17:23)
[2017-03-17] MEDS: Cefepime HCl 1 GM in NS 55 ML IVPB SCH ×2 (02:00→13:20)
[2017-03-17 04:00] VITALS: BP 150/90
[2017-03-17 04:48] LABS: HEMOGLOBIN 9.7 G/DL (14.2-18.0); MEAN CORPUSCULAR VOLUME 87 FL (80-99); PLATELET COUNT 231 K/UL (150-450); RED BLOOD COUNT 3.45 M/UL (4.70-6.10); RED CELL DISTRIBUTION WIDTH 17.1 % (11.6-14.8)
[2017-03-17 05:30] LABS: ALANINE AMINOTRANSFERASE 54 U/L (12-78); ALBUMIN 2.6 G/DL (3.4-5.0); ALBUMIN/GLOBULIN RATIO 0.6 (1.0-2.7); ALKALINE PHOSPHATASE 85 U/L (46-116); ANION GAP 9 mmol/L (5-15); ASPARTATE AMINO TRANSFERASE 23 U/L (15-37); BILIRUBIN,TOTAL 0.7 MG/DL (0.2-1.0); BLOOD UREA NITROGEN 27 mg/dL (7-18); CALCIUM 8.6 MG/DL (8.5-10.1); CARBON DIOXIDE 26 MMOL/L (21-32); CHLORIDE 112 MMOL/L (98-107); CREATININE 0.7 MG/DL (0.55-1.30); FERRITIN 622 NG/ML (8-388); PHOSPHORUS 2.1 MG/DL (2.5-4.9); POTASSIUM 3.3 MMOL/L (3.5-5.1); SODIUM 147 MMOL/L (136-145)
[2017-03-17 05:44] LABS: IRON 38 ug/dL (50-175); TOTAL IRON BINDING CAPACITY 169 ug/dL (250-450)
[2017-03-17 05:53] LABS: % IRON SATURATION 22 % (15-50)
[2017-03-17] MEDS: NovoLOG Insulin Flexpen SUBQ SCH ×4 (06:00→17:22)
[2017-03-17] MEDS: Albuterol/Ipratropium 3ml neb HHN SCH ×3 (07:35→23:12)
[2017-03-17 08:44] VITALS: BP 133/73
[2017-03-17] MEDS ORDERED: Amikacin 1,000 MG in NS 110 ML IV SCH (09:00)
--- NOTE | 2017-03-17 10:40 | Pulmonolgy Critical Care Note ---
Critical Care - Asmt/Plan Problems: (1) Acute on chronic respiratory failure (2) Coffee ground emesis (3) Severe sepsis (4) Feeding by G-tube Respiratory: monitor respiratory rate, adjust FIO2, CXR Cardiac: continue to monitor HR/BP Renal: F/U I&O, keep IV fluid, check electrolytes, other - K and phos supplement Infectious Disease: check cultures Gastrointestinal: continue feedings/current rate, hold feedings Endocrine: monitor blood sugar, check TSH, check HgA1C, continue sliding scale insulin Hematologic: transfuse if hgb<8.5 Neurologic: PRN Ativan, PRN Morphine, keep patient comfortable Affect: PRN ativan Prophylaxis: Heparin 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, 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, 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 with: nurses, consultants, 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 case managerranch manager - Objective Last 24 Hour Vital Signs Date Time Temp Pulse Resp B/P (MAP) Pulse Ox O2 Delivery O2 Flow Rate FiO2 03/17/17 08:44 99.5 105 25 133/73 100 Mechanical Ventilator 03/17/17 08:30 85 22 35 03/17/17 07:45 95 22 100 Mechanical Ventilator 35 03/17/17 07:36 99 22 100 Mechanical Ventilator 35 03/17/17 07:36 35 03/17/17 07:35 99 26 35 03/17/17 06:23 96 150/90 03/17/17 04:58 96 27 35 03/17/17 04:00 98.3 70 20 150/90 100 Mechanical Ventilator 35 03/17/17 04:00 118 03/17/17 04:00 35 03/17/17 03:23 76 22 35 03/17/17 00:53 74 24 35 03/17/17 00:38 76 126/93 03/17/17 00:00 120 03/17/17 00:00 98.4 76 25 126/93 100 Mechanical Ventilator 35 03/16/17 23:44 73 23 100 Mechanical Ventilator 35 03/16/17 23:30 35 03/16/17 23:30 78 26 100 Mechanical Ventilator 35 03/16/17 23:26 79 27 35 03/16/17 21:28 73 24 35 03/16/17 20:00 114 03/16/17 20:00 98.5 64 25 150/94 100 Mechanical Ventilator 35 03/16/17 20:00 35 03/16/17 19:20 71 23 35 03/16/17 17:26 79 135/68 03/16/17 16:56 79 19 35 03/16/17 16:00 35 03/16/17 16:00 98.5 105 21 135/68 100 Mechanical Ventilator 35 03/16/17 15:46 116 03/16/17 15:31 79 18 100 Mechanical Ventilator 35 03/16/17 15:24 35 03/16/17 15:24 79 17 35 03/16/17 15:24 79 17 100 Mechanical Ventilator 35 03/16/17 13:11 93 21 35 03/16/17 13:01 96 146/80 03/16/17 12:00 97.9 96 18 146/80 100 Mechanical Ventilator 35 03/16/17 12:00 35 03/16/17 11:43 107 03/16/17 11:19 74 21 35 Status: sedated HEENT: atraumatic Lungs: clear Heart: HR/BP stable, regular Abdomen: non-tender Extremities: edema Decubiti: location Micro: Microbiology Date/Time Source Procedure Growth Status 03/14/17 22:00 Hand Right Gram Stain - Final Resulted 03/14/17 22:00 Wound Culture - Preliminary Proteus Mirabilis Staphylococcus Aureus Resulted Accucheck: 128 Critical Care - Subjective ROS Limited/Unobtainable: Yes Condition: critical EKG Rhythm: Sinus Rhythm FI02: 35 Vent Support Breath Rate: 14 Vent Support Mode: AC Vent Tidal Volume: 600 Sputum Amount: Moderate PEEP: 5.0 PIP: 25 Tube Feeding Amount: 60 I&O: Intake and Output 03/16/17 03/17/17 19:00 07:00 Intake Total 1315.0 ml 395 ml Output Total 850 ml 700 ml Balance 465.0 ml -305 ml Intake Free Water 150 ml 100 ml IV Total 415.0 ml 55 ml Tube Feeding 630 ml 240 ml Other 120 ml Output Urine Total 850 ml 700 ml CXR: no change Labs: Laboratory Tests Test 03/16/17 15:50 03/17/17 04:00 Random Amikacin Level < 2.0 MG/L White Blood Count 18.0 K/UL (4.8-10.8) H Red Blood Count 3.45 M/UL (4.70-6.10) L Hemoglobin 9.7 G/DL (14.2-18.0) L Hematocrit 30.0 % (42.0-52.0) L Mean Corpuscular Volume 87 FL (80-99) Mean Corpuscular Hemoglobin 28.2 PG (27.0-31.0) Mean Corpuscular Hemoglobin Concent 32.4 G/DL (32.0-36.0) Red Cell Distribution Width 17.1 % (11.6-14.8) H Platelet Count 231 K/UL (150-450) Mean Platelet Volume 7.2 FL (6.5-10.1) Neutrophils (%) (Auto) % (45.0-75.0) Lymphocytes (%) (Auto) % (20.0-45.0) Monocytes (%) (Auto) % (1.0-10.0) Eosinophils (%) (Auto) % (0.0-3.0) Basophils (%) (Auto) % (0.0-2.0) Differential Total Cells Counted 100 Neutrophils % (Manual) 81 % (45-75) H Lymphocytes % (Manual) 9 % (20-45) L Monocytes % (Manual) 10 % (1-10) Eosinophils % (Manual) 0 % (0-3) Basophils % (Manual) 0 % (0-2) Band Neutrophils 0 % (0-8) Platelet Estimate Adequate Platelet Morphology Normal Hypochromasia 1+ Anisocytosis 1+ Sodium Level 147 MMOL/L (136-145) H Potassium Level 3.3 MMOL/L (3.5-5.1) L Chloride Level 112 MMOL/L (98-107) H Carbon Dioxide Level 26 MMOL/L (21-32) Anion Gap 9 mmol/L (5-15) Blood Urea Nitrogen 27 mg/dL (7-18) H Creatinine 0.7 MG/DL (0.55-1.30) Estimat Glomerular Filtration Rate mL/min (>60) Glucose Level 132 MG/DL (74-106) H Calcium Level 8.6 MG/DL (8.5-10.1) Phosphorus Level 2.1 MG/DL (2.5-4.9) L Magnesium Level 2.4 MG/DL (1.8-2.4) Iron Level 38 ug/dL (50-175) L Total Iron Binding Capacity 169 ug/dL (250-450) L Percent Iron Saturation 22 % (15-50) Unsaturated Iron Binding 131 ug/dL (112-346) Ferritin 622 NG/ML (8-388) H Total Bilirubin 0.7 MG/DL (0.2-1.0) Aspartate Amino Transf (AST/SGOT) 23 U/L (15-37) Alanine Aminotransferase (ALT/SGPT) 54 U/L (12-78) Alkaline Phosphatase 85 U/L (46-116) C-Reactive Protein, Quantitative 4.1 mg/dL (0.00-0.90) H Pro-B-Type Natriuretic Peptide 771 pg/mL (0-125) H Total Protein 6.7 G/DL (6.4-8.2) Albumin 2.6 G/DL (3.4-5.0) L Globulin 4.1 g/dL Albumin/Globulin Ratio 0.6 (1.0-2.7) L Vitamin B12 Level 1836 PG/ML (193-986) H Folate 18.3 NG/ML (8.6-58.9) PEDRO LUIS IVEY Mar 17, 2017 10:40
[2017-03-17] MEDS ORDERED: Lidocaine 1% Plain 30 ml INJ ONE (11:00)
[2017-03-17] MEDS ORDERED: Heparin 2000 units/Ns 1000ml INJ ONE (11:00)
[2017-03-17] MEDS ORDERED: Potassium Phosphate 30 MM in Sodium Chloride 500ML 550 ML IV ONE (12:00)
[2017-03-17 12:22] VITALS: BP 146/82
[2017-03-17] MEDS ORDERED: Sodium Phosphate 30 MM in NS 275 ML IV ONE (12:45)
--- NOTE | 2017-03-17 13:06 | GI Progress Note ---
Assessment/Plan Problems: (1) Feeding by G-tube ICD Codes: Z93.1 - Feeding by G-tube SNOMED: 365173721 (2) Upper gastrointestinal bleed ICD Codes: K92.2 - Gastrointestinal hemorrhage, unspecified SNOMED: 09191532 (3) Anemia ICD Codes: D64.9 - Anemia SNOMED: 969172484 (4) Coffee ground emesis ICD Codes: K92.0 - Hematemesis SNOMED: 06117774, 788224248 (5) DM (diabetes mellitus) ICD Codes: E11.9 - DM (diabetes mellitus) SNOMED: 33509778 Status: stable, unchanged Status Narrative Discussed with Dr. Watson. Assessment/Plan EGD deferred at this time, Hgb @ baseline. monitor H&H, prn transfusions will replace GT today low dose reglan DM mgmt ppi BID fu labs The patient was seen and examined at bedside and all new and available data was reviewed in the patients chart. I agree with the above findings, impression and plan. (Patient seen earlier today. Signature stamp does not reflect patient encounter time.). - August Watson MD Subjective Subjective limited Objective Last 24 Hour Vital Signs Date Time Temp Pulse Resp B/P (MAP) Pulse Ox O2 Delivery O2 Flow Rate FiO2 03/17/17 12:22 98.9 91 27 146/82 100 Mechanical Ventilator 35 03/17/17 12:19 35 03/17/17 12:01 80 145/73 03/17/17 10:30 80 20 35 03/17/17 08:44 99.5 105 25 133/73 100 Mechanical Ventilator 03/17/17 08:30 85 22 35 03/17/17 08:00 35 03/17/17 07:45 95 22 100 Mechanical Ventilator 35 03/17/17 07:40 131 03/17/17 07:36 99 22 100 Mechanical Ventilator 35 03/17/17 07:36 35 03/17/17 07:35 99 26 35 03/17/17 06:23 96 150/90 03/17/17 04:58 96 27 35 03/17/17 04:00 98.3 70 20 150/90 100 Mechanical Ventilator 35 03/17/17 04:00 118 03/17/17 04:00 35 03/17/17 03:23 76 22 35 03/17/17 00:53 74 24 35 03/17/17 00:38 76 126/93 03/17/17 00:00 120 03/17/17 00:00 98.4 76 25 126/93 100 Mechanical Ventilator 35 03/16/17 23:44 73 23 100 Mechanical Ventilator 35 03/16/17 23:30 35 03/16/17 23:30 78 26 100 Mechanical Ventilator 35 03/16/17 23:26 79 27 35 03/16/17 21:28 73 24 35 03/16/17 20:00 114 03/16/17 20:00 98.5 64 25 150/94 100 Mechanical Ventilator 35 03/16/17 20:00 35 03/16/17 19:20 71 23 35 03/16/17 17:26 79 135/68 03/16/17 16:56 79 19 35 03/16/17 16:00 35 03/16/17 16:00 98.5 105 21 135/68 100 Mechanical Ventilator 35 03/16/17 15:46 116 03/16/17 15:31 79 18 100 Mechanical Ventilator 35 03/16/17 15:24 35 03/16/17 15:24 79 17 35 03/16/17 15:24 79 17 100 Mechanical Ventilator 35 03/16/17 13:11 93 21 35 Intake and Output 03/16/17 03/17/17 19:00 07:00 Intake Total 1315.0 ml 395 ml Output Total 850 ml 700 ml Balance 465.0 ml -305 ml Intake Free Water 150 ml 100 ml IV Total 415.0 ml 55 ml Tube Feeding 630 ml 240 ml Other 120 ml Output Urine Total 850 ml 700 ml Laboratory Tests Test 03/16/17 15:50 03/17/17 04:00 Random Amikacin Level < 2.0 MG/L White Blood Count 18.0 K/UL (4.8-10.8) H Red Blood Count 3.45 M/UL (4.70-6.10) L Hemoglobin 9.7 G/DL (14.2-18.0) L Hematocrit 30.0 % (42.0-52.0) L Mean Corpuscular Volume 87 FL (80-99) Mean Corpuscular Hemoglobin 28.2 PG (27.0-31.0) Mean Corpuscular Hemoglobin Concent 32.4 G/DL (32.0-36.0) Red Cell Distribution Width 17.1 % (11.6-14.8) H Platelet Count 231 K/UL (150-450) Mean Platelet Volume 7.2 FL (6.5-10.1) Neutrophils (%) (Auto) % (45.0-75.0) Lymphocytes (%) (Auto) % (20.0-45.0) Monocytes (%) (Auto) % (1.0-10.0) Eosinophils (%) (Auto) % (0.0-3.0) Basophils (%) (Auto) % (0.0-2.0) Differential Total Cells Counted 100 Neutrophils % (Manual) 81 % (45-75) H Lymphocytes % (Manual) 9 % (20-45) L Monocytes % (Manual) 10 % (1-10) Eosinophils % (Manual) 0 % (0-3) Basophils % (Manual) 0 % (0-2) Band Neutrophils 0 % (0-8) Platelet Estimate Adequate Platelet Morphology Normal Hypochromasia 1+ Anisocytosis 1+ Sodium Level 147 MMOL/L (136-145) H Potassium Level 3.3 MMOL/L (3.5-5.1) L Chloride Level 112 MMOL/L (98-107) H Carbon Dioxide Level 26 MMOL/L (21-32) Anion Gap 9 mmol/L (5-15) Blood Urea Nitrogen 27 mg/dL (7-18) H Creatinine 0.7 MG/DL (0.55-1.30) Estimat Glomerular Filtration Rate mL/min (>60) Glucose Level 132 MG/DL (74-106) H Calcium Level 8.6 MG/DL (8.5-10.1) Phosphorus Level 2.1 MG/DL (2.5-4.9) L Magnesium Level 2.4 MG/DL (1.8-2.4) Iron Level 38 ug/dL (50-175) L Total Iron Binding Capacity 169 ug/dL (250-450) L Percent Iron Saturation 22 % (15-50) Unsaturated Iron Binding 131 ug/dL (112-346) Ferritin 622 NG/ML (8-388) H Total Bilirubin 0.7 MG/DL (0.2-1.0) Aspartate Amino Transf (AST/SGOT) 23 U/L (15-37) Alanine Aminotransferase (ALT/SGPT) 54 U/L (12-78) Alkaline Phosphatase 85 U/L (46-116) C-Reactive Protein, Quantitative 4.1 mg/dL (0.00-0.90) H Pro-B-Type Natriuretic Peptide 771 pg/mL (0-125) H Total Protein 6.7 G/DL (6.4-8.2) Albumin 2.6 G/DL (3.4-5.0) L Globulin 4.1 g/dL Albumin/Globulin Ratio 0.6 (1.0-2.7) L Vitamin B12 Level 1836 PG/ML (193-986) H Folate 18.3 NG/ML (8.6-58.9) Height (Feet): 6 Height (Inches): 0.84 Weight (Pounds): 180 General Appearance: no apparent distress Cardiovascular: normal rate Respiratory/Chest: other - mech vent Abdominal Exam: normal bowel sounds, non tender, soft, GT site - c/d/i Extremities: non-tender Naz Lainez N.Shanita Mar 17, 2017 13:06 GABI WATSON Mar 20, 2017 15:17
[2017-03-17] MEDS: Metoclopramide 10mg/10ml Liq GT SCH ×2 (13:21→21:15)
--- NOTE | 2017-03-17 13:33 | Infectious Diseases Prog Note ---
Assessment/Plan Assessment/Plan Assessment: Sepsis- no evid or UTI UCx : Samira Colonizer R/o PNA Probable Pnum SCx : Staph A and Providencia -CXR No acute process. Findings as noted Leukocytosis- improving possibly multifactorial 2ry to infection and reactive to emesis; mildly improved Recent MDR PsA VAP, s/p rx Scx: MDR- PSA ( S Amikacin) Recent CoNS bacteremia, contaminant ?UGIB History of upper GI bleed in the past History of CVA/TIA Dementia Hypertension COPD Diabetes Anemia Ventilator-dependent respiratory failure Plan: -Continue Cefepime d# 4 and IV Vancomycin d# 1 -- 03/17 SP Amikacin # 4 --2/ SP INH Colistin #7 --03/08 SP IV Amikacin #7 --03/02 SP vancomycin and Zosyn # 7 -Cdiff -f/u cx -Monitor CBC/BMP, temperatures Subjective Constitutional: Denies: no symptoms, fever, chills, fatigue, anorexia, drenching sweats, other Allergies: Coded Allergies: No Known Allergies (Verified , 08/19/07) Objective Vital Signs Last 24 Hour Vital Signs Date Time Temp Pulse Resp B/P (MAP) Pulse Ox O2 Delivery O2 Flow Rate FiO2 03/17/17 12:22 98.9 91 27 146/82 100 Mechanical Ventilator 35 03/17/17 12:19 35 03/17/17 12:01 80 145/73 03/17/17 12:00 130 03/17/17 10:30 80 20 35 03/17/17 08:44 99.5 105 25 133/73 100 Mechanical Ventilator 03/17/17 08:30 85 22 35 03/17/17 08:00 35 03/17/17 07:45 95 22 100 Mechanical Ventilator 35 03/17/17 07:40 131 03/17/17 07:36 99 22 100 Mechanical Ventilator 35 03/17/17 07:36 35 03/17/17 07:35 99 26 35 03/17/17 06:23 96 150/90 03/17/17 04:58 96 27 35 03/17/17 04:00 98.3 70 20 150/90 100 Mechanical Ventilator 35 03/17/17 04:00 118 03/17/17 04:00 35 03/17/17 03:23 76 22 35 03/17/17 00:53 74 24 35 2/9/18 00:38 76 126/93 03/17/17 00:00 120 03/17/17 00:00 98.4 76 25 126/93 100 Mechanical Ventilator 35 03/16/17 23:44 73 23 100 Mechanical Ventilator 35 03/16/17 23:30 35 03/16/17 23:30 78 26 100 Mechanical Ventilator 35 03/16/17 23:26 79 27 35 03/16/17 21:28 73 24 35 03/16/17 20:00 114 03/16/17 20:00 98.5 64 25 150/94 100 Mechanical Ventilator 35 03/16/17 20:00 35 03/16/17 19:20 71 23 35 03/16/17 17:26 79 135/68 03/16/17 16:56 79 19 35 03/16/17 16:00 35 03/16/17 16:00 98.5 105 21 135/68 100 Mechanical Ventilator 35 03/16/17 15:46 116 03/16/17 15:31 79 18 100 Mechanical Ventilator 35 03/16/17 15:24 35 03/16/17 15:24 79 17 35 03/16/17 15:24 79 17 100 Mechanical Ventilator 35 Height (Feet): 6 Height (Inches): 0.84 Weight (Pounds): 180 HEENT: mucous membranes moist Respiratory/Chest: no respiratory distress Cardiovascular: no gallop/murmur Abdomen: no mass Microbiology Date/Time Source Procedure Growth Status 03/14/17 22:00 Hand Right Gram Stain - Final Resulted 03/14/17 22:00 Wound Culture - Preliminary Proteus Mirabilis Staphylococcus Aureus Resulted Laboratory Tests Test 03/16/17 15:50 03/17/17 04:00 Random Amikacin Level < 2.0 MG/L White Blood Count 18.0 K/UL (4.8-10.8) H Red Blood Count 3.45 M/UL (4.70-6.10) L Hemoglobin 9.7 G/DL (14.2-18.0) L Hematocrit 30.0 % (42.0-52.0) L Mean Corpuscular Volume 87 FL (80-99) Mean Corpuscular Hemoglobin 28.2 PG (27.0-31.0) Mean Corpuscular Hemoglobin Concent 32.4 G/DL (32.0-36.0) Red Cell Distribution Width 17.1 % (11.6-14.8) H Platelet Count 231 K/UL (150-450) Mean Platelet Volume 7.2 FL (6.5-10.1) Neutrophils (%) (Auto) % (45.0-75.0) Lymphocytes (%) (Auto) % (20.0-45.0) Monocytes (%) (Auto) % (1.0-10.0) Eosinophils (%) (Auto) % (0.0-3.0) Basophils (%) (Auto) % (0.0-2.0) Differential Total Cells Counted 100 Neutrophils % (Manual) 81 % (45-75) H Lymphocytes % (Manual) 9 % (20-45) L Monocytes % (Manual) 10 % (1-10) Eosinophils % (Manual) 0 % (0-3) Basophils % (Manual) 0 % (0-2) Band Neutrophils 0 % (0-8) Platelet Estimate Adequate Platelet Morphology Normal Hypochromasia 1+ Anisocytosis 1+ Sodium Level 147 MMOL/L (136-145) H Potassium Level 3.3 MMOL/L (3.5-5.1) L Chloride Level 112 MMOL/L (98-107) H Carbon Dioxide Level 26 MMOL/L (21-32) Anion Gap 9 mmol/L (5-15) Blood Urea Nitrogen 27 mg/dL (7-18) H Creatinine 0.7 MG/DL (0.55-1.30) Estimat Glomerular Filtration Rate mL/min (>60) Glucose Level 132 MG/DL (74-106) H Calcium Level 8.6 MG/DL (8.5-10.1) Phosphorus Level 2.1 MG/DL (2.5-4.9) L Magnesium Level 2.4 MG/DL (1.8-2.4) Iron Level 38 ug/dL (50-175) L Total Iron Binding Capacity 169 ug/dL (250-450) L Percent Iron Saturation 22 % (15-50) Unsaturated Iron Binding 131 ug/dL (112-346) Ferritin 622 NG/ML (8-388) H Total Bilirubin 0.7 MG/DL (0.2-1.0) Aspartate Amino Transf (AST/SGOT) 23 U/L (15-37) Alanine Aminotransferase (ALT/SGPT) 54 U/L (12-78) Alkaline Phosphatase 85 U/L (46-116) C-Reactive Protein, Quantitative 4.1 mg/dL (0.00-0.90) H Pro-B-Type Natriuretic Peptide 771 pg/mL (0-125) H Total Protein 6.7 G/DL (6.4-8.2) Albumin 2.6 G/DL (3.4-5.0) L Globulin 4.1 g/dL Albumin/Globulin Ratio 0.6 (1.0-2.7) L Vitamin B12 Level 1836 PG/ML (193-986) H Folate 18.3 NG/ML (8.6-58.9) Current Medications Medications (Trade) Dose Ordered Sig/Jaswant Route PRN Reason Start Time Stop Time Status Last Admin Dose Admin Acetaminophen (Tylenol) 650 mg Q4H PRN ORAL fever 03/14/17 05:15 04/13/17 05:14 03/15/17 10:06 Albuterol/ Ipratropium (Albuterol/ Ipratropium) 3 ml Q8HRT HHN 03/14/17 07:00 03/19/17 06:59 03/17/17 07:35 Amikacin Protocol (Amikacin pharmacy to dose) 1 ea DAILY PRN MISC Per rx protocol 03/14/17 12:15 04/13/17 12:14 Amikacin Sulfate 1000 mg/Sodium Chloride 114 ml @ 114 mls/hr Q36H IV 03/17/17 09:00 03/24/17 08:59 03/17/17 10:28 Cefepime HCl 1 gm/ Sodium Chloride 55 ml @ 110 mls/hr Q12HR@0200,1400 IVPB 03/14/17 14:00 03/21/17 13:59 03/17/17 13:20 Chlorhexidine Gluconate (Arelis-Hex 2%) 1 applic DAILY@2000 TOPIC 03/14/17 20:00 04/13/17 19:59 03/16/17 20:09 Clonidine HCl (Catapres Tab) 0.1 mg Q4H PRN GT For High Blood Pressure>160 03/14/17 05:15 04/13/17 05:14 Dextrose (Dextrose 50%) STAT PRN IV Hypoglycemia 03/14/17 05:15 04/13/17 05:14 Diltiazem HCl (Cardizem) 30 mg Q6HR ORAL 03/15/17 18:00 04/13/17 08:59 03/17/17 12:01 Famotidine (Pepcid) 20 mg BID GT 03/16/17 18:00 04/15/17 17:59 03/16/17 17:24 Insulin Aspart (NovoLOG) EVERY 6 HOURS SUBQ 03/14/17 12:00 04/13/17 06:29 03/17/17 12:02 Metoclopramide HCl (Reglan) 5 mg Q8HR GT 03/17/17 14:00 04/16/17 13:59 03/17/17 13:21 Morphine Sulfate (Morphine Sulfate) 2 mg Q4H PRN IVP severe Pain (Pain Scale 7-10) 03/14/17 05:15 03/21/17 05:14 Nitroglycerin (Ntg) 0.4 mg Q5M X 3 DOSES PRN SL Prn Chest Pain 03/14/17 05:15 04/13/17 05:14 Ondansetron HCl (Zofran) 4 mg Q6H PRN IVP Nausea & Vomiting 03/14/17 05:15 04/13/17 05:14 Polyethylene Glycol (Miralax) 17 gm HSPRN PRN ORAL Constipation 03/14/17 05:15 04/13/17 05:14 Potassium Phosphate 30 mm/ Sodium Chloride 560 ml @ 140 mls/hr ONCE ONCE IV 03/17/17 12:00 03/17/17 15:59 03/17/17 12:01 MARGARETTE BRYANT M.D. Mar 17, 2017 13:32
--- NOTE | 2017-03-17 14:56 | Nephrology Progress Note ---
Assessment/Plan Problem List: (1) Upper gastrointestinal bleed (2) Acute on chronic respiratory failure (3) Acute renal failure (ARF) Assessment acute renal failure , multifactorial: Pre Renal / GI Bleed / Cr and BUN now WNL 1. Sepsis. 2. History of upper GI bleed in the past. 3. History of CVA. 4. History of TIA. 5. Dementia. 6. Hypertension. 7. COPD. 8. Diabetes. 10. Anemia. 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 Plan Plan: DC IV fluids- K Phos IV Zazueta- monitor renal parameters- urine studies per orders Subjective ROS Limited/Unobtainable: Yes Constitutional: Reports: malaise Objective Objective Last 24 Hour Vital Signs Date Time Temp Pulse Resp B/P (MAP) Pulse Ox O2 Delivery O2 Flow Rate FiO2 03/17/17 13:38 84 27 35 03/17/17 12:22 98.9 91 27 146/82 100 Mechanical Ventilator 35 03/17/17 12:19 35 03/17/17 12:01 80 145/73 03/17/17 12:00 130 03/17/17 10:30 80 20 35 03/17/17 08:44 99.5 105 25 133/73 100 Mechanical Ventilator 03/17/17 08:30 85 22 35 03/17/17 08:00 35 03/17/17 07:45 95 22 100 Mechanical Ventilator 35 03/17/17 07:40 131 03/17/17 07:36 99 22 100 Mechanical Ventilator 35 03/17/17 07:36 35 03/17/17 07:35 99 26 35 03/17/17 06:23 96 150/90 03/17/17 04:58 96 27 35 03/17/17 04:00 98.3 70 20 150/90 100 Mechanical Ventilator 35 03/17/17 04:00 118 03/17/17 04:00 35 03/17/17 03:23 76 22 35 03/17/17 00:53 74 24 35 03/17/17 00:38 76 126/93 03/17/17 00:00 120 03/17/17 00:00 98.4 76 25 126/93 100 Mechanical Ventilator 35 03/16/17 23:44 73 23 100 Mechanical Ventilator 35 03/16/17 23:30 35 03/16/17 23:30 78 26 100 Mechanical Ventilator 35 03/16/17 23:26 79 27 35 03/16/17 21:28 73 24 35 03/16/17 20:00 114 03/16/17 20:00 98.5 64 25 150/94 100 Mechanical Ventilator 35 03/16/17 20:00 35 03/16/17 19:20 71 23 35 03/16/17 17:26 79 135/68 03/16/17 16:56 79 19 35 03/16/17 16:00 35 03/16/17 16:00 98.5 105 21 135/68 100 Mechanical Ventilator 35 03/16/17 15:46 116 03/16/17 15:31 79 18 100 Mechanical Ventilator 35 03/16/17 15:24 35 03/16/17 15:24 79 17 35 03/16/17 15:24 79 17 100 Mechanical Ventilator 35 Intake and Output 03/16/17 03/17/17 19:00 07:00 Intake Total 1315.0 ml 395 ml Output Total 850 ml 700 ml Balance 465.0 ml -305 ml Intake Free Water 150 ml 100 ml IV Total 415.0 ml 55 ml Tube Feeding 630 ml 240 ml Other 120 ml Output Urine Total 850 ml 700 ml Laboratory Tests 03/16/17 15:50: Random Amikacin Level < 2.0 03/17/17 04:00: White Blood Count 18.0H, Red Blood Count 3.45L, Hemoglobin 9.7L, Hematocrit 30.0L, Mean Corpuscular Volume 87, Mean Corpuscular Hemoglobin 28.2, Mean Corpuscular Hemoglobin Concent 32.4, Red Cell Distribution Width 17.1H, Platelet Count 231, Mean Platelet Volume 7.2, Neutrophils (%) (Auto) , Lymphocytes (%) (Auto) , Monocytes (%) (Auto) , Eosinophils (%) (Auto) , Basophils (%) (Auto) , Differential Total Cells Counted 100, Neutrophils % ( Manual) 81H, Lymphocytes % (Manual) 9L, Monocytes % (Manual) 10, Eosinophils % ( Manual) 0, Basophils % (Manual) 0, Band Neutrophils 0, Platelet Estimate Adequate, Platelet Morphology Normal, Hypochromasia 1+, Anisocytosis 1+, Sodium Level 147H, Potassium Level 3.3L, Chloride Level 112H, Carbon Dioxide Level 26, Anion Gap 9, Blood Urea Nitrogen 27H, Creatinine 0.7, Estimat Glomerular Filtration Rate , Glucose Level 132H, Calcium Level 8.6, Phosphorus Level 2.1L, Magnesium Level 2.4, Iron Level 38L, Total Iron Binding Capacity 169L, Percent Iron Saturation 22, Unsaturated Iron Binding 131, Ferritin 622H, Total Bilirubin 0.7, Aspartate Amino Transf (AST/SGOT) 23, Alanine Aminotransferase ( ALT/SGPT) 54, Alkaline Phosphatase 85, C-Reactive Protein, Quantitative 4.1H, Pro-B-Type Natriuretic Peptide 771H, Total Protein 6.7, Albumin 2.6L, Globulin 4.1, Albumin/Globulin Ratio 0.6L, Vitamin B12 Level 1836H, Folate 18.3 Height (Feet): 6 Height (Inches): 0.84 Weight (Pounds): 180 General Appearance: no apparent distress, lethargic Cardiovascular: other - variable rate Respiratory/Chest: decreased breath sounds Abdomen: soft Objective no other changes JACI VALLEJO Mar 17, 2017 14:56
[2017-03-17] MEDS ORDERED: Vancomycin 1.5 GM/D5W 250ML IVPB ONE (15:30)
[2017-03-17 16:00] VITALS: BP_SYST 146; BP_SYST 153; BP_DIAS 82; BP_DIAS 95
--- NOTE | 2017-03-17 16:30 | Diagnostic Imaging Report ---
Indication: Needs central IV access Technique: Procedure performed at bedside. Procedural timeout performed. Ultrasound confirms patent compressible right internal jugular vein. Total sterile technique, including sterile probe cover and sterile gel, sterile gloves, hand hygiene, hat, mask, sterile gown, large sterile drape, and preparation with 2% chlorhexidine utilized.Local anesthesia with 1% lidocaine. Under real-time ultrasound guidance, puncture right internal jugular vein using 21-gauge micropuncture needle, passage 0.018 guidewire, insertion 4 Estonian micropuncture introducer, passage 0.035 guidewire, over which was passed serial dilators and then a right transjugular central venous catheter, inserted to 17 cm. Completion chest radiograph obtained, demonstrating catheter tip position at cavoatrial junction. Impression: Successful placement of right jugular central venous catheter, as described.
[2017-03-17] MEDS ORDERED: Dyna-Hex 2% Top Sol 2oz TOPIC SCH (20:00)
[2017-03-17 20:45] VITALS: BP 143/59
[2017-03-17] MEDS: Dyna-Hex 2% Top Sol 2oz TOPIC SCH (21:15)
[2017-03-18] VITALS: BP 143/77
[2017-03-18] MEDS: dilTIAZem HCl 30mg tab ORAL SCH ×5 (00:19→22:56)
[2017-03-18] MEDS: Cefepime HCl 1 GM in NS 55 ML IVPB SCH ×2 (01:43→13:56)
[2017-03-18] MEDS: Vancomycin 1gm/D5W 275ml IVPB SCH ×4 (03:17→15:10)
[2017-03-18 04:00] VITALS: BP 148/60
[2017-03-18 04:32] LABS: BASOPHILS % (AUTO) 0.1 % (0.0-2.0); EOSINOPHILS % (AUTO) 0.3 % (0.0-3.0); HEMATOCRIT 28.3 % (42.0-52.0); HEMOGLOBIN 9.2 G/DL (14.2-18.0); LYMPHOCYTES % (AUTO) 10.9 % (20.0-45.0); MEAN CORPUSCULAR VOLUME 89 FL (80-99); MONOCYTES % (AUTO) 6.4 % (1.0-10.0); NEUTROPHILS % (AUTO) 82.3 % (45.0-75.0); PLATELET COUNT 207 K/UL (150-450); RED BLOOD COUNT 3.19 M/UL (4.70-6.10); RED CELL DISTRIBUTION WIDTH 17.1 % (11.6-14.8)
[2017-03-18 05:01] LABS: ANION GAP 11 mmol/L (5-15); BLOOD UREA NITROGEN 17 mg/dL (7-18); CALCIUM 8.4 MG/DL (8.5-10.1); CARBON DIOXIDE 24 MMOL/L (21-32); CHLORIDE 113 MMOL/L (98-107); CREATININE 0.6 MG/DL (0.55-1.30); PHOSPHORUS 2.8 MG/DL (2.5-4.9); POTASSIUM 3.1 MMOL/L (3.5-5.1); SODIUM 148 MMOL/L (136-145)
[2017-03-18] MEDS: Metoclopramide 10mg/10ml Liq GT SCH ×3 (06:07→22:54)
[2017-03-18] MEDS: NovoLOG Insulin Flexpen SUBQ SCH ×4 (06:11→18:16)
[2017-03-18] MEDS: Albuterol/Ipratropium 3ml neb HHN SCH ×3 (07:33→22:37)
--- NOTE | 2017-03-18 07:55 | Pulmonolgy Critical Care Note ---
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 with: consultants, rn case managementprograms manager - Objective Last 24 Hour Vital Signs Date Time Temp Pulse Resp B/P (MAP) Pulse Ox O2 Delivery O2 Flow Rate FiO2 03/18/17 07:33 69 14 100 Mechanical Ventilator 35 03/18/17 06:08 110 143/68 03/18/17 05:30 78 20 35 03/18/17 04:00 35 03/18/17 04:00 97.2 105 20 148/60 100 Mechanical Ventilator 35 03/18/17 04:00 115 03/18/17 03:08 74 22 35 03/18/17 00:45 62 20 35 03/18/17 00:19 110 147/77 03/18/17 00:00 117 03/18/17 00:00 35 03/18/17 00:00 98.1 110 20 143/77 100 Mechanical Ventilator 35 03/17/17 23:22 91 19 100 Mechanical Ventilator 35 03/17/17 23:13 85 15 100 Mechanical Ventilator 35 03/17/17 23:13 85 15 35 03/17/17 23:13 35 03/17/17 21:05 64 14 35 03/17/17 20:46 35 03/17/17 20:45 98.0 61 16 143/59 100 Mechanical Ventilator 35 03/17/17 20:00 88 03/17/17 19:14 69 22 35 03/17/17 17:23 68 146/82 03/17/17 16:38 68 20 35 03/17/17 16:02 35 03/17/17 16:00 110 03/17/17 16:00 98.6 105 28 153/95 100 Mechanical Ventilator 35 03/17/17 15:44 78 14 100 Mechanical Ventilator 35 03/17/17 15:33 75 14 100 Mechanical Ventilator 35 03/17/17 15:33 35 03/17/17 15:30 75 14 35 03/17/17 13:38 84 27 35 03/17/17 12:22 98.9 91 27 146/82 100 Mechanical Ventilator 35 03/17/17 12:19 35 03/17/17 12:01 80 145/73 03/17/17 12:00 130 03/17/17 10:30 80 20 35 03/17/17 08:44 99.5 105 25 133/73 100 Mechanical Ventilator 03/17/17 08:30 85 22 35 03/17/17 08:00 35 Status: somnolent Condition: critical HEENT: atraumatic Neck: full ROM Heart: HR/BP stable Abdomen: non-tender, active bowel sounds Extremities: no C/C/E Accucheck: 119 Critical Care - Subjective ROS Limited/Unobtainable: Yes Condition: critical EKG Rhythm: Sinus Rhythm FI02: 35 Vent Support Breath Rate: 14 Vent Support Mode: AC Vent Tidal Volume: 600 Sputum Amount: Moderate PEEP: 5.0 PIP: 25 Tube Feeding Amount: 60 I&O: Intake and Output 03/17/17 03/18/17 19:00 07:00 Intake Total 725 ml 330.0 ml Output Total 550 ml 650 ml Balance 175 ml -320.0 ml IV Total 725 ml 330.0 ml Output Urine Total 550 ml 650 ml # Bowel Movements 1 CXR: no change Labs: Laboratory Tests Test 03/18/17 03:20 White Blood Count 14.0 K/UL (4.8-10.8) H Red Blood Count 3.19 M/UL (4.70-6.10) L Hemoglobin 9.2 G/DL (14.2-18.0) L Hematocrit 28.3 % (42.0-52.0) L Mean Corpuscular Volume 89 FL (80-99) Mean Corpuscular Hemoglobin 28.7 PG (27.0-31.0) Mean Corpuscular Hemoglobin Concent 32.3 G/DL (32.0-36.0) Red Cell Distribution Width 17.1 % (11.6-14.8) H Platelet Count 207 K/UL (150-450) Mean Platelet Volume 7.3 FL (6.5-10.1) Neutrophils (%) (Auto) 82.3 % (45.0-75.0) H Lymphocytes (%) (Auto) 10.9 % (20.0-45.0) L Monocytes (%) (Auto) 6.4 % (1.0-10.0) Eosinophils (%) (Auto) 0.3 % (0.0-3.0) Basophils (%) (Auto) 0.1 % (0.0-2.0) Sodium Level 148 MMOL/L (136-145) H Potassium Level 3.1 MMOL/L (3.5-5.1) L Chloride Level 113 MMOL/L (98-107) H Carbon Dioxide Level 24 MMOL/L (21-32) Anion Gap 11 mmol/L (5-15) Blood Urea Nitrogen 17 mg/dL (7-18) Creatinine 0.6 MG/DL (0.55-1.30) Estimat Glomerular Filtration Rate mL/min (>60) Glucose Level 108 MG/DL (74-106) H Calcium Level 8.4 MG/DL (8.5-10.1) L Phosphorus Level 2.8 MG/DL (2.5-4.9) Magnesium Level 2.1 MG/DL (1.8-2.4) PEDRO LUIS IVEY Mar 18, 2017 07:55
[2017-03-18 08:00] VITALS: BP 143/76
--- NOTE | 2017-03-18 11:33 | Nephrology Progress Note ---
Assessment/Plan Problem List: (1) Upper gastrointestinal bleed (2) Acute on chronic respiratory failure (3) Acute renal failure (ARF) Assessment acute renal failure , multifactorial: RESOLVED Pre Renal / GI Bleed / Cr and BUN now WNL 1. Sepsis. 2. History of upper GI bleed in the past. 3. History of CVA. 4. History of TIA. 5. Dementia. 6. Hypertension. 7. COPD. 8. Diabetes. 10. Anemia. 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 Plan Plan: DC IV fluids- K Phos IV Zazueta- monitor renal parameters- urine studies per orders Subjective ROS Limited/Unobtainable: No Constitutional: Reports: malaise Objective Objective Last 24 Hour Vital Signs Date Time Temp Pulse Resp B/P (MAP) Pulse Ox O2 Delivery O2 Flow Rate FiO2 03/18/17 10:37 60 25 35 03/18/17 08:34 65 16 35 03/18/17 08:00 98.1 75 22 143/76 100 Mechanical Ventilator 35 03/18/17 07:54 137 03/18/17 07:43 35 03/18/17 07:43 69 14 100 Mechanical Ventilator 35 03/18/17 07:33 69 14 100 Mechanical Ventilator 35 03/18/17 06:41 62 22 35 03/18/17 06:08 110 143/68 03/18/17 05:30 78 20 35 03/18/17 04:00 35 03/18/17 04:00 97.2 105 20 148/60 100 Mechanical Ventilator 35 03/18/17 04:00 115 03/18/17 03:08 74 22 35 03/18/17 00:45 62 20 35 03/18/17 00:19 110 147/77 03/18/17 00:00 117 03/18/17 00:00 35 03/18/17 00:00 98.1 110 20 143/77 100 Mechanical Ventilator 35 03/17/17 23:22 91 19 100 Mechanical Ventilator 35 03/17/17 23:13 85 15 100 Mechanical Ventilator 35 03/17/17 23:13 85 15 35 03/17/17 23:13 35 03/17/17 21:05 64 14 35 03/17/17 20:46 35 03/17/17 20:45 98.0 61 16 143/59 100 Mechanical Ventilator 35 03/17/17 20:00 88 03/17/17 19:14 69 22 35 03/17/17 17:23 68 146/82 03/17/17 16:38 68 20 35 03/17/17 16:02 35 03/17/17 16:00 110 03/17/17 16:00 98.6 105 28 153/95 100 Mechanical Ventilator 35 03/17/17 15:44 78 14 100 Mechanical Ventilator 35 03/17/17 15:33 75 14 100 Mechanical Ventilator 35 03/17/17 15:33 35 03/17/17 15:30 75 14 35 03/17/17 13:38 84 27 35 03/17/17 12:22 98.9 91 27 146/82 100 Mechanical Ventilator 35 03/17/17 12:19 35 03/17/17 12:01 80 145/73 03/17/17 12:00 130 Intake and Output 03/17/17 03/18/17 19:00 07:00 Intake Total 725 ml 330.0 ml Output Total 550 ml 650 ml Balance 175 ml -320.0 ml IV Total 725 ml 330.0 ml Output Urine Total 550 ml 650 ml # Bowel Movements 1 Laboratory Tests 03/18/17 03:20: White Blood Count 14.0H, Red Blood Count 3.19L, Hemoglobin 9.2L, Hematocrit 28.3L, Mean Corpuscular Volume 89, Mean Corpuscular Hemoglobin 28.7, Mean Corpuscular Hemoglobin Concent 32.3, Red Cell Distribution Width 17.1H, Platelet Count 207, Mean Platelet Volume 7.3, Neutrophils (%) (Auto) 82.3H, Lymphocytes (%) (Auto) 10.9L, Monocytes (%) (Auto) 6.4, Eosinophils (%) (Auto) 0.3, Basophils (%) (Auto) 0.1, Sodium Level 148H, Potassium Level 3.1L, Chloride Level 113H, Carbon Dioxide Level 24, Anion Gap 11, Blood Urea Nitrogen 17, Creatinine 0.6, Estimat Glomerular Filtration Rate , Glucose Level 108H, Calcium Level 8.4L, Phosphorus Level 2.8, Magnesium Level 2.1 Height (Feet): 6 Height (Inches): 0.84 Weight (Pounds): 180 General Appearance: no apparent distress Objective no other changes JACI VALLEJO Mar 18, 2017 11:33
[2017-03-18 12:00] VITALS: BP 158/79
[2017-03-18] MEDS ORDERED: Potassium Chloride 30 MEQ in Sodium Chloride 500ML 550 ML IVPB ONE (12:00)
[2017-03-18 16:00] VITALS: BP 148/89
--- NOTE | 2017-03-18 16:33 | General Progress Note ---
Assessment/Plan Assessment/Plan (1) Feeding by G-tube--> GT drainage and abd distention ICD Codes: Z93.1 - Feeding by G-tube SNOMED: 102361870 (2) Upper gastrointestinal bleed ICD Codes: K92.2 - Gastrointestinal hemorrhage, unspecified SNOMED: 67651738 (3) Anemia ICD Codes: D64.9 - Anemia SNOMED: 467828135 (4) Coffee ground emesis ICD Codes: K92.0 - Hematemesis SNOMED: 17989030, 813124629 (5) DM (diabetes mellitus) ICD Codes: E11.9 - DM (diabetes mellitus) SNOMED: 57690474 Status: stable, unchanged Assessment/Plan CT scan abd/pelvis low dose reglan DM mgmt ppi BID fu labs Subjective Allergies: Coded Allergies: No Known Allergies (Verified , 08/19/07) Subjective RN reports GT leak and abd distention patient non verbal on vent Objective Last 24 Hour Vital Signs Date Time Temp Pulse Resp B/P (MAP) Pulse Ox O2 Delivery O2 Flow Rate FiO2 03/18/17 16:13 96 17 100 Mechanical Ventilator 35 03/18/17 16:13 35 03/18/17 16:09 76 14 35 03/18/17 16:06 91 14 100 Mechanical Ventilator 35 03/18/17 12:46 70 23 35 03/18/17 12:27 60 143/76 03/18/17 12:00 35 03/18/17 10:37 60 25 35 03/18/17 08:34 65 16 35 03/18/17 08:00 98.1 75 22 143/76 100 Mechanical Ventilator 35 03/18/17 08:00 35 03/18/17 07:54 137 03/18/17 07:43 35 03/18/17 07:43 69 14 100 Mechanical Ventilator 35 03/18/17 07:33 69 14 100 Mechanical Ventilator 35 03/18/17 06:41 62 22 35 03/18/17 06:08 110 143/68 03/18/17 05:30 78 20 35 03/18/17 04:00 35 03/18/17 04:00 97.2 105 20 148/60 100 Mechanical Ventilator 35 03/18/17 04:00 115 03/18/17 03:08 74 22 35 03/18/17 00:45 62 20 35 03/18/17 00:19 110 147/77 2/10/18 00:00 117 03/18/17 00:00 35 03/18/17 00:00 98.1 110 20 143/77 100 Mechanical Ventilator 35 03/17/17 23:22 91 19 100 Mechanical Ventilator 35 03/17/17 23:13 85 15 100 Mechanical Ventilator 35 03/17/17 23:13 85 15 35 03/17/17 23:13 35 03/17/17 21:05 64 14 35 03/17/17 20:46 35 03/17/17 20:45 98.0 61 16 143/59 100 Mechanical Ventilator 35 03/17/17 20:00 88 03/17/17 19:14 69 22 35 03/17/17 17:23 68 146/82 03/17/17 16:38 68 20 35 Intake and Output 03/17/17 03/18/17 19:00 07:00 Intake Total 725 ml 330.0 ml Output Total 550 ml 650 ml Balance 175 ml -320.0 ml IV Total 725 ml 330.0 ml Output Urine Total 550 ml 650 ml # Bowel Movements 1 Laboratory Tests 03/18/17 03:20: White Blood Count 14.0H, Red Blood Count 3.19L, Hemoglobin 9.2L, Hematocrit 28.3L, Mean Corpuscular Volume 89, Mean Corpuscular Hemoglobin 28.7, Mean Corpuscular Hemoglobin Concent 32.3, Red Cell Distribution Width 17.1H, Platelet Count 207, Mean Platelet Volume 7.3, Neutrophils (%) (Auto) 82.3H, Lymphocytes (%) (Auto) 10.9L, Monocytes (%) (Auto) 6.4, Eosinophils (%) (Auto) 0.3, Basophils (%) (Auto) 0.1, Sodium Level 148H, Potassium Level 3.1L, Chloride Level 113H, Carbon Dioxide Level 24, Anion Gap 11, Blood Urea Nitrogen 17, Creatinine 0.6, Estimat Glomerular Filtration Rate , Glucose Level 108H, Calcium Level 8.4L, Phosphorus Level 2.8, Magnesium Level 2.1 Height (Feet): 6 Height (Inches): 0.84 Weight (Pounds): 180 Objective WDWN NCAT s/p trach coarse BS RR abd distended, (+) GT leak contracted OBS NICOLLE PHELPS Mar 18, 2017 16:33
[2017-03-18] MEDS ORDERED: NS 275ml ONE (16:42)
[2017-03-18] MEDS ORDERED: 1/2 NS 1000ml IV ONE (16:42)
[2017-03-18] MEDS ORDERED: Tubing IV Secondary IV ONE (16:42)
[2017-03-18 20:00] VITALS: BP 150/81
[2017-03-18] MEDS: Dyna-Hex 2% Top Sol 2oz TOPIC SCH (21:17)
[2017-03-19] VITALS: BP 131/58
[2017-03-19] MEDS: Cefepime HCl 1 GM in NS 55 ML IVPB SCH ×2 (02:01→14:20)
[2017-03-19] MEDS: Vancomycin 1gm/D5W 275ml IVPB SCH ×2 (03:14)
[2017-03-19 04:00] VITALS: BP 152/78
[2017-03-19] MEDS: Metoclopramide 10mg/10ml Liq GT SCH ×3 (04:47→21:16)
[2017-03-19] MEDS: dilTIAZem HCl 30mg tab ORAL SCH ×4 (04:47→23:13)
[2017-03-19 05:25] LABS: BASOPHILS % (AUTO) 0.2 % (0.0-2.0); EOSINOPHILS % (AUTO) 0.9 % (0.0-3.0); HEMATOCRIT 27.7 % (42.0-52.0); HEMOGLOBIN 9.1 G/DL (14.2-18.0); LYMPHOCYTES % (AUTO) 11.8 % (20.0-45.0); MEAN CORPUSCULAR VOLUME 89 FL (80-99); MONOCYTES % (AUTO) 6.7 % (1.0-10.0); NEUTROPHILS % (AUTO) 80.3 % (45.0-75.0); PLATELET COUNT 175 K/UL (150-450); RED BLOOD COUNT 3.12 M/UL (4.70-6.10); RED CELL DISTRIBUTION WIDTH 17.6 % (11.6-14.8); WHITE BLOOD COUNT 13.9 K/UL (4.8-10.8)
[2017-03-19 05:53] LABS: ALANINE AMINOTRANSFERASE 49 U/L (12-78); ALBUMIN 2.6 G/DL (3.4-5.0); ALBUMIN/GLOBULIN RATIO 0.6 (1.0-2.7); ALKALINE PHOSPHATASE 81 U/L (46-116); ANION GAP 8 mmol/L (5-15); ASPARTATE AMINO TRANSFERASE 25 U/L (15-37); BILIRUBIN,TOTAL 0.6 MG/DL (0.2-1.0); BLOOD UREA NITROGEN 12 mg/dL (7-18); CALCIUM 8.5 MG/DL (8.5-10.1); CARBON DIOXIDE 25 MMOL/L (21-32); CHLORIDE 113 MMOL/L (98-107); CREATININE 0.7 MG/DL (0.55-1.30); PHOSPHORUS 2.5 MG/DL (2.5-4.9); POTASSIUM 3.4 MMOL/L (3.5-5.1); SODIUM 146 MMOL/L (136-145)
[2017-03-19] MEDS: NovoLOG Insulin Flexpen SUBQ SCH ×5 (06:00→23:11)
--- NOTE | 2017-03-19 07:50 | Pulmonolgy Critical Care Note ---
Critical Care - Asmt/Plan Problems: (1) Acute on chronic respiratory failure (2) Coffee ground emesis (3) Severe sepsis (4) Bacteremia (5) DM (diabetes mellitus) (6) Feeding by G-tube Respiratory: monitor respiratory rate, adjust FIO2, CXR Cardiac: continue to monitor HR/BP Renal: F/U I&O, keep IV fluid, check electrolytes Infectious Disease: check cultures Gastrointestinal: continue feedings/current rate Endocrine: monitor blood sugar, check TSH Hematologic: transfuse if hgb<8.5 Neurologic: PRN Morphine, keep patient comfortable Prophylaxis: Protonix Notes Reviewed: ID Discussed with: nurses, consultants Critical Care - Objective Last 24 Hour Vital Signs Date Time Temp Pulse Resp B/P (MAP) Pulse Ox O2 Delivery O2 Flow Rate FiO2 03/19/17 05:27 73 20 35 03/19/17 04:47 101 152/78 03/19/17 04:00 35 03/19/17 04:00 98.0 101 22 152/78 100 Mechanical Ventilator 35 03/19/17 04:00 106 03/19/17 03:25 88 19 35 03/19/17 01:26 83 14 35 03/19/17 00:00 97.7 89 19 131/58 100 Mechanical Ventilator 35 03/19/17 00:00 35 03/19/17 00:00 100 03/18/17 22:56 105 150/81 03/18/17 22:45 105 16 100 Mechanical Ventilator 35 03/18/17 22:37 102 25 100 Mechanical Ventilator 35 03/18/17 22:37 35 03/18/17 22:35 102 25 35 03/18/17 21:06 71 25 35 03/18/17 20:00 105 03/18/17 20:00 98.1 60 14 150/81 100 Mechanical Ventilator 35 03/18/17 20:00 35 03/18/17 19:36 93 20 35 03/18/17 18:31 101 03/18/17 18:14 83 148/89 03/18/17 16:59 83 25 35 03/18/17 16:13 96 17 100 Mechanical Ventilator 35 03/18/17 16:13 35 03/18/17 16:09 76 14 35 03/18/17 16:06 91 14 100 Mechanical Ventilator 35 03/18/17 16:00 35 03/18/17 16:00 97.9 95 14 148/89 100 Mechanical Ventilator 35 03/18/17 12:46 70 23 35 03/18/17 12:27 60 143/76 03/18/17 12:00 112 03/18/17 12:00 98.1 62 14 158/79 100 Mechanical Ventilator 35 03/18/17 12:00 35 03/18/17 10:37 60 25 35 03/18/17 08:34 65 16 35 03/18/17 08:00 98.1 75 22 143/76 100 Mechanical Ventilator 35 03/18/17 08:00 35 03/18/17 07:54 137 Status: somnolent Condition: critical HEENT: atraumatic Lungs: chest wall tender Heart: HR/BP stable, regular Abdomen: non-tender, feeding tube Extremities: edema Accucheck: 108 Critical Care - Subjective ICU Day: 5 Intubation Day: trach Condition: critical, improving FI02: 35 Vent Support Breath Rate: 14 Vent Support Mode: AC Vent Tidal Volume: 600 Sputum Amount: Moderate PEEP: 5.0 PIP: 34 Tube Feeding Amount: 30 I&O: Intake and Output 03/18/17 03/19/17 19:00 07:00 Intake Total 960.000 ml 470 ml Output Total 400 ml 1000 ml Balance 560.000 ml -530 ml Intake Free Water 270 ml IV Total 330.000 ml 330 ml Tube Feeding 60 ml 140 ml Other 300 ml Output Urine Total 400 ml 1000 ml CXR: no change Labs: Laboratory Tests Test 03/19/17 03:30 White Blood Count 13.9 K/UL (4.8-10.8) H Red Blood Count 3.12 M/UL (4.70-6.10) L Hemoglobin 9.1 G/DL (14.2-18.0) L Hematocrit 27.7 % (42.0-52.0) L Mean Corpuscular Volume 89 FL (80-99) Mean Corpuscular Hemoglobin 29.1 PG (27.0-31.0) Mean Corpuscular Hemoglobin Concent 32.7 G/DL (32.0-36.0) Red Cell Distribution Width 17.6 % (11.6-14.8) H Platelet Count 175 K/UL (150-450) Mean Platelet Volume 7.6 FL (6.5-10.1) Neutrophils (%) (Auto) 80.3 % (45.0-75.0) H Lymphocytes (%) (Auto) 11.8 % (20.0-45.0) L Monocytes (%) (Auto) 6.7 % (1.0-10.0) Eosinophils (%) (Auto) 0.9 % (0.0-3.0) Basophils (%) (Auto) 0.2 % (0.0-2.0) Sodium Level 146 MMOL/L (136-145) H Potassium Level 3.4 MMOL/L (3.5-5.1) L Chloride Level 113 MMOL/L (98-107) H Carbon Dioxide Level 25 MMOL/L (21-32) Anion Gap 8 mmol/L (5-15) Blood Urea Nitrogen 12 mg/dL (7-18) Creatinine 0.7 MG/DL (0.55-1.30) Estimat Glomerular Filtration Rate mL/min (>60) Glucose Level 93 MG/DL (74-106) Calcium Level 8.5 MG/DL (8.5-10.1) Phosphorus Level 2.5 MG/DL (2.5-4.9) Magnesium Level 2.0 MG/DL (1.8-2.4) Total Bilirubin 0.6 MG/DL (0.2-1.0) Aspartate Amino Transf (AST/SGOT) 25 U/L (15-37) Alanine Aminotransferase (ALT/SGPT) 49 U/L (12-78) Alkaline Phosphatase 81 U/L (46-116) Total Protein 6.7 G/DL (6.4-8.2) Albumin 2.6 G/DL (3.4-5.0) L Globulin 4.1 g/dL Albumin/Globulin Ratio 0.6 (1.0-2.7) L PEDRO LUIS IVEY Mar 19, 2017 07:50
[2017-03-19 08:00] VITALS: BP 149/94
--- NOTE | 2017-03-19 10:50 | Nephrology Progress Note ---
Assessment/Plan Problem List: (1) Upper gastrointestinal bleed (2) Acute on chronic respiratory failure (3) Acute renal failure (ARF) Assessment acute renal failure , multifactorial: RESOLVED Pre Renal / GI Bleed / Cr and BUN now WNL 1. Sepsis. 2. History of upper GI bleed in the past. 3. History of CVA. 4. History of TIA. 5. Dementia. 6. Hypertension. 7. COPD. 8. Diabetes. 10. Anemia. 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 Plan Plan: DC IV fluids- K as needed Zazueta- monitor renal parameters- urine studies per orders Subjective ROS Limited/Unobtainable: Yes Objective Objective Last 24 Hour Vital Signs Date Time Temp Pulse Resp B/P (MAP) Pulse Ox O2 Delivery O2 Flow Rate FiO2 03/19/17 09:22 70 22 35 03/19/17 08:00 111 03/19/17 08:00 35 03/19/17 08:00 97.7 68 22 149/94 100 Mechanical Ventilator 35 03/19/17 07:56 58 20 35 03/19/17 05:27 73 20 35 03/19/17 04:47 101 152/78 03/19/17 04:00 35 03/19/17 04:00 98.0 101 22 152/78 100 Mechanical Ventilator 35 03/19/17 04:00 106 03/19/17 03:25 88 19 35 03/19/17 01:26 83 14 35 03/19/17 00:00 97.7 89 19 131/58 100 Mechanical Ventilator 35 03/19/17 00:00 35 03/19/17 00:00 100 03/18/17 22:56 105 150/81 03/18/17 22:45 105 16 100 Mechanical Ventilator 35 03/18/17 22:37 102 25 100 Mechanical Ventilator 35 03/18/17 22:37 35 03/18/17 22:35 102 25 35 03/18/17 21:06 71 25 35 03/18/17 20:00 105 03/18/17 20:00 98.1 60 14 150/81 100 Mechanical Ventilator 35 03/18/17 20:00 35 03/18/17 19:36 93 20 35 03/18/17 18:31 101 03/18/17 18:14 83 148/89 03/18/17 16:59 83 25 35 03/18/17 16:13 96 17 100 Mechanical Ventilator 35 03/18/17 16:13 35 03/18/17 16:09 76 14 35 03/18/17 16:06 91 14 100 Mechanical Ventilator 35 03/18/17 16:00 35 03/18/17 16:00 97.9 95 14 148/89 100 Mechanical Ventilator 35 03/18/17 12:46 70 23 35 03/18/17 12:27 60 143/76 03/18/17 12:00 112 03/18/17 12:00 98.1 62 14 158/79 100 Mechanical Ventilator 35 03/18/17 12:00 35 Intake and Output 03/18/17 03/19/17 19:00 07:00 Intake Total 960.000 ml 470 ml Output Total 400 ml 1000 ml Balance 560.000 ml -530 ml Intake Free Water 270 ml IV Total 330.000 ml 330 ml Tube Feeding 60 ml 140 ml Other 300 ml Output Urine Total 400 ml 1000 ml Laboratory Tests 03/19/17 03:30: White Blood Count 13.9H, Red Blood Count 3.12L, Hemoglobin 9.1L, Hematocrit 27.7L, Mean Corpuscular Volume 89, Mean Corpuscular Hemoglobin 29.1, Mean Corpuscular Hemoglobin Concent 32.7, Red Cell Distribution Width 17.6H, Platelet Count 175, Mean Platelet Volume 7.6, Neutrophils (%) (Auto) 80.3H, Lymphocytes (%) (Auto) 11.8L, Monocytes (%) (Auto) 6.7, Eosinophils (%) (Auto) 0.9, Basophils (%) (Auto) 0.2, Sodium Level 146H, Potassium Level 3.4L, Chloride Level 113H, Carbon Dioxide Level 25, Anion Gap 8, Blood Urea Nitrogen 12, Creatinine 0.7, Estimat Glomerular Filtration Rate , Glucose Level 93, Calcium Level 8.5, Phosphorus Level 2.5, Magnesium Level 2.0, Total Bilirubin 0.6, Aspartate Amino Transf (AST/SGOT) 25, Alanine Aminotransferase (ALT/SGPT) 49, Alkaline Phosphatase 81, Total Protein 6.7, Albumin 2.6L, Globulin 4.1, Albumin/Globulin Ratio 0.6L Height (Feet): 6 Height (Inches): 0.84 Weight (Pounds): 195 General Appearance: no apparent distress, lethargic Cardiovascular: other - variable rate Respiratory/Chest: decreased breath sounds Abdomen: soft Objective no other changes JACI VALLEJO Mar 19, 2017 10:50
--- NOTE | 2017-03-19 11:33 | Infectious Diseases Prog Note ---
Assessment/Plan Assessment/Plan 6 Assessment: Blood cx : GPR : m/l contaminant Sepsis, SP no evid or UTI UCx : Samira Colonizer Probable Pnum SCx : Staph A and Providencia -CXR No acute process. Findings as noted Leukocytosis- improving possibly multifactorial 2ry to infection and reactive to emesis; mildly improved Wnd Cx: MRSA, ESBL P. mirabilis ( colonizer ) Recent MDR PsA VAP, s/p rx Scx: MDR- PSA ( S Amikacin) Recent CoNS bacteremia, contaminant ?UGIB History of upper GI bleed in the past History of CVA/TIA Dementia Hypertension COPD Diabetes Anemia Ventilator-dependent respiratory failure Plan: -Continue Cefepime d# 6 / 7-10 and IV Vancomycin d# 3 / i14 -- 03/17 SP Amikacin # 4 --03/09 SP INH Colistin #7 --03/08 SP IV Amikacin #7 --03/02 SP vancomycin and Zosyn # 7 -f/u cx ( bl ) -Monitor CBC/BMP, temperatures Subjective Constitutional: Denies: no symptoms, fever, chills, fatigue, anorexia, drenching sweats, other Allergies: Coded Allergies: No Known Allergies (Verified , 08/19/07) Objective Vital Signs Last 24 Hour Vital Signs Date Time Temp Pulse Resp B/P (MAP) Pulse Ox O2 Delivery O2 Flow Rate FiO2 03/19/17 11:22 66 22 35 03/19/17 09:22 70 22 35 03/19/17 08:00 111 03/19/17 08:00 35 03/19/17 08:00 97.7 68 22 149/94 100 Mechanical Ventilator 35 03/19/17 07:56 58 20 35 03/19/17 05:27 73 20 35 03/19/17 04:47 101 152/78 03/19/17 04:00 35 03/19/17 04:00 98.0 101 22 152/78 100 Mechanical Ventilator 35 03/19/17 04:00 106 03/19/17 03:25 88 19 35 03/19/17 01:26 83 14 35 03/19/17 00:00 97.7 89 19 131/58 100 Mechanical Ventilator 35 03/19/17 00:00 35 03/19/17 00:00 100 03/18/17 22:56 105 150/81 03/18/17 22:45 105 16 100 Mechanical Ventilator 35 03/18/17 22:37 102 25 100 Mechanical Ventilator 35 03/18/17 22:37 35 03/18/17 22:35 102 25 35 03/18/17 21:06 71 25 35 03/18/17 20:00 105 03/18/17 20:00 98.1 60 14 150/81 100 Mechanical Ventilator 35 03/18/17 20:00 35 03/18/17 19:36 93 20 35 03/18/17 18:31 101 03/18/17 18:14 83 148/89 03/18/17 16:59 83 25 35 03/18/17 16:13 96 17 100 Mechanical Ventilator 35 03/18/17 16:13 35 03/18/17 16:09 76 14 35 03/18/17 16:06 91 14 100 Mechanical Ventilator 35 03/18/17 16:00 35 03/18/17 16:00 97.9 95 14 148/89 100 Mechanical Ventilator 35 03/18/17 12:46 70 23 35 03/18/17 12:27 60 143/76 03/18/17 12:00 112 03/18/17 12:00 98.1 62 14 158/79 100 Mechanical Ventilator 35 03/18/17 12:00 35 Height (Feet): 6 Height (Inches): 0.84 Weight (Pounds): 195 HEENT: mucous membranes moist Respiratory/Chest: no accessory muscle use Cardiovascular: regular rhythm Abdomen: no organomegaly Laboratory Tests Test 03/19/17 03:30 White Blood Count 13.9 K/UL (4.8-10.8) H Red Blood Count 3.12 M/UL (4.70-6.10) L Hemoglobin 9.1 G/DL (14.2-18.0) L Hematocrit 27.7 % (42.0-52.0) L Mean Corpuscular Volume 89 FL (80-99) Mean Corpuscular Hemoglobin 29.1 PG (27.0-31.0) Mean Corpuscular Hemoglobin Concent 32.7 G/DL (32.0-36.0) Red Cell Distribution Width 17.6 % (11.6-14.8) H Platelet Count 175 K/UL (150-450) Mean Platelet Volume 7.6 FL (6.5-10.1) Neutrophils (%) (Auto) 80.3 % (45.0-75.0) H Lymphocytes (%) (Auto) 11.8 % (20.0-45.0) L Monocytes (%) (Auto) 6.7 % (1.0-10.0) Eosinophils (%) (Auto) 0.9 % (0.0-3.0) Basophils (%) (Auto) 0.2 % (0.0-2.0) Sodium Level 146 MMOL/L (136-145) H Potassium Level 3.4 MMOL/L (3.5-5.1) L Chloride Level 113 MMOL/L (98-107) H Carbon Dioxide Level 25 MMOL/L (21-32) Anion Gap 8 mmol/L (5-15) Blood Urea Nitrogen 12 mg/dL (7-18) Creatinine 0.7 MG/DL (0.55-1.30) Estimat Glomerular Filtration Rate mL/min (>60) Glucose Level 93 MG/DL (74-106) Calcium Level 8.5 MG/DL (8.5-10.1) Phosphorus Level 2.5 MG/DL (2.5-4.9) Magnesium Level 2.0 MG/DL (1.8-2.4) Total Bilirubin 0.6 MG/DL (0.2-1.0) Aspartate Amino Transf (AST/SGOT) 25 U/L (15-37) Alanine Aminotransferase (ALT/SGPT) 49 U/L (12-78) Alkaline Phosphatase 81 U/L (46-116) Total Protein 6.7 G/DL (6.4-8.2) Albumin 2.6 G/DL (3.4-5.0) L Globulin 4.1 g/dL Albumin/Globulin Ratio 0.6 (1.0-2.7) L Current Medications Medications (Trade) Dose Ordered Sig/Jaswant Route PRN Reason Start Time Stop Time Status Last Admin Dose Admin Acetaminophen (Tylenol) 650 mg Q4H PRN ORAL fever 03/14/17 05:15 04/13/17 05:14 03/15/17 10:06 Cefepime HCl 1 gm/ Sodium Chloride 55 ml @ 110 mls/hr Q12HR@0200,1400 IVPB 03/14/17 14:00 03/21/17 13:59 03/19/17 02:01 Chlorhexidine Gluconate (Arelis-Hex 2%) 1 applic DAILY@2000 TOPIC 03/17/17 22:00 04/16/17 21:59 03/18/17 21:17 Clonidine HCl (Catapres Tab) 0.1 mg Q4H PRN GT For High Blood Pressure>160 03/14/17 05:15 04/13/17 05:14 Dextrose (Dextrose 50%) STAT PRN IV Hypoglycemia 03/14/17 05:15 04/13/17 05:14 03/18/17 21:44 Diltiazem HCl (Cardizem) 30 mg Q6HR ORAL 03/15/17 18:00 04/13/17 08:59 03/19/17 04:47 Famotidine (Pepcid) 20 mg BID GT 03/16/17 18:00 04/15/17 17:59 03/19/17 08:17 Insulin Aspart (NovoLOG) EVERY 6 HOURS SUBQ 03/14/17 12:00 04/13/17 06:29 03/18/17 18:16 Metoclopramide HCl (Reglan) 5 mg Q8HR GT 03/17/17 14:00 04/16/17 13:59 03/19/17 04:47 Morphine Sulfate (Morphine Sulfate) 2 mg Q4H PRN IVP severe Pain (Pain Scale 7-10) 03/14/17 05:15 03/21/17 05:14 Nitroglycerin (Ntg) 0.4 mg Q5M X 3 DOSES PRN SL Prn Chest Pain 03/14/17 05:15 04/13/17 05:14 Ondansetron HCl (Zofran) 4 mg Q6H PRN IVP Nausea & Vomiting 03/14/17 05:15 04/13/17 05:14 Polyethylene Glycol (Miralax) 17 gm HSPRN PRN ORAL Constipation 03/14/17 05:15 04/13/17 05:14 Vancomycin HCl (Vanco rx to dose) 1 ea DAILY PRN MISC Per rx protocol 03/17/17 14:00 04/16/17 13:59 Vancomycin HCl 1 gm/Dextrose 275 ml @ 183.708 mls/hr Q12H IVPB 03/18/17 03:00 03/23/17 02:59 03/19/17 03:14 MARGARETTE BRYANT M.D. Mar 19, 2017 11:33
[2017-03-19 12:00] VITALS: BP 139/80
--- NOTE | 2017-03-19 13:43 | Diagnostic Imaging Report ---
Indication: Abdominal distention Technique: CT of the abdomen and pelvis utilizing automated exposure control without intravenous or oral contrast. CT dose: Total DLP 1064.84 mGycm; CTDI vol 19.95 mGy Comparison: 04/28/2014 Findings: Please note that evaluation of the abdominal and pelvic viscera is limited without the use of intravenous and oral contrast. Within these limitations, the following observations are made: There is a calcified granuloma in the right lower lobe. There is a 5 mm nodular density in the medial left lower lobe which may be related to atelectasis versus pulmonary nodule. There is dependent bibasilar atelectasis. Heart is borderline enlarged. There is no pericardial effusion. Coronary arterial calcifications noted. Central venous catheter has its tip in the lower SVC. Noncontrast evaluation of the liver, gallbladder, spleen, adrenal glands grossly unremarkable. An accessory splenule is noted inferior to the spleen. There is mild fatty atrophy of the pancreas, likely age related. Kidneys are symmetric in size. Probable left renal cyst and possible mild atrophy bilaterally. No urinary tract stones or hydronephrosis noted bilaterally. Bladder is decompressed by Zazueta catheter. There is no free intraperitoneal air. Percutaneous gastrostomy tube is noted in place. There is no evidence of bowel obstruction. There is distention of the rectum with stool and some rectal wall thickening with possible presacral stranding. Moderate stool noted throughout the colon. Abdominal aorta is normal in caliber with moderate atherosclerotic calcification. No bulky lymphadenopathy is appreciated. Mild to moderate compression deformity of the L2 vertebral body new from the prior exam. There is some sclerosis at the superior endplate and minimal retropulsion. Additional compression deformities stable from the prior exam. The patient is again noted to be status post right total hip replacement. IMPRESSION: * No evidence of small bowel obstruction. * Stool throughout the colon with moderate stool expanding the rectum. There may be possible rectal wall thickening. And possible presacral inflammatory change. Correlate clinically to assess for fecal impaction. * 5 mm ill-defined nodule in the left lower lobe. * Bibasilar opacities possibly atelectasis, mild airspace disease not excluded. * Mild to moderate compression deformity of the L2 vertebral body, new compared to the prior exam. Acuity is indeterminate. Consider MRI for further evaluation. Additional findings as above. This corresponds with the statrad preliminary report. The CT scanner at [facility] is accredited by the [employer] and the scans are performed using protocols designed to limit radiation exposure to as low as reasonably achievable to attain images of sufficient resolution adequate for diagnostic evaluation.
[2017-03-19] MEDS: Vancomycin 1250mg/D5W 250ml 250 ML IVPB SCH (15:27)
[2017-03-19 16:00] VITALS: BP 115/71
[2017-03-19] MEDS ORDERED: NS 500ML ONE (16:34)
--- NOTE | 2017-03-19 18:47 | General Progress Note ---
Assessment/Plan Assessment/Plan (1) Feeding by G-tube--> GT drainage and abd distention ICD Codes: Z93.1 - Feeding by G-tube SNOMED: 250117336 (2) Upper gastrointestinal bleed ICD Codes: K92.2 - Gastrointestinal hemorrhage, unspecified SNOMED: 49077775 (3) Anemia ICD Codes: D64.9 - Anemia SNOMED: 629854550 (4) Coffee ground emesis ICD Codes: K92.0 - Hematemesis SNOMED: 48362709, 568562543 (5) DM (diabetes mellitus) ICD Codes: E11.9 - DM (diabetes mellitus) SNOMED: 44233473 Status: stable, unchanged Assessment/Plan CT scan abd/pelvis --> constipated --> Rx laxative low dose reglan DM mgmt ppi BID fu labs Subjective Allergies: Coded Allergies: No Known Allergies (Verified , 08/19/07) Subjective Tolerating TF patient non verbal on vent Objective Last 24 Hour Vital Signs Date Time Temp Pulse Resp B/P (MAP) Pulse Ox O2 Delivery O2 Flow Rate FiO2 03/19/17 17:28 86 21 35 03/19/17 17:17 76 115/71 03/19/17 16:00 35 03/19/17 16:00 97.9 104 16 115/71 100 Mechanical Ventilator 35 03/19/17 16:00 107 03/19/17 15:41 83 21 35 03/19/17 12:50 76 21 35 03/19/17 12:03 70 139/80 03/19/17 12:00 97.9 70 20 139/80 100 Mechanical Ventilator 35 03/19/17 12:00 106 03/19/17 12:00 35 03/19/17 11:22 66 22 35 03/19/17 09:22 70 22 35 03/19/17 08:00 111 03/19/17 08:00 35 03/19/17 08:00 97.7 68 22 149/94 100 Mechanical Ventilator 35 03/19/17 07:56 58 20 35 03/19/17 05:27 73 20 35 03/19/17 04:47 101 152/78 03/19/17 04:00 35 03/19/17 04:00 98.0 101 22 152/78 100 Mechanical Ventilator 35 03/19/17 04:00 106 03/19/17 03:25 88 19 35 03/19/17 01:26 83 14 35 03/19/17 00:00 97.7 89 19 131/58 100 Mechanical Ventilator 35 03/19/17 00:00 35 03/19/17 00:00 100 03/18/17 22:56 105 150/81 03/18/17 22:45 105 16 100 Mechanical Ventilator 35 03/18/17 22:37 102 25 100 Mechanical Ventilator 35 03/18/17 22:37 35 03/18/17 22:35 102 25 35 03/18/17 21:06 71 25 35 03/18/17 20:00 105 03/18/17 20:00 98.1 60 14 150/81 100 Mechanical Ventilator 35 03/18/17 20:00 35 03/18/17 19:36 93 20 35 Intake and Output 03/18/17 03/19/17 19:00 07:00 Intake Total 960.000 ml 470 ml Output Total 400 ml 1000 ml Balance 560.000 ml -530 ml Intake Free Water 270 ml IV Total 330.000 ml 330 ml Tube Feeding 60 ml 140 ml Other 300 ml Output Urine Total 400 ml 1000 ml Laboratory Tests 03/19/17 03:30: White Blood Count 13.9H, Red Blood Count 3.12L, Hemoglobin 9.1L, Hematocrit 27.7L, Mean Corpuscular Volume 89, Mean Corpuscular Hemoglobin 29.1, Mean Corpuscular Hemoglobin Concent 32.7, Red Cell Distribution Width 17.6H, Platelet Count 175, Mean Platelet Volume 7.6, Neutrophils (%) (Auto) 80.3H, Lymphocytes (%) (Auto) 11.8L, Monocytes (%) (Auto) 6.7, Eosinophils (%) (Auto) 0.9, Basophils (%) (Auto) 0.2, Sodium Level 146H, Potassium Level 3.4L, Chloride Level 113H, Carbon Dioxide Level 25, Anion Gap 8, Blood Urea Nitrogen 12, Creatinine 0.7, Estimat Glomerular Filtration Rate , Glucose Level 93, Calcium Level 8.5, Phosphorus Level 2.5, Magnesium Level 2.0, Total Bilirubin 0.6, Aspartate Amino Transf (AST/SGOT) 25, Alanine Aminotransferase (ALT/SGPT) 49, Alkaline Phosphatase 81, Total Protein 6.7, Albumin 2.6L, Globulin 4.1, Albumin/Globulin Ratio 0.6L 03/19/17 14:00: Vancomycin Level Trough 23.6H Height (Feet): 6 Height (Inches): 0.84 Weight (Pounds): 195 Objective WDWN NCAT s/p trach coarse BS RR abd distended, (+) GT contracted OBS NICOLLE PHELPS Mar 19, 2017 18:46
[2017-03-19] MEDS ORDERED: Sorbitol Solution UD 30ml ORAL ONE (19:00)
[2017-03-19 20:00] VITALS: BP 143/77
[2017-03-19] MEDS: Dyna-Hex 2% Top Sol 2oz TOPIC SCH (21:16)
[2017-03-20] VITALS: BP 144/71
[2017-03-20] MEDS: Cefepime HCl 1 GM in NS 55 ML IVPB SCH ×2 (02:06→13:43)
[2017-03-20 04:00] VITALS: BP 133/66
[2017-03-20 04:13] LABS: BASOPHILS % (AUTO) 0.3 % (0.0-2.0); EOSINOPHILS % (AUTO) 1.1 % (0.0-3.0); HEMOGLOBIN 9.4 G/DL (14.2-18.0); LYMPHOCYTES % (AUTO) 12.3 % (20.0-45.0); MEAN CORPUSCULAR VOLUME 89 FL (80-99); MONOCYTES % (AUTO) 6.2 % (1.0-10.0); NEUTROPHILS % (AUTO) 80.1 % (45.0-75.0); PLATELET COUNT 194 K/UL (150-450); RED BLOOD COUNT 3.24 M/UL (4.70-6.10); WHITE BLOOD COUNT 14.6 K/UL (4.8-10.8)
[2017-03-20 04:43] LABS: ALANINE AMINOTRANSFERASE 49 U/L (12-78); ALBUMIN 2.6 G/DL (3.4-5.0); ALBUMIN/GLOBULIN RATIO 0.6 (1.0-2.7); ALKALINE PHOSPHATASE 88 U/L (46-116); ANION GAP 9 mmol/L (5-15); ASPARTATE AMINO TRANSFERASE 22 U/L (15-37); BILIRUBIN,TOTAL 0.5 MG/DL (0.2-1.0); BLOOD UREA NITROGEN 13 mg/dL (7-18); CALCIUM 8.8 MG/DL (8.5-10.1); CARBON DIOXIDE 25 MMOL/L (21-32); CHLORIDE 113 MMOL/L (98-107); CREATININE 0.8 MG/DL (0.55-1.30); PHOSPHORUS 2.8 MG/DL (2.5-4.9); POTASSIUM 3.6 MMOL/L (3.5-5.1); SODIUM 147 MMOL/L (136-145)
[2017-03-20] MEDS: dilTIAZem HCl 30mg tab ORAL SCH ×3 (05:45→17:12)
[2017-03-20] MEDS: Metoclopramide 10mg/10ml Liq GT SCH (05:45)
[2017-03-20] MEDS: NovoLOG Insulin Flexpen SUBQ SCH ×3 (05:46→17:12)
[2017-03-20 08:00] VITALS: BP 140/67
[2017-03-20] MEDS ORDERED: Tubing IV Secondary IV ONE (10:07)
--- NOTE | 2017-03-20 10:34 | Pulmonolgy Critical Care Note ---
Critical Care - Asmt/Plan Problems: (1) Acute on chronic respiratory failure (2) Coffee ground emesis (3) Severe sepsis (4) Bacteremia (5) DM (diabetes mellitus) (6) Feeding by G-tube Respiratory: monitor respiratory rate, adjust FIO2 Cardiac: continue pressors, continue to monitor HR/BP Renal: F/U I&O, keep IV fluid Infectious Disease: check cultures Gastrointestinal: continue feedings/current rate Endocrine: monitor blood sugar, check HgA1C, continue sliding scale insulin Hematologic: transfuse if hgb<8.5 Neurologic: PRN Ativan, keep patient comfortable Affect: PRN ativan Prophylaxis: Protonix Disposition: keep in ICU 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, 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 with: nurses, consultants, 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 - Objective Last 24 Hour Vital Signs Date Time Temp Pulse Resp B/P (MAP) Pulse Ox O2 Delivery O2 Flow Rate FiO2 03/20/17 09:00 98.8 03/20/17 08:46 62 18 35 03/20/17 08:00 99.7 100 22 140/67 100 Mechanical Ventilator 35 03/20/17 08:00 35 03/20/17 08:00 101 03/20/17 06:44 58 25 35 03/20/17 06:00 101 25 35 03/20/17 05:45 87 133/66 03/20/17 04:00 99.0 87 18 133/66 100 Mechanical Ventilator 35 03/20/17 04:00 35 03/20/17 04:00 111 03/20/17 03:03 87 20 35 03/20/17 01:41 83 14 35 03/20/17 00:00 35 03/20/17 00:00 110 03/20/17 00:00 98.0 98 23 144/71 100 Mechanical Ventilator 35 03/19/17 23:32 80 24 35 03/19/17 23:13 76 143/77 03/19/17 21:07 76 22 35 03/19/17 20:00 98.8 74 19 143/77 100 Mechanical Ventilator 35 03/19/17 20:00 90 03/19/17 20:00 35 03/19/17 19:10 75 24 35 03/19/17 17:28 86 21 35 03/19/17 17:17 76 115/71 03/19/17 16:00 35 03/19/17 16:00 97.9 104 16 115/71 100 Mechanical Ventilator 35 03/19/17 16:00 107 03/19/17 15:41 83 21 35 03/19/17 12:50 76 21 35 03/19/17 12:03 70 139/80 03/19/17 12:00 97.9 70 20 139/80 100 Mechanical Ventilator 35 03/19/17 12:00 106 03/19/17 12:00 35 03/19/17 11:22 66 22 35 Status: sedated Condition: critical HEENT: atraumatic, normocephalic Lungs: clear Heart: HR/BP stable, regular Abdomen: soft, active bowel sounds Extremities: no C/C/E, edema Decubiti: location Accucheck: 90 Critical Care - Subjective ROS Limited/Unobtainable: No Intubation Day: chronic trach Interval Events: looks comfortable, open eyes, Condition: critical EKG Rhythm: Sinus Rhythm FI02: 35 Vent Support Breath Rate: 14 Vent Support Mode: AC Vent Tidal Volume: 600 Sputum Amount: Scant PEEP: 5.0 PIP: 31 Tube Feeding Amount: 20 I&O: Intake and Output 03/19/17 03/20/17 19:00 07:00 Intake Total 750.000 ml 145 ml Output Total 300 ml 200 ml Balance 450.000 ml -55 ml IV Total 305.000 ml 55 ml Tube Feeding 410 ml 40 ml Other 35 ml 50 ml Output Urine Total 300 ml 200 ml # Bowel Movements 2 CXR: trach intact, no new infiltrate Labs: Laboratory Tests Test 03/19/17 14:00 03/20/17 03:10 Vancomycin Level Trough 23.6 ug/mL (5.0-12.0) H White Blood Count 14.6 K/UL (4.8-10.8) H Red Blood Count 3.24 M/UL (4.70-6.10) L Hemoglobin 9.4 G/DL (14.2-18.0) L Hematocrit 29.0 % (42.0-52.0) L Mean Corpuscular Volume 89 FL (80-99) Mean Corpuscular Hemoglobin 29.0 PG (27.0-31.0) Mean Corpuscular Hemoglobin Concent 32.5 G/DL (32.0-36.0) Red Cell Distribution Width 17.0 % (11.6-14.8) H Platelet Count 194 K/UL (150-450) Mean Platelet Volume 7.7 FL (6.5-10.1) Neutrophils (%) (Auto) 80.1 % (45.0-75.0) H Lymphocytes (%) (Auto) 12.3 % (20.0-45.0) L Monocytes (%) (Auto) 6.2 % (1.0-10.0) Eosinophils (%) (Auto) 1.1 % (0.0-3.0) Basophils (%) (Auto) 0.3 % (0.0-2.0) Sodium Level 147 MMOL/L (136-145) H Potassium Level 3.6 MMOL/L (3.5-5.1) Chloride Level 113 MMOL/L (98-107) H Carbon Dioxide Level 25 MMOL/L (21-32) Anion Gap 9 mmol/L (5-15) Blood Urea Nitrogen 13 mg/dL (7-18) Creatinine 0.8 MG/DL (0.55-1.30) Estimat Glomerular Filtration Rate mL/min (>60) Glucose Level 101 MG/DL (74-106) Calcium Level 8.8 MG/DL (8.5-10.1) Phosphorus Level 2.8 MG/DL (2.5-4.9) Magnesium Level 2.0 MG/DL (1.8-2.4) Total Bilirubin 0.5 MG/DL (0.2-1.0) Aspartate Amino Transf (AST/SGOT) 22 U/L (15-37) Alanine Aminotransferase (ALT/SGPT) 49 U/L (12-78) Alkaline Phosphatase 88 U/L (46-116) Total Protein 6.9 G/DL (6.4-8.2) Albumin 2.6 G/DL (3.4-5.0) L Globulin 4.3 g/dL Albumin/Globulin Ratio 0.6 (1.0-2.7) L PEDRO LUIS IVEY Mar 20, 2017 10:34
--- NOTE | 2017-03-20 11:11 | GI Progress Note ---
Assessment/Plan Problems: (1) Feeding by G-tube ICD Codes: Z93.1 - Feeding by G-tube SNOMED: 407671970 (2) Upper gastrointestinal bleed ICD Codes: K92.2 - Gastrointestinal hemorrhage, unspecified SNOMED: 14717639 (3) Anemia ICD Codes: D64.9 - Anemia SNOMED: 462977222 (4) Coffee ground emesis ICD Codes: K92.0 - Hematemesis SNOMED: 37752428, 005223274 (5) DM (diabetes mellitus) ICD Codes: E11.9 - DM (diabetes mellitus) SNOMED: 50202675 Status: unchanged Status Narrative Discussed with Dr. Watson. Assessment/Plan CT scan abd/pelvis --> constipated --> Rx laxative cont low dose reglan GT >> reglan IV & erythromycin IV are both backordered. DM mgmt ppi BID bowel regime >> colace + miralax, mineral oil GT x 1 fu labs Subjective Subjective limited Objective Last 24 Hour Vital Signs Date Time Temp Pulse Resp B/P (MAP) Pulse Ox O2 Delivery O2 Flow Rate FiO2 03/20/17 09:00 98.8 03/20/17 08:46 62 18 35 03/20/17 08:00 99.7 100 22 140/67 100 Mechanical Ventilator 35 03/20/17 08:00 35 03/20/17 08:00 101 03/20/17 06:44 58 25 35 03/20/17 06:00 101 25 35 03/20/17 05:45 87 133/66 03/20/17 04:00 99.0 87 18 133/66 100 Mechanical Ventilator 35 03/20/17 04:00 35 03/20/17 04:00 111 03/20/17 03:03 87 20 35 03/20/17 01:41 83 14 35 03/20/17 00:00 35 03/20/17 00:00 110 03/20/17 00:00 98.0 98 23 144/71 100 Mechanical Ventilator 35 03/19/17 23:32 80 24 35 03/19/17 23:13 76 143/77 03/19/17 21:07 76 22 35 03/19/17 20:00 98.8 74 19 143/77 100 Mechanical Ventilator 35 03/19/17 20:00 90 03/19/17 20:00 35 03/19/17 19:10 75 24 35 03/19/17 17:28 86 21 35 03/19/17 17:17 76 115/71 03/19/17 16:00 35 03/19/17 16:00 97.9 104 16 115/71 100 Mechanical Ventilator 35 03/19/17 16:00 107 03/19/17 15:41 83 21 35 03/19/17 12:50 76 21 35 03/19/17 12:03 70 139/80 03/19/17 12:00 97.9 70 20 139/80 100 Mechanical Ventilator 35 03/19/17 12:00 106 03/19/17 12:00 35 03/19/17 11:22 66 22 35 Intake and Output 03/19/17 03/20/17 19:00 07:00 Intake Total 750.000 ml 145 ml Output Total 300 ml 200 ml Balance 450.000 ml -55 ml IV Total 305.000 ml 55 ml Tube Feeding 410 ml 40 ml Other 35 ml 50 ml Output Urine Total 300 ml 200 ml # Bowel Movements 2 Laboratory Tests Test 03/19/17 14:00 03/20/17 03:10 Vancomycin Level Trough 23.6 ug/mL (5.0-12.0) H White Blood Count 14.6 K/UL (4.8-10.8) H Red Blood Count 3.24 M/UL (4.70-6.10) L Hemoglobin 9.4 G/DL (14.2-18.0) L Hematocrit 29.0 % (42.0-52.0) L Mean Corpuscular Volume 89 FL (80-99) Mean Corpuscular Hemoglobin 29.0 PG (27.0-31.0) Mean Corpuscular Hemoglobin Concent 32.5 G/DL (32.0-36.0) Red Cell Distribution Width 17.0 % (11.6-14.8) H Platelet Count 194 K/UL (150-450) Mean Platelet Volume 7.7 FL (6.5-10.1) Neutrophils (%) (Auto) 80.1 % (45.0-75.0) H Lymphocytes (%) (Auto) 12.3 % (20.0-45.0) L Monocytes (%) (Auto) 6.2 % (1.0-10.0) Eosinophils (%) (Auto) 1.1 % (0.0-3.0) Basophils (%) (Auto) 0.3 % (0.0-2.0) Sodium Level 147 MMOL/L (136-145) H Potassium Level 3.6 MMOL/L (3.5-5.1) Chloride Level 113 MMOL/L (98-107) H Carbon Dioxide Level 25 MMOL/L (21-32) Anion Gap 9 mmol/L (5-15) Blood Urea Nitrogen 13 mg/dL (7-18) Creatinine 0.8 MG/DL (0.55-1.30) Estimat Glomerular Filtration Rate mL/min (>60) Glucose Level 101 MG/DL (74-106) Calcium Level 8.8 MG/DL (8.5-10.1) Phosphorus Level 2.8 MG/DL (2.5-4.9) Magnesium Level 2.0 MG/DL (1.8-2.4) Total Bilirubin 0.5 MG/DL (0.2-1.0) Aspartate Amino Transf (AST/SGOT) 22 U/L (15-37) Alanine Aminotransferase (ALT/SGPT) 49 U/L (12-78) Alkaline Phosphatase 88 U/L (46-116) Total Protein 6.9 G/DL (6.4-8.2) Albumin 2.6 G/DL (3.4-5.0) L Globulin 4.3 g/dL Albumin/Globulin Ratio 0.6 (1.0-2.7) L Height (Feet): 6 Height (Inches): 0.84 Weight (Pounds): 195 General Appearance: lethargic Cardiovascular: normal rate Respiratory/Chest: other - mech vent Abdominal Exam: GT site - c/d/i Naz Lainez N.P. Mar 20, 2017 11:11
--- NOTE | 2017-03-20 11:17 | Diagnostic Imaging Report ---
Indication: Dyspnea Comparison: 03/14/2017 A single view chest radiograph was obtained. Findings: Heart size is normal. Lung volumes are low bilaterally. Tracheostomy is present. Right jugular line is present with the tip projected over the right atrium. IMPRESSION: No acute findings
--- NOTE | 2017-03-20 11:22 | Nephrology Progress Note ---
Assessment/Plan Problem List: (1) Upper gastrointestinal bleed (2) Acute on chronic respiratory failure (3) Acute renal failure (ARF) Assessment acute renal failure , multifactorial: RESOLVED Pre Renal / GI Bleed / Cr and BUN now WNL 1. Sepsis. 2. History of upper GI bleed in the past. 3. History of CVA. 4. History of TIA. 5. Dementia. 6. Hypertension. 7. COPD. 8. Diabetes. 10. Anemia. 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 Plan Plan: DC IV fluids- K as needed Zazueta- monitor renal parameters- urine studies per orders Subjective ROS Limited/Unobtainable: No Constitutional: Reports: malaise Objective Objective Last 24 Hour Vital Signs Date Time Temp Pulse Resp B/P (MAP) Pulse Ox O2 Delivery O2 Flow Rate FiO2 03/20/17 09:00 98.8 03/20/17 08:46 62 18 35 03/20/17 08:00 99.7 100 22 140/67 100 Mechanical Ventilator 35 03/20/17 08:00 35 03/20/17 08:00 101 03/20/17 06:44 58 25 35 03/20/17 06:00 101 25 35 03/20/17 05:45 87 133/66 03/20/17 04:00 99.0 87 18 133/66 100 Mechanical Ventilator 35 03/20/17 04:00 35 03/20/17 04:00 111 03/20/17 03:03 87 20 35 03/20/17 01:41 83 14 35 03/20/17 00:00 35 03/20/17 00:00 110 03/20/17 00:00 98.0 98 23 144/71 100 Mechanical Ventilator 35 03/19/17 23:32 80 24 35 03/19/17 23:13 76 143/77 03/19/17 21:07 76 22 35 03/19/17 20:00 98.8 74 19 143/77 100 Mechanical Ventilator 35 03/19/17 20:00 90 03/19/17 20:00 35 03/19/17 19:10 75 24 35 03/19/17 17:28 86 21 35 03/19/17 17:17 76 115/71 03/19/17 16:00 35 03/19/17 16:00 97.9 104 16 115/71 100 Mechanical Ventilator 35 03/19/17 16:00 107 03/19/17 15:41 83 21 35 03/19/17 12:50 76 21 35 03/19/17 12:03 70 139/80 03/19/17 12:00 97.9 70 20 139/80 100 Mechanical Ventilator 35 03/19/17 12:00 106 03/19/17 12:00 35 Intake and Output 03/19/17 03/20/17 19:00 07:00 Intake Total 750.000 ml 145 ml Output Total 300 ml 200 ml Balance 450.000 ml -55 ml IV Total 305.000 ml 55 ml Tube Feeding 410 ml 40 ml Other 35 ml 50 ml Output Urine Total 300 ml 200 ml # Bowel Movements 2 Laboratory Tests 03/19/17 14:00: Vancomycin Level Trough 23.6H 03/20/17 03:10: White Blood Count 14.6H, Red Blood Count 3.24L, Hemoglobin 9.4L, Hematocrit 29.0L, Mean Corpuscular Volume 89, Mean Corpuscular Hemoglobin 29.0, Mean Corpuscular Hemoglobin Concent 32.5, Red Cell Distribution Width 17.0H, Platelet Count 194, Mean Platelet Volume 7.7, Neutrophils (%) (Auto) 80.1H, Lymphocytes (%) (Auto) 12.3L, Monocytes (%) (Auto) 6.2, Eosinophils (%) (Auto) 1.1, Basophils (%) (Auto) 0.3, Sodium Level 147H, Potassium Level 3.6, Chloride Level 113H, Carbon Dioxide Level 25, Anion Gap 9, Blood Urea Nitrogen 13, Creatinine 0.8, Estimat Glomerular Filtration Rate , Glucose Level 101, Calcium Level 8.8, Phosphorus Level 2.8, Magnesium Level 2.0, Total Bilirubin 0.5, Aspartate Amino Transf (AST/SGOT) 22, Alanine Aminotransferase (ALT/SGPT) 49, Alkaline Phosphatase 88, Total Protein 6.9, Albumin 2.6L, Globulin 4.3, Albumin/ Globulin Ratio 0.6L Height (Feet): 6 Height (Inches): 0.84 Weight (Pounds): 195 General Appearance: no apparent distress Objective no other changes JACI VALLEJO Mar 20, 2017 11:22
[2017-03-20 12:00] VITALS: BP 125/91
[2017-03-20] MEDS ORDERED: Mineral Oil 30ml ud GT PRN (12:30)
[2017-03-20] MEDS: Docusate 100mg/10ml Liq GT SCH ×2 (13:42→17:12)
[2017-03-20] MEDS: Vancomycin 1250mg/D5W 250ml 250 ML IVPB SCH (15:19)
[2017-03-20 16:00] VITALS: BP 156/98
[2017-03-20 20:00] VITALS: BP 153/94
[2017-03-20] MEDS: Dyna-Hex 2% Top Sol 2oz TOPIC SCH (20:23)
[2017-03-20] MEDS: Miralax 17gm pkt GT SCH (20:23)
[2017-03-21] VITALS (7 sets, daily range): BP systolic 135–153; BP diastolic 71–98
[2017-03-21] MEDS: dilTIAZem HCl 30mg tab ORAL SCH ×4 (00:06→17:17)
[2017-03-21] MEDS: Cefepime HCl 1 GM in NS 55 ML IVPB SCH (01:38)
[2017-03-21 05:27] LABS: BASOPHILS % (AUTO) 0.2 % (0.0-2.0); EOSINOPHILS % (AUTO) 1.1 % (0.0-3.0); HEMATOCRIT 28.3 % (42.0-52.0); HEMOGLOBIN 9.2 G/DL (14.2-18.0); LYMPHOCYTES % (AUTO) 12.3 % (20.0-45.0); MEAN CORPUSCULAR VOLUME 89 FL (80-99); MONOCYTES % (AUTO) 6.3 % (1.0-10.0); NEUTROPHILS % (AUTO) 80.1 % (45.0-75.0); PLATELET COUNT 187 K/UL (150-450); RED BLOOD COUNT 3.19 M/UL (4.70-6.10); WHITE BLOOD COUNT 15.4 K/UL (4.8-10.8)
[2017-03-21 05:32] LABS: ANION GAP 10 mmol/L (5-15); BLOOD UREA NITROGEN 14 mg/dL (7-18); CALCIUM 8.7 MG/DL (8.5-10.1); CARBON DIOXIDE 23 MMOL/L (21-32); CHLORIDE 109 MMOL/L (98-107); CREATININE 0.8 MG/DL (0.55-1.30); PHOSPHORUS 2.5 MG/DL (2.5-4.9); POTASSIUM 2.9 MMOL/L (3.5-5.1); SODIUM 142 MMOL/L (136-145)
[2017-03-21] MEDS: NovoLOG Insulin Flexpen SUBQ SCH ×4 (05:58→17:17)
[2017-03-21] MEDS: Docusate 100mg/10ml Liq GT SCH ×3 (08:10→17:16)
--- NOTE | 2017-03-21 09:59 | Pulmonolgy Critical Care Note ---
Critical Care - Asmt/Plan Problems: (1) Acute on chronic respiratory failure (2) Coffee ground emesis (3) Severe sepsis (4) Bacteremia (5) DM (diabetes mellitus) (6) Feeding by G-tube Respiratory: monitor respiratory rate, adjust FIO2, CXR Cardiac: continue pressors, continue to monitor HR/BP Renal: F/U I&O, increase IV fluid, check electrolytes Infectious Disease: check cultures Gastrointestinal: continue feedings/current rate Endocrine: monitor blood sugar, check TSH, check HgA1C, continue sliding scale insulin Hematologic: monitor H/H, transfuse if hgb<8.5 Neurologic: PRN Ativan, PRN Morphine, keep patient comfortable Affect: PRN ativan Prophylaxis: Protonix 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, 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 with: nurses, 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 - Objective Last 24 Hour Vital Signs Date Time Temp Pulse Resp B/P (MAP) Pulse Ox O2 Delivery O2 Flow Rate FiO2 03/21/17 09:22 79 21 35 03/21/17 08:02 35 03/21/17 08:00 98.5 74 21 142/88 100 Mechanical Ventilator 35 03/21/17 08:00 121 03/21/17 06:44 75 21 35 03/21/17 05:58 78 151/71 03/21/17 05:01 78 14 35 03/21/17 04:00 35 03/21/17 04:00 98.0 65 20 151/71 100 Mechanical Ventilator 35 03/21/17 04:00 103 03/21/17 03:12 76 14 35 03/21/17 01:12 85 17 35 03/21/17 00:06 84 143/76 03/21/17 00:00 97.8 84 23 143/76 100 Mechanical Ventilator 35 03/21/17 00:00 35 03/21/17 00:00 95 03/20/17 23:06 71 17 35 03/20/17 21:09 69 16 35 03/20/17 20:00 96 03/20/17 20:00 97.3 86 24 153/94 100 Mechanical Ventilator 35 03/20/17 20:00 35 03/20/17 19:24 71 17 35 03/20/17 17:12 62 156/98 03/20/17 16:39 62 20 35 03/20/17 16:00 115 2/12/18 16:00 35 03/20/17 16:00 98.4 83 25 156/98 100 Mechanical Ventilator 35 03/20/17 14:33 59 16 35 03/20/17 13:20 63 16 35 03/20/17 12:08 68 22 35 03/20/17 12:00 98.7 72 22 125/91 100 Mechanical Ventilator 35 03/20/17 12:00 112 03/20/17 12:00 35 03/20/17 11:23 72 125/91 Status: sedated Condition: critical HEENT: atraumatic Lungs: clear Heart: HR/BP stable, HR/BP unstable, regular Abdomen: soft, non-tender, feeding tube Extremities: no C/C/E, edema Accucheck: 92 Critical Care - Subjective Interval Events: wbc remains high, not tolerating feeding, urine getting darker Condition: critical FI02: 35 Vent Support Breath Rate: 14 Vent Support Mode: AC Vent Tidal Volume: 600 Sputum Amount: Moderate PEEP: 5.0 PIP: 30 Tube Feeding Amount: 15 I&O: Intake and Output 03/20/17 03/21/17 19:00 07:00 Intake Total 505.000 ml 125 ml Output Total 200 ml 200 ml Balance 305.000 ml -75 ml IV Total 305.000 ml 55 ml Tube Feeding 180 ml 30 ml Other 20 ml 40 ml Output Urine Total 200 ml 200 ml # Bowel Movements 1 CXR: no change PEDRO LUIS IVEY Mar 21, 2017 09:59
[2017-03-21] MEDS ORDERED: 1/2NS w/KCl 20mEq 1000ml 1,000 ML IV SCH (11:00)
--- NOTE | 2017-03-21 11:19 | Nephrology Progress Note ---
Assessment/Plan Problem List: (1) Upper gastrointestinal bleed (2) Acute on chronic respiratory failure (3) Acute renal failure (ARF) Assessment acute renal failure , multifactorial: RESOLVED Pre Renal / GI Bleed / Cr and BUN now WNL 1. Sepsis. 2. History of upper GI bleed in the past. 3. History of CVA. 4. History of TIA. 5. Dementia. 6. Hypertension. 7. COPD. 8. Diabetes. 10. Anemia. 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 Plan Plan: K supplement as needed Zazueta- monitor renal parameters- urine studies per orders Subjective ROS Limited/Unobtainable: Yes Objective Objective Last 24 Hour Vital Signs Date Time Temp Pulse Resp B/P (MAP) Pulse Ox O2 Delivery O2 Flow Rate FiO2 03/21/17 10:30 75 25 35 03/21/17 09:22 79 21 35 03/21/17 08:02 35 03/21/17 08:00 98.5 74 21 142/88 100 Mechanical Ventilator 35 03/21/17 08:00 121 03/21/17 06:44 75 21 35 03/21/17 05:58 78 151/71 03/21/17 05:01 78 14 35 03/21/17 04:00 35 03/21/17 04:00 98.0 65 20 151/71 100 Mechanical Ventilator 35 03/21/17 04:00 103 03/21/17 03:12 76 14 35 03/21/17 01:12 85 17 35 03/21/17 00:06 84 143/76 03/21/17 00:00 97.8 84 23 143/76 100 Mechanical Ventilator 35 03/21/17 00:00 35 03/21/17 00:00 95 03/20/17 23:06 71 17 35 03/20/17 21:09 69 16 35 03/20/17 20:00 96 03/20/17 20:00 97.3 86 24 153/94 100 Mechanical Ventilator 35 03/20/17 20:00 35 03/20/17 19:24 71 17 35 03/20/17 17:12 62 156/98 03/20/17 16:39 62 20 35 03/20/17 16:00 115 03/20/17 16:00 35 03/20/17 16:00 98.4 83 25 156/98 100 Mechanical Ventilator 35 03/20/17 14:33 59 16 35 03/20/17 13:20 63 16 35 03/20/17 12:08 68 22 35 03/20/17 12:00 98.7 72 22 125/91 100 Mechanical Ventilator 35 03/20/17 12:00 112 03/20/17 12:00 35 03/20/17 11:23 72 125/91 Intake and Output 03/20/17 03/21/17 19:00 07:00 Intake Total 505.000 ml 125 ml Output Total 200 ml 200 ml Balance 305.000 ml -75 ml IV Total 305.000 ml 55 ml Tube Feeding 180 ml 30 ml Other 20 ml 40 ml Output Urine Total 200 ml 200 ml # Bowel Movements 1 Laboratory Tests 03/21/17 03:30: White Blood Count 15.4H, Red Blood Count 3.19L, Hemoglobin 9.2L, Hematocrit 28.3L, Mean Corpuscular Volume 89, Mean Corpuscular Hemoglobin 28.9, Mean Corpuscular Hemoglobin Concent 32.5, Red Cell Distribution Width 17.0H, Platelet Count 187, Mean Platelet Volume 7.7, Neutrophils (%) (Auto) 80.1H, Lymphocytes (%) (Auto) 12.3L, Monocytes (%) (Auto) 6.3, Eosinophils (%) (Auto) 1.1, Basophils (%) (Auto) 0.2, Sodium Level 142, Potassium Level 2.9L, Chloride Level 109H, Carbon Dioxide Level 23, Anion Gap 10, Blood Urea Nitrogen 14, Creatinine 0.8, Estimat Glomerular Filtration Rate , Glucose Level 97, Calcium Level 8.7, Phosphorus Level 2.5, Magnesium Level 2.0 Height (Feet): 6 Height (Inches): 0.84 Weight (Pounds): 193 General Appearance: no apparent distress Cardiovascular: normal rate Respiratory/Chest: decreased breath sounds Abdomen: distended Objective no other changes JACI VALLEJO Mar 21, 2017 11:19
--- NOTE | 2017-03-21 12:24 | Infectious Diseases Prog Note ---
Assessment/Plan Assessment/Plan 6 Assessment: Blood cx : Diphteroids contaminant Sepsis, SP no evid or UTI UCx : Samira Colonizer , low count Probable Pnum SCx : Staph A and Providencia -CXR No acute process. Findings as noted Leukocytosis- improved but now persists possibly multifactorial 2ry to infection and reactive to emesis; mildly improved Wnd Cx: MRSA, ESBL P. mirabilis ( colonizer ) CT A/P ( no contrast ) : no abscess, Constipation Recent MDR PsA VAP, s/p rx Scx: MDR- PSA ( S Amikacin) Recent CoNS bacteremia, contaminant ?UGIB History of upper GI bleed in the past History of CVA/TIA Dementia Hypertension COPD Diabetes Anemia Ventilator-dependent respiratory failure Plan: -Continue IV Vancomycin d# 5 / i14 and start IV Zosyn d# 1 ( empirically ) , DC Cefepime d# 8 -- 29 SP Amikacin # 4 --2/ SP INH Colistin #7 --03/08 SP IV Amikacin #7 --03/02 SP vancomycin and Zosyn # 7 - repeat Cx (Sp, Ur , Bl ) -Monitor CBC/BMP, temperatures Subjective Allergies: Coded Allergies: No Known Allergies (Verified , 08/19/07) Subjective afebrile Objective Vital Signs Last 24 Hour Vital Signs Date Time Temp Pulse Resp B/P (MAP) Pulse Ox O2 Delivery O2 Flow Rate FiO2 03/21/17 12:00 35 03/21/17 11:49 75 142/88 03/21/17 10:30 75 25 35 03/21/17 09:22 79 21 35 03/21/17 08:02 35 03/21/17 08:00 98.5 74 21 142/88 100 Mechanical Ventilator 35 03/21/17 08:00 121 03/21/17 06:44 75 21 35 03/21/17 05:58 78 151/71 03/21/17 05:01 78 14 35 03/21/17 04:00 35 03/21/17 04:00 98.0 65 20 151/71 100 Mechanical Ventilator 35 03/21/17 04:00 103 03/21/17 03:12 76 14 35 03/21/17 01:12 85 17 35 03/21/17 00:06 84 143/76 03/21/17 00:00 97.8 84 23 143/76 100 Mechanical Ventilator 35 03/21/17 00:00 35 03/21/17 00:00 95 03/20/17 23:06 71 17 35 03/20/17 21:09 69 16 35 03/20/17 20:00 96 03/20/17 20:00 97.3 86 24 153/94 100 Mechanical Ventilator 35 03/20/17 20:00 35 03/20/17 19:24 71 17 35 03/20/17 17:12 62 156/98 03/20/17 16:39 62 20 35 03/20/17 16:00 115 03/20/17 16:00 35 03/20/17 16:00 98.4 83 25 156/98 100 Mechanical Ventilator 35 03/20/17 14:33 59 16 35 03/20/17 13:20 63 16 35 Height (Feet): 6 Height (Inches): 0.84 Weight (Pounds): 193 HEENT: anicteric Respiratory/Chest: no respiratory distress Cardiovascular: regular rhythm Abdomen: no organomegaly Laboratory Tests Test 03/21/17 03:30 White Blood Count 15.4 K/UL (4.8-10.8) H Red Blood Count 3.19 M/UL (4.70-6.10) L Hemoglobin 9.2 G/DL (14.2-18.0) L Hematocrit 28.3 % (42.0-52.0) L Mean Corpuscular Volume 89 FL (80-99) Mean Corpuscular Hemoglobin 28.9 PG (27.0-31.0) Mean Corpuscular Hemoglobin Concent 32.5 G/DL (32.0-36.0) Red Cell Distribution Width 17.0 % (11.6-14.8) H Platelet Count 187 K/UL (150-450) Mean Platelet Volume 7.7 FL (6.5-10.1) Neutrophils (%) (Auto) 80.1 % (45.0-75.0) H Lymphocytes (%) (Auto) 12.3 % (20.0-45.0) L Monocytes (%) (Auto) 6.3 % (1.0-10.0) Eosinophils (%) (Auto) 1.1 % (0.0-3.0) Basophils (%) (Auto) 0.2 % (0.0-2.0) Sodium Level 142 MMOL/L (136-145) Potassium Level 2.9 MMOL/L (3.5-5.1) L Chloride Level 109 MMOL/L (98-107) H Carbon Dioxide Level 23 MMOL/L (21-32) Anion Gap 10 mmol/L (5-15) Blood Urea Nitrogen 14 mg/dL (7-18) Creatinine 0.8 MG/DL (0.55-1.30) Estimat Glomerular Filtration Rate mL/min (>60) Glucose Level 97 MG/DL (74-106) Calcium Level 8.7 MG/DL (8.5-10.1) Phosphorus Level 2.5 MG/DL (2.5-4.9) Magnesium Level 2.0 MG/DL (1.8-2.4) Current Medications Medications (Trade) Dose Ordered Sig/Jaswant Route PRN Reason Start Time Stop Time Status Last Admin Dose Admin Acetaminophen (Tylenol) 650 mg Q4H PRN ORAL fever 03/14/17 05:15 04/13/17 05:14 03/15/17 10:06 Cefepime HCl 1 gm/ Sodium Chloride 55 ml @ 110 mls/hr Q12HR@0200,1400 IVPB 03/14/17 14:00 03/21/17 13:59 03/21/17 01:38 Chlorhexidine Gluconate (Arelis-Hex 2%) 1 applic DAILY@2000 TOPIC 03/17/17 22:00 04/16/17 21:59 03/20/17 20:23 Clonidine HCl (Catapres Tab) 0.1 mg Q4H PRN GT For High Blood Pressure>160 03/14/17 05:15 04/13/17 05:14 Dextrose (Dextrose 50%) STAT PRN IV Hypoglycemia 03/14/17 05:15 04/13/17 05:14 03/18/17 21:44 Diltiazem HCl (Cardizem) 30 mg Q6HR ORAL 03/15/17 18:00 04/13/17 08:59 03/21/17 11:49 Docusate Sodium (Colace) 100 mg THREE TIMES A DAY GT 03/20/17 13:00 04/19/17 12:59 03/21/17 08:10 Erythromycin (Leander-Ped) 50 mg Q8HR GT 03/21/17 14:00 2/20/18 13:59 Famotidine (Pepcid) 20 mg BID GT 03/16/17 18:00 04/15/17 17:59 03/21/17 08:10 Insulin Aspart (NovoLOG) EVERY 6 HOURS SUBQ 03/14/17 12:00 04/13/17 06:29 03/19/17 17:18 Mineral Oil (Mineral Oil) 30 ml DAILYPRN PRN GT Constipation 2nd Line Agent 03/20/17 12:30 04/19/17 12:29 03/20/17 16:19 Nitroglycerin (Ntg) 0.4 mg Q5M X 3 DOSES PRN SL Prn Chest Pain 03/14/17 05:15 04/13/17 05:14 Ondansetron HCl (Zofran) 4 mg Q6H PRN IVP Nausea & Vomiting 03/14/17 05:15 04/13/17 05:14 Polyethylene Glycol (Miralax) 17 gm BEDTIME GT 03/20/17 21:00 04/19/17 20:59 03/20/17 20:23 Polyethylene Glycol (Miralax) 17 gm HSPRN PRN ORAL Constipation 03/14/17 05:15 04/13/17 05:14 03/19/17 18:46 Potassium Chloride 40 meq/ Sodium Chloride 570 ml @ 142.5 mls/ hr ONCE ONCE IVPB 03/21/17 13:00 03/21/17 16:59 Vancomycin HCl (Vanco rx to dose) 1 ea DAILY PRN MISC Per rx protocol 03/17/17 14:00 04/16/17 13:59 Vancomycin HCl/ Dextrose 250 ml @ 166.667 mls/hr DAILY@1600 IVPB 03/19/17 16:00 03/24/17 15:59 03/20/17 15:19 MARGARETTE BRYANT M.D. Mar 21, 2017 12:24
[2017-03-21] MEDS ORDERED: Potassium Chloride 40 MEQ in Sodium Chloride 500ML 550 ML IVPB ONE (13:00)
[2017-03-21] MEDS: Erythromycin Ethylsuccinate 200mg/5ml Susp GT SCH ×2 (13:04→22:53)
--- NOTE | 2017-03-21 13:17 | Diagnostic Imaging Report ---
APPROVED REPORT CPT Code: 84618 Present Symptoms Comments: R/O DVT BILATERAL: Imaging reveals a patent deep venous system bilaterally. There is no evidence of thrombus within the femoral, popliteal or tibial segments. The greater saphenous veins are also within normal limits. Doppler indicates normal spontaneous flow within these segments.
[2017-03-21] MEDS: Piperacillin/Tazobactam 4.5 GM in NS 110 ML IVPB SCH ×2 (13:46→22:52)
--- NOTE | 2017-03-21 14:44 | GI Progress Note ---
Assessment/Plan Problems: (1) Feeding by G-tube ICD Codes: Z93.1 - Feeding by G-tube SNOMED: 333015669 (2) Upper gastrointestinal bleed ICD Codes: K92.2 - Gastrointestinal hemorrhage, unspecified SNOMED: 33802807 (3) Anemia ICD Codes: D64.9 - Anemia SNOMED: 231004483 (4) Coffee ground emesis ICD Codes: K92.0 - Hematemesis SNOMED: 80799662, 454757445 (5) DM (diabetes mellitus) ICD Codes: E11.9 - DM (diabetes mellitus) SNOMED: 87555015 Status: unchanged Status Narrative Discussed with Dr. Watson. Assessment/Plan CT scan abd/pelvis --> constipated --> Rx laxative cont low dose reglan GT >> reglan IV & erythromycin IV are both backordered. DM mgmt ppi BID bowel regime >> colace + miralax, mineral oil GT x [address], hold for residuals > 150 and restart 4-6 hours later @ starting rate. fu labs The patient was seen and examined at bedside and all new and available data was reviewed in the patients chart. I agree with the above findings, impression and plan. (Patient seen earlier today. Signature stamp does not reflect patient encounter time.). - August Watson MD Subjective Subjective limited Objective Last 24 Hour Vital Signs Date Time Temp Pulse Resp B/P (MAP) Pulse Ox O2 Delivery O2 Flow Rate FiO2 03/21/17 12:30 78 22 35 03/21/17 12:00 97.9 79 20 136/98 100 Mechanical Ventilator 35 03/21/17 12:00 102 03/21/17 12:00 35 03/21/17 11:49 75 142/88 03/21/17 10:30 75 25 35 03/21/17 09:22 79 21 35 03/21/17 08:02 35 03/21/17 08:00 98.5 74 21 142/88 100 Mechanical Ventilator 35 03/21/17 08:00 121 03/21/17 06:44 75 21 35 03/21/17 05:58 78 151/71 03/21/17 05:01 78 14 35 03/21/17 04:00 35 03/21/17 04:00 98.0 65 20 151/71 100 Mechanical Ventilator 35 03/21/17 04:00 103 03/21/17 03:12 76 14 35 03/21/17 01:12 85 17 35 03/21/17 00:06 84 143/76 03/21/17 00:00 97.8 84 23 143/76 100 Mechanical Ventilator 35 03/21/17 00:00 35 03/21/17 00:00 95 03/20/17 23:06 71 17 35 03/20/17 21:09 69 16 35 03/20/17 20:00 96 03/20/17 20:00 97.3 86 24 153/94 100 Mechanical Ventilator 35 03/20/17 20:00 35 03/20/17 19:24 71 17 35 03/20/17 17:12 62 156/98 03/20/17 16:39 62 20 35 03/20/17 16:00 115 03/20/17 16:00 35 03/20/17 16:00 98.4 83 25 156/98 100 Mechanical Ventilator 35 Intake and Output 03/20/17 03/21/17 19:00 07:00 Intake Total 505.000 ml 125 ml Output Total 200 ml 200 ml Balance 305.000 ml -75 ml IV Total 305.000 ml 55 ml Tube Feeding 180 ml 30 ml Other 20 ml 40 ml Output Urine Total 200 ml 200 ml # Bowel Movements 1 Laboratory Tests Test 03/21/17 03:30 White Blood Count 15.4 K/UL (4.8-10.8) H Red Blood Count 3.19 M/UL (4.70-6.10) L Hemoglobin 9.2 G/DL (14.2-18.0) L Hematocrit 28.3 % (42.0-52.0) L Mean Corpuscular Volume 89 FL (80-99) Mean Corpuscular Hemoglobin 28.9 PG (27.0-31.0) Mean Corpuscular Hemoglobin Concent 32.5 G/DL (32.0-36.0) Red Cell Distribution Width 17.0 % (11.6-14.8) H Platelet Count 187 K/UL (150-450) Mean Platelet Volume 7.7 FL (6.5-10.1) Neutrophils (%) (Auto) 80.1 % (45.0-75.0) H Lymphocytes (%) (Auto) 12.3 % (20.0-45.0) L Monocytes (%) (Auto) 6.3 % (1.0-10.0) Eosinophils (%) (Auto) 1.1 % (0.0-3.0) Basophils (%) (Auto) 0.2 % (0.0-2.0) Sodium Level 142 MMOL/L (136-145) Potassium Level 2.9 MMOL/L (3.5-5.1) L Chloride Level 109 MMOL/L (98-107) H Carbon Dioxide Level 23 MMOL/L (21-32) Anion Gap 10 mmol/L (5-15) Blood Urea Nitrogen 14 mg/dL (7-18) Creatinine 0.8 MG/DL (0.55-1.30) Estimat Glomerular Filtration Rate mL/min (>60) Glucose Level 97 MG/DL (74-106) Calcium Level 8.7 MG/DL (8.5-10.1) Phosphorus Level 2.5 MG/DL (2.5-4.9) Magnesium Level 2.0 MG/DL (1.8-2.4) Height (Feet): 6 Height (Inches): 0.84 Weight (Pounds): 193 General Appearance: lethargic Respiratory/Chest: other - mech vent Abdominal Exam: GT site - c/d/i Naz Lainez N.P. Mar 21, 2017 14:44 GABI WATSON Mar 22, 2017 10:53
[2017-03-21] MEDS: Miralax 17gm pkt GT SCH (20:17)
[2017-03-21] MEDS: Vancomycin 1gm/D5W 275ml IVPB SCH ×2 (20:17)
[2017-03-21] MEDS: Dyna-Hex 2% Top Sol 2oz TOPIC SCH (20:17)
--- NOTE | 2017-03-21 20:59 | Wound Care Consultation ---
Wound Assessment Wound Assessment : Wound Present on Admission: Yes New Wound: No Status Change of Wound: No Wound Location Body Site Modif: left, upper Wound Location Body Site: back Wound Type: pressure ulcer Peggy Test: Does not Peggy Pressure Ulcer Stage: Deep Tissue Injury - revealed as stage III pressure ulcer Wound Thickness: Full Thickness Wound Length: 2.0 Wound Width: 3.0 Wound Depth: 0.2 Percent of Wound [place]/Red: 90 Percent of Wound Bed Yellow/Wh: 10 Wound Drainage Description: Serosanguineous Wound Drainage Amount: Scant Wound Drainage Odor: None/Absent Tissue Surrounding Wound: Erythemic Wound General Appearance: Reddened, Draining Wound Comment #1 Full thickness scar tissue on sacrococcygeal area, buttocks, Left ischial tuberosity, upper and lower back. Skin still intact #2 Left upper back DTI pressure ulcer. Revealed as stage III pressure ulcer #3 Mid and right back area scattered stage II pressure ulcer. No further deterioration noted #4 Right thumb full thickness open wound. Etiology unknown. no further deterioration noted. same in size and in color Reassessment done on this Pt. No deterioration noted. Will cont same wound care treatment and recommendation below. Recommendation -Local wound care per protocol -Keep clean and dry -Optimize nutrition -Offload both heels -Heel protector on both heels -Low air loss mattress -Turn and reposition -Assess and f/u accordingly for any changes NERY BOATENG RN Mar 21, 2017 20:59
[2017-03-22] MEDS: dilTIAZem HCl 30mg tab ORAL SCH ×5 (00:01→23:04)
[2017-03-22 04:00] VITALS: BP 139/86
[2017-03-22] MEDS: Piperacillin/Tazobactam 4.5 GM in NS 110 ML IVPB SCH ×3 (05:09→21:05)
[2017-03-22] MEDS: Erythromycin Ethylsuccinate 200mg/5ml Susp GT SCH ×3 (05:10→21:05)
[2017-03-22 05:59] LABS: ANION GAP 10 mmol/L (5-15); BLOOD UREA NITROGEN 14 mg/dL (7-18); CARBON DIOXIDE 22 MMOL/L (21-32); CHLORIDE 113 MMOL/L (98-107); POTASSIUM 3.9 MMOL/L (3.5-5.1); SODIUM 145 MMOL/L (136-145)
[2017-03-22 06:00] LABS: BILIRUBIN,TOTAL 0.8 MG/DL (0.2-1.0); CALCIUM 8.7 MG/DL (8.5-10.1); CREATININE 0.9 MG/DL (0.55-1.30); PHOSPHORUS 2.1 MG/DL (2.5-4.9)
[2017-03-22] MEDS: NovoLOG Insulin Flexpen SUBQ SCH ×4 (06:00→18:27)
[2017-03-22 06:01] LABS: ALANINE AMINOTRANSFERASE 37 U/L (12-78); ALBUMIN 2.4 G/DL (3.4-5.0); ALBUMIN/GLOBULIN RATIO 0.6 (1.0-2.7); ALKALINE PHOSPHATASE 95 U/L (46-116); ASPARTATE AMINO TRANSFERASE 19 U/L (15-37)
[2017-03-22 06:34] LABS: HEMATOCRIT 26.5 % (42.0-52.0); HEMOGLOBIN 8.6 G/DL (14.2-18.0); MEAN CORPUSCULAR VOLUME 89 FL (80-99); PLATELET COUNT 178 K/UL (150-450); RED BLOOD COUNT 2.97 M/UL (4.70-6.10); RED CELL DISTRIBUTION WIDTH 16.9 % (11.6-14.8); WHITE BLOOD COUNT 16.1 K/UL (4.8-10.8)
[2017-03-22 08:00] VITALS: BP 138/68
[2017-03-22] MEDS: Docusate 100mg/10ml Liq GT SCH ×3 (08:31→18:25)
--- NOTE | 2017-03-22 10:51 | Pulmonolgy Critical Care Note ---
Critical Care - Asmt/Plan Problems: (1) Acute on chronic respiratory failure (2) Coffee ground emesis (3) Severe sepsis (4) Bacteremia (5) DM (diabetes mellitus) (6) Feeding by G-tube Respiratory: monitor respiratory rate, adjust FIO2, CXR Cardiac: stop pressors, continue to monitor HR/BP Renal: F/U I&O Infectious Disease: check cultures Gastrointestinal: hold feedings Endocrine: check TSH, check HgA1C, continue sliding scale insulin Hematologic: transfuse if hgb<8.5 Neurologic: PRN Ativan, PRN Morphine, keep patient comfortable Affect: PRN ativan Prophylaxis: Heparin Notes Reviewed: cardio, 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 with: consultants, case operatorflight manager - Objective Last 24 Hour Vital Signs Date Time Temp Pulse Resp B/P (MAP) Pulse Ox O2 Delivery O2 Flow Rate FiO2 03/22/17 08:50 134 24 35 03/22/17 08:15 35 03/22/17 08:15 114 03/22/17 08:00 98.1 121 28 138/68 100 Mechanical Ventilator 35 03/22/17 07:12 102 24 35 03/22/17 05:28 77 21 35 03/22/17 05:09 105 139/86 03/22/17 04:00 35 03/22/17 04:00 98.1 105 20 139/86 100 Mechanical Ventilator 35 03/22/17 03:19 106 27 35 03/22/17 03:18 119 03/22/17 01:29 70 24 35 03/22/17 00:01 80 153/81 03/22/17 00:00 35 03/21/17 23:51 97.9 80 21 153/81 100 Mechanical Ventilator 35 03/21/17 23:50 91 18 35 03/21/17 23:25 90 03/21/17 21:12 81 25 35 03/21/17 20:00 97.5 75 17 146/75 100 Mechanical Ventilator 35 03/21/17 20:00 35 03/21/17 19:56 80 28 35 03/21/17 19:07 88 03/21/17 17:17 78 135/90 03/21/17 16:45 78 24 35 03/21/17 16:00 35 03/21/17 16:00 99 03/21/17 16:00 98.2 103 24 135/90 100 Mechanical Ventilator 35 03/21/17 15:03 72 15 35 03/21/17 12:30 78 22 35 03/21/17 12:00 97.9 79 20 136/98 100 Mechanical Ventilator 35 03/21/17 12:00 102 03/21/17 12:00 35 03/21/17 11:49 75 142/88 Status: awake Condition: critical HEENT: atraumatic Lungs: clear Heart: HR/BP stable, HR/BP unstable Abdomen: active bowel sounds Extremities: no C/C/E Decubiti: location, stage Micro: Microbiology Date/Time Source Procedure Growth Status 03/21/17 12:50 Sputum Gram Stain Pending Resulted 03/21/17 12:50 Sputum Culture - Preliminary Gram Negative Bacillus 1 Resulted 03/21/17 12:50 Urine,Clean Catch Urine Culture - Preliminary Resulted Accucheck: 96 Critical Care - Subjective ROS Limited/Unobtainable: No EKG Rhythm: Sinus Rhythm FI02: 35 Vent Support Breath Rate: 14 Vent Support Mode: AC Vent Tidal Volume: 600 Sputum Amount: Moderate PEEP: 5.0 PIP: 25 Tube Feeding Amount: 0 I&O: Intake and Output 03/21/17 03/22/17 19:00 07:00 Intake Total 950.0 ml 574.500 ml Output Total 250 ml 350 ml Balance 700.0 ml 224.500 ml IV Total 630.0 ml 412.500 ml Tube Feeding 280 ml 0 ml Other 40 ml 162 ml Output Urine Total 250 ml 350 ml # Bowel Movements 4 1 CXR: no change Labs: Laboratory Tests Test 03/21/17 15:10 03/22/17 04:00 Vancomycin Level Trough 21.0 ug/mL (5.0-12.0) H White Blood Count 16.1 K/UL (4.8-10.8) H Red Blood Count 2.97 M/UL (4.70-6.10) L Hemoglobin 8.6 G/DL (14.2-18.0) L Hematocrit 26.5 % (42.0-52.0) L Mean Corpuscular Volume 89 FL (80-99) Mean Corpuscular Hemoglobin 29.0 PG (27.0-31.0) Mean Corpuscular Hemoglobin Concent 32.5 G/DL (32.0-36.0) Red Cell Distribution Width 16.9 % (11.6-14.8) H Platelet Count 178 K/UL (150-450) Mean Platelet Volume 7.8 FL (6.5-10.1) Neutrophils (%) (Auto) % (45.0-75.0) Lymphocytes (%) (Auto) % (20.0-45.0) Monocytes (%) (Auto) % (1.0-10.0) Eosinophils (%) (Auto) % (0.0-3.0) Basophils (%) (Auto) % (0.0-2.0) Differential Total Cells Counted 100 Neutrophils % (Manual) 83 % (45-75) H Lymphocytes % (Manual) 10 % (20-45) L Monocytes % (Manual) 5 % (1-10) Eosinophils % (Manual) 2 % (0-3) Basophils % (Manual) 0 % (0-2) Band Neutrophils 0 % (0-8) Platelet Estimate Adequate Platelet Morphology Normal Hypochromasia 1+ Anisocytosis 1+ Sodium Level 145 MMOL/L (136-145) Potassium Level 3.9 MMOL/L (3.5-5.1) Chloride Level 113 MMOL/L (98-107) H Carbon Dioxide Level 22 MMOL/L (21-32) Anion Gap 10 mmol/L (5-15) Blood Urea Nitrogen 14 mg/dL (7-18) Creatinine 0.9 MG/DL (0.55-1.30) Estimat Glomerular Filtration Rate mL/min (>60) Glucose Level 102 MG/DL (74-106) Calcium Level 8.7 MG/DL (8.5-10.1) Phosphorus Level 2.1 MG/DL (2.5-4.9) L Magnesium Level 1.9 MG/DL (1.5-2.4) Total Bilirubin 0.8 MG/DL (0.2-1.0) Aspartate Amino Transf (AST/SGOT) 19 U/L (15-37) Alanine Aminotransferase (ALT/SGPT) 37 U/L (12-78) Alkaline Phosphatase 95 U/L (46-116) Total Protein 6.5 G/DL (6.4-8.2) Albumin 2.4 G/DL (3.4-5.0) L Globulin 4.1 g/dL Albumin/Globulin Ratio 0.6 (1.0-2.7) L PEDRO LUIS IVEYb 14, 2018 10:51
--- NOTE | 2017-03-22 11:53 | GI Progress Note ---
Assessment/Plan Problems: (1) Feeding by G-tube ICD Codes: Z93.1 - Feeding by G-tube SNOMED: 463932660 (2) Upper gastrointestinal bleed ICD Codes: K92.2 - Gastrointestinal hemorrhage, unspecified SNOMED: 17186510 (3) Anemia ICD Codes: D64.9 - Anemia SNOMED: 280310822 (4) Coffee ground emesis ICD Codes: K92.0 - Hematemesis SNOMED: 91840354, 441114090 (5) DM (diabetes mellitus) ICD Codes: E11.9 - DM (diabetes mellitus) SNOMED: 80906123 Status: unchanged Status Narrative Discussed with Dr. Watson. Assessment/Plan CT scan abd/pelvis --> constipated --> Rx laxative cont low dose reglan GT >> reglan IV & erythromycin IV are both backordered. DM mgmt ppi BID bowel regime >> colace + miralax, mineral oil GT x [address], hold for residuals > 150 and restart 4-6 hours later @ starting rate. fu labs Subjective Subjective limited Objective Last 24 Hour Vital Signs Date Time Temp Pulse Resp B/P (MAP) Pulse Ox O2 Delivery O2 Flow Rate FiO2 03/22/17 11:15 104 18 35 03/22/17 08:50 134 24 35 03/22/17 08:15 35 03/22/17 08:15 114 03/22/17 08:00 98.1 121 28 138/68 100 Mechanical Ventilator 35 03/22/17 07:12 102 24 35 03/22/17 05:28 77 21 35 03/22/17 05:09 105 139/86 03/22/17 04:00 35 03/22/17 04:00 98.1 105 20 139/86 100 Mechanical Ventilator 35 03/22/17 03:19 106 27 35 03/22/17 03:18 119 03/22/17 01:29 70 24 35 03/22/17 00:01 80 153/81 03/22/17 00:00 35 03/21/17 23:51 97.9 80 21 153/81 100 Mechanical Ventilator 35 03/21/17 23:50 91 18 35 03/21/17 23:25 90 03/21/17 21:12 81 25 35 03/21/17 20:00 97.5 75 17 146/75 100 Mechanical Ventilator 35 03/21/17 20:00 35 03/21/17 19:56 80 28 35 03/21/17 19:07 88 03/21/17 17:17 78 135/90 03/21/17 16:45 78 24 35 03/21/17 16:00 35 03/21/17 16:00 99 03/21/17 16:00 98.2 103 24 135/90 100 Mechanical Ventilator 35 03/21/17 15:03 72 15 35 03/21/17 12:30 78 22 35 03/21/17 12:00 97.9 79 20 136/98 100 Mechanical Ventilator 35 03/21/17 12:00 102 03/21/17 12:00 35 Intake and Output 03/21/17 03/22/17 19:00 07:00 Intake Total 950.0 ml 574.500 ml Output Total 250 ml 350 ml Balance 700.0 ml 224.500 ml IV Total 630.0 ml 412.500 ml Tube Feeding 280 ml 0 ml Other 40 ml 162 ml Output Urine Total 250 ml 350 ml # Bowel Movements 4 1 Laboratory Tests Test 03/21/17 15:10 03/22/17 04:00 Vancomycin Level Trough 21.0 ug/mL (5.0-12.0) H White Blood Count 16.1 K/UL (4.8-10.8) H Red Blood Count 2.97 M/UL (4.70-6.10) L Hemoglobin 8.6 G/DL (14.2-18.0) L Hematocrit 26.5 % (42.0-52.0) L Mean Corpuscular Volume 89 FL (80-99) Mean Corpuscular Hemoglobin 29.0 PG (27.0-31.0) Mean Corpuscular Hemoglobin Concent 32.5 G/DL (32.0-36.0) Red Cell Distribution Width 16.9 % (11.6-14.8) H Platelet Count 178 K/UL (150-450) Mean Platelet Volume 7.8 FL (6.5-10.1) Neutrophils (%) (Auto) % (45.0-75.0) Lymphocytes (%) (Auto) % (20.0-45.0) Monocytes (%) (Auto) % (1.0-10.0) Eosinophils (%) (Auto) % (0.0-3.0) Basophils (%) (Auto) % (0.0-2.0) Differential Total Cells Counted 100 Neutrophils % (Manual) 83 % (45-75) H Lymphocytes % (Manual) 10 % (20-45) L Monocytes % (Manual) 5 % (1-10) Eosinophils % (Manual) 2 % (0-3) Basophils % (Manual) 0 % (0-2) Band Neutrophils 0 % (0-8) Platelet Estimate Adequate Platelet Morphology Normal Hypochromasia 1+ Anisocytosis 1+ Sodium Level 145 MMOL/L (136-145) Potassium Level 3.9 MMOL/L (3.5-5.1) Chloride Level 113 MMOL/L (98-107) H Carbon Dioxide Level 22 MMOL/L (21-32) Anion Gap 10 mmol/L (5-15) Blood Urea Nitrogen 14 mg/dL (7-18) Creatinine 0.9 MG/DL (0.55-1.30) Estimat Glomerular Filtration Rate mL/min (>60) Glucose Level 102 MG/DL (74-106) Calcium Level 8.7 MG/DL (8.5-10.1) Phosphorus Level 2.1 MG/DL (2.5-4.9) L Magnesium Level 1.9 MG/DL (1.5-2.4) Total Bilirubin 0.8 MG/DL (0.2-1.0) Aspartate Amino Transf (AST/SGOT) 19 U/L (15-37) Alanine Aminotransferase (ALT/SGPT) 37 U/L (12-78) Alkaline Phosphatase 95 U/L (46-116) Total Protein 6.5 G/DL (6.4-8.2) Albumin 2.4 G/DL (3.4-5.0) L Globulin 4.1 g/dL Albumin/Globulin Ratio 0.6 (1.0-2.7) L Microbiology Date/Time Source Procedure Growth Status 03/21/17 12:50 Sputum Gram Stain Pending Resulted 03/21/17 12:50 Sputum Culture - Preliminary Gram Negative Bacillus 1 Resulted 03/21/17 12:50 Urine,Clean Catch Urine Culture - Preliminary Resulted Height (Feet): 6 Height (Inches): 0.84 Weight (Pounds): 192 General Appearance: cachetic Respiratory/Chest: other - mech vent Abdominal Exam: GT site - c/d/i Naz Lainez N.P. Mar 22, 2017 11:52
[2017-03-22 12:00] VITALS: BP 133/72
--- NOTE | 2017-03-22 12:18 | Infectious Diseases Prog Note ---
Assessment/Plan Assessment/Plan Assessment: Blood cx : Diphteroids contaminant Sepsis, SP no evid or UTI UCx : Samira Colonizer , low count Probable Pnum SCx : Staph A and Providencia , repeat ScxL GNR -CXR No acute process. Findings as noted Leukocytosis- improved but now persists possibly multifactorial 2ry to infection and reactive to emesis; mildly improved Wnd Cx: MRSA, ESBL P. mirabilis ( colonizer ) CT A/P ( no contrast ) : no abscess, Constipation Recent MDR PsA VAP, s/p rx Scx: MDR- PSA ( S Amikacin) Recent CoNS bacteremia, contaminant ?UGIB History of upper GI bleed in the past History of CVA/TIA Dementia Hypertension COPD Diabetes Anemia Ventilator-dependent respiratory failure Plan: -Continue IV Vancomycin d# / and start IV Zosyn d# 2 ( empirically ) , -- 03/21 SP Cefepime d# 8 -- 03/17 SP Amikacin # 4 --2 SP INH Colistin #7 --03/08 SP IV Amikacin #7 --03/02 SP vancomycin and Zosyn # 7 - repeat Cx (Sp, Ur , Bl ) -Monitor CBC/BMP, temperatures Subjective Allergies: Coded Allergies: No Known Allergies (Verified , 08/19/07) Subjective lisa/tachycardic afebrile Objective Vital Signs Last 24 Hour Vital Signs Date Time Temp Pulse Resp B/P (MAP) Pulse Ox O2 Delivery O2 Flow Rate FiO2 03/22/17 11:15 104 18 35 03/22/17 08:50 134 24 35 03/22/17 08:15 35 03/22/17 08:15 114 03/22/17 08:00 98.1 121 28 138/68 100 Mechanical Ventilator 35 03/22/17 07:12 102 24 35 03/22/17 05:28 77 21 35 03/22/17 05:09 105 139/86 03/22/17 04:00 35 03/22/17 04:00 98.1 105 20 139/86 100 Mechanical Ventilator 35 03/22/17 03:19 106 27 35 03/22/17 03:18 119 03/22/17 01:29 70 24 35 03/22/17 00:01 80 153/81 03/22/17 00:00 35 03/21/17 23:51 97.9 80 21 153/81 100 Mechanical Ventilator 35 03/21/17 23:50 91 18 35 03/21/17 23:25 90 03/21/17 21:12 81 25 35 03/21/17 20:00 97.5 75 17 146/75 100 Mechanical Ventilator 35 03/21/17 20:00 35 03/21/17 19:56 80 28 35 03/21/17 19:07 88 03/21/17 17:17 78 135/90 03/21/17 16:45 78 24 35 03/21/17 16:00 35 03/21/17 16:00 99 03/21/17 16:00 98.2 103 24 135/90 100 Mechanical Ventilator 35 03/21/17 15:03 72 15 35 03/21/17 12:30 78 22 35 Height (Feet): 6 Height (Inches): 0.84 Weight (Pounds): 192 HEENT: atraumatic Respiratory/Chest: normal breath sounds Cardiovascular: normal peripheral pulses Abdomen: soft, non tender Microbiology Date/Time Source Procedure Growth Status 03/21/17 12:50 Sputum Gram Stain Pending Resulted 03/21/17 12:50 Sputum Culture - Preliminary Gram Negative Bacillus 1 Resulted 03/21/17 12:50 Urine,Clean Catch Urine Culture - Preliminary Resulted Laboratory Tests Test 03/21/17 15:10 03/22/17 04:00 Vancomycin Level Trough 21.0 ug/mL (5.0-12.0) H White Blood Count 16.1 K/UL (4.8-10.8) H Red Blood Count 2.97 M/UL (4.70-6.10) L Hemoglobin 8.6 G/DL (14.2-18.0) L Hematocrit 26.5 % (42.0-52.0) L Mean Corpuscular Volume 89 FL (80-99) Mean Corpuscular Hemoglobin 29.0 PG (27.0-31.0) Mean Corpuscular Hemoglobin Concent 32.5 G/DL (32.0-36.0) Red Cell Distribution Width 16.9 % (11.6-14.8) H Platelet Count 178 K/UL (150-450) Mean Platelet Volume 7.8 FL (6.5-10.1) Neutrophils (%) (Auto) % (45.0-75.0) Lymphocytes (%) (Auto) % (20.0-45.0) Monocytes (%) (Auto) % (1.0-10.0) Eosinophils (%) (Auto) % (0.0-3.0) Basophils (%) (Auto) % (0.0-2.0) Differential Total Cells Counted 100 Neutrophils % (Manual) 83 % (45-75) H Lymphocytes % (Manual) 10 % (20-45) L Monocytes % (Manual) 5 % (1-10) Eosinophils % (Manual) 2 % (0-3) Basophils % (Manual) 0 % (0-2) Band Neutrophils 0 % (0-8) Platelet Estimate Adequate Platelet Morphology Normal Hypochromasia 1+ Anisocytosis 1+ Sodium Level 145 MMOL/L (136-145) Potassium Level 3.9 MMOL/L (3.5-5.1) Chloride Level 113 MMOL/L (98-107) H Carbon Dioxide Level 22 MMOL/L (21-32) Anion Gap 10 mmol/L (5-15) Blood Urea Nitrogen 14 mg/dL (7-18) Creatinine 0.9 MG/DL (0.55-1.30) Estimat Glomerular Filtration Rate mL/min (>60) Glucose Level 102 MG/DL (74-106) Calcium Level 8.7 MG/DL (8.5-10.1) Phosphorus Level 2.1 MG/DL (2.5-4.9) L Magnesium Level 1.9 MG/DL (1.5-2.4) Total Bilirubin 0.8 MG/DL (0.2-1.0) Aspartate Amino Transf (AST/SGOT) 19 U/L (15-37) Alanine Aminotransferase (ALT/SGPT) 37 U/L (12-78) Alkaline Phosphatase 95 U/L (46-116) Total Protein 6.5 G/DL (6.4-8.2) Albumin 2.4 G/DL (3.4-5.0) L Globulin 4.1 g/dL Albumin/Globulin Ratio 0.6 (1.0-2.7) L Current Medications Medications (Trade) Dose Ordered Sig/Jaswant Route PRN Reason Start Time Stop Time Status Last Admin Dose Admin Acetaminophen (Tylenol) 650 mg Q4H PRN ORAL fever 03/14/17 05:15 04/13/17 05:14 2/18 10:06 Chlorhexidine Gluconate (Arelis-Hex 2%) 1 applic DAILY@2000 TOPIC 03/17/17 22:00 04/16/17 21:59 03/21/17 20:17 Clonidine HCl (Catapres Tab) 0.1 mg Q4H PRN GT For High Blood Pressure>160 03/14/17 05:15 04/13/17 05:14 Dextrose (Dextrose 50%) STAT PRN IV Hypoglycemia 03/14/17 05:15 04/13/17 05:14 03/18/17 21:44 Diltiazem HCl (Cardizem) 30 mg Q6HR ORAL 03/15/17 18:00 04/13/17 08:59 03/22/17 05:09 Docusate Sodium (Colace) 100 mg THREE TIMES A DAY GT 03/20/17 13:00 04/19/17 12:59 03/22/17 08:31 Erythromycin (Leander-Ped) 50 mg Q8HR GT 03/21/17 14:00 03/28/17 13:59 03/22/17 05:10 Famotidine (Pepcid) 20 mg BID GT 03/16/17 18:00 04/15/17 17:59 03/22/17 08:31 Insulin Aspart (NovoLOG) EVERY 6 HOURS SUBQ 03/14/17 12:00 04/13/17 06:29 03/19/17 17:18 Mineral Oil (Mineral Oil) 30 ml DAILYPRN PRN GT Constipation 2nd Line Agent 03/20/17 12:30 04/19/17 12:29 03/20/17 16:19 Nitroglycerin (Ntg) 0.4 mg Q5M X 3 DOSES PRN SL Prn Chest Pain 03/14/17 05:15 04/13/17 05:14 Ondansetron HCl (Zofran) 4 mg Q6H PRN IVP Nausea & Vomiting 03/14/17 05:15 04/13/17 05:14 Piperacillin Sod/ Tazobactam Sod 4.5 gm/Sodium Chloride 110 ml @ 27.5 mls/hr EVERY 8 HOURS IVPB 03/21/17 14:00 03/26/17 23:59 03/22/17 05:09 Polyethylene Glycol (Miralax) 17 gm BEDTIME GT 03/20/17 21:00 04/19/17 20:59 03/21/17 20:17 Polyethylene Glycol (Miralax) 17 gm HSPRN PRN ORAL Constipation 03/14/17 05:15 04/13/17 05:14 03/19/17 18:46 Vancomycin HCl (Vanco rx to dose) 1 ea DAILY PRN MISC Per rx protocol 03/17/17 14:00 04/16/17 13:59 Vancomycin HCl 1 gm/Dextrose 275 ml @ 183.708 mls/hr Q24H IVPB 03/21/17 20:00 03/26/17 19:59 03/21/17 20:17 MARGARETTE BRYANT M.D. Mar 22, 2017 12:18
--- NOTE | 2017-03-22 12:57 | Nephrology Progress Note ---
Assessment/Plan Problem List: (1) Upper gastrointestinal bleed (2) Acute on chronic respiratory failure (3) Acute renal failure (ARF) Assessment Acute renal failure , multifactorial: RESOLVED Pre Renal / GI Bleed / Cr and BUN now WNL 1. Sepsis. 2. History of upper GI bleed in the past. 3. History of CVA. 4. History of TIA. 5. Dementia. 6. Hypertension. 7. COPD. 8. Diabetes. 10. Anemia. 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 Plan Plan: K and phos supplement as needed Zazueta- monitor renal parameters- urine studies per orders Subjective ROS Limited/Unobtainable: Yes Objective Objective Last 24 Hour Vital Signs Date Time Temp Pulse Resp B/P (MAP) Pulse Ox O2 Delivery O2 Flow Rate FiO2 03/22/17 12:17 103 133/72 03/22/17 11:15 104 18 35 03/22/17 08:50 134 24 35 03/22/17 08:15 35 03/22/17 08:15 114 03/22/17 08:00 98.1 121 28 138/68 100 Mechanical Ventilator 35 03/22/17 07:12 102 24 35 03/22/17 05:28 77 21 35 03/22/17 05:09 105 139/86 03/22/17 04:00 35 03/22/17 04:00 98.1 105 20 139/86 100 Mechanical Ventilator 35 03/22/17 03:19 106 27 35 03/22/17 03:18 119 03/22/17 01:29 70 24 35 03/22/17 00:01 80 153/81 03/22/17 00:00 35 03/21/17 23:51 97.9 80 21 153/81 100 Mechanical Ventilator 35 03/21/17 23:50 91 18 35 03/21/17 23:25 90 03/21/17 21:12 81 25 35 03/21/17 20:00 97.5 75 17 146/75 100 Mechanical Ventilator 35 03/21/17 20:00 35 03/21/17 19:56 80 28 35 03/21/17 19:07 88 03/21/17 17:17 78 135/90 03/21/17 16:45 78 24 35 03/21/17 16:00 35 03/21/17 16:00 99 03/21/17 16:00 98.2 103 24 135/90 100 Mechanical Ventilator 35 03/21/17 15:03 72 15 35 Intake and Output 03/21/17 03/22/17 19:00 07:00 Intake Total 950.0 ml 574.500 ml Output Total 250 ml 350 ml Balance 700.0 ml 224.500 ml IV Total 630.0 ml 412.500 ml Tube Feeding 280 ml 0 ml Other 40 ml 162 ml Output Urine Total 250 ml 350 ml # Bowel Movements 4 1 Laboratory Tests 03/21/17 15:10: Vancomycin Level Trough 21.0H 03/22/17 04:00: White Blood Count 16.1H, Red Blood Count 2.97L, Hemoglobin 8.6L, Hematocrit 26.5L, Mean Corpuscular Volume 89, Mean Corpuscular Hemoglobin 29.0, Mean Corpuscular Hemoglobin Concent 32.5, Red Cell Distribution Width 16.9H, Platelet Count 178, Mean Platelet Volume 7.8, Neutrophils (%) (Auto) , Lymphocytes (%) (Auto) , Monocytes (%) (Auto) , Eosinophils (%) (Auto) , Basophils (%) (Auto) , Differential Total Cells Counted 100, Neutrophils % ( Manual) 83H, Lymphocytes % (Manual) 10L, Monocytes % (Manual) 5, Eosinophils % ( Manual) 2, Basophils % (Manual) 0, Band Neutrophils 0, Platelet Estimate Adequate, Platelet Morphology Normal, Hypochromasia 1+, Anisocytosis 1+, Sodium Level 145, Potassium Level 3.9, Chloride Level 113H, Carbon Dioxide Level 22, Anion Gap 10, Blood Urea Nitrogen 14, Creatinine 0.9, Estimat Glomerular Filtration Rate , Glucose Level 102, Calcium Level 8.7, Phosphorus Level 2.1L, Magnesium Level 1.9, Total Bilirubin 0.8, Aspartate Amino Transf (AST/SGOT) 19, Alanine Aminotransferase (ALT/SGPT) 37, Alkaline Phosphatase 95, Total Protein 6.5, Albumin 2.4L, Globulin 4.1, Albumin/Globulin Ratio 0.6L Height (Feet): 6 Height (Inches): 0.84 Weight (Pounds): 192 General Appearance: no apparent distress Objective no other changes JACI VALLEJO Mar 22, 2017 12:57
[2017-03-22] MEDS ORDERED: Potassium Phosphate 20 MM in NS 275 ML IV ONE (14:00)
[2017-03-22 16:00] VITALS: BP 156/80
[2017-03-22 20:00] VITALS: BP 141/85
[2017-03-22] MEDS: Vancomycin 1gm/D5W 275ml IVPB SCH ×2 (20:33)
[2017-03-22] MEDS: Dyna-Hex 2% Top Sol 2oz TOPIC SCH (20:33)
[2017-03-22] MEDS: Miralax 17gm pkt GT SCH (20:34)
[2017-03-23] VITALS: BP 122/60
[2017-03-23 04:00] VITALS: BP 145/78
[2017-03-23 05:59] LABS: BASOPHILS % (AUTO) 0.3 % (0.0-2.0); EOSINOPHILS % (AUTO) 1.4 % (0.0-3.0); HEMATOCRIT 25.8 % (42.0-52.0); HEMOGLOBIN 8.3 G/DL (14.2-18.0); LYMPHOCYTES % (AUTO) 8.2 % (20.0-45.0); MEAN CORPUSCULAR VOLUME 89 FL (80-99); MONOCYTES % (AUTO) 6.7 % (1.0-10.0); NEUTROPHILS % (AUTO) 83.5 % (45.0-75.0); PLATELET COUNT 161 K/UL (150-450); RED BLOOD COUNT 2.89 M/UL (4.70-6.10); RED CELL DISTRIBUTION WIDTH 17.1 % (11.6-14.8); WHITE BLOOD COUNT 13.9 K/UL (4.8-10.8)
[2017-03-23] MEDS: NovoLOG Insulin Flexpen SUBQ SCH ×4 (06:00→18:00)
[2017-03-23] MEDS: dilTIAZem HCl 30mg tab ORAL SCH ×3 (06:05→18:04)
[2017-03-23] MEDS: Piperacillin/Tazobactam 4.5 GM in NS 110 ML IVPB SCH ×3 (06:05→21:08)
[2017-03-23] MEDS: Erythromycin Ethylsuccinate 200mg/5ml Susp GT SCH ×3 (06:05→21:08)
[2017-03-23 06:45] LABS: ALANINE AMINOTRANSFERASE 31 U/L (12-78); ALBUMIN 2.3 G/DL (3.4-5.0); ALBUMIN/GLOBULIN RATIO 0.5 (1.0-2.7); ALKALINE PHOSPHATASE 112 U/L (46-116); ANION GAP 8 mmol/L (5-15); ASPARTATE AMINO TRANSFERASE 16 U/L (15-37); BILIRUBIN,TOTAL 0.6 MG/DL (0.2-1.0); BLOOD UREA NITROGEN 12 mg/dL (7-18); CALCIUM 8.5 MG/DL (8.5-10.1); CARBON DIOXIDE 24 MMOL/L (21-32); CHLORIDE 113 MMOL/L (98-107); CREATININE 0.8 MG/DL (0.55-1.30); PHOSPHORUS 2.9 MG/DL (2.5-4.9); POTASSIUM 3.6 MMOL/L (3.5-5.1); SODIUM 145 MMOL/L (136-145)
[2017-03-23 07:57] VITALS: BP 164/100
[2017-03-23] MEDS: Docusate 100mg/10ml Liq GT SCH ×3 (08:35→18:07)
--- NOTE | 2017-03-23 10:38 | GI Progress Note ---
Assessment/Plan Problems: (1) Feeding by G-tube ICD Codes: Z93.1 - Feeding by G-tube SNOMED: 995789746 (2) Upper gastrointestinal bleed ICD Codes: K92.2 - Gastrointestinal hemorrhage, unspecified SNOMED: 29649618 (3) Anemia ICD Codes: D64.9 - Anemia SNOMED: 033550807 (4) Coffee ground emesis ICD Codes: K92.0 - Hematemesis SNOMED: 85660382, 101737765 (5) DM (diabetes mellitus) ICD Codes: E11.9 - DM (diabetes mellitus) SNOMED: 81333083 Status: unchanged Status Narrative Discussed with Dr. Watson. Assessment/Plan CT scan abd/pelvis --> constipated --> Rx laxative cont low dose reglan GT >> reglan IV & erythromycin IV are both backordered. DM mgmt ppi BID bowel regime >> colace + miralax GTFs per RD, hold for residuals > 150 and restart 4-6 hours later @ starting rate. fu labs Subjective Subjective limited Objective Last 24 Hour Vital Signs Date Time Temp Pulse Resp B/P (MAP) Pulse Ox O2 Delivery O2 Flow Rate FiO2 03/23/17 10:11 58 14 35 03/23/17 08:00 35 03/23/17 08:00 106 03/23/17 07:57 97.7 103 22 164/100 100 Mechanical Ventilator 35 03/23/17 07:27 92 20 35 03/23/17 06:05 77 145/78 03/23/17 05:18 77 15 35 03/23/17 04:00 104 03/23/17 04:00 35 03/23/17 04:00 98.0 95 16 145/78 100 Mechanical Ventilator 35 03/23/17 03:04 91 21 35 03/23/17 01:04 96 30 35 03/23/17 00:00 98.0 92 25 122/60 100 Mechanical Ventilator 35 03/23/17 00:00 103 03/22/17 23:04 93 141/85 03/22/17 22:57 102 25 35 03/22/17 21:10 93 24 35 03/22/17 20:00 98.0 92 20 141/85 100 Mechanical Ventilator 35 03/22/17 20:00 35 03/22/17 20:00 94 03/22/17 19:24 105 27 35 03/22/17 18:25 112 133/72 03/22/17 17:14 112 29 35 03/22/17 16:00 98.5 104 22 156/80 100 Mechanical Ventilator 35 03/22/17 16:00 35 03/22/17 15:14 114 26 35 03/22/17 15:13 124 03/22/17 13:11 52 17 35 03/22/17 12:17 103 133/72 03/22/17 12:07 106 03/22/17 12:00 97.7 102 26 133/72 100 Mechanical Ventilator 35 03/22/17 12:00 35 03/22/17 11:15 104 18 35 Intake and Output 03/22/17 03/23/17 19:00 07:00 Intake Total 785.276 ml 1025.000 ml Output Total 220 ml 500 ml Balance 565.276 ml 525.000 ml Intake Free Water 90 ml 100 ml IV Total 380.276 ml 385.000 ml Tube Feeding 225 ml 480 ml Other 90 ml 60 ml Output Urine Total 220 ml 500 ml # Bowel Movements 2 4 Laboratory Tests Test 03/23/17 04:35 White Blood Count 13.9 K/UL (4.8-10.8) H Red Blood Count 2.89 M/UL (4.70-6.10) L Hemoglobin 8.3 G/DL (14.2-18.0) L Hematocrit 25.8 % (42.0-52.0) L Mean Corpuscular Volume 89 FL (80-99) Mean Corpuscular Hemoglobin 28.9 PG (27.0-31.0) Mean Corpuscular Hemoglobin Concent 32.4 G/DL (32.0-36.0) Red Cell Distribution Width 17.1 % (11.6-14.8) H Platelet Count 161 K/UL (150-450) Mean Platelet Volume 7.5 FL (6.5-10.1) Neutrophils (%) (Auto) 83.5 % (45.0-75.0) H Lymphocytes (%) (Auto) 8.2 % (20.0-45.0) L Monocytes (%) (Auto) 6.7 % (1.0-10.0) Eosinophils (%) (Auto) 1.4 % (0.0-3.0) Basophils (%) (Auto) 0.3 % (0.0-2.0) Erythrocyte Sedimentation Rate 101 MM/HR (0-30) H Sodium Level 145 MMOL/L (136-145) Potassium Level 3.6 MMOL/L (3.5-5.1) Chloride Level 113 MMOL/L (98-107) H Carbon Dioxide Level 24 MMOL/L (21-32) Anion Gap 8 mmol/L (5-15) Blood Urea Nitrogen 12 mg/dL (7-18) Creatinine 0.8 MG/DL (0.55-1.30) Estimat Glomerular Filtration Rate mL/min (>60) Glucose Level 101 MG/DL (74-106) Calcium Level 8.5 MG/DL (8.5-10.1) Phosphorus Level 2.9 MG/DL (2.5-4.9) Magnesium Level 1.9 MG/DL (1.8-2.4) Total Bilirubin 0.6 MG/DL (0.2-1.0) Aspartate Amino Transf (AST/SGOT) 16 U/L (15-37) Alanine Aminotransferase (ALT/SGPT) 31 U/L (12-78) Alkaline Phosphatase 112 U/L (46-116) C-Reactive Protein, Quantitative 5.5 mg/dL (0.00-0.90) H Total Protein 6.6 G/DL (6.4-8.2) Albumin 2.3 G/DL (3.4-5.0) L Globulin 4.3 g/dL Albumin/Globulin Ratio 0.5 (1.0-2.7) L Height (Feet): 6 Height (Inches): 0.84 Weight (Pounds): 196 General Appearance: no apparent distress Cardiovascular: normal rate [facility]: GT site - c/d/i Naz Lainez N.P. Mar 23, 2017 10:38
[2017-03-23 12:00] VITALS: BP 142/63
--- NOTE | 2017-03-23 13:07 | Nephrology Progress Note ---
Assessment/Plan Problem List: (1) Upper gastrointestinal bleed (2) Acute on chronic respiratory failure (3) Acute renal failure (ARF) Assessment Acute renal failure , multifactorial: RESOLVED Pre Renal / GI Bleed / Cr and BUN now WNL 1. Sepsis. 2. History of upper GI bleed in the past. 3. History of CVA. 4. History of TIA. 5. Dementia. 6. Hypertension. 7. COPD. 8. Diabetes. 10. Anemia. 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 Plan Plan: K and phos supplement as needed Zazueta- monitor renal parameters- urine studies per orders Subjective ROS Limited/Unobtainable: Yes Objective Objective Last 24 Hour Vital Signs Date Time Temp Pulse Resp B/P (MAP) Pulse Ox O2 Delivery O2 Flow Rate FiO2 03/23/17 12:58 73 19 35 03/23/17 12:26 80 142/63 03/23/17 11:05 62 14 35 03/23/17 10:11 58 14 35 03/23/17 08:00 35 03/23/17 08:00 106 03/23/17 07:57 97.7 103 22 164/100 100 Mechanical Ventilator 35 03/23/17 07:27 92 20 35 03/23/17 06:05 77 145/78 03/23/17 05:18 77 15 35 03/23/17 04:00 104 03/23/17 04:00 35 03/23/17 04:00 98.0 95 16 145/78 100 Mechanical Ventilator 35 03/23/17 03:04 91 21 35 03/23/17 01:04 96 30 35 03/23/17 00:00 98.0 92 25 122/60 100 Mechanical Ventilator 35 03/23/17 00:00 103 03/22/17 23:04 93 141/85 03/22/17 22:57 102 25 35 03/22/17 21:10 93 24 35 03/22/17 20:00 98.0 92 20 141/85 100 Mechanical Ventilator 35 03/22/17 20:00 35 03/22/17 20:00 94 03/22/17 19:24 105 27 35 03/22/17 18:25 112 133/72 03/22/17 17:14 112 29 35 03/22/17 16:00 98.5 104 22 156/80 100 Mechanical Ventilator 35 03/22/17 16:00 35 03/22/17 15:14 114 26 35 03/22/17 15:13 124 03/22/17 13:11 52 17 35 Intake and Output 03/22/17 03/23/17 19:00 07:00 Intake Total 785.276 ml 1025.000 ml Output Total 220 ml 500 ml Balance 565.276 ml 525.000 ml Intake Free Water 90 ml 100 ml IV Total 380.276 ml 385.000 ml Tube Feeding 225 ml 480 ml Other 90 ml 60 ml Output Urine Total 220 ml 500 ml # Bowel Movements 2 4 Laboratory Tests 03/23/17 04:35: White Blood Count 13.9H, Red Blood Count 2.89L, Hemoglobin 8.3L, Hematocrit 25.8L, Mean Corpuscular Volume 89, Mean Corpuscular Hemoglobin 28.9, Mean Corpuscular Hemoglobin Concent 32.4, Red Cell Distribution Width 17.1H, Platelet Count 161, Mean Platelet Volume 7.5, Neutrophils (%) (Auto) 83.5H, Lymphocytes (%) (Auto) 8.2L, Monocytes (%) (Auto) 6.7, Eosinophils (%) (Auto) 1.4, Basophils (%) (Auto) 0.3, Erythrocyte Sedimentation Rate 101H, Sodium Level 145, Potassium Level 3.6, Chloride Level 113H, Carbon Dioxide Level 24, Anion Gap 8, Blood Urea Nitrogen 12, Creatinine 0.8, Estimat Glomerular Filtration Rate , Glucose Level 101, Calcium Level 8.5, Phosphorus Level 2.9, Magnesium Level 1.9, Total Bilirubin 0.6, Aspartate Amino Transf (AST/SGOT) 16, Alanine Aminotransferase (ALT/SGPT) 31, Alkaline Phosphatase 112, C-Reactive Protein, Quantitative 5.5H, Total Protein 6.6, Albumin 2.3L, Globulin 4.3, Albumin/Globulin Ratio 0.5L Height (Feet): 6 Height (Inches): 0.84 Weight (Pounds): 196 General Appearance: no apparent distress Cardiovascular: normal rate Respiratory/Chest: decreased breath sounds Abdomen: soft Objective no other changes JACI VALLJEO Mar 23, 2017 13:07
[2017-03-23 16:00] VITALS: BP 139/84
--- NOTE | 2017-03-23 16:00 | Infectious Diseases Prog Note ---
Assessment/Plan Assessment/Plan Sepsis, SP no evid or UTI UCx : Samira Colonizer , low count Probable Pnum SCx : MRSA (S Vanco, bactrim, tetracycline) and Providencia (S Ceftriaxone, Zosyn) , repeat ScxL GNRn (id and sensi pending) -CXR No acute process. Findings as noted Leukocytosis- improving possibly multifactorial 2ry to infection and reactive to emesis; mildly improved Wnd Cx: MRSA, ESBL P. mirabilis ( colonizer ) CT A/P ( no contrast ) : no abscess, Constipation Blood cx : Diphteroids contaminant Recent MDR PsA VAP, s/p rx Scx: MDR- PSA ( S Amikacin) Recent CoNS bacteremia, contaminant ?UGIB History of upper GI bleed in the past History of CVA/TIA Dementia Hypertension COPD Diabetes Anemia Ventilator-dependent respiratory failure Plan: -Continue IV Vancomycin d# and IV Zosyn d# 3/5 ( empirically ) -- 03/21 SP Cefepime d# 8 -- 03/17 SP Amikacin # 4 --03/09 SP INH Colistin #7 --03/08 SP IV Amikacin #7 --03/02 SP vancomycin and Zosyn # 7 - f/u repeat Cx (Sp, Ur , Bl ) -Monitor CBC/BMP, temperatures Subjective Allergies: Coded Allergies: No Known Allergies (Verified , 08/19/07) Subjective afebrile leukocytosis improving Bcx NTD Objective Vital Signs Last 24 Hour Vital Signs Date Time Temp Pulse Resp B/P (MAP) Pulse Ox O2 Delivery O2 Flow Rate FiO2 03/23/17 15:19 73 16 35 03/23/17 12:58 73 19 35 03/23/17 12:26 80 142/63 03/23/17 12:00 35 03/23/17 12:00 99.1 80 15 142/63 100 Mechanical Ventilator 35 03/23/17 11:05 62 14 35 03/23/17 10:11 58 14 35 03/23/17 08:00 35 03/23/17 08:00 106 03/23/17 07:57 97.7 103 22 164/100 100 Mechanical Ventilator 35 03/23/17 07:27 92 20 35 03/23/17 06:05 77 145/78 03/23/17 05:18 77 15 35 03/23/17 04:00 104 03/23/17 04:00 35 03/23/17 04:00 98.0 95 16 145/78 100 Mechanical Ventilator 35 03/23/17 03:04 91 21 35 03/23/17 01:04 96 30 35 03/23/17 00:00 98.0 92 25 122/60 100 Mechanical Ventilator 35 03/23/17 00:00 103 03/22/17 23:04 93 141/85 03/22/17 22:57 102 25 35 03/22/17 21:10 93 24 35 03/22/17 20:00 98.0 92 20 141/85 100 Mechanical Ventilator 35 03/22/17 20:00 35 03/22/17 20:00 94 03/22/17 19:24 105 27 35 03/22/17 18:25 112 133/72 03/22/17 17:14 112 29 35 Height (Feet): 6 Height (Inches): 0.84 Weight (Pounds): 196 Objective General Appearance: no apparent distress, alert, non-toxic, other - Gurgling sounds from trach, dried brownish sputum on trach, gown, Chronically Ill Head: normocephalic, atraumatic Eyes: bilateral eye PERRL, bilateral eye EOMI ENT: normal ENT inspection, hearing grossly normal, normal pharynx, no angioedema, normal voice, TMs + canals normal, uvula midline, moist mucus membranes Neck: normal inspection, full range of motion, supple, thyroid normal, no meningismus, no bony tend Respiratory: normal inspection, lungs clear, normal breath sounds, no rhonchi, no respiratory distress, no retraction, no accessory muscle use, no wheezing, speaking full sentences Cardiovascular regular rate, rhythm, no edema, no JVD, normal capillary refill Gastrointestinal: normal inspection, normal bowel sounds, non tender, soft, no mass, no peritonitis, non-distended, no guarding, no hernia, no pulsatile mass Genitourinary: no CVA tenderness Musculoskeletal: normal inspection, back normal, normal range of motion, no calf tenderness, pelvis stable, other - Edematous, contracted Skin: normal inspection, normal color, no rash Microbiology Date/Time Source Procedure Growth Status 03/21/17 12:50 Blood Blood Culture - Preliminary NO GROWTH AFTER 24 HOURS Resulted 03/21/17 12:50 Blood Blood Culture - Preliminary Resulted 2/13/18 12:50 Sputum Gram Stain - Final Resulted 03/21/17 12:50 Sputum Culture - Preliminary Gram Negative Bacillus 1 Resulted 03/21/17 12:50 Urine,Clean Catch Urine Culture - Preliminary Yeast Species Resulted Laboratory Tests Test 03/23/17 04:35 White Blood Count 13.9 K/UL (4.8-10.8) H Red Blood Count 2.89 M/UL (4.70-6.10) L Hemoglobin 8.3 G/DL (14.2-18.0) L Hematocrit 25.8 % (42.0-52.0) L Mean Corpuscular Volume 89 FL (80-99) Mean Corpuscular Hemoglobin 28.9 PG (27.0-31.0) Mean Corpuscular Hemoglobin Concent 32.4 G/DL (32.0-36.0) Red Cell Distribution Width 17.1 % (11.6-14.8) H Platelet Count 161 K/UL (150-450) Mean Platelet Volume 7.5 FL (6.5-10.1) Neutrophils (%) (Auto) 83.5 % (45.0-75.0) H Lymphocytes (%) (Auto) 8.2 % (20.0-45.0) L Monocytes (%) (Auto) 6.7 % (1.0-10.0) Eosinophils (%) (Auto) 1.4 % (0.0-3.0) Basophils (%) (Auto) 0.3 % (0.0-2.0) Erythrocyte Sedimentation Rate 101 MM/HR (0-30) H Sodium Level 145 MMOL/L (136-145) Potassium Level 3.6 MMOL/L (3.5-5.1) Chloride Level 113 MMOL/L (98-107) H Carbon Dioxide Level 24 MMOL/L (21-32) Anion Gap 8 mmol/L (5-15) Blood Urea Nitrogen 12 mg/dL (7-18) Creatinine 0.8 MG/DL (0.55-1.30) Estimat Glomerular Filtration Rate mL/min (>60) Glucose Level 101 MG/DL (74-106) Calcium Level 8.5 MG/DL (8.5-10.1) Phosphorus Level 2.9 MG/DL (2.5-4.9) Magnesium Level 1.9 MG/DL (1.8-2.4) Total Bilirubin 0.6 MG/DL (0.2-1.0) Aspartate Amino Transf (AST/SGOT) 16 U/L (15-37) Alanine Aminotransferase (ALT/SGPT) 31 U/L (12-78) Alkaline Phosphatase 112 U/L (46-116) C-Reactive Protein, Quantitative 5.5 mg/dL (0.00-0.90) H Total Protein 6.6 G/DL (6.4-8.2) Albumin 2.3 G/DL (3.4-5.0) L Globulin 4.3 g/dL Albumin/Globulin Ratio 0.5 (1.0-2.7) L Current Medications Medications (Trade) Dose Ordered Sig/Jaswant Route PRN Reason Start Time Stop Time Status Last Admin Dose Admin Acetaminophen (Tylenol) 650 mg Q4H PRN ORAL fever 03/14/17 05:15 04/13/17 05:14 03/15/17 10:06 Chlorhexidine Gluconate (Arelis-Hex 2%) 1 applic DAILY@1999 TOPIC 03/17/17 22:00 04/16/17 21:59 03/22/17 20:33 Clonidine HCl (Catapres Tab) 0.1 mg Q4H PRN GT For High Blood Pressure>160 03/14/17 05:15 04/13/17 05:14 Dextrose (Dextrose 50%) STAT PRN IV Hypoglycemia 03/14/17 05:15 04/13/17 05:14 03/18/17 21:44 Diltiazem HCl (Cardizem) 30 mg Q6HR ORAL 03/15/17 18:00 04/13/17 08:59 03/23/17 12:26 Docusate Sodium (Colace) 100 mg THREE TIMES A DAY GT 03/20/17 13:00 04/19/17 12:59 03/23/17 13:18 Erythromycin (Leander-Ped) 50 mg Q8HR GT 03/21/17 14:00 03/28/17 13:59 03/23/17 13:25 Famotidine (Pepcid) 20 mg BID GT 03/16/17 18:00 04/15/17 17:59 03/23/17 08:35 Insulin Aspart (NovoLOG) EVERY 6 HOURS SUBQ 03/14/17 12:00 04/13/17 06:29 03/22/17 18:27 Mineral Oil (Mineral Oil) 30 ml DAILYPRN PRN GT Constipation 2nd Line Agent 03/20/17 12:30 04/19/17 12:29 03/20/17 16:19 Nitroglycerin (Ntg) 0.4 mg Q5M X 3 DOSES PRN SL Prn Chest Pain 03/14/17 05:15 04/13/17 05:14 Ondansetron HCl (Zofran) 4 mg Q6H PRN IVP Nausea & Vomiting 03/14/17 05:15 04/13/17 05:14 Piperacillin Sod/ Tazobactam Sod 4.5 gm/Sodium Chloride 110 ml @ 27.5 mls/hr EVERY 8 HOURS IVPB 03/21/17 14:00 03/26/17 23:59 03/23/17 13:25 Polyethylene Glycol (Miralax) 17 gm BEDTIME GT 03/20/17 21:00 04/19/17 20:59 03/22/17 20:34 Polyethylene Glycol (Miralax) 17 gm HSPRN PRN ORAL Constipation 03/14/17 05:15 04/13/17 05:14 03/19/17 18:46 Vancomycin HCl (Vanco rx to dose) 1 ea DAILY PRN MISC Per rx protocol 03/17/17 14:00 04/16/17 13:59 Vancomycin HCl 1 gm/Dextrose 275 ml @ 183.708 mls/hr Q24H IVPB 03/21/17 20:00 03/26/17 19:59 03/22/17 20:33 Sindy Elder M.D. Mar 23, 2017 16:00
[2017-03-23] MEDS ORDERED: Tubing IV Secondary IV ONE (17:45)
[2017-03-23] MEDS ORDERED: Sterile Water Irrig 1000ml IRRIG ONE (17:45)
[2017-03-23] MEDS ORDERED: NS 500ML ONE (17:45)
[2017-03-23] MEDS ORDERED: NS 275ml ONE (17:45)
[2017-03-23 20:00] VITALS: BP_SYST 148; BP_SYST 158; BP_DIAS 84
[2017-03-23] MEDS: Vancomycin 1gm/D5W 275ml IVPB SCH ×2 (20:53)
[2017-03-23] MEDS: Dyna-Hex 2% Top Sol 2oz TOPIC SCH (20:53)
[2017-03-23] MEDS: Miralax 17gm pkt GT SCH (20:53)
[2017-03-24] VITALS: BP 150/84
[2017-03-24] MEDS: dilTIAZem HCl 30mg tab ORAL SCH ×4 (00:31→17:48)
[2017-03-24 04:00] VITALS: BP 106/64
[2017-03-24 05:11] LABS: BASOPHILS % (AUTO) 0.2 % (0.0-2.0); EOSINOPHILS % (AUTO) 1.7 % (0.0-3.0); HEMATOCRIT 24.9 % (42.0-52.0); HEMOGLOBIN 8.1 G/DL (14.2-18.0); LYMPHOCYTES % (AUTO) 12.4 % (20.0-45.0); MEAN CORPUSCULAR VOLUME 88 FL (80-99); MONOCYTES % (AUTO) 7.2 % (1.0-10.0); NEUTROPHILS % (AUTO) 78.5 % (45.0-75.0); PLATELET COUNT 156 K/UL (150-450); RED BLOOD COUNT 2.82 M/UL (4.70-6.10); RED CELL DISTRIBUTION WIDTH 16.5 % (11.6-14.8); WHITE BLOOD COUNT 11.7 K/UL (4.8-10.8)
[2017-03-24 05:32] LABS: ANION GAP 8 mmol/L (5-15); BLOOD UREA NITROGEN 13 mg/dL (7-18); CALCIUM 8.5 MG/DL (8.5-10.1); CARBON DIOXIDE 26 MMOL/L (21-32); CHLORIDE 111 MMOL/L (98-107); CREATININE 0.8 MG/DL (0.55-1.30); POTASSIUM 3.4 MMOL/L (3.5-5.1); SODIUM 144 MMOL/L (136-145)
[2017-03-24] MEDS: NovoLOG Insulin Flexpen SUBQ SCH ×4 (05:40→17:53)
[2017-03-24] MEDS: Erythromycin Ethylsuccinate 200mg/5ml Susp GT SCH ×3 (05:51→22:16)
[2017-03-24] MEDS: Piperacillin/Tazobactam 4.5 GM in NS 110 ML IVPB SCH ×3 (05:52→22:16)
--- NOTE | 2017-03-24 08:16 | Pulmonology Progress Note ---
Assessment/Plan Assessment/Plan ASSESSMENT Upper GI bleeding with coffee ground emesis Acute on chronic respiratory failure VDRF/trach Severe sepsis possible bacteremia with SCON ( real vs contaminant) probable PNA acute renal failure-resolved Dysphagia G tube COPD DM hx of CVA e/lyte imbalance anemia of chronic disease dementia mid and right back decub ulcer st 2 POA PLAN OF CARE RADHA vent/trach care , pulm toilet baseline ABG and titrate settings as needed fup with CXR abx ID follows new bl cx + SCOn, ? real vs contaminant , prior + Diphteroids -contaminant sputum cx+ MRSA, Proteus , repeated GNB , urine cx+ dinora-colonizer leukocytosis improving CT A/P no SBO no abscess, + constipation GI follows EGD cancelled due to tachycardia no further coffee ground emesis PPI on TF with strict aspiration precautions, ow dose Reglab, now tolerates TF nephro follows s/p IVF ARF ( multifactorial) resolved Monitor renal parameters, correct lytes as needed, avoid nephrotoxic Venous Duplex BLE negative DVT prophylaxis monitor counts , transfuse prn anemia w/up c/w anemia of chronic disease wound care as per wound nurse recs give additional K case discussed and evaluated by supervising physician Subjective Allergies: Coded Allergies: No Known Allergies (Verified , 08/19/07) Subjective leukocytosis trending down, K-3.4 Objective Last 24 Hour Vital Signs Date Time Temp Pulse Resp B/P (MAP) Pulse Ox O2 Delivery O2 Flow Rate FiO2 03/24/17 07:17 63 23 35 03/24/17 05:52 96 118/64 03/24/17 05:30 96 24 35 03/24/17 04:00 98 03/24/17 04:00 35 03/24/17 04:00 98.1 80 17 106/64 100 Mechanical Ventilator 35 03/24/17 03:29 102 17 35 03/24/17 00:53 78 15 35 03/24/17 00:31 99 150/84 03/24/17 00:00 99 03/24/17 00:00 35 03/24/17 00:00 98.1 79 17 150/84 100 Mechanical Ventilator 35 03/23/17 22:48 77 14 35 03/23/17 20:46 93 19 35 03/23/17 20:00 35 03/23/17 20:00 97.9 82 17 148/84 100 Mechanical Ventilator 35 03/23/17 20:00 35 03/23/17 20:00 97.9 82 15 158/84 100 Mechanical Ventilator 35 03/23/17 20:00 100 03/23/17 19:21 91 21 35 03/23/17 18:04 107 139/84 03/23/17 17:08 107 18 35 03/23/17 16:00 99 03/23/17 16:00 99.2 84 17 139/84 100 Mechanical Ventilator 35 03/23/17 16:00 35 03/23/17 15:19 73 16 35 03/23/17 12:58 73 19 35 03/23/17 12:26 80 142/63 03/23/17 12:00 35 03/23/17 12:00 105 03/23/17 12:00 99.1 80 15 142/63 100 Mechanical Ventilator 35 03/23/17 11:05 62 14 35 03/23/17 10:11 58 14 35 Intake and Output 03/23/17 03/24/17 19:00 07:00 Intake Total 730.0 ml 955.000 ml Output Total 600 ml Balance 730.0 ml 355.000 ml Intake Free Water 80 ml 50 ml IV Total 110.0 ml 385.000 ml Tube Feeding 540 ml 460 ml Other 60 ml Output Urine Total 600 ml # Bowel Movements 2 General Appearance: no acute distress, other - bedridden, vent dependent chronically ill looking AA male Vent6 AC 600-14-35 HEENT: normocephalic, atraumatic, status post trach - Portex#8,s ecretions small, yellow, thin Respiratory/Chest: decreased breath sounds Cardiovascular: tachycardia - ST on tele , other - RIL CL intact Abdomen: normal bowel sounds, soft, non tender, other - G tube Genitourinary: other - Zazueta Extremities: no edema Neurologic/Psychiatric: abnormal gait - bedridden, other - contracted x 4 Musculoskeletal: atrophy - BLE Microbiology Date/Time Source Procedure Growth Status 03/21/17 12:50 Blood Blood Culture - Preliminary NO GROWTH AFTER 48 HOURS Resulted 03/21/17 12:50 Blood Blood Culture - Preliminary Staphylococcus Sp Coag Neg Resulted 03/21/17 12:50 Sputum Gram Stain - Final Resulted 03/21/17 12:50 Sputum Culture - Preliminary Gram Negative Bacillus 1 Gram Negative Bacillus 2 Resulted 03/21/17 12:50 Urine,Clean Catch Urine Culture - Final Dinora Albicans Complete Laboratory Tests 03/24/17 04:00: White Blood Count 11.7H, Red Blood Count 2.82L, Hemoglobin 8.1L, Hematocrit 24.9L, Mean Corpuscular Volume 88, Mean Corpuscular Hemoglobin 28.6, Mean Corpuscular Hemoglobin Concent 32.3, Red Cell Distribution Width 16.5H, Platelet Count 156, Mean Platelet Volume 8.0, Neutrophils (%) (Auto) 78.5H, Lymphocytes (%) (Auto) 12.4L, Monocytes (%) (Auto) 7.2, Eosinophils (%) (Auto) 1.7, Basophils (%) (Auto) 0.2, Sodium Level 144, Potassium Level 3.4L, Chloride Level 111H, Carbon Dioxide Level 26, Anion Gap 8, Blood Urea Nitrogen 13, Creatinine 0.8, Estimat Glomerular Filtration Rate , Glucose Level 96, Calcium Level 8.5 Current Medications Medications (Trade) Dose Ordered Sig/Jaswant Route PRN Reason Start Time Stop Time Status Last Admin Dose Admin Acetaminophen (Tylenol) 650 mg Q4H PRN ORAL fever 03/14/17 05:15 04/13/17 05:14 03/15/17 10:06 Chlorhexidine Gluconate (Arelis-Hex 2%) 1 applic DAILY@1999 TOPIC 03/17/17 22:00 04/16/17 21:59 03/23/17 20:53 Clonidine HCl (Catapres Tab) 0.1 mg Q4H PRN GT For High Blood Pressure>160 03/14/17 05:15 04/13/17 05:14 Dextrose (Dextrose 50%) STAT PRN IV Hypoglycemia 03/14/17 05:15 04/13/17 05:14 03/18/17 21:44 Diltiazem HCl (Cardizem) 30 mg Q6HR ORAL 03/15/17 18:00 04/13/17 08:59 03/24/17 05:52 Docusate Sodium (Colace) 100 mg THREE TIMES A DAY GT 03/20/17 13:00 04/19/17 12:59 03/23/17 18:07 Erythromycin (Leander-Ped) 50 mg Q8HR GT 03/21/17 14:00 03/28/17 13:59 03/24/17 05:51 Famotidine (Pepcid) 20 mg BID GT 03/16/17 18:00 04/15/17 17:59 03/23/17 18:03 Insulin Aspart (NovoLOG) EVERY 6 HOURS SUBQ 03/14/17 12:00 04/13/17 06:29 03/22/17 18:27 Mineral Oil (Mineral Oil) 30 ml DAILYPRN PRN GT Constipation 2nd Line Agent 03/20/17 12:30 04/19/17 12:29 03/20/17 16:19 Nitroglycerin (Ntg) 0.4 mg Q5M X 3 DOSES PRN SL Prn Chest Pain 03/14/17 05:15 04/13/17 05:14 Ondansetron HCl (Zofran) 4 mg Q6H PRN IVP Nausea & Vomiting 03/14/17 05:15 04/13/17 05:14 Piperacillin Sod/ Tazobactam Sod 4.5 gm/Sodium Chloride 110 ml @ 27.5 mls/hr EVERY 8 HOURS IVPB 03/21/17 14:00 03/26/17 23:59 03/24/17 05:52 Polyethylene Glycol (Miralax) 17 gm BEDTIME GT 03/20/17 21:00 04/19/17 20:59 03/23/17 20:53 Polyethylene Glycol (Miralax) 17 gm HSPRN PRN ORAL Constipation 03/14/17 05:15 04/13/17 05:14 03/19/17 18:46 Vancomycin HCl (Vanco rx to dose) 1 ea DAILY PRN MISC Per rx protocol 03/17/17 14:00 04/16/17 13:59 Vancomycin HCl 1 gm/Dextrose 275 ml @ 183.708 mls/hr Q24H IVPB 03/21/17 20:00 03/26/17 19:59 03/23/17 20:53 Gonsalo (Jignesh)Guillermina NP Mar 24, 2017 08:16
[2017-03-24] MEDS ORDERED: Albuterol/Ipratropium 3ml neb HHN PRN (08:30)
[2017-03-24] MEDS: Docusate 100mg/10ml Liq GT SCH ×3 (08:52→17:49)
[2017-03-24 08:59] VITALS: BP 158/94
--- NOTE | 2017-03-24 10:19 | GI Progress Note ---
Assessment/Plan Problems: (1) Feeding by G-tube ICD Codes: Z93.1 - Feeding by G-tube SNOMED: 746287368 (2) Upper gastrointestinal bleed ICD Codes: K92.2 - Gastrointestinal hemorrhage, unspecified SNOMED: 49653076 (3) Anemia ICD Codes: D64.9 - Anemia SNOMED: 565685850 (4) Coffee ground emesis ICD Codes: K92.0 - Hematemesis SNOMED: 09060340, 274256184 (5) DM (diabetes mellitus) ICD Codes: E11.9 - DM (diabetes mellitus) SNOMED: 77938281 Status: unchanged Status Narrative Discussed with Dr. Watson. Assessment/Plan CT scan abd/pelvis --> constipated --> Rx laxative cont low dose reglan GT >> reglan IV & erythromycin IV are both backordered. DM mgmt ppi BID bowel regime >> colace + miralax GTFs per RD, hold for residuals > 150 and restart 4-6 hours later @ starting rate. >> tolerating at this time fu labs The patient was seen and examined at bedside and all new and available data was reviewed in the patients chart. I agree with the above findings, impression and plan. (Patient seen earlier today. Signature stamp does not reflect patient encounter time.). - August Watson MD Subjective Subjective limited Objective Last 24 Hour Vital Signs Date Time Temp Pulse Resp B/P (MAP) Pulse Ox O2 Delivery O2 Flow Rate FiO2 03/24/17 09:21 93 20 35 03/24/17 08:59 98.4 69 18 158/94 100 Mechanical Ventilator 03/24/17 07:17 63 23 35 03/24/17 05:52 96 118/64 03/24/17 05:30 96 24 35 03/24/17 04:00 98 03/24/17 04:00 35 03/24/17 04:00 98.1 80 17 106/64 100 Mechanical Ventilator 35 03/24/17 03:29 102 17 35 03/24/17 00:53 78 15 35 03/24/17 00:31 99 150/84 03/24/17 00:00 99 03/24/17 00:00 35 03/24/17 00:00 98.1 79 17 150/84 100 Mechanical Ventilator 35 03/23/17 22:48 77 14 35 03/23/17 20:46 93 19 35 03/23/17 20:00 35 03/23/17 20:00 97.9 82 17 148/84 100 Mechanical Ventilator 35 03/23/17 20:00 35 03/23/17 20:00 97.9 82 15 158/84 100 Mechanical Ventilator 35 03/23/17 20:00 100 03/23/17 19:21 91 21 35 03/23/17 18:04 107 139/84 03/23/17 17:08 107 18 35 03/23/17 16:00 99 03/23/17 16:00 99.2 84 17 139/84 100 Mechanical Ventilator 35 03/23/17 16:00 35 03/23/17 15:19 73 16 35 03/23/17 12:58 73 19 35 03/23/17 12:26 80 142/63 03/23/17 12:00 35 03/23/17 12:00 105 03/23/17 12:00 99.1 80 15 142/63 100 Mechanical Ventilator 35 03/23/17 11:05 62 14 35 Intake and Output 03/23/17 03/24/17 19:00 07:00 Intake Total 730.0 ml 955.000 ml Output Total 600 ml Balance 730.0 ml 355.000 ml Intake Free Water 80 ml 50 ml IV Total 110.0 ml 385.000 ml Tube Feeding 540 ml 460 ml Other 60 ml Output Urine Total 600 ml # Bowel Movements 2 Laboratory Tests Test 03/24/17 04:00 White Blood Count 11.7 K/UL (4.8-10.8) H Red Blood Count 2.82 M/UL (4.70-6.10) L Hemoglobin 8.1 G/DL (14.2-18.0) L Hematocrit 24.9 % (42.0-52.0) L Mean Corpuscular Volume 88 FL (80-99) Mean Corpuscular Hemoglobin 28.6 PG (27.0-31.0) Mean Corpuscular Hemoglobin Concent 32.3 G/DL (32.0-36.0) Red Cell Distribution Width 16.5 % (11.6-14.8) H Platelet Count 156 K/UL (150-450) Mean Platelet Volume 8.0 FL (6.5-10.1) Neutrophils (%) (Auto) 78.5 % (45.0-75.0) H Lymphocytes (%) (Auto) 12.4 % (20.0-45.0) L Monocytes (%) (Auto) 7.2 % (1.0-10.0) Eosinophils (%) (Auto) 1.7 % (0.0-3.0) Basophils (%) (Auto) 0.2 % (0.0-2.0) Sodium Level 144 MMOL/L (136-145) Potassium Level 3.4 MMOL/L (3.5-5.1) L Chloride Level 111 MMOL/L (98-107) H Carbon Dioxide Level 26 MMOL/L (21-32) Anion Gap 8 mmol/L (5-15) Blood Urea Nitrogen 13 mg/dL (7-18) Creatinine 0.8 MG/DL (0.55-1.30) Estimat Glomerular Filtration Rate mL/min (>60) Glucose Level 96 MG/DL (74-106) Calcium Level 8.5 MG/DL (8.5-10.1) Height (Feet): 6 Height (Inches): 0.84 Weight (Pounds): 196 General Appearance: no apparent distress Cardiovascular: normal rate [facility]: GT site - c/d/i Naz Lainez N.P. Mar 24, 2017 10:19 GABI WATSON Mar 27, 2017 09:14
--- NOTE | 2017-03-24 10:42 | Infectious Diseases Prog Note ---
Assessment/Plan Assessment/Plan Sepsis, SP no evid or UTI UCx : Samira Colonizer , low count Probable Pnum SCx : MRSA (S Vanco, bactrim, tetracycline) and Providencia (S Ceftriaxone, Zosyn) , repeat ScxL GNRn (id and sensi pending) -CXR No acute process. Findings as noted Leukocytosis- improving possibly multifactorial 2ry to infection and reactive to emesis; mildly improved Wnd Cx: MRSA, ESBL P. mirabilis ( colonizer ) CT A/P ( no contrast ) : no abscess, Constipation Blood cx : Diphteroids contaminant Recent MDR PsA VAP, s/p rx Scx: MDR- PSA ( S Amikacin) Recent CoNS bacteremia, contaminant ?UGIB History of upper GI bleed in the past History of CVA/TIA Dementia Hypertension COPD Diabetes Anemia Ventilator-dependent respiratory failure Plan: -Continue IV Vancomycin d# for prob MRSA PNA and IV Zosyn d# 4/5 ( empirically ) -- 03/21 SP Cefepime d# 8 -- 03/17 SP Amikacin # 4 --03/09 SP INH Colistin #7 --03/08 SP IV Amikacin #7 --03/02 SP vancomycin and Zosyn # 7 - f/u repeat Cx (Sp, Ur , Bl ) -Monitor CBC/BMP, temperatures Subjective Allergies: Coded Allergies: No Known Allergies (Verified , 08/19/07) Subjective afebrile leukocytosis improving Bcx NTD Objective Vital Signs Last 24 Hour Vital Signs Date Time Temp Pulse Resp B/P (MAP) Pulse Ox O2 Delivery O2 Flow Rate FiO2 03/24/17 09:21 93 20 35 03/24/17 08:59 98.4 69 18 158/94 100 Mechanical Ventilator 03/24/17 07:17 63 23 35 03/24/17 05:52 96 118/64 03/24/17 05:30 96 24 35 03/24/17 04:00 98 03/24/17 04:00 35 03/24/17 04:00 98.1 80 17 106/64 100 Mechanical Ventilator 35 03/24/17 03:29 102 17 35 03/24/17 00:53 78 15 35 03/24/17 00:31 99 150/84 03/24/17 00:00 99 03/24/17 00:00 35 03/24/17 00:00 98.1 79 17 150/84 100 Mechanical Ventilator 35 03/23/17 22:48 77 14 35 03/23/17 20:46 93 19 35 03/23/17 20:00 35 03/23/17 20:00 97.9 82 17 148/84 100 Mechanical Ventilator 35 03/23/17 20:00 35 03/23/17 20:00 97.9 82 15 158/84 100 Mechanical Ventilator 35 03/23/17 20:00 100 03/23/17 19:21 91 21 35 03/23/17 18:04 107 139/84 03/23/17 17:08 107 18 35 03/23/17 16:00 99 03/23/17 16:00 99.2 84 17 139/84 100 Mechanical Ventilator 35 03/23/17 16:00 35 03/23/17 15:19 73 16 35 03/23/17 12:58 73 19 35 03/23/17 12:26 80 142/63 03/23/17 12:00 35 03/23/17 12:00 105 03/23/17 12:00 99.1 80 15 142/63 100 Mechanical Ventilator 35 03/23/17 11:05 62 14 35 Height (Feet): 6 Height (Inches): 0.84 Weight (Pounds): 196 Objective General Appearance: no apparent distress, alert, non-toxic, other - Gurgling sounds from trach, dried brownish sputum on trach, gown, Chronically Ill Head: normocephalic, atraumatic Eyes: bilateral eye PERRL, bilateral eye EOMI ENT: normal ENT inspection, hearing grossly normal, normal pharynx, no angioedema, normal voice, TMs + canals normal, uvula midline, moist mucus membranes Neck: normal inspection, full range of motion, supple, thyroid normal, no meningismus, no bony tend Respiratory: normal inspection, lungs clear, normal breath sounds, no rhonchi, no respiratory distress, no retraction, no accessory muscle use, no wheezing, speaking full sentences Cardiovascular regular rate, rhythm, no edema, no JVD, normal capillary refill Gastrointestinal: normal inspection, normal bowel sounds, non tender, soft, no mass, no peritonitis, non-distended, no guarding, no hernia, no pulsatile mass Genitourinary: no CVA tenderness Musculoskeletal: normal inspection, back normal, normal range of motion, no calf tenderness, pelvis stable, other - Edematous, contracted Skin: normal inspection, normal color, no rash Microbiology Date/Time Source Procedure Growth Status 03/21/17 12:50 Blood Blood Culture - Preliminary NO GROWTH AFTER 48 HOURS Resulted 03/21/17 12:50 Blood Blood Culture - Preliminary Staphylococcus Sp Coag Neg Resulted 03/21/17 12:50 Sputum Gram Stain - Final Resulted 03/21/17 12:50 Sputum Culture - Preliminary Gram Negative Bacillus 1 Gram Negative Bacillus 2 Resulted 03/21/17 12:50 Urine,Clean Catch Urine Culture - Final Samira Albicans Complete Laboratory Tests Test 03/24/17 04:00 White Blood Count 11.7 K/UL (4.8-10.8) H Red Blood Count 2.82 M/UL (4.70-6.10) L Hemoglobin 8.1 G/DL (14.2-18.0) L Hematocrit 24.9 % (42.0-52.0) L Mean Corpuscular Volume 88 FL (80-99) Mean Corpuscular Hemoglobin 28.6 PG (27.0-31.0) Mean Corpuscular Hemoglobin Concent 32.3 G/DL (32.0-36.0) Red Cell Distribution Width 16.5 % (11.6-14.8) H Platelet Count 156 K/UL (150-450) Mean Platelet Volume 8.0 FL (6.5-10.1) Neutrophils (%) (Auto) 78.5 % (45.0-75.0) H Lymphocytes (%) (Auto) 12.4 % (20.0-45.0) L Monocytes (%) (Auto) 7.2 % (1.0-10.0) Eosinophils (%) (Auto) 1.7 % (0.0-3.0) Basophils (%) (Auto) 0.2 % (0.0-2.0) Sodium Level 144 MMOL/L (136-145) Potassium Level 3.4 MMOL/L (3.5-5.1) L Chloride Level 111 MMOL/L (98-107) H Carbon Dioxide Level 26 MMOL/L (21-32) Anion Gap 8 mmol/L (5-15) Blood Urea Nitrogen 13 mg/dL (7-18) Creatinine 0.8 MG/DL (0.55-1.30) Estimat Glomerular Filtration Rate mL/min (>60) Glucose Level 96 MG/DL (74-106) Calcium Level 8.5 MG/DL (8.5-10.1) Current Medications Medications (Trade) Dose Ordered Sig/Jaswant Route PRN Reason Start Time Stop Time Status Last Admin Dose Admin Acetaminophen (Tylenol) 650 mg Q4H PRN ORAL fever 03/14/17 05:15 04/13/17 05:14 03/15/17 10:06 Albuterol/ Ipratropium (Albuterol/ Ipratropium) 3 ml Q4H PRN HHN Shortness of Breath 03/24/17 08:30 03/29/17 08:29 Chlorhexidine Gluconate (Arelis-Hex 2%) 1 applic DAILY@2000 TOPIC 03/17/17 22:00 04/16/17 21:59 03/23/17 20:53 Clonidine HCl (Catapres Tab) 0.1 mg Q4H PRN GT For High Blood Pressure>160 03/14/17 05:15 04/13/17 05:14 Dextrose (Dextrose 50%) STAT PRN IV Hypoglycemia 03/14/17 05:15 04/13/17 05:14 03/18/17 21:44 Diltiazem HCl (Cardizem) 30 mg Q6HR ORAL 03/15/17 18:00 04/13/17 08:59 03/24/17 05:52 Docusate Sodium (Colace) 100 mg THREE TIMES A DAY GT 03/20/17 13:00 04/19/17 12:59 03/24/17 08:52 Erythromycin (Leander-Ped) 50 mg Q8HR GT 03/21/17 14:00 03/28/17 13:59 03/24/17 05:51 Famotidine (Pepcid) 20 mg BID GT 03/16/17 18:00 04/15/17 17:59 03/24/17 08:52 Insulin Aspart (NovoLOG) EVERY 6 HOURS SUBQ 03/14/17 12:00 04/13/17 06:29 03/22/17 18:27 Mineral Oil (Mineral Oil) 30 ml DAILYPRN PRN GT Constipation 2nd Line Agent 03/20/17 12:30 04/19/17 12:29 03/20/17 16:19 Nitroglycerin (Ntg) 0.4 mg Q5M X 3 DOSES PRN SL Prn Chest Pain 03/14/17 05:15 04/13/17 05:14 Ondansetron HCl (Zofran) 4 mg Q6H PRN IVP Nausea & Vomiting 03/14/17 05:15 04/13/17 05:14 Piperacillin Sod/ Tazobactam Sod 4.5 gm/Sodium Chloride 110 ml @ 27.5 mls/hr EVERY 8 HOURS IVPB 03/21/17 14:00 03/26/17 23:59 03/24/17 05:52 Polyethylene Glycol (Miralax) 17 gm BEDTIME GT 03/20/17 21:00 04/19/17 20:59 03/23/17 20:53 Polyethylene Glycol (Miralax) 17 gm HSPRN PRN ORAL Constipation 03/14/17 05:15 04/13/17 05:14 03/19/17 18:46 Vancomycin HCl (Vanco rx to dose) 1 ea DAILY PRN MISC Per rx protocol 03/17/17 14:00 04/16/17 13:59 Vancomycin HCl 1 gm/Dextrose 275 ml @ 183.708 mls/hr Q24H IVPB 03/21/17 20:00 03/26/17 19:59 03/23/17 20:53 Sindy Elder M.D. Mar 24, 2017 10:42
[2017-03-24 12:25] VITALS: BP 128/61
[2017-03-24 16:00] VITALS: BP 150/93
--- NOTE | 2017-03-24 16:05 | Nephrology Progress Note ---
Assessment/Plan Problem List: (1) Upper gastrointestinal bleed (2) Acute on chronic respiratory failure (3) Acute renal failure (ARF) Assessment Acute renal failure , multifactorial: RESOLVED Pre Renal / GI Bleed / Cr and BUN now WNL 1. Sepsis. 2. History of upper GI bleed in the past. 3. History of CVA. 4. History of TIA. 5. Dementia. 6. Hypertension. 7. COPD. 8. Diabetes. 10. Anemia. 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 Plan Plan: K and phos supplement as needed Zazueta- monitor renal parameters- urine studies per orders Subjective ROS Limited/Unobtainable: Yes Objective Objective Last 24 Hour Vital Signs Date Time Temp Pulse Resp B/P (MAP) Pulse Ox O2 Delivery O2 Flow Rate FiO2 03/24/17 14:58 102 19 35 03/24/17 13:22 94 20 35 03/24/17 12:39 76 128/61 03/24/17 12:25 97.0 80 15 128/61 100 Endotracheal Tube 03/24/17 11:00 95 20 35 03/24/17 09:21 93 20 35 03/24/17 08:59 98.4 69 18 158/94 100 Mechanical Ventilator 03/24/17 08:00 35 03/24/17 07:50 105 03/24/17 07:17 63 23 35 03/24/17 05:52 96 118/64 03/24/17 05:30 96 24 35 03/24/17 04:00 98 03/24/17 04:00 35 03/24/17 04:00 98.1 80 17 106/64 100 Mechanical Ventilator 35 03/24/17 03:29 102 17 35 03/24/17 00:53 78 15 35 03/24/17 00:31 99 150/84 03/24/17 00:00 99 03/24/17 00:00 35 03/24/17 00:00 98.1 79 17 150/84 100 Mechanical Ventilator 35 03/23/17 22:48 77 14 35 03/23/17 20:46 93 19 35 03/23/17 20:00 35 03/23/17 20:00 97.9 82 17 148/84 100 Mechanical Ventilator 35 03/23/17 20:00 35 03/23/17 20:00 97.9 82 15 158/84 100 Mechanical Ventilator 35 03/23/17 20:00 100 03/23/17 19:21 91 21 35 03/23/17 18:04 107 139/84 03/23/17 17:08 107 18 35 Intake and Output 03/23/17 03/24/17 19:00 07:00 Intake Total 730.0 ml 955.000 ml Output Total 600 ml Balance 730.0 ml 355.000 ml Intake Free Water 80 ml 50 ml IV Total 110.0 ml 385.000 ml Tube Feeding 540 ml 460 ml Other 60 ml Output Urine Total 600 ml # Bowel Movements 2 Laboratory Tests 03/24/17 04:00: White Blood Count 11.7H, Red Blood Count 2.82L, Hemoglobin 8.1L, Hematocrit 24.9L, Mean Corpuscular Volume 88, Mean Corpuscular Hemoglobin 28.6, Mean Corpuscular Hemoglobin Concent 32.3, Red Cell Distribution Width 16.5H, Platelet Count 156, Mean Platelet Volume 8.0, Neutrophils (%) (Auto) 78.5H, Lymphocytes (%) (Auto) 12.4L, Monocytes (%) (Auto) 7.2, Eosinophils (%) (Auto) 1.7, Basophils (%) (Auto) 0.2, Sodium Level 144, Potassium Level 3.4L, Chloride Level 111H, Carbon Dioxide Level 26, Anion Gap 8, Blood Urea Nitrogen 13, Creatinine 0.8, Estimat Glomerular Filtration Rate , Glucose Level 96, Calcium Level 8.5 Height (Feet): 6 Height (Inches): 0.84 Weight (Pounds): 196 General Appearance: no apparent distress Objective no other changes JACI VALLEJO Mar 24, 2017 16:05
[2017-03-24 20:00] VITALS: BP 120/64
[2017-03-24] MEDS: Dyna-Hex 2% Top Sol 2oz TOPIC SCH (20:23)
[2017-03-24] MEDS: Vancomycin 1gm/D5W 275ml IVPB SCH ×2 (20:23)
[2017-03-24] MEDS: Miralax 17gm pkt GT SCH (20:24)
[2017-03-25] VITALS: BP 116/60
[2017-03-25] MEDS: dilTIAZem HCl 30mg tab ORAL SCH ×5 (00:10→23:42)
[2017-03-25 04:00] VITALS: BP 155/89
[2017-03-25 04:02] LABS: HEMATOCRIT 23.9 % (42.0-52.0); HEMOGLOBIN 7.9 G/DL (14.2-18.0); MEAN CORPUSCULAR VOLUME 89 FL (80-99); PLATELET COUNT 150 K/UL (150-450); RED BLOOD COUNT 2.69 M/UL (4.70-6.10); RED CELL DISTRIBUTION WIDTH 16.2 % (11.6-14.8)
[2017-03-25 04:16] LABS: ANION GAP 9 mmol/L (5-15); BLOOD UREA NITROGEN 15 mg/dL (7-18); CALCIUM 8.7 MG/DL (8.5-10.1); CARBON DIOXIDE 25 MMOL/L (21-32); CHLORIDE 112 MMOL/L (98-107); CREATININE 0.9 MG/DL (0.55-1.30); POTASSIUM 3.5 MMOL/L (3.5-5.1); SODIUM 146 MMOL/L (136-145)
[2017-03-25] MEDS: Piperacillin/Tazobactam 4.5 GM in NS 110 ML IVPB SCH ×3 (05:01→21:47)
[2017-03-25] MEDS: Erythromycin Ethylsuccinate 200mg/5ml Susp GT SCH ×3 (05:01→21:47)
[2017-03-25] MEDS: NovoLOG Insulin Flexpen SUBQ SCH ×5 (05:07→23:41)
[2017-03-25 08:00] VITALS: BP 139/88
[2017-03-25] MEDS: Docusate 100mg/10ml Liq GT SCH ×3 (09:16→18:11)
--- NOTE | 2017-03-25 09:25 | Nephrology Progress Note ---
Assessment/Plan Problem List: (1) Upper gastrointestinal bleed (2) Acute on chronic respiratory failure (3) Acute renal failure (ARF) Assessment Acute renal failure , multifactorial: RESOLVED Pre Renal / GI Bleed / Cr and BUN now WNL 1. Sepsis. 2. History of upper GI bleed in the past. 3. History of CVA. 4. History of TIA. 5. Dementia. 6. Hypertension. 7. COPD. 8. Diabetes. 10. Anemia. 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 Plan Plan: K and phos supplement as needed Zazueta- monitor renal parameters- urine studies per orders Subjective ROS Limited/Unobtainable: Yes Objective Objective Last 24 Hour Vital Signs Date Time Temp Pulse Resp B/P (MAP) Pulse Ox O2 Delivery O2 Flow Rate FiO2 03/25/17 06:49 82 15 35 03/25/17 05:17 82 15 35 03/25/17 05:01 86 155/89 03/25/17 04:00 35 03/25/17 04:00 97.9 86 15 155/89 100 Mechanical Ventilator 35 03/25/17 04:00 93 03/25/17 02:57 79 20 35 03/25/17 00:50 79 20 35 03/25/17 00:10 88 120/64 03/25/17 00:00 98.5 75 14 116/60 100 Mechanical Ventilator 35 03/25/17 00:00 35 03/25/17 00:00 87 03/24/17 23:17 88 20 35 03/24/17 21:13 81 19 35 03/24/17 20:09 83 19 35 03/24/17 20:00 97.9 86 24 120/64 100 Mechanical Ventilator 35 03/24/17 20:00 35 03/24/17 20:00 91 03/24/17 17:48 79 150/93 03/24/17 17:45 96 19 35 03/24/17 16:12 79 03/24/17 16:00 35 03/24/17 16:00 98.2 96 18 150/93 100 Endotracheal Tube 03/24/17 14:58 102 19 35 03/24/17 13:22 94 20 35 03/24/17 12:39 76 128/61 03/24/17 12:25 97.6 76 16 128/61 100 Mechanical Ventilator 03/24/17 12:00 91 03/24/17 12:00 35 03/24/17 11:00 95 20 35 Intake and Output 03/24/17 03/25/17 19:00 07:00 Intake Total 912.5 ml 770 ml Output Total 200 ml Balance 712.5 ml 770 ml IV Total 192.5 ml 385 ml Tube Feeding 660 ml 385 ml Other 60 ml Output Urine Total 200 ml # Bowel Movements 2 1 Laboratory Tests 03/25/17 03:30: White Blood Count 11.0H, Red Blood Count 2.69L, Hemoglobin 7.9L, Hematocrit 23.9L, Mean Corpuscular Volume 89, Mean Corpuscular Hemoglobin 29.3, Mean Corpuscular Hemoglobin Concent 32.9, Red Cell Distribution Width 16.2H, Platelet Count 150, Mean Platelet Volume 7.9, Neutrophils (%) (Auto) , Lymphocytes (%) (Auto) , Monocytes (%) (Auto) , Eosinophils (%) (Auto) , Basophils (%) (Auto) , Differential Total Cells Counted 100, Neutrophils % ( Manual) 80H, Lymphocytes % (Manual) 15L, Monocytes % (Manual) 2, Eosinophils % ( Manual) 3, Basophils % (Manual) 0, Band Neutrophils 0, Platelet Estimate Adequate, Platelet Morphology Normal, Hypochromasia 1+, Anisocytosis 1+, Sodium Level 146H, Potassium Level 3.5, Chloride Level 112H, Carbon Dioxide Level 25, Anion Gap 9, Blood Urea Nitrogen 15, Creatinine 0.9, Estimat Glomerular Filtration Rate , Glucose Level 99, Calcium Level 8.7, Magnesium Level 1.9 Height (Feet): 6 Height (Inches): 0.84 Weight (Pounds): 189 General Appearance: no apparent distress Respiratory/Chest: decreased breath sounds Abdomen: distended Objective no other changes JACI VALLEJO Mar 25, 2017 09:25
--- NOTE | 2017-03-25 11:30 | General Progress Note ---
Assessment/Plan Problem List: (1) Coffee ground emesis ICD Codes: K92.0 - Hematemesis SNOMED: 45148122, 186292402 (2) Anemia ICD Codes: D64.9 - Anemia SNOMED: 894257814 (3) Severe sepsis ICD Codes: A41.9 - Sepsis, unspecified organism; R65.20 - Severe sepsis without septicshock SNOMED: 50489902 (4) Feeding by G-tube ICD Codes: Z93.1 - Feeding by G-tube SNOMED: 066289918 (5) DM (diabetes mellitus) ICD Codes: E11.9 - DM (diabetes mellitus) SNOMED: 33964754 (6) Seizure disorder ICD Codes: G40.909 - Epilepsy, unspecified, not intractable,without status epilepticus SNOMED: 015453073 Assessment/Plan GTF tolerated fu labs ppi Subjective ROS Limited/Unobtainable: No Allergies: Coded Allergies: No Known Allergies (Verified , 08/19/07) Objective Last 24 Hour Vital Signs Date Time Temp Pulse Resp B/P (MAP) Pulse Ox O2 Delivery O2 Flow Rate FiO2 03/25/17 10:57 82 18 35 03/25/17 09:24 59 18 35 03/25/17 08:00 101 03/25/17 06:49 82 15 35 03/25/17 05:17 82 15 35 03/25/17 05:01 86 155/89 03/25/17 04:00 35 03/25/17 04:00 97.9 86 15 155/89 100 Mechanical Ventilator 35 03/25/17 04:00 93 03/25/17 02:57 79 20 35 03/25/17 00:50 79 20 35 03/25/17 00:10 88 120/64 03/25/17 00:00 98.5 75 14 116/60 100 Mechanical Ventilator 35 03/25/17 00:00 35 03/25/17 00:00 87 03/24/17 23:17 88 20 35 03/24/17 21:13 81 19 35 03/24/17 20:09 83 19 35 03/24/17 20:00 97.9 86 24 120/64 100 Mechanical Ventilator 35 03/24/17 20:00 35 03/24/17 20:00 91 03/24/17 17:48 79 150/93 03/24/17 17:45 96 19 35 03/24/17 16:12 79 03/24/17 16:00 35 03/24/17 16:00 98.2 96 18 150/93 100 Endotracheal Tube 03/24/17 14:58 102 19 35 03/24/17 13:22 94 20 35 03/24/17 12:39 76 128/61 03/24/17 12:25 97.6 76 16 128/61 100 Mechanical Ventilator 03/24/17 12:00 91 03/24/17 12:00 35 Intake and Output 03/24/17 03/25/17 19:00 07:00 Intake Total 912.5 ml 770 ml Output Total 200 ml Balance 712.5 ml 770 ml IV Total 192.5 ml 385 ml Tube Feeding 660 ml 385 ml Other 60 ml Output Urine Total 200 ml # Bowel Movements 2 1 Laboratory Tests 03/25/17 03:30: White Blood Count 11.0H, Red Blood Count 2.69L, Hemoglobin 7.9L, Hematocrit 23.9L, Mean Corpuscular Volume 89, Mean Corpuscular Hemoglobin 29.3, Mean Corpuscular Hemoglobin Concent 32.9, Red Cell Distribution Width 16.2H, Platelet Count 150, Mean Platelet Volume 7.9, Neutrophils (%) (Auto) , Lymphocytes (%) (Auto) , Monocytes (%) (Auto) , Eosinophils (%) (Auto) , Basophils (%) (Auto) , Differential Total Cells Counted 100, Neutrophils % ( Manual) 80H, Lymphocytes % (Manual) 15L, Monocytes % (Manual) 2, Eosinophils % ( Manual) 3, Basophils % (Manual) 0, Band Neutrophils 0, Platelet Estimate Adequate, Platelet Morphology Normal, Hypochromasia 1+, Anisocytosis 1+, Sodium Level 146H, Potassium Level 3.5, Chloride Level 112H, Carbon Dioxide Level 25, Anion Gap 9, Blood Urea Nitrogen 15, Creatinine 0.9, Estimat Glomerular Filtration Rate , Glucose Level 99, Calcium Level 8.7, Magnesium Level 1.9 03/25/17 09:40: Arterial Blood pH 7.530H, Arterial Blood Partial Pressure CO2 26.2L, Arterial Blood Partial Pressure O2 167.8H, Arterial Blood HCO3 21.5L, Arterial Blood Oxygen Saturation 98.6H, Arterial Blood Base Excess -0.6, Pablito Test N/a Height (Feet): 6 Height (Inches): 0.84 Weight (Pounds): 189 General Appearance: no apparent distress EENT: normal ENT inspection Neck: supple Cardiovascular: normal rate Respiratory/Chest: decreased breath sounds Abdomen: normal bowel sounds, non tender, soft Extremities: non-tender GABI VIDES Mar 25, 2017 11:30
--- NOTE | 2017-03-25 11:48 | Infectious Diseases Prog Note ---
Assessment/Plan Assessment/Plan Sepsis, SP doubt UTI UCx : Samira Colonizer , Probable Pnum SCx : MRSA (S Vanco, bactrim, tetracycline) and Providencia (S Ceftriaxone, Zosyn) , repeat ScxL ACB and GNR Colonizer at this time, (id and sensi pending) -CXR No acute process. Findings as noted Leukocytosis- improving possibly multifactorial 2ry to infection and reactive to emesis; mildly improved Wnd Cx: MRSA, ESBL P. mirabilis ( colonizer ) CT A/P ( no contrast ) : no abscess, Constipation Blood cx : Diphteroids contaminant repeat blood Cx : CoNS / ( m/l contaminant ) Ctr placed on 03/14 Recent MDR PsA VAP, s/p rx Scx: MDR- PSA ( S Amikacin) Recent CoNS bacteremia, contaminant ?UGIB History of upper GI bleed in the past History of CVA/TIA Dementia Hypertension COPD Diabetes Anemia Ventilator-dependent respiratory failure Plan: -Continue IV Vancomycin d# / for prob MRSA PNA and IV Zosyn d# / ( empirically ) -- 03/21 SP Cefepime d# 8 -- 03/17 SP Amikacin # 4 --03/09 SP INH Colistin #7 --03/08 SP IV Amikacin #7 --03/02 SP vancomycin and Zosyn # 7 - f/u repeat Cx (Sp, Bl ) -Monitor CBC/BMP, temperatures Subjective Allergies: Coded Allergies: No Known Allergies (Verified , 08/19/07) Subjective afebrile Objective Vital Signs Last 24 Hour Vital Signs Date Time Temp Pulse Resp B/P (MAP) Pulse Ox O2 Delivery O2 Flow Rate FiO2 03/25/17 10:57 82 18 35 03/25/17 09:24 59 18 35 03/25/17 08:00 101 03/25/17 06:49 82 15 35 03/25/17 05:17 82 15 35 03/25/17 05:01 86 155/89 03/25/17 04:00 35 03/25/17 04:00 97.9 86 15 155/89 100 Mechanical Ventilator 35 03/25/17 04:00 93 03/25/17 02:57 79 20 35 03/25/17 00:50 79 20 35 03/25/17 00:10 88 120/64 03/25/17 00:00 98.5 75 14 116/60 100 Mechanical Ventilator 35 03/25/17 00:00 35 03/25/17 00:00 87 03/24/17 23:17 88 20 35 03/24/17 21:13 81 19 35 03/24/17 20:09 83 19 35 03/24/17 20:00 97.9 86 24 120/64 100 Mechanical Ventilator 35 03/24/17 20:00 35 03/24/17 20:00 91 03/24/17 17:48 79 150/93 03/24/17 17:45 96 19 35 03/24/17 16:12 79 03/24/17 16:00 35 03/24/17 16:00 98.2 96 18 150/93 100 Endotracheal Tube 03/24/17 14:58 102 19 35 03/24/17 13:22 94 20 35 03/24/17 12:39 76 128/61 03/24/17 12:25 97.6 76 16 128/61 100 Mechanical Ventilator 03/24/17 12:00 91 03/24/17 12:00 35 Height (Feet): 6 Height (Inches): 0.84 Weight (Pounds): 189 HEENT: mucous membranes moist Respiratory/Chest: normal breath sounds Cardiovascular: regularly irregular Abdomen: non distended Microbiology Date/Time Source Procedure Growth Status 03/23/17 15:45 Blood Blood Culture - Preliminary NO GROWTH AFTER 24 HOURS Resulted 03/23/17 15:40 Blood Blood Culture - Preliminary NO GROWTH AFTER 24 HOURS Resulted Laboratory Tests Test 03/25/17 03:30 03/25/17 09:40 White Blood Count 11.0 K/UL (4.8-10.8) H Red Blood Count 2.69 M/UL (4.70-6.10) L Hemoglobin 7.9 G/DL (14.2-18.0) L Hematocrit 23.9 % (42.0-52.0) L Mean Corpuscular Volume 89 FL (80-99) Mean Corpuscular Hemoglobin 29.3 PG (27.0-31.0) Mean Corpuscular Hemoglobin Concent 32.9 G/DL (32.0-36.0) Red Cell Distribution Width 16.2 % (11.6-14.8) H Platelet Count 150 K/UL (150-450) Mean Platelet Volume 7.9 FL (6.5-10.1) Neutrophils (%) (Auto) % (45.0-75.0) Lymphocytes (%) (Auto) % (20.0-45.0) Monocytes (%) (Auto) % (1.0-10.0) Eosinophils (%) (Auto) % (0.0-3.0) Basophils (%) (Auto) % (0.0-2.0) Differential Total Cells Counted 100 Neutrophils % (Manual) 80 % (45-75) H Lymphocytes % (Manual) 15 % (20-45) L Monocytes % (Manual) 2 % (1-10) Eosinophils % (Manual) 3 % (0-3) Basophils % (Manual) 0 % (0-2) Band Neutrophils 0 % (0-8) Platelet Estimate Adequate Platelet Morphology Normal Hypochromasia 1+ Anisocytosis 1+ Sodium Level 146 MMOL/L (136-145) H Potassium Level 3.5 MMOL/L (3.5-5.1) Chloride Level 112 MMOL/L (98-107) H Carbon Dioxide Level 25 MMOL/L (21-32) Anion Gap 9 mmol/L (5-15) Blood Urea Nitrogen 15 mg/dL (7-18) Creatinine 0.9 MG/DL (0.55-1.30) Estimat Glomerular Filtration Rate mL/min (>60) Glucose Level 99 MG/DL (74-106) Calcium Level 8.7 MG/DL (8.5-10.1) Magnesium Level 1.9 MG/DL (1.8-2.4) Arterial Blood pH 7.530 (7.350-7.450) Arterial Blood Partial Pressure CO2 26.2 mmHg (35.0-45.0) L Arterial Blood Partial Pressure O2 167.8 mmHg (75.0-100.0) H Arterial Blood HCO3 21.5 mmol/L (22.0-26.0) L Arterial Blood Oxygen Saturation 98.6 % (92.0-98.0) H Arterial Blood Base Excess -0.6 Pablito Test N/a Current Medications Medications (Trade) Dose Ordered Sig/Jaswant Route PRN Reason Start Time Stop Time Status Last Admin Dose Admin Acetaminophen (Tylenol) 650 mg Q4H PRN ORAL fever 03/14/17 05:15 04/13/17 05:14 03/15/17 10:06 Albuterol/ Ipratropium (Albuterol/ Ipratropium) 3 ml Q4H PRN HHN Shortness of Breath 03/24/17 08:30 03/29/17 08:29 Chlorhexidine Gluconate (Arelis-Hex 2%) 1 applic DAILY@2000 TOPIC 03/17/17 22:00 04/16/17 21:59 03/24/17 20:23 Clonidine HCl (Catapres Tab) 0.1 mg Q4H PRN GT For High Blood Pressure>160 03/14/17 05:15 04/13/17 05:14 Dextrose (Dextrose 50%) STAT PRN IV Hypoglycemia 03/14/17 05:15 04/13/17 05:14 03/18/17 21:44 Diltiazem HCl (Cardizem) 30 mg Q6HR ORAL 03/15/17 18:00 04/13/17 08:59 03/25/17 05:01 Docusate Sodium (Colace) 100 mg THREE TIMES A DAY GT 03/20/17 13:00 04/19/17 12:59 03/25/17 09:16 Erythromycin (Leander-Ped) 50 mg Q8HR GT 03/21/17 14:00 03/28/17 13:59 03/25/17 05:01 Famotidine (Pepcid) 20 mg BID GT 03/16/17 18:00 04/15/17 17:59 03/25/17 09:17 Insulin Aspart (NovoLOG) EVERY 6 HOURS SUBQ 03/14/17 12:00 04/13/17 06:29 03/22/17 18:27 Mineral Oil (Mineral Oil) 30 ml DAILYPRN PRN GT Constipation 2nd Line Agent 03/20/17 12:30 04/19/17 12:29 03/20/17 16:19 Nitroglycerin (Ntg) 0.4 mg Q5M X 3 DOSES PRN SL Prn Chest Pain 03/14/17 05:15 04/13/17 05:14 Ondansetron HCl (Zofran) 4 mg Q6H PRN IVP Nausea & Vomiting 03/14/17 05:15 04/13/17 05:14 Piperacillin Sod/ Tazobactam Sod 4.5 gm/Sodium Chloride 110 ml @ 27.5 mls/hr EVERY 8 HOURS IVPB 03/21/17 14:00 03/26/17 23:59 03/25/17 05:01 Polyethylene Glycol (Miralax) 17 gm BEDTIME GT 03/20/17 21:00 04/19/17 20:59 03/23/17 20:53 Polyethylene Glycol (Miralax) 17 gm HSPRN PRN ORAL Constipation 03/14/17 05:15 04/13/17 05:14 03/19/17 18:46 Vancomycin HCl (Vanco rx to dose) 1 ea DAILY PRN MISC Per rx protocol 03/17/17 14:00 04/16/17 13:59 Vancomycin HCl 1 gm/Dextrose 275 ml @ 183.708 mls/hr Q24H IVPB 03/21/17 20:00 03/31/17 23:59 03/24/17 20:23 MARGARETTE BRYANT M.D. Mar 25, 2017 11:48
--- NOTE | 2017-03-25 11:52 | Diagnostic Imaging Report ---
Indication: Dyspnea Comparison: 03/20/2017 A single view chest radiograph was obtained. Findings: Heart is enlarged. The interstitium of the lung is prominent. Pulmonary vascularity may be slightly prominent also. There is a tracheostomy present. The aorta is enlarged. Bones are osteopenic. IMPRESSION: Mild interstitial edema may be present. Please correlate clinically
[2017-03-25 12:00] VITALS: BP 142/85
--- NOTE | 2017-03-25 14:09 | Pulmonology Progress Note ---
Assessment/Plan Assessment/Plan ASSESSMENT Upper GI bleeding with coffee ground emesis Acute on chronic respiratory failure VDRF/trach Severe sepsis possible bacteremia with SCON ( real vs contaminant) probable PNA acute renal failure-resolved Dysphagia G tube COPD DM hx of CVA e/lyte imbalance anemia of chronic disease dementia mid and right back decub ulcer st 2 POA PLAN OF CARE RADHA vent/trach care , pulm toilet baseline ABG noted decrease AC to 12 fup with CXR abx ID follows new bl cx + SCOn, ? real vs contaminant , prior + Diphteroids -contaminant sputum cx+ MRSA, Proteus , repeated GNB , urine cx+ dinora-colonizer leukocytosis improving CT A/P no SBO no abscess, + constipation GI follows EGD cancelled due to tachycardia no further coffee ground emesis PPI on TF with strict aspiration precautions, low dose Reglan, now tolerates TF nephro follows s/p IVF ARF ( multifactorial) resolved Monitor renal parameters, correct lytes as needed, avoid nephrotoxic Venous Duplex BLE negative DVT prophylaxis monitor counts , transfuse prn anemia w/up c/w anemia of chronic disease,transfuse prn Hgb below 7.5 wound care as per wound nurse recs give additional K case discussed and evaluated by supervising physician Subjective Allergies: Coded Allergies: No Known Allergies (Verified , 08/19/07) Subjective leukocytosis trending down, no signs of resp distress HH with trend down Objective Last 24 Hour Vital Signs Date Time Temp Pulse Resp B/P (MAP) Pulse Ox O2 Delivery O2 Flow Rate FiO2 03/25/17 12:50 93 18 35 03/25/17 12:17 75 139/88 03/25/17 12:00 92 03/25/17 12:00 35 03/25/17 12:00 98.2 75 18 142/85 100 Mechanical Ventilator 35 03/25/17 10:57 82 18 35 03/25/17 09:24 59 18 35 03/25/17 08:00 98.2 75 19 139/88 100 Mechanical Ventilator 35 03/25/17 08:00 101 03/25/17 08:00 35 03/25/17 06:49 82 15 35 03/25/17 05:17 82 15 35 03/25/17 05:01 86 155/89 03/25/17 04:00 35 03/25/17 04:00 97.9 86 15 155/89 100 Mechanical Ventilator 35 03/25/17 04:00 93 03/25/17 02:57 79 20 35 03/25/17 00:50 79 20 35 03/25/17 00:10 88 120/64 03/25/17 00:00 98.5 75 14 116/60 100 Mechanical Ventilator 35 03/25/17 00:00 35 03/25/17 00:00 87 03/24/17 23:17 88 20 35 03/24/17 21:13 81 19 35 03/24/17 20:09 83 19 35 03/24/17 20:00 97.9 86 24 120/64 100 Mechanical Ventilator 35 03/24/17 20:00 35 03/24/17 20:00 91 03/24/17 17:48 79 150/93 03/24/17 17:45 96 19 35 03/24/17 16:12 79 03/24/17 16:00 35 03/24/17 16:00 98.2 96 18 150/93 100 Endotracheal Tube 03/24/17 14:58 102 19 35 Intake and Output 03/24/17 03/25/17 19:00 07:00 Intake Total 912.5 ml 797.5 ml Output Total 200 ml Balance 712.5 ml 797.5 ml IV Total 192.5 ml 412.5 ml Tube Feeding 660 ml 385 ml Other 60 ml Output Urine Total 200 ml # Bowel Movements 2 1 Objective General Appearance: no acute distress, other - bedridden, vent dependent chronically ill looking AA male Vent6 AC 600-14-35 HEENT: normocephalic, atraumatic, status post trach - Portex#8,secretions small , yellow, thin Respiratory/Chest: decreased breath sounds Cardiovascular: tachycardia - ST on tele , other - RIL CL intact Abdomen: normal bowel sounds, soft, non tender, other - G tube Genitourinary: other - Zazueta Extremities: no edema Neurologic/Psychiatric: bedridden, contracted x 4 Musculoskeletal: atrophy - BLE Microbiology Date/Time Source Procedure Growth Status 03/23/17 15:45 Blood Blood Culture - Preliminary NO GROWTH AFTER 24 HOURS Resulted 03/23/17 15:40 Blood Blood Culture - Preliminary NO GROWTH AFTER 24 HOURS Resulted Laboratory Tests 03/25/17 03:30: White Blood Count 11.0H, Red Blood Count 2.69L, Hemoglobin 7.9L, Hematocrit 23.9L, Mean Corpuscular Volume 89, Mean Corpuscular Hemoglobin 29.3, Mean Corpuscular Hemoglobin Concent 32.9, Red Cell Distribution Width 16.2H, Platelet Count 150, Mean Platelet Volume 7.9, Neutrophils (%) (Auto) , Lymphocytes (%) (Auto) , Monocytes (%) (Auto) , Eosinophils (%) (Auto) , Basophils (%) (Auto) , Differential Total Cells Counted 100, Neutrophils % ( Manual) 80H, Lymphocytes % (Manual) 15L, Monocytes % (Manual) 2, Eosinophils % ( Manual) 3, Basophils % (Manual) 0, Band Neutrophils 0, Platelet Estimate Adequate, Platelet Morphology Normal, Hypochromasia 1+, Anisocytosis 1+, Sodium Level 146H, Potassium Level 3.5, Chloride Level 112H, Carbon Dioxide Level 25, Anion Gap 9, Blood Urea Nitrogen 15, Creatinine 0.9, Estimat Glomerular Filtration Rate , Glucose Level 99, Calcium Level 8.7, Magnesium Level 1.9 03/25/17 09:40: Arterial Blood pH 7.530H, Arterial Blood Partial Pressure CO2 26.2L, Arterial Blood Partial Pressure O2 167.8H, Arterial Blood HCO3 21.5L, Arterial Blood Oxygen Saturation 98.6H, Arterial Blood Base Excess -0.6, Pablito Test N/a Current Medications Medications (Trade) Dose Ordered Sig/Jaswant Route PRN Reason Start Time Stop Time Status Last Admin Dose Admin Acetaminophen (Tylenol) 650 mg Q4H PRN ORAL fever 03/14/17 05:15 04/13/17 05:14 03/15/17 10:06 Albuterol/ Ipratropium (Albuterol/ Ipratropium) 3 ml Q4H PRN HHN Shortness of Breath 03/24/17 08:30 03/29/17 08:29 Chlorhexidine Gluconate (Arelis-Hex 2%) 1 applic DAILY@2000 TOPIC 03/17/17 22:00 04/16/17 21:59 03/24/17 20:23 Clonidine HCl (Catapres Tab) 0.1 mg Q4H PRN GT For High Blood Pressure>160 03/14/17 05:15 04/13/17 05:14 Dextrose (Dextrose 50%) STAT PRN IV Hypoglycemia 03/14/17 05:15 04/13/17 05:14 03/18/17 21:44 Diltiazem HCl (Cardizem) 30 mg Q6HR ORAL 03/15/17 18:00 04/13/17 08:59 03/25/17 12:17 Docusate Sodium (Colace) 100 mg THREE TIMES A DAY GT 03/20/17 13:00 04/19/17 12:59 03/25/17 12:26 Erythromycin (Leander-Ped) 50 mg Q8HR GT 03/21/17 14:00 03/28/17 13:59 03/25/17 05:01 Famotidine (Pepcid) 20 mg BID GT 03/16/17 18:00 04/15/17 17:59 03/25/17 09:17 Insulin Aspart (NovoLOG) EVERY 6 HOURS SUBQ 03/14/17 12:00 04/13/17 06:29 03/25/17 12:23 Mineral Oil (Mineral Oil) 30 ml DAILYPRN PRN GT Constipation 2nd Line Agent 03/20/17 12:30 04/19/17 12:29 03/20/17 16:19 Nitroglycerin (Ntg) 0.4 mg Q5M X 3 DOSES PRN SL Prn Chest Pain 03/14/17 05:15 04/13/17 05:14 Ondansetron HCl (Zofran) 4 mg Q6H PRN IVP Nausea & Vomiting 03/14/17 05:15 04/13/17 05:14 Piperacillin Sod/ Tazobactam Sod 4.5 gm/Sodium Chloride 110 ml @ 27.5 mls/hr EVERY 8 HOURS IVPB 03/21/17 14:00 03/28/17 23:59 03/25/17 05:01 Polyethylene Glycol (Miralax) 17 gm BEDTIME GT 03/20/17 21:00 04/19/17 20:59 03/23/17 20:53 Polyethylene Glycol (Miralax) 17 gm HSPRN PRN ORAL Constipation 03/14/17 05:15 04/13/17 05:14 03/19/17 18:46 Vancomycin HCl (Vanco rx to dose) 1 ea DAILY PRN MISC Per rx protocol 03/17/17 14:00 04/16/17 13:59 Vancomycin HCl 1 gm/Dextrose 275 ml @ 183.708 mls/hr Q24H IVPB 03/21/17 20:00 03/30/17 23:59 03/24/17 20:23 Gonsalo ([facility])Guillermina NP Mar 25, 2017 14:09
[2017-03-25 16:00] VITALS: BP 128/62
[2017-03-25] MEDS ORDERED: NS 275ml ONE (17:27)
[2017-03-25] MEDS ORDERED: Sterile Water Irrig 1000ml IRRIG ONE (17:27)
[2017-03-25 20:00] VITALS: BP 141/76
[2017-03-25] MEDS: Miralax 17gm pkt GT SCH (20:56)
[2017-03-25] MEDS: Dyna-Hex 2% Top Sol 2oz TOPIC SCH (20:57)
[2017-03-25] MEDS: Vancomycin 1gm/D5W 275ml IVPB SCH ×2 (21:26)
[2017-03-26] VITALS: BP 149/75
[2017-03-26 04:00] VITALS: BP 139/72
[2017-03-26 06:21] LABS: HEMATOCRIT 23.8 % (42.0-52.0); HEMOGLOBIN 7.6 G/DL (14.2-18.0); MEAN CORPUSCULAR VOLUME 89 FL (80-99); PLATELET COUNT 135 K/UL (150-450); RED BLOOD COUNT 2.68 M/UL (4.70-6.10); RED CELL DISTRIBUTION WIDTH 16.7 % (11.6-14.8); WHITE BLOOD COUNT 10.9 K/UL (4.8-10.8)
[2017-03-26 06:38] LABS: ANION GAP 5 mmol/L (5-15); BLOOD UREA NITROGEN 14 mg/dL (7-18); CALCIUM 8.5 MG/DL (8.5-10.1); CARBON DIOXIDE 28 MMOL/L (21-32); CHLORIDE 112 MMOL/L (98-107); CREATININE 0.8 MG/DL (0.55-1.30); POTASSIUM 3.4 MMOL/L (3.5-5.1); SODIUM 145 MMOL/L (136-145)
[2017-03-26] MEDS: Piperacillin/Tazobactam 4.5 GM in NS 110 ML IVPB SCH ×3 (06:54→21:19)
[2017-03-26] MEDS: dilTIAZem HCl 30mg tab ORAL SCH ×3 (06:55→17:10)
[2017-03-26] MEDS: Erythromycin Ethylsuccinate 200mg/5ml Susp GT SCH ×3 (06:55→21:18)
[2017-03-26] MEDS: NovoLOG Insulin Flexpen SUBQ SCH ×3 (06:55→17:08)
[2017-03-26 08:00] VITALS: BP 147/89
[2017-03-26] MEDS: Docusate 100mg/10ml Liq GT SCH ×3 (08:01→17:10)
--- NOTE | 2017-03-26 08:54 | General Progress Note ---
Assessment/Plan Problem List: (1) Coffee ground emesis ICD Codes: K92.0 - Hematemesis SNOMED: 55676927, 112558806 (2) Anemia ICD Codes: D64.9 - Anemia SNOMED: 277336133 (3) Severe sepsis ICD Codes: A41.9 - Sepsis, unspecified organism; R65.20 - Severe sepsis without septicshock SNOMED: 47349179 (4) Feeding by G-tube ICD Codes: Z93.1 - Feeding by G-tube SNOMED: 545222259 (5) DM (diabetes mellitus) ICD Codes: E11.9 - DM (diabetes mellitus) SNOMED: 64227770 (6) Seizure disorder ICD Codes: G40.909 - Epilepsy, unspecified, not intractable,without status epilepticus SNOMED: 092955597 Assessment/Plan GTF tolerated fu labs ppi Subjective ROS Limited/Unobtainable: No Allergies: Coded Allergies: No Known Allergies (Verified , 08/19/07) Objective Last 24 Hour Vital Signs Date Time Temp Pulse Resp B/P (MAP) Pulse Ox O2 Delivery O2 Flow Rate FiO2 03/26/17 08:51 73 19 35 03/26/17 08:00 93.3 94 26 147/89 100 Mechanical Ventilator 35 03/26/17 08:00 35 03/26/17 07:47 100 03/26/17 07:09 95 26 35 03/26/17 06:55 64 139/72 03/26/17 05:13 64 22 35 03/26/17 04:00 98.1 60 15 139/72 100 Mechanical Ventilator 35 03/26/17 04:00 35 03/26/17 04:00 79 03/26/17 03:07 60 22 35 03/26/17 01:29 93 27 35 03/26/17 00:00 98.2 60 16 149/75 100 Mechanical Ventilator 35 03/25/17 23:42 89 141/76 03/25/17 23:15 89 24 35 03/25/17 21:23 76 15 35 03/25/17 20:00 35 03/25/17 20:00 70 03/25/17 20:00 98.2 60 16 141/76 100 Mechanical Ventilator 35 03/25/17 19:36 80 20 35 03/25/17 18:12 76 139/88 03/25/17 17:08 76 17 35 03/25/17 16:00 35 03/25/17 16:00 97.9 79 18 128/62 100 Mechanical Ventilator 35 03/25/17 16:00 76 03/25/17 15:15 83 17 35 03/25/17 12:50 93 18 35 03/25/17 12:17 75 139/88 03/25/17 12:00 92 03/25/17 12:00 35 03/25/17 12:00 98.2 75 18 142/85 100 Mechanical Ventilator 35 03/25/17 10:57 82 18 35 03/25/17 09:24 59 18 35 Intake and Output 03/25/17 03/26/17 19:00 07:00 Intake Total 852.5 ml 1015.0 ml Output Total 400 ml 1270 ml Balance 452.5 ml -255.0 ml Intake Free Water 200 ml IV Total 137.5 ml 110.0 ml Tube Feeding 715 ml 605 ml Other 100 ml Output Urine Total 400 ml 1270 ml # Bowel Movements 1 Laboratory Tests 03/25/17 09:40: Arterial Blood pH 7.530H, Arterial Blood Partial Pressure CO2 26.2L, Arterial Blood Partial Pressure O2 167.8H, Arterial Blood HCO3 21.5L, Arterial Blood Oxygen Saturation 98.6H, Arterial Blood Base Excess -0.6, Pablito Test N/a 03/25/17 19:20: Vancomycin Level Trough 18.7H 03/26/17 04:00: White Blood Count 10.9H, Red Blood Count 2.68L, Hemoglobin 7.6L, Hematocrit 23.8L, Mean Corpuscular Volume 89, Mean Corpuscular Hemoglobin 28.4, Mean Corpuscular Hemoglobin Concent 32.0, Red Cell Distribution Width 16.7H, Platelet Count 135L, Mean Platelet Volume 8.2, Neutrophils (%) (Auto) , Lymphocytes (%) (Auto) , Monocytes (%) (Auto) , Eosinophils (%) (Auto) , Basophils (%) (Auto) , Differential Total Cells Counted 100, Neutrophils % ( Manual) 77H, Lymphocytes % (Manual) 15L, Monocytes % (Manual) 7, Eosinophils % ( Manual) 1, Basophils % (Manual) 0, Band Neutrophils 0, Platelet Estimate DecreasedL, Platelet Morphology Normal, Hypochromasia 1+, Anisocytosis 1+, Sodium Level 145, Potassium Level 3.4L, Chloride Level 112H, Carbon Dioxide Level 28, Anion Gap 5, Blood Urea Nitrogen 14, Creatinine 0.8, Estimat Glomerular Filtration Rate , Glucose Level 108H, Calcium Level 8.5 03/26/17 08:40: White Blood Count [Pending], Red Blood Count [Pending], Hemoglobin [Pending], Hematocrit [Pending], Mean Corpuscular Volume [Pending], Mean Corpuscular Hemoglobin [Pending], Mean Corpuscular Hemoglobin Concent [Pending], Red Cell Distribution Width [Pending], Platelet Count [Pending], Mean Platelet Volume [ Pending], Neutrophils (%) (Auto) [Pending], Lymphocytes (%) (Auto) [Pending], Monocytes (%) (Auto) [Pending], Eosinophils (%) (Auto) [Pending], Basophils (%) (Auto) [Pending], Sodium Level [Pending], Potassium Level [Pending], Chloride Level [Pending], Carbon Dioxide Level [Pending], Blood Urea Nitrogen [Pending], Creatinine [Pending], Estimat Glomerular Filtration Rate [Pending], Glucose Level [Pending], Calcium Level [Pending] Height (Feet): 6 Height (Inches): 0.84 Weight (Pounds): 198 General Appearance: no apparent distress EENT: normal ENT inspection Neck: supple Cardiovascular: normal rate Respiratory/Chest: decreased breath sounds Abdomen: normal bowel sounds, non tender, soft Extremities: non-tender GABI VIDES Mar 26, 2017 08:54
[2017-03-26 08:58] LABS: BASOPHILS % (AUTO) 0.6 % (0.0-2.0); EOSINOPHILS % (AUTO) 2.3 % (0.0-3.0); HEMATOCRIT 26.4 % (42.0-52.0); HEMOGLOBIN 8.5 G/DL (14.2-18.0); LYMPHOCYTES % (AUTO) 14.6 % (20.0-45.0); MEAN CORPUSCULAR VOLUME 88 FL (80-99); MONOCYTES % (AUTO) 6.4 % (1.0-10.0); NEUTROPHILS % (AUTO) 76.1 % (45.0-75.0); PLATELET COUNT 142 K/UL (150-450); RED CELL DISTRIBUTION WIDTH 15.9 % (11.6-14.8); WHITE BLOOD COUNT 9.8 K/UL (4.8-10.8)
[2017-03-26 09:08] LABS: ANION GAP 5 mmol/L (5-15); BLOOD UREA NITROGEN 15 mg/dL (7-18); CALCIUM 8.9 MG/DL (8.5-10.1); CARBON DIOXIDE 28 MMOL/L (21-32); CHLORIDE 111 MMOL/L (98-107); CREATININE 0.8 MG/DL (0.55-1.30); POTASSIUM 3.7 MMOL/L (3.5-5.1); SODIUM 144 MMOL/L (136-145)
--- NOTE | 2017-03-26 10:51 | Pulmonology Progress Note ---
Assessment/Plan Assessment/Plan ASSESSMENT Upper GI bleeding with coffee ground emesis Acute on chronic respiratory failure VDRF/trach Severe sepsis possible bacteremia with SCON ( real vs contaminant) probable PNA acute renal failure-resolved Dysphagia G tube COPD DM hx of CVA e/lyte imbalance anemia of chronic disease dementia mid and right back decub ulcer st 2 POA PLAN OF CARE RADHA vent/trach care , pulm toilet baseline ABG noted decrease AC to 12 check ABG in am fup with CXR abx ID follows last bl cx + SCOn, ? real vs contaminant , prior + Diphteroids -contaminant , new blood cx - prel negative sputum cx+ MRSA, Proteus , repeated Acinetobacter, Proteus, GNB , urine cx+ Samira-colonizer leukocytosis resolved CT A/P no SBO no abscess, + constipation bowel regimen GI follows EGD cancelled due to tachycardia no further coffee ground emesis PPI on TF with strict aspiration precautions, low dose Reglan, now tolerates TF nephro follows s/p IVF ARF ( multifactorial) resolved Monitor renal parameters, correct lytes as needed, avoid nephrotoxic Venous Duplex BLE negative DVT prophylaxis monitor counts , transfuse prn anemia w/up c/w anemia of chronic disease,transfuse prn Hgb below 7.5 wound care as per wound nurse recs case discussed and evaluated by supervising physician Subjective Allergies: Coded Allergies: No Known Allergies (Verified , 08/19/07) Subjective leukocytosis resolved no signs of resp distress labs redrawn this am , HH at baseline Objective Last 24 Hour Vital Signs Date Time Temp Pulse Resp B/P (MAP) Pulse Ox O2 Delivery O2 Flow Rate FiO2 03/26/17 10:36 93 19 35 03/26/17 08:51 73 19 35 03/26/17 08:00 93.3 94 26 147/89 100 Mechanical Ventilator 35 03/26/17 08:00 35 03/26/17 07:47 100 03/26/17 07:09 95 26 35 03/26/17 06:55 64 139/72 03/26/17 05:13 64 22 35 03/26/17 04:00 98.1 60 15 139/72 100 Mechanical Ventilator 35 03/26/17 04:00 35 03/26/17 04:00 79 03/26/17 03:07 60 22 35 03/26/17 01:29 93 27 35 03/26/17 00:00 98.2 60 16 149/75 100 Mechanical Ventilator 35 03/25/17 23:42 89 141/76 03/25/17 23:15 89 24 35 18 21:23 76 15 35 18 20:00 35 18 20:00 70 03/25/17 20:00 98.2 60 16 141/76 100 Mechanical Ventilator 35 03/25/17 19:36 80 20 35 18 18:12 76 139/88 18 17:08 76 17 35 18 16:00 35 03/25/17 16:00 97.9 79 18 128/62 100 Mechanical Ventilator 35 03/25/17 16:00 76 03/25/17 15:15 83 17 35 03/25/17 12:50 93 18 35 03/25/17 12:17 75 139/88 03/25/17 12:00 92 03/25/17 12:00 35 03/25/17 12:00 98.2 75 18 142/85 100 Mechanical Ventilator 35 03/25/17 10:57 82 18 35 Intake and Output 03/25/17 03/26/17 19:00 07:00 Intake Total 852.5 ml 1015.0 ml Output Total 400 ml 1270 ml Balance 452.5 ml -255.0 ml Intake Free Water 200 ml IV Total 137.5 ml 110.0 ml Tube Feeding 715 ml 605 ml Other 100 ml Output Urine Total 400 ml 1270 ml # Bowel Movements 1 Objective General Appearance: no acute distress, other - bedridden, vent dependent chronically ill looking AA male Vent6 AC 600-12-35% HEENT: normocephalic, atraumatic, status post trach - Portex#8,secretions small , yellow, thin Respiratory/Chest: decreased breath sounds Cardiovascular: regular rate, irregualr rhythm , SR on tele with frequent PAC , RIL CL intact Abdomen: normal bowel sounds, soft, non tender, other - G tube Genitourinary: Zazueta Extremities: no edema Neurologic/Psychiatric: bedridden, contracted x 4 Musculoskeletal: atrophy - BLE Microbiology Date/Time Source Procedure Growth Status 03/23/17 15:45 Blood Blood Culture - Preliminary NO GROWTH AFTER 48 HOURS Resulted 03/23/17 15:40 Blood Blood Culture - Preliminary NO GROWTH AFTER 48 HOURS Resulted Laboratory Tests 03/25/17 19:20: Vancomycin Level Trough 18.7H 03/26/17 04:00: White Blood Count 10.9H, Red Blood Count 2.68L, Hemoglobin 7.6L, Hematocrit 23.8L, Mean Corpuscular Volume 89, Mean Corpuscular Hemoglobin 28.4, Mean Corpuscular Hemoglobin Concent 32.0, Red Cell Distribution Width 16.7H, Platelet Count 135L, Mean Platelet Volume 8.2, Neutrophils (%) (Auto) , Lymphocytes (%) (Auto) , Monocytes (%) (Auto) , Eosinophils (%) (Auto) , Basophils (%) (Auto) , Differential Total Cells Counted 100, Neutrophils % ( Manual) 77H, Lymphocytes % (Manual) 15L, Monocytes % (Manual) 7, Eosinophils % ( Manual) 1, Basophils % (Manual) 0, Band Neutrophils 0, Platelet Estimate DecreasedL, Platelet Morphology Normal, Hypochromasia 1+, Anisocytosis 1+, Sodium Level 145, Potassium Level 3.4L, Chloride Level 112H, Carbon Dioxide Level 28, Anion Gap 5, Blood Urea Nitrogen 14, Creatinine 0.8, Estimat Glomerular Filtration Rate , Glucose Level 108H, Calcium Level 8.5 03/26/17 08:40: White Blood Count 9.8, Red Blood Count 3.00L, Hemoglobin 8.5L, Hematocrit 26.4L , Mean Corpuscular Volume 88, Mean Corpuscular Hemoglobin 28.4, Mean Corpuscular Hemoglobin Concent 32.2, Red Cell Distribution Width 15.9H, Platelet Count 142L, Mean Platelet Volume 7.5, Neutrophils (%) (Auto) 76.1H, Lymphocytes (%) (Auto) 14.6L, Monocytes (%) (Auto) 6.4, Eosinophils (%) (Auto) 2.3, Basophils (%) (Auto) 0.6, Sodium Level 144, Potassium Level 3.7, Chloride Level 111H, Carbon Dioxide Level 28, Anion Gap 5, Blood Urea Nitrogen 15, Creatinine 0.8, Estimat Glomerular Filtration Rate , Glucose Level 104, Calcium Level 8.9 Current Medications Medications (Trade) Dose Ordered Sig/Jaswant Route PRN Reason Start Time Stop Time Status Last Admin Dose Admin Acetaminophen (Tylenol) 650 mg Q4H PRN ORAL fever 03/14/17 05:15 04/13/17 05:14 03/15/17 10:06 Albuterol/ Ipratropium (Albuterol/ Ipratropium) 3 ml Q4H PRN HHN Shortness of Breath 03/24/17 08:30 03/29/17 08:29 Chlorhexidine Gluconate (Arelis-Hex 2%) 1 applic DAILY@2000 TOPIC 03/17/17 22:00 04/16/17 21:59 03/25/17 20:57 Clonidine HCl (Catapres Tab) 0.1 mg Q4H PRN GT For High Blood Pressure>160 03/14/17 05:15 04/13/17 05:14 Dextrose (Dextrose 50%) STAT PRN IV Hypoglycemia 03/14/17 05:15 04/13/17 05:14 03/18/17 21:44 Diltiazem HCl (Cardizem) 30 mg Q6HR ORAL 03/15/17 18:00 04/13/17 08:59 03/26/17 06:55 Docusate Sodium (Colace) 100 mg THREE TIMES A DAY GT 03/20/17 13:00 04/19/17 12:59 03/26/17 08:01 Erythromycin (Leander-Ped) 50 mg Q8HR GT 03/21/17 14:00 03/28/17 13:59 03/26/17 06:55 Famotidine (Pepcid) 20 mg BID GT 03/16/17 18:00 04/15/17 17:59 03/26/17 08:01 Insulin Aspart (NovoLOG) EVERY 6 HOURS SUBQ 03/14/17 12:00 04/13/17 06:29 03/25/17 18:19 Mineral Oil (Mineral Oil) 30 ml DAILYPRN PRN GT Constipation 2nd Line Agent 03/20/17 12:30 04/19/17 12:29 03/20/17 16:19 Nitroglycerin (Ntg) 0.4 mg Q5M X 3 DOSES PRN SL Prn Chest Pain 03/14/17 05:15 04/13/17 05:14 Ondansetron HCl (Zofran) 4 mg Q6H PRN IVP Nausea & Vomiting 03/14/17 05:15 04/13/17 05:14 Piperacillin Sod/ Tazobactam Sod 4.5 gm/Sodium Chloride 110 ml @ 27.5 mls/hr EVERY 8 HOURS IVPB 03/21/17 14:00 03/28/17 23:59 03/26/17 06:54 Polyethylene Glycol (Miralax) 17 gm BEDTIME GT 03/20/17 21:00 04/19/17 20:59 03/25/17 20:56 Polyethylene Glycol (Miralax) 17 gm HSPRN PRN ORAL Constipation 03/14/17 05:15 04/13/17 05:14 03/19/17 18:46 Vancomycin HCl (Vanco rx to dose) 1 ea DAILY PRN MISC Per rx protocol 03/17/17 14:00 04/16/17 13:59 Vancomycin/Sodium Chloride 250 ml @ 166.667 mls/hr Q24H IVPB 03/26/17 22:00 03/31/17 21:59 Gonsalo (Jignesh)Guillermina NP Mar 26, 2017 10:51
--- NOTE | 2017-03-26 11:29 | Nephrology Progress Note ---
Assessment/Plan Problem List: (1) Upper gastrointestinal bleed (2) Acute on chronic respiratory failure (3) Acute renal failure (ARF) Assessment Acute renal failure , multifactorial: RESOLVED Pre Renal / GI Bleed / Cr and BUN now WNL 1. Sepsis. 2. History of upper GI bleed in the past. 3. History of CVA. 4. History of TIA. 5. Dementia. 6. Hypertension. 7. COPD. 8. Diabetes. 10. Anemia. 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 Plan Plan: K and phos supplement as needed Zazueta- monitor renal parameters- urine studies per orders Subjective ROS Limited/Unobtainable: Yes Objective Objective Last 24 Hour Vital Signs Date Time Temp Pulse Resp B/P (MAP) Pulse Ox O2 Delivery O2 Flow Rate FiO2 03/26/17 10:36 93 19 35 03/26/17 08:51 73 19 35 03/26/17 08:00 93.3 94 26 147/89 100 Mechanical Ventilator 35 03/26/17 08:00 35 03/26/17 07:47 100 03/26/17 07:09 95 26 35 03/26/17 06:55 64 139/72 03/26/17 05:13 64 22 35 03/26/17 04:00 98.1 60 15 139/72 100 Mechanical Ventilator 35 03/26/17 04:00 35 03/26/17 04:00 79 03/26/17 03:07 60 22 35 03/26/17 01:29 93 27 35 03/26/17 00:00 98.2 60 16 149/75 100 Mechanical Ventilator 35 03/25/17 23:42 89 141/76 03/25/17 23:15 89 24 35 03/25/17 21:23 76 15 35 18 20:00 35 03/25/17 20:00 70 03/25/17 20:00 98.2 60 16 141/76 100 Mechanical Ventilator 35 03/25/17 19:36 80 20 35 18 18:12 76 139/88 03/25/17 17:08 76 17 35 18 16:00 35 03/25/17 16:00 97.9 79 18 128/62 100 Mechanical Ventilator 35 03/25/17 16:00 76 03/25/17 15:15 83 17 35 03/25/17 12:50 93 18 35 03/25/17 12:17 75 139/88 03/25/17 12:00 92 03/25/17 12:00 35 03/25/17 12:00 98.2 75 18 142/85 100 Mechanical Ventilator 35 Intake and Output 03/25/17 03/26/17 19:00 07:00 Intake Total 852.5 ml 1015.0 ml Output Total 400 ml 1270 ml Balance 452.5 ml -255.0 ml Intake Free Water 200 ml IV Total 137.5 ml 110.0 ml Tube Feeding 715 ml 605 ml Other 100 ml Output Urine Total 400 ml 1270 ml # Bowel Movements 1 Laboratory Tests 03/25/17 19:20: Vancomycin Level Trough 18.7H 03/26/17 04:00: White Blood Count 10.9H, Red Blood Count 2.68L, Hemoglobin 7.6L, Hematocrit 23.8L, Mean Corpuscular Volume 89, Mean Corpuscular Hemoglobin 28.4, Mean Corpuscular Hemoglobin Concent 32.0, Red Cell Distribution Width 16.7H, Platelet Count 135L, Mean Platelet Volume 8.2, Neutrophils (%) (Auto) , Lymphocytes (%) (Auto) , Monocytes (%) (Auto) , Eosinophils (%) (Auto) , Basophils (%) (Auto) , Differential Total Cells Counted 100, Neutrophils % ( Manual) 77H, Lymphocytes % (Manual) 15L, Monocytes % (Manual) 7, Eosinophils % ( Manual) 1, Basophils % (Manual) 0, Band Neutrophils 0, Platelet Estimate DecreasedL, Platelet Morphology Normal, Hypochromasia 1+, Anisocytosis 1+, Sodium Level 145, Potassium Level 3.4L, Chloride Level 112H, Carbon Dioxide Level 28, Anion Gap 5, Blood Urea Nitrogen 14, Creatinine 0.8, Estimat Glomerular Filtration Rate , Glucose Level 108H, Calcium Level 8.5 03/26/17 08:40: White Blood Count 9.8, Red Blood Count 3.00L, Hemoglobin 8.5L, Hematocrit 26.4L , Mean Corpuscular Volume 88, Mean Corpuscular Hemoglobin 28.4, Mean Corpuscular Hemoglobin Concent 32.2, Red Cell Distribution Width 15.9H, Platelet Count 142L, Mean Platelet Volume 7.5, Neutrophils (%) (Auto) 76.1H, Lymphocytes (%) (Auto) 14.6L, Monocytes (%) (Auto) 6.4, Eosinophils (%) (Auto) 2.3, Basophils (%) (Auto) 0.6, Sodium Level 144, Potassium Level 3.7, Chloride Level 111H, Carbon Dioxide Level 28, Anion Gap 5, Blood Urea Nitrogen 15, Creatinine 0.8, Estimat Glomerular Filtration Rate , Glucose Level 104, Calcium Level 8.9 Height (Feet): 6 Height (Inches): 0.84 Weight (Pounds): 198 General Appearance: no apparent distress Cardiovascular: normal rate Respiratory/Chest: decreased breath sounds Abdomen: soft Objective no other changes JACI VALLEJO Mar 26, 2017 11:29
[2017-03-26 11:50] VITALS: BP 151/82
[2017-03-26 16:00] VITALS: BP 137/93
[2017-03-26 20:00] VITALS: BP 132/83
[2017-03-26] MEDS: Miralax 17gm pkt GT SCH (21:18)
[2017-03-26] MEDS: Dyna-Hex 2% Top Sol 2oz TOPIC SCH (21:18)
[2017-03-26] MEDS: Vancomycin 750mg/NS 250ml IVPB SCH (21:19)
[2017-03-27] VITALS: BP 145/97
[2017-03-27] MEDS: dilTIAZem HCl 30mg tab ORAL SCH ×4 (00:37→17:43)
[2017-03-27] MEDS: NovoLOG Insulin Flexpen SUBQ SCH ×4 (00:37→17:42)
[2017-03-27 04:00] VITALS: BP 163/82
[2017-03-27] MEDS: Erythromycin Ethylsuccinate 200mg/5ml Susp GT SCH ×3 (05:34→21:51)
[2017-03-27] MEDS: Piperacillin/Tazobactam 4.5 GM in NS 110 ML IVPB SCH ×3 (05:35→21:52)
[2017-03-27 05:46] LABS: HEMATOCRIT 23.4 % (42.0-52.0); HEMOGLOBIN 7.6 G/DL (14.2-18.0); MEAN CORPUSCULAR VOLUME 89 FL (80-99); PLATELET COUNT 138 K/UL (150-450); RED BLOOD COUNT 2.63 M/UL (4.70-6.10); RED CELL DISTRIBUTION WIDTH 15.9 % (11.6-14.8); WHITE BLOOD COUNT 8.7 K/UL (4.8-10.8)
[2017-03-27 05:57] LABS: ANION GAP 8 mmol/L (5-15); BLOOD UREA NITROGEN 14 mg/dL (7-18); CALCIUM 8.6 MG/DL (8.5-10.1); CARBON DIOXIDE 27 MMOL/L (21-32); CHLORIDE 109 MMOL/L (98-107); CREATININE 0.7 MG/DL (0.55-1.30); POTASSIUM 3.1 MMOL/L (3.5-5.1); SODIUM 143 MMOL/L (136-145)
[2017-03-27 08:00] VITALS: BP 140/72
[2017-03-27] MEDS: Docusate 100mg/10ml Liq GT SCH ×3 (08:32→17:41)
--- NOTE | 2017-03-27 10:30 | Diagnostic Imaging Report ---
Indication: Dyspnea Technique: One view of the chest Comparison: 03/25/2017 Findings: Tracheostomy remains. Stable satisfactory condition right jugular central venous catheter. Bilateral basilar atelectasis persists, unchanged. There is slight blunting of the left costophrenic sulcus, could indicate a small pleural effusion. Calcification granuloma at the right lung base is partially obscured on the current exam. Findings are overall unchanged Impression: Unchanged, over 2 days, findings as above.
--- NOTE | 2017-03-27 10:34 | Pulmonology Progress Note ---
Assessment/Plan Assessment/Plan ASSESSMENT Upper GI bleeding with coffee ground emesis Acute on chronic respiratory failure VDRF/trach Severe sepsis possible bacteremia with SCON ( real vs contaminant) probable PNA acute renal failure-resolved Dysphagia G tube COPD DM hx of CVA e/lyte imbalance anemia of chronic disease dementia mid and right back decub ulcer st 2 POA PLAN OF CARE RADHA vent/trach care , pulm toilet ABG stable fup with CXR abx ID follows last bl cx + SCON, ? real vs contaminant , prior + Diphteroids -contaminant , new blood cx - prel negative sputum cx+ MRSA, Proteus , repeated Acinetobacter, Proteus, GNB , urine cx+ Samira-colonizer leukocytosis resolved CT A/P no SBO no abscess, + constipation bowel regimen GI follows EGD cancelled due to tachycardia no further coffee ground emesis PPI on TF with strict aspiration precautions, low dose Reglan, now tolerates TF nephro follows s/p IVF ARF ( multifactorial) resolved Monitor renal parameters, correct lytes as needed, avoid nephrotoxic Venous Duplex BLE negative DVT prophylaxis monitor counts , transfuse today anemia w/up c/w anemia of chronic disease,transfuse prn Hgb below 7.5 wound care as per wound nurse recs dc plan for today after transfusion if cleared by GI case discussed and evaluated by supervising physician Subjective Allergies: Coded Allergies: No Known Allergies (Verified , 08/19/07) Subjective leukocytosis resolved no signs of resp distress HH low Objective Last 24 Hour Vital Signs Date Time Temp Pulse Resp B/P (MAP) Pulse Ox O2 Delivery O2 Flow Rate FiO2 03/27/17 09:01 102 25 35 03/27/17 08:00 98.2 79 17 140/72 100 Mechanical Ventilator 35 03/27/17 08:00 104 03/27/17 08:00 35 03/27/17 05:41 87 20 35 03/27/17 05:36 87 163/82 03/27/17 04:00 35 03/27/17 04:00 97.0 87 20 163/82 100 Mechanical Ventilator 35 03/27/17 03:41 79 03/27/17 03:20 72 20 35 03/27/17 01:10 72 20 35 03/27/17 00:37 72 145/97 03/27/17 00:06 87 03/27/17 00:00 97.7 72 20 145/97 100 Mechanical Ventilator 35 03/27/17 00:00 35 03/26/17 22:38 90 25 35 03/26/17 21:00 90 25 35 03/26/17 20:00 97.7 80 20 132/83 100 Mechanical Ventilator 35 03/26/17 20:00 35 03/26/17 19:52 86 03/26/17 18:41 90 25 35 03/26/17 17:12 90 25 35 03/26/17 17:10 106 137/93 03/26/17 16:00 35 03/26/17 16:00 106 03/26/17 16:00 98.8 100 21 137/93 100 Mechanical Ventilator 35 03/26/17 15:42 98 03/26/17 15:17 93 19 35 03/26/17 12:57 63 21 35 03/26/17 12:00 101 151/82 03/26/17 12:00 35 03/26/17 11:57 95 03/26/17 11:50 99.1 101 20 151/82 100 Mechanical Ventilator 35 03/26/17 10:36 93 19 35 Intake and Output 03/26/17 03/27/17 19:00 07:00 Intake Total 1080.0 ml 1234.506 ml Output Total 575 ml Balance 505.0 ml 1234.506 ml Intake Free Water 100 ml IV Total 220.0 ml 429.506 ml Tube Feeding 660 ml 605 ml Other 100 ml 200 ml Output Urine Total 575 ml # Bowel Movements 1 Objective General Appearance: no acute distress, other - bedridden, vent dependent chronically ill looking AA male Vent6 AC 600-12-35% HEENT: normocephalic, atraumatic, status post trach - Portex#8,secretions small , yellow, thin Respiratory/Chest: decreased breath sounds Cardiovascular: regular rate, irregualr rhythm , SR on tele with frequent PAC , RIL CL intact Abdomen: normal bowel sounds, soft, non tender, other - G tube Genitourinary: Zazueta Extremities: no edema Neurologic/Psychiatric: bedridden, contracted x 4 Musculoskeletal: atrophy - BLE Laboratory Tests 03/27/17 04:30: White Blood Count 8.7, Red Blood Count 2.63L, Hemoglobin 7.6L, Hematocrit 23.4L , Mean Corpuscular Volume 89, Mean Corpuscular Hemoglobin 28.7, Mean Corpuscular Hemoglobin Concent 32.3, Red Cell Distribution Width 15.9H, Platelet Count 138L, Mean Platelet Volume 7.8, Neutrophils (%) (Auto) , Lymphocytes (%) (Auto) , Monocytes (%) (Auto) , Eosinophils (%) (Auto) , Basophils (%) (Auto) , Differential Total Cells Counted 100, Neutrophils % ( Manual) 73, Lymphocytes % (Manual) 17L, Monocytes % (Manual) 9, Eosinophils % ( Manual) 1, Basophils % (Manual) 0, Band Neutrophils 0, Platelet Estimate DecreasedL, Platelet Morphology Normal, Hypochromasia 3+, Anisocytosis 1+, Spherocytes 2+, Sodium Level 143, Potassium Level 3.1L, Chloride Level 109H, Carbon Dioxide Level 27, Anion Gap 8, Blood Urea Nitrogen 14, Creatinine 0.7, Estimat Glomerular Filtration Rate , Glucose Level 88, Calcium Level 8.6 03/27/17 10:00: Arterial Blood pH 7.540H, Arterial Blood Partial Pressure CO2 26.6L, Arterial Blood Partial Pressure O2 169.4H, Arterial Blood HCO3 22.2, Arterial Blood Oxygen Saturation 99.0H, Arterial Blood Base Excess 0.4, Pablito Test Positive Current Medications Medications (Trade) Dose Ordered Sig/Jaswant Route PRN Reason Start Time Stop Time Status Last Admin Dose Admin Acetaminophen (Tylenol) 650 mg Q4H PRN ORAL fever 03/14/17 05:15 04/13/17 05:14 03/15/17 10:06 Albuterol/ Ipratropium (Albuterol/ Ipratropium) 3 ml Q4H PRN HHN Shortness of Breath 03/24/17 08:30 03/29/17 08:29 Chlorhexidine Gluconate (Arelis-Hex 2%) 1 applic DAILY@2000 TOPIC 03/17/17 22:00 04/16/17 21:59 03/26/17 21:18 Clonidine HCl (Catapres Tab) 0.1 mg Q4H PRN GT For High Blood Pressure>160 03/14/17 05:15 04/13/17 05:14 Dextrose (Dextrose 50%) STAT PRN IV Hypoglycemia 03/14/17 05:15 04/13/17 05:14 03/18/17 21:44 Diltiazem HCl (Cardizem) 30 mg Q6HR ORAL 03/15/17 18:00 04/13/17 08:59 03/27/17 05:36 Docusate Sodium (Colace) 100 mg THREE TIMES A DAY GT 03/20/17 13:00 04/19/17 12:59 03/27/17 08:32 Erythromycin (Leander-Ped) 50 mg Q8HR GT 03/21/17 14:00 04/03/17 13:59 03/27/17 05:34 Famotidine (Pepcid) 20 mg BID GT 03/16/17 18:00 04/15/17 17:59 03/27/17 08:32 Insulin Aspart (NovoLOG) EVERY 6 HOURS SUBQ 03/14/17 12:00 04/13/17 06:29 03/25/17 18:19 Mineral Oil (Mineral Oil) 30 ml DAILYPRN PRN GT Constipation 2nd Line Agent 03/20/17 12:30 04/19/17 12:29 03/20/17 16:19 Nitroglycerin (Ntg) 0.4 mg Q5M X 3 DOSES PRN SL Prn Chest Pain 03/14/17 05:15 04/13/17 05:14 Ondansetron HCl (Zofran) 4 mg Q6H PRN IVP Nausea & Vomiting 03/14/17 05:15 04/13/17 05:14 Piperacillin Sod/ Tazobactam Sod 4.5 gm/Sodium Chloride 110 ml @ 27.5 mls/hr EVERY 8 HOURS IVPB 03/21/17 14:00 03/28/17 23:59 03/27/17 05:35 Polyethylene Glycol (Miralax) 17 gm BEDTIME GT 03/20/17 21:00 04/19/17 20:59 03/26/17 21:18 Polyethylene Glycol (Miralax) 17 gm HSPRN PRN ORAL Constipation 03/14/17 05:15 04/13/17 05:14 03/19/17 18:46 Vancomycin HCl (Vanco rx to dose) 1 ea DAILY PRN MISC Per rx protocol 03/17/17 14:00 04/16/17 13:59 Vancomycin/Sodium Chloride 250 ml @ 166.667 mls/hr Q24H IVPB 03/26/17 22:00 03/31/17 21:59 03/26/17 21:19 [place] ([facility]),Guillermina BARROW Mar 27, 2017 10:34
[2017-03-27] MEDS ORDERED: NS 275ml ONE (11:31)
[2017-03-27] MEDS ORDERED: Tubing IV Secondary IV ONE (11:31)
--- NOTE | 2017-03-27 11:53 | GI Progress Note ---
Assessment/Plan Problems: (1) Feeding by G-tube ICD Codes: Z93.1 - Feeding by G-tube SNOMED: 009481435 (2) Upper gastrointestinal bleed ICD Codes: K92.2 - Gastrointestinal hemorrhage, unspecified SNOMED: 49104958 (3) Anemia ICD Codes: D64.9 - Anemia SNOMED: 644096222 (4) Coffee ground emesis ICD Codes: K92.0 - Hematemesis SNOMED: 09940997, 635810662 (5) DM (diabetes mellitus) ICD Codes: E11.9 - DM (diabetes mellitus) SNOMED: 85444793 Status: unchanged Status Narrative Discussed with Dr. Watson. Assessment/Plan CT scan abd/pelvis --> constipated --> Rx laxative cont low dose reglan GT >> reglan IV & erythromycin IV are both backordered. DM mgmt ppi BID bowel regime >> colace + miralax GTF tolerated fu labs ppi Subjective Subjective limited Objective Last 24 Hour Vital Signs Date Time Temp Pulse Resp B/P (MAP) Pulse Ox O2 Delivery O2 Flow Rate FiO2 03/27/17 11:29 83 22 28 03/27/17 10:05 28 03/27/17 09:01 102 25 35 03/27/17 08:00 98.2 79 17 140/72 100 Mechanical Ventilator 35 03/27/17 08:00 104 03/27/17 08:00 35 03/27/17 06:52 133 19 35 03/27/17 05:41 87 20 35 03/27/17 05:36 87 163/82 03/27/17 04:00 35 03/27/17 04:00 97.0 87 20 163/82 100 Mechanical Ventilator 35 03/27/17 03:41 79 03/27/17 03:20 72 20 35 03/27/17 01:10 72 20 35 03/27/17 00:37 72 145/97 03/27/17 00:06 87 03/27/17 00:00 97.7 72 20 145/97 100 Mechanical Ventilator 35 03/27/17 00:00 35 03/26/17 22:38 90 25 35 03/26/17 21:00 90 25 35 03/26/17 20:00 97.7 80 20 132/83 100 Mechanical Ventilator 35 03/26/17 20:00 35 03/26/17 19:52 86 03/26/17 18:41 90 25 35 03/26/17 17:12 90 25 35 03/26/17 17:10 106 137/93 03/26/17 16:00 35 03/26/17 16:00 106 03/26/17 16:00 98.8 100 21 137/93 100 Mechanical Ventilator 35 03/26/17 15:42 98 03/26/17 15:17 93 19 35 03/26/17 12:57 63 21 35 03/26/17 12:00 101 151/82 03/26/17 12:00 35 03/26/17 11:57 95 Intake and Output 03/26/17 03/27/17 19:00 07:00 Intake Total 1080.0 ml 1234.506 ml Output Total 575 ml Balance 505.0 ml 1234.506 ml Intake Free Water 100 ml IV Total 220.0 ml 429.506 ml Tube Feeding 660 ml 605 ml Other 100 ml 200 ml Output Urine Total 575 ml # Bowel Movements 1 Laboratory Tests Test 03/27/17 04:30 03/27/17 10:00 White Blood Count 8.7 K/UL (4.8-10.8) Red Blood Count 2.63 M/UL (4.70-6.10) L Hemoglobin 7.6 G/DL (14.2-18.0) L Hematocrit 23.4 % (42.0-52.0) L Mean Corpuscular Volume 89 FL (80-99) Mean Corpuscular Hemoglobin 28.7 PG (27.0-31.0) Mean Corpuscular Hemoglobin Concent 32.3 G/DL (32.0-36.0) Red Cell Distribution Width 15.9 % (11.6-14.8) H Platelet Count 138 K/UL (150-450) L Mean Platelet Volume 7.8 FL (6.5-10.1) Neutrophils (%) (Auto) % (45.0-75.0) Lymphocytes (%) (Auto) % (20.0-45.0) Monocytes (%) (Auto) % (1.0-10.0) Eosinophils (%) (Auto) % (0.0-3.0) Basophils (%) (Auto) % (0.0-2.0) Differential Total Cells Counted 100 Neutrophils % (Manual) 73 % (45-75) Lymphocytes % (Manual) 17 % (20-45) L Monocytes % (Manual) 9 % (1-10) Eosinophils % (Manual) 1 % (0-3) Basophils % (Manual) 0 % (0-2) Band Neutrophils 0 % (0-8) Platelet Estimate Decreased L Platelet Morphology Normal Hypochromasia 3+ Anisocytosis 1+ Spherocytes 2+ Sodium Level 143 MMOL/L (136-145) Potassium Level 3.1 MMOL/L (3.5-5.1) L Chloride Level 109 MMOL/L (98-107) H Carbon Dioxide Level 27 MMOL/L (21-32) Anion Gap 8 mmol/L (5-15) Blood Urea Nitrogen 14 mg/dL (7-18) Creatinine 0.7 MG/DL (0.55-1.30) Estimat Glomerular Filtration Rate mL/min (>60) Glucose Level 88 MG/DL (74-106) Calcium Level 8.6 MG/DL (8.5-10.1) Arterial Blood pH 7.540 (7.350-7.450) Arterial Blood Partial Pressure CO2 26.6 mmHg (35.0-45.0) L Arterial Blood Partial Pressure O2 169.4 mmHg (75.0-100.0) H Arterial Blood HCO3 22.2 mmol/L (22.0-26.0) Arterial Blood Oxygen Saturation 99.0 % (92.0-98.0) H Arterial Blood Base Excess 0.4 Pablito Test Positive Height (Feet): 6 Height (Inches): 0.84 Weight (Pounds): 195 General Appearance: no apparent distress Cardiovascular: normal rate Respiratory/Chest: other - [facility] vent Abdominal Exam: soft, GT site - c/d/i Naz Lainez N.P. Mar 27, 2017 11:53
[2017-03-27 12:00] VITALS: BP 148/92
--- NOTE | 2017-03-27 12:25 | Infectious Diseases Prog Note ---
Assessment/Plan Assessment/Plan Sepsis, SP doubt UTI UCx : Samira Colonizer , Probable Pnum SCx : MRSA (S Vanco, bactrim, tetracycline) and Providencia (S Ceftriaxone, Zosyn) , repeat ScxL ACB and Provid, ESBL P. mirabilis Colonizer at this time 03/25 -CXR Mild interstitial edema may be present. Leukocytosis- improving possibly multifactorial 2ry to infection and reactive to emesis; mildly improved Wnd Cx: MRSA, ESBL P. mirabilis ( colonizer ) CT A/P ( no contrast ) : no abscess, Constipation Blood cx : Diphteroids contaminant repeat blood Cx : CoNS 02/07 ( m/l contaminant ) Ctr placed on 03/14 Recent MDR PsA VAP, s/p rx Scx: MDR- PSA ( S Amikacin) Recent CoNS bacteremia, contaminant ?UGIB History of upper GI bleed in the past History of CVA/TIA Dementia Hypertension COPD Diabetes Anemia Ventilator-dependent respiratory failure Plan: -Continue IV Vancomycin d# for prob MRSA PNA and IV Zosyn d# 6 / ( empirically ) -- 03/21 SP Cefepime d# 8 -- 03/17 SP Amikacin # 4 --03/09 SP INH Colistin #7 --03/08 SP IV Amikacin #7 --03/02 SP vancomycin and Zosyn # 7 - f/u repeat Cx ( Bl ) -Monitor CBC/BMP, temperatures Subjective Allergies: Coded Allergies: No Known Allergies (Verified , 08/19/07) Subjective afebrile Objective Vital Signs Last 24 Hour Vital Signs Date Time Temp Pulse Resp B/P (MAP) Pulse Ox O2 Delivery O2 Flow Rate FiO2 03/27/17 12:00 98.7 108 26 148/92 100 Mechanical Ventilator 28 03/27/17 11:29 83 22 28 03/27/17 10:05 28 03/27/17 09:01 102 25 35 03/27/17 08:00 98.2 79 17 140/72 100 Mechanical Ventilator 35 03/27/17 08:00 104 03/27/17 08:00 35 03/27/17 06:52 133 19 35 03/27/17 05:41 87 20 35 03/27/17 05:36 87 163/82 03/27/17 04:00 35 03/27/17 04:00 97.0 87 20 163/82 100 Mechanical Ventilator 35 03/27/17 03:41 79 03/27/17 03:20 72 20 35 03/27/17 01:10 72 20 35 03/27/17 00:37 72 145/97 03/27/17 00:06 87 03/27/17 00:00 97.7 72 20 145/97 100 Mechanical Ventilator 35 03/27/17 00:00 35 03/26/17 22:38 90 25 35 03/26/17 21:00 90 25 35 03/26/17 20:00 97.7 80 20 132/83 100 Mechanical Ventilator 35 03/26/17 20:00 35 03/26/17 19:52 86 03/26/17 18:41 90 25 35 03/26/17 17:12 90 25 35 03/26/17 17:10 106 137/93 03/26/17 16:00 35 03/26/17 16:00 106 03/26/17 16:00 98.8 100 21 137/93 100 Mechanical Ventilator 35 03/26/17 15:42 98 03/26/17 15:17 93 19 35 03/26/17 12:57 63 21 35 Height (Feet): 6 Height (Inches): 0.84 Weight (Pounds): 195 HEENT: atraumatic Respiratory/Chest: no accessory muscle use Cardiovascular: no gallop/murmur Abdomen: non distended Laboratory Tests Test 03/27/17 04:30 03/27/17 10:00 White Blood Count 8.7 K/UL (4.8-10.8) Red Blood Count 2.63 M/UL (4.70-6.10) L Hemoglobin 7.6 G/DL (14.2-18.0) L Hematocrit 23.4 % (42.0-52.0) L Mean Corpuscular Volume 89 FL (80-99) Mean Corpuscular Hemoglobin 28.7 PG (27.0-31.0) Mean Corpuscular Hemoglobin Concent 32.3 G/DL (32.0-36.0) Red Cell Distribution Width 15.9 % (11.6-14.8) H Platelet Count 138 K/UL (150-450) L Mean Platelet Volume 7.8 FL (6.5-10.1) Neutrophils (%) (Auto) % (45.0-75.0) Lymphocytes (%) (Auto) % (20.0-45.0) Monocytes (%) (Auto) % (1.0-10.0) Eosinophils (%) (Auto) % (0.0-3.0) Basophils (%) (Auto) % (0.0-2.0) Differential Total Cells Counted 100 Neutrophils % (Manual) 73 % (45-75) Lymphocytes % (Manual) 17 % (20-45) L Monocytes % (Manual) 9 % (1-10) Eosinophils % (Manual) 1 % (0-3) Basophils % (Manual) 0 % (0-2) Band Neutrophils 0 % (0-8) Platelet Estimate Decreased L Platelet Morphology Normal Hypochromasia 3+ Anisocytosis 1+ Spherocytes 2+ Sodium Level 143 MMOL/L (136-145) Potassium Level 3.1 MMOL/L (3.5-5.1) L Chloride Level 109 MMOL/L (98-107) H Carbon Dioxide Level 27 MMOL/L (21-32) Anion Gap 8 mmol/L (5-15) Blood Urea Nitrogen 14 mg/dL (7-18) Creatinine 0.7 MG/DL (0.55-1.30) Estimat Glomerular Filtration Rate mL/min (>60) Glucose Level 88 MG/DL (74-106) Calcium Level 8.6 MG/DL (8.5-10.1) Arterial Blood pH 7.540 (7.350-7.450) Arterial Blood Partial Pressure CO2 26.6 mmHg (35.0-45.0) L Arterial Blood Partial Pressure O2 169.4 mmHg (75.0-100.0) H Arterial Blood HCO3 22.2 mmol/L (22.0-26.0) Arterial Blood Oxygen Saturation 99.0 % (92.0-98.0) H Arterial Blood Base Excess 0.4 Pablito Test Positive Current Medications Medications (Trade) Dose Ordered Sig/Jaswant Route PRN Reason Start Time Stop Time Status Last Admin Dose Admin Acetaminophen (Tylenol) 650 mg Q4H PRN ORAL fever 03/14/17 05:15 04/13/17 05:14 03/15/17 10:06 Albuterol/ Ipratropium (Albuterol/ Ipratropium) 3 ml Q4H PRN HHN Shortness of Breath 03/24/17 08:30 03/29/17 08:29 Chlorhexidine Gluconate (Arelis-Hex 2%) 1 applic DAILY@2000 TOPIC 03/17/17 22:00 04/16/17 21:59 03/26/17 21:18 Clonidine HCl (Catapres Tab) 0.1 mg Q4H PRN GT For High Blood Pressure>160 03/14/17 05:15 04/13/17 05:14 Dextrose (Dextrose 50%) STAT PRN IV Hypoglycemia 03/14/17 05:15 04/13/17 05:14 03/18/17 21:44 Diltiazem HCl (Cardizem) 30 mg Q6HR ORAL 03/15/17 18:00 04/13/17 08:59 03/27/17 05:36 Docusate Sodium (Colace) 100 mg THREE TIMES A DAY GT 03/20/17 13:00 04/19/17 12:59 03/27/17 08:32 Erythromycin (Leander-Ped) 50 mg Q8HR GT 03/21/17 14:00 04/03/17 13:59 03/27/17 05:34 Famotidine (Pepcid) 20 mg BID GT 03/16/17 18:00 04/15/17 17:59 03/27/17 08:32 Insulin Aspart (NovoLOG) EVERY 6 HOURS SUBQ 03/14/17 12:00 04/13/17 06:29 03/25/17 18:19 Mineral Oil (Mineral Oil) 30 ml DAILYPRN PRN GT Constipation 2nd Line Agent 03/20/17 12:30 04/19/17 12:29 03/20/17 16:19 Nitroglycerin (Ntg) 0.4 mg Q5M X 3 DOSES PRN SL Prn Chest Pain 03/14/17 05:15 04/13/17 05:14 Ondansetron HCl (Zofran) 4 mg Q6H PRN IVP Nausea & Vomiting 03/14/17 05:15 04/13/17 05:14 Piperacillin Sod/ Tazobactam Sod 4.5 gm/Sodium Chloride 110 ml @ 27.5 mls/hr EVERY 8 HOURS IVPB 03/21/17 14:00 03/28/17 23:59 03/27/17 05:35 Polyethylene Glycol (Miralax) 17 gm BEDTIME GT 03/20/17 21:00 04/19/17 20:59 03/26/17 21:18 Polyethylene Glycol (Miralax) 17 gm HSPRN PRN ORAL Constipation 03/14/17 05:15 04/13/17 05:14 03/19/17 18:46 Vancomycin HCl (Vanco rx to dose) 1 ea DAILY PRN MISC Per rx protocol 03/17/17 14:00 04/16/17 13:59 Vancomycin/Sodium Chloride 250 ml @ 166.667 mls/hr Q24H IVPB 03/26/17 22:00 03/31/17 21:59 03/26/17 21:19 MARGARETTE BRYANT M.D. Mar 27, 2017 12:25
--- NOTE | 2017-03-27 13:46 | Nephrology Progress Note ---
Assessment/Plan Problem List: (1) Upper gastrointestinal bleed (2) Acute on chronic respiratory failure (3) Acute renal failure (ARF) Assessment Acute renal failure , multifactorial: RESOLVED Pre Renal / GI Bleed / Cr and BUN now WNL 1. Sepsis. 2. History of upper GI bleed in the past. 3. History of CVA. 4. History of TIA. 5. Dementia. 6. Hypertension. 7. COPD. 8. Diabetes. 10. Anemia. 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 Plan Plan: K and phos supplement as needed Zazueta- monitor renal parameters- urine studies per orders Subjective ROS Limited/Unobtainable: Yes Objective Objective Last 24 Hour Vital Signs Date Time Temp Pulse Resp B/P (MAP) Pulse Ox O2 Delivery O2 Flow Rate FiO2 03/27/17 12:24 108 148/92 03/27/17 12:00 98.7 108 26 148/92 100 Mechanical Ventilator 28 03/27/17 12:00 28 03/27/17 11:29 83 22 28 03/27/17 10:05 28 03/27/17 09:01 102 25 35 03/27/17 08:00 98.2 79 17 140/72 100 Mechanical Ventilator 35 03/27/17 08:00 104 03/27/17 08:00 35 03/27/17 06:52 133 19 35 03/27/17 05:41 87 20 35 18 05:36 87 163/82 18 04:00 35 03/27/17 04:00 97.0 87 20 163/82 100 Mechanical Ventilator 35 03/27/17 03:41 79 03/27/17 03:20 72 20 35 03/27/17 01:10 72 20 35 18 00:37 72 145/97 18 00:06 87 03/27/17 00:00 97.7 72 20 145/97 100 Mechanical Ventilator 35 03/27/17 00:00 35 18 22:38 90 25 35 03/26/18 21:00 90 25 35 03/26/18 20:00 97.7 80 20 132/83 100 Mechanical Ventilator 35 18 20:00 35 18 19:52 86 1818 18:41 90 25 35 03/26/18 17:12 90 25 35 2/18 17:10 106 137/93 03/26/17 16:00 35 03/26/17 16:00 106 03/26/17 16:00 98.8 100 21 137/93 100 Mechanical Ventilator 35 03/26/17 15:42 98 03/26/17 15:17 93 19 35 Intake and Output 03/26/17 03/27/17 19:00 07:00 Intake Total 1080.0 ml 1234.506 ml Output Total 575 ml Balance 505.0 ml 1234.506 ml Intake Free Water 100 ml IV Total 220.0 ml 429.506 ml Tube Feeding 660 ml 605 ml Other 100 ml 200 ml Output Urine Total 575 ml # Bowel Movements 1 Laboratory Tests 03/27/17 04:30: White Blood Count 8.7, Red Blood Count 2.63L, Hemoglobin 7.6L, Hematocrit 23.4L , Mean Corpuscular Volume 89, Mean Corpuscular Hemoglobin 28.7, Mean Corpuscular Hemoglobin Concent 32.3, Red Cell Distribution Width 15.9H, Platelet Count 138L, Mean Platelet Volume 7.8, Neutrophils (%) (Auto) , Lymphocytes (%) (Auto) , Monocytes (%) (Auto) , Eosinophils (%) (Auto) , Basophils (%) (Auto) , Differential Total Cells Counted 100, Neutrophils % ( Manual) 73, Lymphocytes % (Manual) 17L, Monocytes % (Manual) 9, Eosinophils % ( Manual) 1, Basophils % (Manual) 0, Band Neutrophils 0, Platelet Estimate DecreasedL, Platelet Morphology Normal, Hypochromasia 3+, Anisocytosis 1+, Spherocytes 2+, Sodium Level 143, Potassium Level 3.1L, Chloride Level 109H, Carbon Dioxide Level 27, Anion Gap 8, Blood Urea Nitrogen 14, Creatinine 0.7, Estimat Glomerular Filtration Rate , Glucose Level 88, Calcium Level 8.6 03/27/17 10:00: Arterial Blood pH 7.540H, Arterial Blood Partial Pressure CO2 26.6L, Arterial Blood Partial Pressure O2 169.4H, Arterial Blood HCO3 22.2, Arterial Blood Oxygen Saturation 99.0H, Arterial Blood Base Excess 0.4, Pablito Test Positive Height (Feet): 6 Height (Inches): 0.84 Weight (Pounds): 195 Cardiovascular: tachycardia Respiratory/Chest: decreased breath sounds Abdomen: soft Objective no other changes FOULADIAN,JACI Mar 27, 2017 13:46
[2017-03-27] MEDS ORDERED: NOVOLOG100 UNITS1 SUBQ (14:23)
[2017-03-27] MEDS ORDERED: CARDIZEM30 MG ORAL (14:23)
[2017-03-27] MEDS ORDERED: VANCOMYCIN1 GM/2502 IVPB (14:23)
[2017-03-27] MEDS ORDERED: ZOSYN 3.373.375 GM/1 IVPB (14:23)
[2017-03-27] MEDS ORDERED: Potassium Chloride 40 MEQ in Sodium Chloride 500ML 550 ML IVPB ONE (14:45)
[2017-03-27 16:00] VITALS: BP 158/84
--- NOTE | 2017-03-27 19:04 | Wound Care Consultation ---
Wound Assessment Wound Assessment #1: Wound Number: 1 Wound Present on Admission: Yes New Wound: Yes - resurfaced Status Change of Wound: No Wound Location Body Site: other - sacrococcygeal Wound Type: pressure ulcer Peggy Test: Does not Peggy Pressure Ulcer Stage: II - resurfaced appearing stage 2 as of now , pt does have full thickness scar tissue to site at risk for further skin breakdown Wound Thickness: Partial Thickness Wound Length: 1.0 Wound Width: 0.5 Wound Depth: 0.1 Percent of Wound [place]/Red: 100 Wound Drainage Description: Serosanguineous Wound Drainage Amount: Scant Wound Drainage Odor: None/Absent Tissue Surrounding Wound: Macerated Wound General Appearance: Reddened Wound Assessment #2: Wound Number: 2 Wound Present on Admission: Yes New Wound: Yes - resurfaced Wound Location Body Site Modif: left Wound Location Body Site: ischial tuberosity Wound Type: pressure ulcer - resurfaced appearing stage 2 as of now , pt does have full thickness scar tissue to site at risk for further skin breakdown Peggy Test: Does not Peggy Pressure Ulcer Stage: II - scattered Wound Thickness: Partial Thickness Wound Length: 2.0 Wound Width: 2.0 Wound Depth: 0.1 Percent of Wound [place]/Red: 100 Wound Drainage Description: Serosanguineous Wound Drainage Amount: Scant Wound Drainage Odor: None/Absent Tissue Surrounding Wound: Macerated Wound General Appearance: Reddened Wound Comment #1 Full thickness scar tissue on buttocks, upper and lower back. Skin still intact #2 Left upper back DTI pressure ulcer. Revealed as stage III pressure ulcer- resolving no further deterioration present current wound care is effective #3 Mid and right back area scattered stage II pressure ulcer. No further deterioration noted- no further deterioration noted scar tissue appearing, wound care is effective #4 Right thumb full thickness open wound. Etiology unknown. no further deterioration noted. same in size and in color, wound bed remains pink . #5 Resurfaced sacrococcygeal appearing stage 2 . #6 Resurfaced Left ischial tuberosity appearing stage 2. upon reassessment noted sacrococcygeal and left ischial tuberosity sites admitted with full thickness scar tissue to site,despite nursing intervention , preventative measures and repositioning noted sites to be resurfacing appearing partial thickness stage 2 as of now, at risk for further skin breakdown due to skin alteration with full thickness scar tissue present to site. Recommendation -Local wound care per protocol -Keep clean and dry -Optimize nutrition -Offload both heels -Heel protector on both heels -Low air loss mattress -Turn and reposition -Assess and f/u accordingly for any changes JIMMIE RODRIGUEZ Mar 27, 2017 19:04
[2017-03-27 20:00] VITALS: BP 165/86
[2017-03-27] MEDS: Miralax 17gm pkt GT SCH (21:01)
[2017-03-27] MEDS: Dyna-Hex 2% Top Sol 2oz TOPIC SCH (21:01)
[2017-03-27] MEDS: Vancomycin 750mg/NS 250ml IVPB SCH (21:51)
[2017-03-28] VITALS: BP 169/87
[2017-03-28] MEDS: dilTIAZem HCl 30mg tab ORAL SCH ×4 (00:20→18:10)
[2017-03-28] MEDS: NovoLOG Insulin Flexpen SUBQ SCH ×4 (00:23→18:00)
[2017-03-28 04:00] VITALS: BP 167/76
[2017-03-28] MEDS: Erythromycin Ethylsuccinate 200mg/5ml Susp GT SCH ×3 (05:12→21:01)
[2017-03-28] MEDS: Piperacillin/Tazobactam 4.5 GM in NS 110 ML IVPB SCH ×3 (05:14→22:00)
[2017-03-28 06:12] LABS: BASOPHILS % (AUTO) 0.5 % (0.0-2.0); EOSINOPHILS % (AUTO) 3.2 % (0.0-3.0); HEMATOCRIT 25.7 % (42.0-52.0); HEMOGLOBIN 8.5 G/DL (14.2-18.0); LYMPHOCYTES % (AUTO) 14.7 % (20.0-45.0); MEAN CORPUSCULAR VOLUME 89 FL (80-99); MONOCYTES % (AUTO) 7.3 % (1.0-10.0); NEUTROPHILS % (AUTO) 74.3 % (45.0-75.0); PLATELET COUNT 123 K/UL (150-450); RED BLOOD COUNT 2.88 M/UL (4.70-6.10); RED CELL DISTRIBUTION WIDTH 15.8 % (11.6-14.8); WHITE BLOOD COUNT 9.7 K/UL (4.8-10.8)
[2017-03-28 06:46] LABS: ALANINE AMINOTRANSFERASE 22 U/L (12-78); ALBUMIN/GLOBULIN RATIO 0.5 (1.0-2.7); ALKALINE PHOSPHATASE 130 U/L (46-116); ANION GAP 6 mmol/L (5-15); ASPARTATE AMINO TRANSFERASE 14 U/L (15-37); BILIRUBIN,TOTAL 0.4 MG/DL (0.2-1.0); BLOOD UREA NITROGEN 12 mg/dL (7-18); CALCIUM 8.6 MG/DL (8.5-10.1); CARBON DIOXIDE 26 MMOL/L (21-32); CHLORIDE 111 MMOL/L (98-107); CREATININE 0.7 MG/DL (0.55-1.30); PHOSPHORUS 2.4 MG/DL (2.5-4.9); POTASSIUM 4.1 MMOL/L (3.5-5.1); SODIUM 143 MMOL/L (136-145)
[2017-03-28 08:00] VITALS: BP 166/76
[2017-03-28] MEDS: Docusate 100mg/10ml Liq GT SCH ×3 (08:56→17:17)
--- NOTE | 2017-03-28 10:28 | Infectious Diseases Prog Note ---
Assessment/Plan Assessment/Plan Afebrile Sepsis, SP doubt UTI UCx : Samira Colonizer , Probable Pnum SCx : MRSA (S Vanco, bactrim, tetracycline) and Providencia (S Ceftriaxone, Zosyn) , repeat ScxL ACB and Provid, ESBL P. mirabilis Colonizer at this time 03/25 -CXR Mild interstitial edema may be present. Leukocytosis-SP possibly multifactorial 2ry to infection and reactive to emesis; mildly improved Wnd Cx: MRSA, ESBL P. mirabilis ( colonizer ) CT A/P ( no contrast ) : no abscess, Constipation Blood cx : Diphteroids contaminant repeat blood Cx : CoNS / ( m/l contaminant ) Ctr placed on 03/14 Recent MDR PsA VAP, s/p rx Scx: MDR- PSA ( S Amikacin) Recent CoNS bacteremia, contaminant ?UGIB History of upper GI bleed in the past History of CVA/TIA Dementia Hypertension COPD Diabetes Anemia Ventilator-dependent respiratory failure Plan: -Continue IV Vancomycin d# / for prob MRSA PNA and DC IV Zosyn d# 7 / 7 ( empirically ) -- 03/21 SP Cefepime d# 8 -- 03/17 SP Amikacin # 4 --03/09 SP INH Colistin #7 --03/08 SP IV Amikacin #7 --03/02 SP vancomycin and Zosyn # 7 - f/u repeat Cx ( Bl ) -Monitor CBC/BMP, temperatures Subjective Constitutional: Denies: no symptoms, fever, chills, fatigue, anorexia, drenching sweats, other Allergies: Coded Allergies: No Known Allergies (Verified , 08/19/07) Subjective afebrile Objective Vital Signs Last 24 Hour Vital Signs Date Time Temp Pulse Resp B/P (MAP) Pulse Ox O2 Delivery O2 Flow Rate FiO2 03/28/17 08:52 72 23 28 03/28/17 08:00 80 03/28/17 08:00 97.7 69 16 166/76 100 Mechanical Ventilator 28 03/28/17 08:00 28 03/28/17 06:56 69 23 28 03/28/17 05:13 67 167/76 03/28/17 05:04 81 03/28/17 05:00 73 24 28 03/28/17 04:00 98.3 67 16 167/76 100 Mechanical Ventilator 28 03/28/17 04:00 28 03/28/17 02:41 72 14 28 03/28/17 00:49 72 16 28 03/28/17 00:20 95 169/87 03/28/17 00:00 28 03/28/17 00:00 98.6 95 22 169/87 100 Mechanical Ventilator 28 03/27/17 23:27 85 03/27/17 23:14 75 14 28 03/27/17 20:56 89 19 28 03/27/17 20:00 98.3 97 24 165/86 100 Mechanical Ventilator 28 03/27/17 20:00 28 03/27/17 19:25 123 03/27/17 19:04 102 17 28 03/27/17 17:43 100 158/84 03/27/17 17:17 100 20 28 03/27/17 16:00 105 03/27/17 16:00 98.8 103 17 158/84 100 Mechanical Ventilator 28 03/27/17 16:00 28 03/27/17 14:46 108 25 28 03/27/17 13:04 100 23 28 03/27/17 12:24 108 148/92 03/27/17 12:00 98.7 108 26 148/92 100 Mechanical Ventilator 28 03/27/17 12:00 28 03/27/17 12:00 113 03/27/17 11:29 83 22 28 Height (Feet): 6 Height (Inches): 0.84 Weight (Pounds): 208 HEENT: anicteric Respiratory/Chest: no respiratory distress Cardiovascular: regular rhythm Abdomen: no organomegaly Laboratory Tests Test 03/28/17 04:15 White Blood Count 9.7 K/UL (4.8-10.8) Red Blood Count 2.88 M/UL (4.70-6.10) L Hemoglobin 8.5 G/DL (14.2-18.0) L Hematocrit 25.7 % (42.0-52.0) L Mean Corpuscular Volume 89 FL (80-99) Mean Corpuscular Hemoglobin 29.6 PG (27.0-31.0) Mean Corpuscular Hemoglobin Concent 33.1 G/DL (32.0-36.0) Red Cell Distribution Width 15.8 % (11.6-14.8) H Platelet Count 123 K/UL (150-450) L Mean Platelet Volume 7.7 FL (6.5-10.1) Neutrophils (%) (Auto) 74.3 % (45.0-75.0) Lymphocytes (%) (Auto) 14.7 % (20.0-45.0) L Monocytes (%) (Auto) 7.3 % (1.0-10.0) Eosinophils (%) (Auto) 3.2 % (0.0-3.0) H Basophils (%) (Auto) 0.5 % (0.0-2.0) Sodium Level 143 MMOL/L (136-145) Potassium Level 4.1 MMOL/L (3.5-5.1) Chloride Level 111 MMOL/L (98-107) H Carbon Dioxide Level 26 MMOL/L (21-32) Anion Gap 6 mmol/L (5-15) Blood Urea Nitrogen 12 mg/dL (7-18) Creatinine 0.7 MG/DL (0.55-1.30) Estimat Glomerular Filtration Rate mL/min (>60) Glucose Level 94 MG/DL (74-106) Uric Acid 1.5 MG/DL (2.6-7.2) L Calcium Level 8.6 MG/DL (8.5-10.1) Phosphorus Level 2.4 MG/DL (2.5-4.9) L Magnesium Level 1.7 MG/DL (1.8-2.4) L Total Bilirubin 0.4 MG/DL (0.2-1.0) Aspartate Amino Transf (AST/SGOT) 14 U/L (15-37) L Alanine Aminotransferase (ALT/SGPT) 22 U/L (12-78) Alkaline Phosphatase 130 U/L (46-116) H C-Reactive Protein, Quantitative 3.8 mg/dL (0.00-0.90) H Total Protein 6.3 G/DL (6.4-8.2) L Albumin 2.0 G/DL (3.4-5.0) L Globulin 4.3 g/dL Albumin/Globulin Ratio 0.5 (1.0-2.7) L Current Medications Medications (Trade) Dose Ordered Sig/Jaswant Route PRN Reason Start Time Stop Time Status Last Admin Dose Admin Acetaminophen (Tylenol) 650 mg Q4H PRN ORAL fever 03/14/17 05:15 3/8/18 05:14 03/15/17 10:06 Albuterol/ Ipratropium (Albuterol/ Ipratropium) 3 ml Q4H PRN HHN Shortness of Breath 03/24/17 08:30 03/29/17 08:29 Chlorhexidine Gluconate (Arelis-Hex 2%) 1 applic DAILY@2000 TOPIC 03/17/17 22:00 04/16/17 21:59 03/27/17 21:01 Clonidine HCl (Catapres Tab) 0.1 mg Q4H PRN GT For High Blood Pressure>160 03/14/17 05:15 04/13/17 05:14 Dextrose (Dextrose 50%) STAT PRN IV Hypoglycemia 03/14/17 05:15 04/13/17 05:14 03/18/17 21:44 Diltiazem HCl (Cardizem) 30 mg Q6HR ORAL 03/15/17 18:00 04/13/17 08:59 03/28/17 05:13 Docusate Sodium (Colace) 100 mg THREE TIMES A DAY GT 03/20/17 13:00 04/19/17 12:59 03/28/17 08:56 Erythromycin (Leander-Ped) 50 mg Q8HR GT 03/21/17 14:00 04/03/17 13:59 03/28/17 05:12 Famotidine (Pepcid) 20 mg BID GT 03/16/17 18:00 04/15/17 17:59 03/28/17 08:56 Insulin Aspart (NovoLOG) EVERY 6 HOURS SUBQ 03/14/17 12:00 04/13/17 06:29 03/28/17 00:23 Mineral Oil (Mineral Oil) 30 ml DAILYPRN PRN GT Constipation 2nd Line Agent 03/20/17 12:30 04/19/17 12:29 03/20/17 16:19 Nitroglycerin (Ntg) 0.4 mg Q5M X 3 DOSES PRN SL Prn Chest Pain 03/14/17 05:15 04/13/17 05:14 Ondansetron HCl (Zofran) 4 mg Q6H PRN IVP Nausea & Vomiting 03/14/17 05:15 04/13/17 05:14 Piperacillin Sod/ Tazobactam Sod 4.5 gm/Sodium Chloride 110 ml @ 27.5 mls/hr EVERY 8 HOURS IVPB 03/21/17 14:00 03/28/17 23:59 03/28/17 05:14 Polyethylene Glycol (Miralax) 17 gm BEDTIME GT 03/20/17 21:00 04/19/17 20:59 03/27/17 21:01 Polyethylene Glycol (Miralax) 17 gm HSPRN PRN ORAL Constipation 03/14/17 05:15 04/13/17 05:14 03/19/17 18:46 Vancomycin HCl (Vanco rx to dose) 1 ea DAILY PRN MISC Per rx protocol 03/17/17 14:00 04/16/17 13:59 Vancomycin/Sodium Chloride 250 ml @ 166.667 mls/hr Q24H IVPB 03/26/17 22:00 03/31/17 21:59 03/27/17 21:51 MARGARETTE BRYANT M.D. Mar 28, 2017 10:28
[2017-03-28 12:00] VITALS: BP 151/92
--- NOTE | 2017-03-28 12:17 | Pulmonology Progress Note ---
Assessment/Plan Assessment/Plan ASSESSMENT Upper GI bleeding with coffee ground emesis Acute on chronic respiratory failure VDRF/trach Severe sepsis possible bacteremia with SCON ( real vs contaminant) probable PNA acute renal failure-resolved Dysphagia G tube COPD DM hx of CVA e/lyte imbalance anemia of chronic disease dementia mid and right back decub ulcer st 2 POA PLAN OF CARE RADHA vent/trach care , pulm toilet ABG stable CXR 03/27-stable abx ID follows last bl cx + SCON, ? real vs contaminant , prior + Diphteroids -contaminant , new blood cx - prel negative sputum cx+ MRSA, Proteus , repeated Acinetobacter, Proteus, GNB , urine cx+ Samira-colonizer leukocytosis resolved CT A/P no SBO no abscess, + constipation bowel regimen GI follows EGD cancelled due to tachycardia no further coffee ground emesis PPI on TF with strict aspiration precautions, low dose Reglan, now tolerates TF nephro follows s/p IVF ARF ( multifactorial) resolved Monitor renal parameters, correct lytes as needed, avoid nephrotoxic Venous Duplex BLE negative DVT prophylaxis monitor counts , better after additional 1 u PRBC 03/27 anemia w/up c/w anemia of chronic disease,transfuse prn Hgb below 7.5 wound care as per wound nurse recs dc today case discussed and evaluated by supervising physician Subjective Allergies: Coded Allergies: No Known Allergies (Verified , 08/19/07) Subjective leukocytosis resolved no signs of resp distress s/p blood transfusion 03/27, HH better Objective Last 24 Hour Vital Signs Date Time Temp Pulse Resp B/P (MAP) Pulse Ox O2 Delivery O2 Flow Rate FiO2 03/28/17 10:38 54 23 28 03/28/17 08:52 72 23 28 03/28/17 08:00 80 03/28/17 08:00 97.7 69 16 166/76 100 Mechanical Ventilator 28 03/28/17 08:00 28 03/28/17 06:56 69 23 28 03/28/17 05:13 67 167/76 03/28/17 05:04 81 03/28/17 05:00 73 24 28 03/28/17 04:00 98.3 67 16 167/76 100 Mechanical Ventilator 28 03/28/17 04:00 28 03/28/17 02:41 72 14 28 03/28/17 00:49 72 16 28 03/28/17 00:20 95 169/87 03/28/17 00:00 28 03/28/17 00:00 98.6 95 22 169/87 100 Mechanical Ventilator 28 03/27/17 23:27 85 03/27/17 23:14 75 14 28 03/27/17 20:56 89 19 28 03/27/17 20:00 98.3 97 24 165/86 100 Mechanical Ventilator 28 03/27/17 20:00 28 03/27/17 19:25 123 03/27/17 19:04 102 17 28 03/27/17 17:43 100 158/84 03/27/17 17:17 100 20 28 03/27/17 16:00 105 03/27/17 16:00 98.8 103 17 158/84 100 Mechanical Ventilator 28 03/27/17 16:00 28 03/27/17 14:46 108 25 28 03/27/17 13:04 100 23 28 03/27/17 12:24 108 148/92 Intake and Output 03/27/17 03/28/17 19:00 07:00 Intake Total 1482.75 ml 1232.280 ml Output Total 1000 ml 400 ml Balance 482.75 ml 832.280 ml Intake Free Water 100 ml IV Total 567.75 ml 412.280 ml Tube Feeding 715 ml 660 ml Other 200 ml 60 ml Output Urine Total 1000 ml 400 ml # Bowel Movements 4 1 Objective General Appearance: no acute distress, other - bedridden, vent dependent chronically ill looking AA male Vent6 AC 600-12-35% HEENT: normocephalic, atraumatic, status post trach - Portex#8,secretions small , yellow, thin Respiratory/Chest: decreased breath sounds Cardiovascular: regular rate, irregualr rhythm , SR on tele with frequent PAC , RIL CL intact Abdomen: normal bowel sounds, soft, non tender, other - G tube Genitourinary: Zazueta Extremities: no edema Neurologic/Psychiatric: bedridden, contracted x 4 Musculoskeletal: atrophy - BLE Laboratory Tests 03/28/17 04:15: White Blood Count 9.7, Red Blood Count 2.88L, Hemoglobin 8.5L, Hematocrit 25.7L , Mean Corpuscular Volume 89, Mean Corpuscular Hemoglobin 29.6, Mean Corpuscular Hemoglobin Concent 33.1, Red Cell Distribution Width 15.8H, Platelet Count 123L, Mean Platelet Volume 7.7, Neutrophils (%) (Auto) 74.3, Lymphocytes (%) (Auto) 14.7L, Monocytes (%) (Auto) 7.3, Eosinophils (%) (Auto) 3.2H, Basophils (%) (Auto) 0.5, Sodium Level 143, Potassium Level 4.1, Chloride Level 111H, Carbon Dioxide Level 26, Anion Gap 6, Blood Urea Nitrogen 12, Creatinine 0.7, Estimat Glomerular Filtration Rate , Glucose Level 94, Uric Acid 1.5L, Calcium Level 8.6, Phosphorus Level 2.4L, Magnesium Level 1.7L, Total Bilirubin 0.4, Aspartate Amino Transf (AST/SGOT) 14L, Alanine Aminotransferase (ALT/SGPT) 22, Alkaline Phosphatase 130H, C-Reactive Protein, Quantitative 3.8H, Total Protein 6.3L, Albumin 2.0L, Globulin 4.3, Albumin/ Globulin Ratio 0.5L Current Medications Medications (Trade) Dose Ordered Sig/Jaswant Route PRN Reason Start Time Stop Time Status Last Admin Dose Admin Acetaminophen (Tylenol) 650 mg Q4H PRN ORAL fever 03/14/17 05:15 04/13/17 05:14 03/15/17 10:06 Albuterol/ Ipratropium (Albuterol/ Ipratropium) 3 ml Q4H PRN HHN Shortness of Breath 03/24/17 08:30 03/29/17 08:29 Chlorhexidine Gluconate (Arelis-Hex 2%) 1 applic DAILY@2000 TOPIC 03/17/17 22:00 04/16/17 21:59 03/27/17 21:01 Clonidine HCl (Catapres Tab) 0.1 mg Q4H PRN GT For High Blood Pressure>160 03/14/17 05:15 04/13/17 05:14 Dextrose (Dextrose 50%) STAT PRN IV Hypoglycemia 03/14/17 05:15 04/13/17 05:14 03/18/17 21:44 Diltiazem HCl (Cardizem) 30 mg Q6HR ORAL 03/15/17 18:00 04/13/17 08:59 03/28/17 05:13 Docusate Sodium (Colace) 100 mg THREE TIMES A DAY GT 03/20/17 13:00 04/19/17 12:59 03/28/17 08:56 Erythromycin (Leander-Ped) 50 mg Q8HR GT 03/21/17 14:00 04/03/17 13:59 03/28/17 05:12 Famotidine (Pepcid) 20 mg BID GT 03/16/17 18:00 04/15/17 17:59 03/28/17 08:56 Insulin Aspart (NovoLOG) EVERY 6 HOURS SUBQ 03/14/17 12:00 04/13/17 06:29 03/28/17 00:23 Mineral Oil (Mineral Oil) 30 ml DAILYPRN PRN GT Constipation 2nd Line Agent 03/20/17 12:30 04/19/17 12:29 03/20/17 16:19 Nitroglycerin (Ntg) 0.4 mg Q5M X 3 DOSES PRN SL Prn Chest Pain 03/14/17 05:15 04/13/17 05:14 Ondansetron HCl (Zofran) 4 mg Q6H PRN IVP Nausea & Vomiting 03/14/17 05:15 04/13/17 05:14 Piperacillin Sod/ Tazobactam Sod 4.5 gm/Sodium Chloride 110 ml @ 27.5 mls/hr EVERY 8 HOURS IVPB 03/21/17 14:00 03/28/17 23:59 03/28/17 05:14 Polyethylene Glycol (Miralax) 17 gm BEDTIME GT 03/20/17 21:00 04/19/17 20:59 03/27/17 21:01 Polyethylene Glycol (Miralax) 17 gm HSPRN PRN ORAL Constipation 03/14/17 05:15 04/13/17 05:14 03/19/17 18:46 Vancomycin HCl (Vanco rx to dose) 1 ea DAILY PRN MISC Per rx protocol 03/17/17 14:00 04/16/17 13:59 Vancomycin/Sodium Chloride 250 ml @ 166.667 mls/hr Q24H IVPB 03/26/17 22:00 03/31/17 21:59 03/27/17 21:51 Guillermina Brush NP (Vanchtein) Mar 28, 2017 12:17
--- NOTE | 2017-03-28 12:37 | GI Progress Note ---
Assessment/Plan Problems: (1) Feeding by G-tube ICD Codes: Z93.1 - Feeding by G-tube SNOMED: 138007420 (2) Upper gastrointestinal bleed ICD Codes: K92.2 - Gastrointestinal hemorrhage, unspecified SNOMED: 34390501 (3) Anemia ICD Codes: D64.9 - Anemia SNOMED: 065934914 (4) Coffee ground emesis ICD Codes: K92.0 - Hematemesis SNOMED: 78540496, 068649496 (5) DM (diabetes mellitus) ICD Codes: E11.9 - DM (diabetes mellitus) SNOMED: 22297617 Status: stable Status Narrative Discussed with Dr. Watson. Assessment/Plan okay for DC per GI standpoint CT scan abd/pelvis --> constipated --> Rx laxative cont low dose reglan GT >> reglan IV & erythromycin IV are both backordered. DM mgmt ppi BID bowel regime >> colace + miralax GTF tolerated fu labs ppi Subjective Subjective limited Objective Last 24 Hour Vital Signs Date Time Temp Pulse Resp B/P (MAP) Pulse Ox O2 Delivery O2 Flow Rate FiO2 03/28/17 10:38 54 23 28 03/28/17 08:52 72 23 28 03/28/17 08:00 80 03/28/17 08:00 97.7 69 16 166/76 100 Mechanical Ventilator 28 03/28/17 08:00 28 03/28/17 06:56 69 23 28 03/28/17 05:13 67 167/76 03/28/17 05:04 81 03/28/17 05:00 73 24 28 03/28/17 04:00 98.3 67 16 167/76 100 Mechanical Ventilator 28 03/28/17 04:00 28 03/28/17 02:41 72 14 28 03/28/17 00:49 72 16 28 03/28/17 00:20 95 169/87 03/28/17 00:00 28 03/28/17 00:00 98.6 95 22 169/87 100 Mechanical Ventilator 28 03/27/17 23:27 85 03/27/17 23:14 75 14 28 03/27/17 20:56 89 19 28 03/27/17 20:00 98.3 97 24 165/86 100 Mechanical Ventilator 28 03/27/17 20:00 28 03/27/17 19:25 123 2/19/18 19:04 102 17 28 03/27/17 17:43 100 158/84 03/27/17 17:17 100 20 28 03/27/17 16:00 105 03/27/17 16:00 98.8 103 17 158/84 100 Mechanical Ventilator 28 03/27/17 16:00 28 03/27/17 14:46 108 25 28 03/27/17 13:04 100 23 28 Intake and Output 03/27/17 03/28/17 19:00 07:00 Intake Total 1482.75 ml 1232.280 ml Output Total 1000 ml 400 ml Balance 482.75 ml 832.280 ml Intake Free Water 100 ml IV Total 567.75 ml 412.280 ml Tube Feeding 715 ml 660 ml Other 200 ml 60 ml Output Urine Total 1000 ml 400 ml # Bowel Movements 4 1 Laboratory Tests Test 03/28/17 04:15 White Blood Count 9.7 K/UL (4.8-10.8) Red Blood Count 2.88 M/UL (4.70-6.10) L Hemoglobin 8.5 G/DL (14.2-18.0) L Hematocrit 25.7 % (42.0-52.0) L Mean Corpuscular Volume 89 FL (80-99) Mean Corpuscular Hemoglobin 29.6 PG (27.0-31.0) Mean Corpuscular Hemoglobin Concent 33.1 G/DL (32.0-36.0) Red Cell Distribution Width 15.8 % (11.6-14.8) H Platelet Count 123 K/UL (150-450) L Mean Platelet Volume 7.7 FL (6.5-10.1) Neutrophils (%) (Auto) 74.3 % (45.0-75.0) Lymphocytes (%) (Auto) 14.7 % (20.0-45.0) L Monocytes (%) (Auto) 7.3 % (1.0-10.0) Eosinophils (%) (Auto) 3.2 % (0.0-3.0) H Basophils (%) (Auto) 0.5 % (0.0-2.0) Sodium Level 143 MMOL/L (136-145) Potassium Level 4.1 MMOL/L (3.5-5.1) Chloride Level 111 MMOL/L (98-107) H Carbon Dioxide Level 26 MMOL/L (21-32) Anion Gap 6 mmol/L (5-15) Blood Urea Nitrogen 12 mg/dL (7-18) Creatinine 0.7 MG/DL (0.55-1.30) Estimat Glomerular Filtration Rate mL/min (>60) Glucose Level 94 MG/DL (74-106) Uric Acid 1.5 MG/DL (2.6-7.2) L Calcium Level 8.6 MG/DL (8.5-10.1) Phosphorus Level 2.4 MG/DL (2.5-4.9) L Magnesium Level 1.7 MG/DL (1.8-2.4) L Total Bilirubin 0.4 MG/DL (0.2-1.0) Aspartate Amino Transf (AST/SGOT) 14 U/L (15-37) L Alanine Aminotransferase (ALT/SGPT) 22 U/L (12-78) Alkaline Phosphatase 130 U/L (46-116) H C-Reactive Protein, Quantitative 3.8 mg/dL (0.00-0.90) H Total Protein 6.3 G/DL (6.4-8.2) L Albumin 2.0 G/DL (3.4-5.0) L Globulin 4.3 g/dL Albumin/Globulin Ratio 0.5 (1.0-2.7) L Height (Feet): 6 Height (Inches): 0.84 Weight (Pounds): 208 General Appearance: no apparent distress Cardiovascular: normal rate Respiratory/Chest: other - mech vent Abdominal Exam: site - c/d/i Naz Lainez N.P. Mar 28, 2017 12:37
--- NOTE | 2017-03-28 13:39 | Nephrology Progress Note ---
Assessment/Plan Problem List: (1) Upper gastrointestinal bleed (2) Acute on chronic respiratory failure (3) Acute renal failure (ARF) Assessment Acute renal failure , multifactorial: RESOLVED Pre Renal / GI Bleed / Cr and BUN now WNL 1. Sepsis. 2. History of upper GI bleed in the past. 3. History of CVA. 4. History of TIA. 5. Dementia. 6. Hypertension. 7. COPD. 8. Diabetes. 10. Anemia. 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 Plan Plan: K and phos supplement as needed Zazueta- monitor renal parameters- urine studies per orders Subjective ROS Limited/Unobtainable: Yes Objective Objective Last 24 Hour Vital Signs Date Time Temp Pulse Resp B/P (MAP) Pulse Ox O2 Delivery O2 Flow Rate FiO2 03/28/17 13:26 92 166/76 03/28/17 12:35 92 20 28 03/28/17 12:02 114 03/28/17 10:38 54 23 28 03/28/17 08:52 72 23 28 03/28/17 08:00 80 03/28/17 08:00 97.7 69 16 166/76 100 Mechanical Ventilator 28 03/28/17 08:00 28 03/28/17 06:56 69 23 28 03/28/17 05:13 67 167/76 03/28/17 05:04 81 03/28/17 05:00 73 24 28 03/28/17 04:00 98.3 67 16 167/76 100 Mechanical Ventilator 28 03/28/17 04:00 28 03/28/17 02:41 72 14 28 03/28/17 00:49 72 16 28 03/28/17 00:20 95 169/87 03/28/17 00:00 28 03/28/17 00:00 98.6 95 22 169/87 100 Mechanical Ventilator 28 03/27/17 23:27 85 03/27/17 23:14 75 14 28 03/27/17 20:56 89 19 28 03/27/17 20:00 98.3 97 24 165/86 100 Mechanical Ventilator 28 03/27/17 20:00 28 03/27/17 19:25 123 03/27/17 19:04 102 17 28 03/27/17 17:43 100 158/84 03/27/17 17:17 100 20 28 2/19/18 16:00 105 03/27/17 16:00 98.8 103 17 158/84 100 Mechanical Ventilator 28 03/27/17 16:00 28 03/27/17 14:46 108 25 28 Intake and Output 03/27/17 03/28/17 19:00 07:00 Intake Total 1482.75 ml 1232.280 ml Output Total 1000 ml 400 ml Balance 482.75 ml 832.280 ml Intake Free Water 100 ml IV Total 567.75 ml 412.280 ml Tube Feeding 715 ml 660 ml Other 200 ml 60 ml Output Urine Total 1000 ml 400 ml # Bowel Movements 4 1 Laboratory Tests 03/28/17 04:15: White Blood Count 9.7, Red Blood Count 2.88L, Hemoglobin 8.5L, Hematocrit 25.7L , Mean Corpuscular Volume 89, Mean Corpuscular Hemoglobin 29.6, Mean Corpuscular Hemoglobin Concent 33.1, Red Cell Distribution Width 15.8H, Platelet Count 123L, Mean Platelet Volume 7.7, Neutrophils (%) (Auto) 74.3, Lymphocytes (%) (Auto) 14.7L, Monocytes (%) (Auto) 7.3, Eosinophils (%) (Auto) 3.2H, Basophils (%) (Auto) 0.5, Sodium Level 143, Potassium Level 4.1, Chloride Level 111H, Carbon Dioxide Level 26, Anion Gap 6, Blood Urea Nitrogen 12, Creatinine 0.7, Estimat Glomerular Filtration Rate , Glucose Level 94, Uric Acid 1.5L, Calcium Level 8.6, Phosphorus Level 2.4L, Magnesium Level 1.7L, Total Bilirubin 0.4, Aspartate Amino Transf (AST/SGOT) 14L, Alanine Aminotransferase (ALT/SGPT) 22, Alkaline Phosphatase 130H, C-Reactive Protein, Quantitative 3.8H, Total Protein 6.3L, Albumin 2.0L, Globulin 4.3, Albumin/ Globulin Ratio 0.5L Height (Feet): 6 Height (Inches): 0.84 Weight (Pounds): 208 General Appearance: no apparent distress Objective no other changes JACI VALLEJO Mar 28, 2017 13:39
[2017-03-28 16:00] VITALS: BP 157/97
[2017-03-28] MEDS ORDERED: Sodium Phosphate 15 MM in NS 275 ML IVPB ONE (16:00)
[2017-03-28] MEDS ORDERED: Tubing IV Blood Pump IV ONE (16:35)
[2017-03-28] MEDS ORDERED: NS 275ml ONE (16:35)
[2017-03-28 20:00] VITALS: BP 142/75
[2017-03-28] MEDS: Miralax 17gm pkt GT SCH (21:01)
[2017-03-28] MEDS: Dyna-Hex 2% Top Sol 2oz TOPIC SCH (21:01)
[2017-03-28] MEDS: Vancomycin 750mg/NS 250ml IVPB SCH (22:00)
[2017-03-28] MEDS ORDERED: Tubing IV Secondary IV ONE (22:29)
--- NOTE | 2017-03-30 13:43 | Discharge Summary ---
Discharge Summary Hospital Course Date of Admission Mar 14, 2017 at 01:12 Date of Discharge Mar 28, 2017 at 22:30 Admitting Diagnosis Upper GASTRO INTESTINAL Bleed CESAR Javed is a 81 year old male who was admitted on Mar 14, 2017 at 01:12 for Upper Gastro Intestinal Bleed Hospital Course [id number] Discharge Discharge Disposition Patient was discharged to SNF/Subacute Facility(03) Discharge Diagnoses: Jenny Freed NP Mar 30, 2017 13:43
--- NOTE | 2017-03-31 02:17 | Discharge Summary 2 SIG ---
DATE OF ADMISSION: 03/14/2017 DATE OF DISCHARGE: 03/28/2017 CONSULTANTS: 1. Leoncio Webb M.D. 2. Enrique Watson M.D. 3. Dick Novoa M.D. BRIEF HOSPITAL COURSE: The patient is an 81-year-old male with history of chronic trach, on vent, and PEG, who was sent in from longterm for "coffee-ground emesis." The patient unable to provide history and history was obtained through review of medical records. On evaluation at ED, hemoglobin was 14, hematocrit was 42, WBC was elevated to 27. Creatinine was 1.7, BUN 101. His sodium was 131, chloride was 95. Urine wbc was 15 to 20 with 2+ leukocyte esterase, 0 to 2 rbc' s, and many yeast. He had x-ray done that showed no consolidation, no effusion, no pneumothorax, no acute cardiopulmonary disease. EKG was in sinus tachycardia. He was admitted for sepsis, acute kidney injury, and UTI. He was started empirically on ceftriaxone and amikacin. He was followed by Infectious Disease specialist. He was given cefepime and amikacin. He was initially scheduled to undergo endoscopy, however, he was tachycardic and was septic. Procedure was canceled. He was resumed on tube feedings and was given bowel regimen consisting of Colace and MiraLAX. He was given proton-pump inhibitors twice a day. Hemoglobin levels were monitored. There was no evidence of urinary tract infection. Urine culture with growth of Samira which is probable colonizer. Sputum culture with Staphylococcus and Providencia. Blood culture was showing gram-positive rods, most likely contaminant. He was eventually started on vancomycin. Amikacin was discontinued. Repeat blood culture showed diphtheroids. He came in with multiple pressure ulcer on the mid and right back area and a DTI pressure ulcer on the left upper back. He had right thumb full-thickness open wound. He was given wound care. Left upper back deep tissue injury was revealing stage III pressure ulcer. There was no further deterioration noted and wound care was effective. He was continued on local wound care and frequent repositioning and offloading. He had a venous duplex of lower extremity that was negative for DVT. He continued to be septic. Abdominal and pelvic CT was negative for small-bowel obstruction with findings of stool throughout the colon with moderate stool expanding the rectum. He was given bowel regimen. He had episodes of retaining tube feedings. He was given low-dose Reglan. There was drop in hemoglobin to 7.6 and on March 27, 2017, he received 1 unit packed RBC blood transfusion. His renal function eventually improved. Repeat blood culture done did not isolate any growth. Wound culture showed Proteus ESBL and MRSA. He received 7 days of IV Zosyn. Zosyn was then discontinued. The patient was then cleared for discharge to continue four more days of IV vancomycin. FINAL DIAGNOSES: 1. Upper gastrointestinal bleed with coffee-ground emesis. 2. Acute on chronic respiratory failure. 3. Ventilator-dependent respiratory failure, on trach. 4. Severe sepsis. 5. Acute renal failure, multifactorial. 6. Dysphagia, on G-tube. 7. COPD. 8. Diabetes mellitus. 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 10. Hypokalemia. 11. Anemia of chronic disease. 12. Acute anemia, requiring blood transfusion. 13. Dementia. 14. Pressure ulcers, present on admission. Refer to wound documentation. DISPOSITION: The patient was discharged to [facility]. DISCHARGE MEDICATIONS: Refer to med list. Soraida Raymond M.D. I have been assigned to dictate discharge summary on this account and I was not involved in the patient's management. Jenny Freed N.P. DR: Awais JOB#: [id number] CC: PJ
== END 2017-03-28 22:30 | DRG 870 ==
LOC: EDBD 23:46 → EMR 23:59 → 2W 03-14 01:12 → EDBEDREQ 03-14 03:50 → 2W 03-14 04:40
PROC: 06HM33Z Insertion of Infusion Device into Right Femoral Vein, Percutaneous Approach (ICD-10-PCS; principal; 2017-03-14)
PROC: 5A1955Z Respiratory Ventilation, Greater than 96 Consecutive Hours (ICD-10-PCS; principal; 2017-03-14)
PROC: B543ZZA Ultrasonography of Right Jugular Veins, Guidance (ICD-10-PCS; 2017-03-17)
PROC: 05HM33Z Insertion of Infusion Device into Right Internal Jugular Vein, Percutaneous Approach (ICD-10-PCS; 2017-03-17)
DX: A41.9 Sepsis, unspecified organism (principal); J96.20 Acute and chronic respiratory failure, unspecified whether with hypoxia or hypercapnia; N17.0 Acute kidney failure with tubular necrosis; Z99.11 Dependence on respirator [ventilator] status; J15.212 Pneumonia due to Methicillin resistant Staphylococcus aureus; K92.0 Hematemesis; Z93.0 Tracheostomy status; J44.0 Chronic obstructive pulmonary disease with (acute) lower respiratory infection; F03.90 Unspecified dementia, unspecified severity, without behavioral disturbance, psychotic disturbance, mood disturbance, and anxiety; L89.123 Pressure ulcer of left upper back, stage 3; Z93.1 Gastrostomy status; R65.20 Severe sepsis without septic shock; E11.9 Type 2 diabetes mellitus without complications; I10 Essential (primary) hypertension; D64.9 Anemia, unspecified; G40.909 Epilepsy, unspecified, not intractable, without status epilepticus; Z86.73 Personal history of transient ischemic attack (TIA), and cerebral infarction without residual deficits; K59.00 Constipation, unspecified; R00.0 Tachycardia, unspecified
CPT/HCPCS: 36415; 36569; 36600; 71045; 74176; 80048; 80053; 80150; 80202; 81003; 82607; 82728; 82746; 82803; 82962; 82977; 83540; 83550; 83690; 83735; 83880; 84100; 84443; 84550; 85007; 85025; 85610; 85651; 85730; 86140; 86850; 86900; 86901; 86920; 87040; 87070; 87081; 87086; 87181; 87205; 93005; 93970; 94002; 94003; 94640; 94664; 99285; J1815; J2405; J7620; J8499